=== PATIENT | female | born 1995 | race Caucasian/White ===

== ENCOUNTER → 2020-11-03 10:56 | Outpatient (CLI) | payer OTHER, SELFPAY ==
[2020-11-03 12:35] LABS: Appearance Urine UA SL CLOUDY; Bilirubin Urine UA NEGATIVE (NEGATIVE); Color Urine UA YELLOW; Glucose Urine UA TRACE g/dL (Negative); Ketones Urine UA NEGATIVE (NEGATIVE); Leukocyte Esterase Urine UA 1+ (NEGATIVE); Nitrite Urine UA NEGATIVE (Negative); Occult Blood Urine UA NEGATIVE (Negative); Protein Urine UA NEGATIVE (Negative); Urobilinogen Urine UA 0.2 E.U./dL (0.2)
[2020-11-03 12:37] LABS: RBC Urine None Seen (0-5/HPF)
[2020-11-03 12:39] LABS: Bacteria Urine Few (2-10); Squamous Epithelial Cell Urine 5-10 /HPF (0-5/HPF); WBC Urine 5-10/HPF (0-5/HPF)
[2020-11-03 12:58] LABS: Hep C Virus Ab w/Reflex Quant NEGATIVE s/c (NEGATIVE)
[2020-11-04 09:31] LABS: Varicella IgG Antibody 263 index (Immune >165)
== END ==
PROVIDERS: Referring Provider Family Medicine; Visit Provider Family Medicine
DX: Z34.83 Encounter for supervision of other normal pregnancy, third trimester (principal)
CPT/HCPCS: 36415; 81003; 81015; 86787; 86803; 87086

== ENCOUNTER → 2020-11-08 15:35 | Outpatient (ROUT) | payer OTHER, SELFPAY ==
[2020-11-08 19:39] LABS: Urine N gonorrhoeae NOT DETECTED
[2020-11-08 19:41] LABS: Urine Chlamydia NOT DETECTED
== END ==
PROVIDERS: PCP Family Medicine; Visit Provider Family Medicine
DX: Z34.83 Encounter for supervision of other normal pregnancy, third trimester (principal)
CPT/HCPCS: 87491; 87591

== ENCOUNTER → 2020-11-08 15:41 | Outpatient (CLI) | payer OTHER, SELFPAY ==
[2020-11-09 11:45] LABS: Strep Grp B PCR NEG for Grp B Strep
== END ==
PROVIDERS: PCP Family Medicine; Referring Provider Family Medicine; Visit Provider Family Medicine
DX: Z34.83 Encounter for supervision of other normal pregnancy, third trimester (principal); Z3A.35 35 weeks gestation of pregnancy
CPT/HCPCS: 87491; 87591; 87653

== ENCOUNTER 2020-12-16 16:02 | Outpatient (CLI) | payer OTHER, SELFPAY ==
--- NOTE | 2020-12-16 17:46 | PM.OBTRLD ---
Visit Information Visit Information Date of evaluation: 12/16/20 Primary OB Provider: Alyssa Philip Reason for Evaluation: Yes non-stress test Comments/Additional reasons for admission: 25yo at 41w0d here for post-dates NST. She is feeling her baby move regularly. No LOF, vaginal bleeding, or contractions. [facility] Medical History (Updated 12/16/20 @ 17:47 by Alyssa Philip MD) Asthma Back pain (~2010) Gastritis (~2010) GERD (gastroesophageal reflux disease) (~2010) Ovarian cyst (~2016) Ruptured cyst of left ovary Surgical History (Updated 10/20/20 @ 16:22 by Karen Shore RN) [place] teeth extracted (~2015) Family History (Updated 11/10/20 @ 21:41 by Alyssa Hamilton) Mother Cervical cancer Smoker Father Diabetes mellitus Herniated disc Spondylosis Grandmother Unknown family medical history Diabetes mellitus Smoker Cancer Hyperlipidemia Hypertension Grandfather History of heart disease Grandmother Breast cancer Grandfather Diabetes mellitus Cancer History of heart disease Hypertension Sister Faye syndrome Brother Arthritis of spine Social History marital status: number of children: 1 household members: spouse and children lives independently: Yes caregiver/support person: No housing: house pets and animals: Yes (1 dog: safe) education level: high school 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 ) substance use type: does not use during the past year weight has: remained stable well-balanced diet: daily or most days caffeine: Yes (1 cup coffee daily or every other day. ) Type(s) of exercise: walking and normal ROM and activity (busy with toddler) frequency: daily duration: 15-30 minutes/day Evaluation Evaluation Baseline heart rate: 120 Variability: Moderate (11-25) monitor accelerations: Present Monitor Decelerations: Variable (x1) Category of Tracing: Reactive Diagnosis, Plan/Disposition Final Diagnosis (1) Post-dates : Status: Acute Plan/Disposition Plan: 25yo at 41w0d here for post-dates NST. Single variable decel - prolonged monitoring afterwards normal. MARTHA with bedside ultrasound .39. Safe for d/c home. IOL planned for 12/19 into 12/20. OB Disposition: home
== END 2020-12-16 17:49 | disposition home or self-care (01) ==
LOC: OB 12-20 14:36
PROVIDERS: PCP Family Medicine; Referring Provider Family Medicine; Visit Provider Family Medicine
DX: O48.0 Post-term pregnancy (principal); Z3A.41 41 weeks gestation of pregnancy
CPT/HCPCS: 59025; G0378; G0379

== ENCOUNTER 2020-12-19 18:45 | Inpatient (IN) | payer OTHER, SELFPAY ==
[2020-12-19 20:18] LABS: Add Manual Diff / Slide Review NO; Basophils Absolute Auto 0 /uL (0-100); Basophils Percent Auto 0.1 % (0-2); Eosinophils Absolute Auto 100 /uL (0-450); Eosinophils Percent Auto 0.5 % (2-4); Hematocrit 30.9 % (36-46); Hemoglobin 9.8 g/dL (12.0-16.0); Lymphocytes Absolute Auto 2000 /uL (1100-4500); Lymphocytes Percent Auto 17.2 % (25-40); Mean Corpuscular HGB Conc 31.6 % (30-36); Mean Corpuscular Hemoglobin 25.2 PG (26-34); Mean Corpuscular Volume 79.7 fL (80-100); Monocytes Absolute Auto 800 /uL (0-900); Neutrophils Absolute Auto 8600 /uL (1500-7000); Neutrophils Percent Auto 75.2 % (50-75); Platelet Count 301 X10^3/uL (150-400); Red Blood Cell Count 3.88 X10^6/uL (4.0-5.2); Red Cell Distribution Width 15.6 % (11.6-14.8); White Blood Cell Count 11.4 X10^3/uL (4.5-11.0)
[2020-12-19] MEDS: miSOPROStoL 25 MCG TABLET VAG (21:07)
[2020-12-19 21:25] LABS: COVID19 - ADMIT (NP swab/PCR) Negative (Negative)
[2020-12-19] MEDS: ACETAMINOPHEN 325 MG TABLET 975 MG PO (21:32)
[2020-12-19] MEDS: ZOLPIDEM 5 MG TABLET PO (21:33)
[2020-12-19 21:36] VITALS: BP 118/60
[2020-12-20] MEDS: miSOPROStoL 25 MCG TABLET 50 MCG PO (03:32)
[2020-12-20] MEDS: LACTATED RINGERS 1,000 ML 100 ML IV (06:43)
[2020-12-20] MEDS: fentaNYL 100 MCG/2 ML INJ 50 MCG IV (06:43)
[2020-12-20] MEDS: FENT 2MCG/ML BUPIV 0.125% EPI 200 MCG/100 ML PLAST..BAG 10 MCG EPIDURAL (07:00)
--- NOTE | 2020-12-20 08:22 | PM.OBHP.1 ---
OB HPI Date/Time Date of admission: 12/19/20 Date Patient Seen: 12/20/20 Time Patient Seen: 07:30 History of Present Condition Chief complaint: L&D : 2 Para: 1 Estimated Date of Delivery: 12/09/20 Estimated Gestational Age (weeks): 41w4d Narrative: Emilia Wasserman is a 25 year old at 41w4d here for post-dates IOL. She denies any vaginal bleeding, LOF, or contractions prior to presentation. She is feeling her baby move regularly. She reports that overnight after receiving the cytotec she started having regular painful contractions around 4am. The pt has not had any complications with her . Indications Indication for induction OB: post dates History of Present care: limited care, initiated at week # (19) and pounds weight gain (53) Dating criteria: LMP confirmed by 2nd trimester US Ultrasounds: normal 1st trimester US and normal mid trimester US Obstetrical complications: none Medical complications: none Preadmission Labs Blood type: A (+) positive -: Antibody screen: negative, GBS status: negative, HBsAG: negative, HIV: negative and RPR/VDLR: negative -: Rubella: immune and Varicella: immune HCT: 33.6 HCAB: negative PAP: Normal Cell-free DNA: Normal 1 hr GTT: 88 Prior (ies) History: 06/26/18 - vacuum-assisted after post-dates IOL at 42wks, 9lb1oz male Evaluation Evaluation Baseline heart rate: 130 Variability: Moderate (11-25) monitor accelerations: Present Monitor Decelerations: Variable Contraction Frequency (minutes): 3 Uterine Contraction Intensity: Strong/Firm Status: Category ll Cervical dilation (cm): 10 Cervical effacement (%): 100 station: +1 [facility] Medical History (Updated 12/16/20 @ 17:47 by Alyssa Philip MD) Asthma Back pain (~2010) Gastritis (~2010) GERD (gastroesophageal reflux disease) (~2010) Ovarian cyst (~2016) Ruptured cyst of left ovary Surgical History (Updated 10/20/20 @ 16:22 by Karen Shore RN) [place] teeth extracted (~2015) Family History (Updated 11/10/20 @ 21:41 by Alysas Hamilton) Mother Cervical cancer Smoker Father Diabetes mellitus Herniated disc Spondylosis Grandmother Unknown family medical history Diabetes mellitus Smoker Cancer Hyperlipidemia Hypertension Grandfather History of heart disease Grandmother Breast cancer Grandfather Diabetes mellitus Cancer History of heart disease Hypertension Sister Faye syndrome Brother Arthritis of spine Social History marital status: number of children: 1 household members: spouse and children lives independently: Yes caregiver/support person: No housing: house pets and animals: Yes (1 dog: safe) education level: high school 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 ) substance use type: does not use during the past year weight has: remained stable well-balanced diet: daily or most days caffeine: Yes (1 cup coffee daily or every other day. ) Type(s) of exercise: walking and normal ROM and activity (busy with toddler) frequency: daily duration: 15-30 minutes/day Meds Home Medications and Allergies Home Medications Medication Instructions Recorded Confirmed Type prenat.vits,naseem,mmh-dksn-jlvce 1 tab PO DAILY 10/20/20 12/20/20 History Allergies Allergy/AdvReac Type Severity Reaction Status Date / Time amoxicillin Allergy Intermediate Rash/Hives Verified 10/20/20 16:13 coconut Allergy Hives Verified 10/20/20 16:13 Exam Const General: cooperative, healthy appearing and comfortable Orientation: alert, awake and oriented x3 Resp Effort & Inspection: normal respiratory effort Auscultation: clear to auscultation bilaterally Cardio Rate: regular rate Rhythm: regular rhythm Heart Sounds: S1 normal, S2 normal and no murmurs GI Inspection: non-distended Palpation: soft and No tender Other: gravid Presentation: vertex Extrem General: no clubbing, cyanosis or edema Objective Labs Result Diagrams: 12/19/20 20:00 Labs: Laboratory Results - last 24 hr 12/19/20 12/19/20 12/19/20 20:00 20:00 20:15 WBC 11.4 H RBC 3.88 L Hgb 9.8 L Hct 30.9 L MCV 79.7 L MCH 25.2 L MCHC 31.6 RDW 15.6 H Plt Count 301 Neut % (Auto) 75.2 H Lymph % (Auto) 17.2 L [place] % (Auto) 7.0 Eos % (Auto) 0.5 L Baso % (Auto) 0.1 Neut # (Auto) 8600 H Lymph # (Auto) 2000 [place] # (Auto) 800 Eos # (Auto) 100 Baso # (Auto) 0 SARS-CoV-2 (PCR) Negative Blood Type A Positive Antibody Screen Negative Assessment and Plan Assessment and Plan Assessment and Plan narrative: 25yo at 41w4d here for post-dates IOL. Transitioned to active labor after cytotec. No complications with . GBS negative, Rh positive. - Expectant management, anticipate - FHT Category II with recurrent variables. Oxygen in place. Position changes as needed. Will start pushing now to expedite delivery. - GBS negative, no prophylaxis indicated - Epidural in place for pain control
--- NOTE | 2020-12-20 08:25 | PM.AN.REGBLK ---
Regional Block Pre-procedure Procedure: Continuous Lumbar Epidural for L&D Attending OB provider: Alyssa Philip PMH/ROS narrative: term labor, no complications ASA Class: II Labs: Hct 30.9 % (36-46) L 12/19/20 20:00 Plt Count 301 X10^3/uL (150-400) 12/19/20 20:00 Medications: Current Medications Generic Name Dose Route Start Last Admin Trade Name Freq PRN Reason Stop Dose Admin Acetaminophen 975 mg 12/19/20 21:22 12/19/20 21:32 Acetaminophen 325 Mg Tablet PO 975 mg Q8H PRN Administration Pain, Mild (1-3) Calcium Carbonate 1,000 mg 12/19/20 18:57 Calcium Carbonate 500 Mg Tab PO Q2HR PRN Dyspepsia Carboprost Tromethamine 250 mcg 12/19/20 18:57 Carboprost 250 Mcg/Ml Ampul IM Q90M PRN Bleeding Fentanyl 50 mcg 12/19/20 18:57 12/20/20 06:43 Fentanyl 100 Mcg/2 Ml Inj IV 50 mcg Q1H PRN Administration Pain, Moderate (4-6) Oxytocin/Lactated Ringer's 30 unit in 500 mls @ 200 mls/hr 12/19/20 18:57 Oxytocin Premix IV CONT PRN Bleeding Protocol Tranexamic Acid 1,000 mg/ 100 mls @ 200 mls/hr 12/19/20 18:57 Sodium Chloride IV NOW PRN Bleeding Lactated Ringer's 1,000 mls @ 100 mls/hr 12/19/20 19:00 12/20/20 06:43 Lactated Ringers IV 100 mls/hr CONT LALITA Administration Oxytocin/Lactated Ringer's 30 unit in 500 mls @ 3 mls/hr 12/19/20 19:00 Oxytocin Premix IV TITRATE LALITA Protocol 3 MILLIUNIT/MIN Methylergonovine Maleate 0.2 mg 12/19/20 18:57 Methylergonovine 0.2 Mg Tablet PO Q6HR PRN Heavy Bleeding Methylergonovine Maleate 0.2 mg 12/19/20 18:57 Methylergonovine 0.2 Mg/Ml Vial IM NOW PRN Bleeding Misoprostol 800 mcg 12/19/20 18:57 Misoprostol 200 Mcg Tablet WV NOW PRN Bleeding Misoprostol 1,000 mcg 12/19/20 18:57 Misoprostol 200 Mcg Tablet WV NOW PRN Bleeding Misoprostol 400 mcg 12/19/20 18:57 Misoprostol 200 Mcg Tablet SL NOW PRN Bleeding Misoprostol 50 mcg 12/20/20 03:19 12/20/20 03:32 Misoprostol 25 Mcg Tablet PO 50 mcg Q4H LALITA Administration Naloxone HCl 0.2 mg 12/19/20 18:57 Naloxone 0.4 Mg/Ml Vial IV Q2MIN PRN Opiate Reversal Ondansetron HCl 4 mg 12/19/20 18:57 Ondansetron 4 Mg/2 Ml Inj IV Q4HR PRN Nausea And Vomiting Oxytocin 10 unit 12/19/20 18:57 Oxytocin 10 Unit/Ml Vial IM NOW PRN Bleeding Zolpidem Tartrate 5 mg 12/19/20 21:20 12/19/20 21:33 Zolpidem 5 Mg Tablet PO 5 mg BEDTIME PRN Administration Sleep Allergies: Allergies Allergy/AdvReac Type Severity Reaction Status Date / Time amoxicillin Allergy Intermediate Rash/Hives Verified 10/20/20 16:13 coconut Allergy Hives Verified 10/20/20 16:13 Procedure Insertion date: 12/20/20 Insertion time: 07:00 Prep/Local: betadine x3 and 1% lidocaine Interspace: L3-4 Patient position: sitting Needle: 18 gauge Hustead (CSE: 27g Pencan through Hustead, clear CSF, 1mL 0.25% bupiv) Loss of resistance with: saline JOSH at (cm): 6 Catheter placed at SKIN (cm): 12 Catheter in SPACE (cm): 6 Insertion: No CSF, No Blood, No Paresthesia with insertion, No Paresthesia with injection and No Test dose reaction Initial Medications TEST DOSE time: 07:09 TEST DOSE: 1.5% lidocaine with epinephrine 1:200k (mL): 3 BOLUS DOSE time: 07:20 BOLUS DOSE (mL): 3 BOLUS DOSE med: other (infusate) Infusion INFUSION: 0.125% bupivacaine and with fentanyl 2 mcg/mL Initial rate (mL/hr): 8 Subsequent interventions: Post-procedure Anesthesia time START: 07:00 Anesthesia time END: 08:06 Post-procedure Anesthesia Assessment: Yes CV function: HR/BP stable, Yes Resp function: RR/sat/airway adequate, Yes Mental status appropriate and No Anesthesia complications
[2020-12-20] MEDS: ACETAMINOPHEN 325 MG TABLET 650 MG PO ×2 (12:01→20:31)
--- NOTE | 2020-12-20 13:28 | PM.OBPRVD ---
Labor & Delivery Delivery date: 12/20/20 Intrapartal Events: None Cervical ripening method: per misoprostal protocol Induction method: none Delivery augmentation: rupture of membranes Delivery monitor: external FHT Route of delivery: Episiotomy description: None L&D Laceration Description: None Estimated blood loss (mL): 400 Anesthesia Type: Epidural Complications: None Narrative: PROCEDURE: at 41w4d presented for post-dates and was admitted to Labor and Delivery. The pt received cytotec for induction. The patient progressed through the 1st stage over 1 hours. Pain was controlled with an epidural. AROM was performed with production of thick meconium-stained fluid. The patient progressed through the 2nd stage over 30 minutes and delivered a viable female with APGARs 8/9 at 7:56 via without complications. Nuchal cord x 1 was reduced at the perineum. The cord was cut and clamped after it stopped pulsating. The perineum and vagina were inspected with no lacerations. PREPROCEDURE DIAGNOSIS: Intrauterine at 41w4d GBS negative RH positive POSTPROCEDURE DIAGNOSIS: Intrauterine at 41w4d, delivered Same as preprocedure Baby 1: Infant gender: Female Presentation: vertex Position: Left Occiput Anterior Placenta delivery description: Spontaneous Cord Vessel Description: 3 Vessels and Nuchal Cord score (1 min): 8 score (5 min): 9 weight: 8 lb 12.249 oz Plan for aftercare: Routine care
[2020-12-20] MEDS: OXYCODONE IR 5 MG TABLET PO ×2 (15:33→20:31)
[2020-12-21] MEDS: ACETAMINOPHEN 325 MG TABLET 650 MG PO ×2 (04:13→09:46)
[2020-12-21] MEDS: OXYCODONE IR 5 MG TABLET PO (04:13)
--- NOTE | 2020-12-21 08:04 | PM.OBDS.1 ---
Discharge Providers Provider Date of admission: 12/19/20 18:45 Discharge Date: 12/21/20 Primary care physician: Alyssa Philip MD Consults: 12/21/20 08:37 Consult to Ramp Attendant Routine Comment: Discharge provider: Alyssa Philip MD Summary Hospital Course Date Patient Seen: 12/21/20 Time Patient Seen: 07:50 Diagnoses: 41w4d gestation GBS negative Rh positive Hospital Course: The patient presented for postdates induction of labor. She received Cytotec for induction and transitioned into active labor. She had an epidural for pain control. When the patient was completely dilated AROM was performed both production meconium-stained fluid. The patient has spontaneous vaginal delivery of a viable baby girl on 12/20/2020 without any complications. There were no lacerations. , there were no complications. At the time of discharge was voiding, ambulating, passing flatus without difficulty. Her lochia was decreasing appropriately. Pain was adequately controlled. She was breast-feeding with good latch. She will follow up in clinic in 6 weeks for her check. Her will be the plane soon and she does not plan on contraception at this time. Peripartum Data Infant Delivery Method: Natural Vaginal Laceration Description: None Episiotomy description: None Procedures: Spontaneous vaginal delivery complications: none [place] 1: Gender: Female Disposition of : home Discharge Diagnosis (1) Spontaneous vaginal delivery: Status: Acute (2) Post-dates : Status: Acute Status at Discharge Cognitive/behavioral status at discharge: oriented Functional status at discharge: independent ambulation Overall status at discharge: patient is progressing back to baseline Time Spent with Patient Time attestation: Total time spent providing and/or coordinating discharge services: Objective Labs Result Diagrams: 12/19/20 20:00 Exam Narrative Exam Narrative: Gen: NAD, sitting comfortably in bed, appears well CV: RRR, no murmurs Resp: clear to auscultation bilaterally Abd: soft, appropriately tender, fundus firm and below the umbilicus, nondistended Ext: no edema Discharge Plan Discharge Plan Patient Disposition: Home Discharge orders & Medications Prescriptions: New acetaminophen 325 mg Tablet 650 mg PO Q6HR PRN (Reason: Pain, Mild (1-3)) Qty: 30 RF: 0 oxycodone 5 mg Tablet 5 mg PO Q4HR PRN (Reason: Pain, Moderate (4-6)) Qty: 10 RF: 0 ferrous sulfate [Iron (ferrous sulfate)] 325 mg (65 mg iron) tablet 325 mg PO DAILY Qty: 30 RF: 0 Continued prenat.vits,naseme,[id number] Tablet 1 tab PO DAILY RF: 0 Follow up/Referrals: Alyssa Philip MD [Primary Care Provider] - 6 Weeks Diet/Activity/Treatments Diet: Diet as Tolerated and Regular Skin/Wound/Dressing Care Report to your healthcare provider any signs of infection, such as:: chills, fever, increased pain and unusual drainage Visit Report/Discharge Packet Instructions: DI for Labor and Delivery, Vaginal Visit Report Forms: Patient Portal/API, Stroke Signs & Symptoms Discharge Data Primary Care Provider: Alyssa Philip
[2020-12-21 09:02] VITALS: BP 100/68; PULSE 69; RESP 20; TEMP 36.3
[2020-12-21] MEDS: DOCUSATE 100 MG CAPSULE PO (09:47)
[2020-12-21] MEDS: TET,DIPH,PERTUSS(ACELL),VAC/PF 0.5 ML SYRINGE IM (09:47)
[2020-12-21] MEDS: PRENATAL VIT,CALC/IRON/FOLIC 1 TABLET 1 TAB PO (09:47)
--- NOTE | 2020-12-21 10:39 | PC.NURSE ---
Discharged per ambulation in stable condition. Verbalized understanding of home care instructions.
== END 2020-12-21 10:40 | disposition home or self-care (01) | DRG 807 ==
PROVIDERS: Admitting Provider Family Medicine; PCP Family Medicine; Referring Provider Family Medicine; Visit Provider Family Medicine
DX: O48.0 Post-term pregnancy (principal); Z37.0 Single live birth; Z3A.41 41 weeks gestation of pregnancy; O77.0 Labor and delivery complicated by meconium in amniotic fluid; O69.81X0 Labor and delivery complicated by cord around neck, without compression, not applicable or unspecified; Z20.822 Contact with and (suspected) exposure to COVID-19
CPT/HCPCS: 01967; 36415; 59050; 59200; 59410; 85025; 86850; 86900; 86901; 87635; C9803; 90715; G0379; J3010

== ENCOUNTER → 2021-01-16 12:12 | Outpatient (CLI) | payer OTHER, SELFPAY | PROVIDERS: PCP Family Medicine; Referring Provider Physician Assistant; Visit Provider Physician Assistant | DX: R30.9 Painful micturition, unspecified (principal) | CPT/HCPCS: 87086 ==

== ENCOUNTER → 2021-02-20 11:35 | Outpatient (CLI) | payer OTHER, SELFPAY ==
--- NOTE | 2021-02-20 11:36 | DI.RAD.S_ITS ---
PROCEDURE: XR THORACIC SPINE 2V INDICATIONS: back pain TECHNIQUE: 3 views of the thoracic spine were acquired. COMPARISON: None. FINDINGS: Bones: No fractures or dislocations. No suspicious bony lesions. 12 pairs of ribs are noted, and appear intact where visualized. Soft tissues: No paravertebral stripe thickening. IMPRESSION: Normal T-spine. Dictated by: Mikal Nagel RRA Interpreted: Campos Vieira MD on 02/20/2021 at 13:20 Transcribed by: LINDSEY on 02/20/2021 at 13:20 Approved by: Campos Vieira M.D. on 02/20/2021 at 13:29
== END ==
PROVIDERS: PCP Family Medicine; Referring Provider Family Medicine; Visit Provider Family Medicine
DX: M54.9 Dorsalgia, unspecified (principal)
CPT/HCPCS: 72070

== ENCOUNTER → 2021-03-30 19:07 | Outpatient (CLI) | payer OTHER, SELFPAY ==
--- NOTE | 2021-03-30 19:10 | DI.MRI.S_ITS ---
PROCEDURE: MR THORACIC SPINE WO CON INDICATIONS: mid back pain after epidural TECHNIQUE: Noncontrast sagittal T1 spine echo and T2 fast spin echo, sagittal STIR, axial T1 and T2 fast spin echo through the thoracic spine. COMPARISON: [facility], CR, XR THORACIC SPINE 2V, 02/20/2021, 11:37. FINDINGS: Image quality: Excellent. Alignment and Curvature: There is normal bony alignment. Bone Marrow: Marrow is of normal overall signal. No acute vertebral body compression fractures. Spinal Cord: Visualized spinal cord is normal in size and signal. Paraspinous Soft Tissues: No paravertebral masses. Miscellaneous: On axial images, central canal and foramina appear widely patent at all scanned levels. IMPRESSION: Unremarkable exam. Dictated by: Aarti Enamorado M.D. on 03/30/2021 at 20:35 Approved by: Aarti Enamorado M.D. on 03/30/2021 at 20:36
== END ==
PROVIDERS: PCP Family Medicine; Referring Provider Family Medicine; Visit Provider Family Medicine
DX: M54.9 Dorsalgia, unspecified (principal)
CPT/HCPCS: 72146

== ENCOUNTER 2021-11-11 14:13 | Emergency (ER) | payer OTHER, SELFPAY ==
[2021-11-11] VITALS (26 sets, daily range): BP systolic 93–140; BP diastolic 51–78; PULSE 56–83; RESP 18; TEMP 36.4; O2SAT 65–100
--- NOTE | 2021-11-11 15:16 | DI.US.S_ITS ---
PROCEDURE: US PELVIC COMPLETE INDICATIONS: PAIN TECHNIQUE: Real-time scanning was performed of the pelvic organs, with image documentation. Additional endovaginal scanning was necessary due to incomplete visualization of the adnexal and endometrial structures by transabdominal scanning. COMPARISON: None. FINDINGS: Uterus: Uterus is anteverted and normal in size at 8.0 x 4.3 x 5.8 cm. The myometrium is homogeneous. The endometrium measures 11 mm combined thickness. Ovaries: The right ovary measures 3.2 x 2.1 x 3.6 cm, with a calculated ovarian volume of 12.7 cc. The left ovary measures 2.9 x 2.8 x 4.2 cm, with a calculated ovarian volume of 17.5 cc. The ovaries have a normal sonographic appearance. Less than 12 follicles can be seen in each ovary. No adnexal masses are seen. Other: No pathologic free abdominal or pelvic fluid. IMPRESSION: No significant sonographic abnormality is seen in the pelvis. We strive to produce accurate, complete, and clear reports of imaging services. To assist us in improving patient care, this report was composed using standard report templates and voice recognition software. Therefore, it may contain abnormal punctuation, insertions and/or omissions. Occasional wrong-word or sound-alike substitutions may occur. Though we review the report and make efforts to correct it, we do recommend that the report be read carefully in proper context to recognize any text inaccuracies. Dictated by: Eran Trejo M.D. on 11/11/2021 at 14:44 Approved by: Eran Trejo M.D. on 11/11/2021 at 14:47
[2021-11-11 15:23] LABS: Add Manual Diff / Slide Review NO; Basophils Absolute Auto 0 /uL (0-100); Basophils Percent Auto 0.3 % (0-2); Eosinophils Absolute Auto 100 /uL (0-450); Eosinophils Percent Auto 0.7 % (2-4); Hematocrit 38.7 % (36-46); Hemoglobin 12.9 g/dL (12.0-16.0); Lymphocytes Absolute Auto 2100 /uL (1100-4500); Lymphocytes Percent Auto 23.5 % (25-40); Mean Corpuscular HGB Conc 33.3 % (30-36); Mean Corpuscular Hemoglobin 27.8 PG (26-34); Mean Corpuscular Volume 83.4 fL (80-100); Monocytes Absolute Auto 500 /uL (0-900); Monocytes Percent Auto 5.4 % (3-14); Neutrophils Absolute Auto 6300 /uL (1500-7000); Neutrophils Percent Auto 70.1 % (50-75); Platelet Count 305 X10^3/uL (150-400); Red Blood Cell Count 4.64 X10^6/uL (4.0-5.2); Red Cell Distribution Width 15.6 % (11.6-14.8)
[2021-11-11 15:29] LABS: Alanine Aminotransferase 9 IU/L (<35); Albumin 4.4 g/dL (3.5-5.0); Albumin Globulin Ratio 1.2 (1.0-2.8); Alkaline Phosphatase 65 U/L (38-126); Aspartate Aminotransferase 18 IU/L (14-36); BUN Creatinine Ratio 9.7 (6-22); Bilirubin Total 0.4 mg/dL (0.2-1.3); Blood Urea Nitrogen 7 mg/dL (7-17); Calcium 8.9 mg/dL (8.4-10.2); Carbon Dioxide 24 mmol/L (22-32); Chloride 105 mmol/L (98-107); Estimated Glomerular Filt Rate > 60 mL/min (>60); Globulin 3.6 g/dL (1.7-4.1); Glucose 103 mg/dL (70-100); HEMOLYSIS < 15 (0-50); Lipase 62 U/L (23-300); Potassium 3.8 mmol/L (3.4-5.1); Sodium 141 mmol/L (137-145)
[2021-11-11 15:48] LABS: Bacteria Urine Few (2-10); Culture Indicated Urine Cult Not Indicated; RBC Urine 0-1/HPF (0-5/HPF); Squamous Epithelial Cell Urine >30 /HPF (0-5/HPF); Transitional Epi Cells Urine 1-5/HPF (0-5/HPF); WBC Urine 1-5/HPF (0-5/HPF)
[2021-11-11] MEDS: KETOROLAC 30 MG/ML VIAL 15 MG IV (17:28)
--- NOTE | 2021-11-11 18:37 | ED.GENADULT ---
HPI - General Adult General Chief complaint: Abdominal Pain Stated complaint: stomach pain Time Seen by Provider: 11/11/21 16:47 Source: patient Mode of arrival: Ambulatory Limitations: no limitations History of Present Illness HPI narrative: Patient is a 26-year-old female who is here for evaluation of left-sided abdominal/left adnexal pain. Patient did have the symptoms yesterday. She was seen at an outside emergency department. There were no imaging studies performed. She did have lab work done. Was discharged home. States that her symptoms have continued. Patient reports contraction like symptoms. Has had some vomiting. The Zofran seems to be helping. No fevers. No rashes. No urinary symptoms. No change in bowel habits. The Zofran has not tried anything for the symptoms. She did have a miscarriage approximately 2 months ago. Related Data Previous Rx's Medication Instructions Recorded trazodone 50 mg tablet 50 mg PO BEDTIME #30 tabs 10/23/21 Allergies Allergy/AdvReac Type Severity Reaction Status Date / Time amoxicillin Allergy Intermediate Rash/Hives Verified 11/11/21 14:51 coconut Allergy Hives Verified 11/11/21 14:51 ibuprofen AdvReac Intermediate Gastrointestinal Verified 11/11/21 14:51 Upset Review of Systems Review of Systems ROS Unobtainable: All systems reviewed & are unremarkable except as noted in HPI and below Patient History Medical History Asthma Back pain (~2010) Gastritis (~2010) GERD (gastroesophageal reflux disease) (~2010) Ovarian cyst (~2016) Ruptured cyst of left ovary Surgical History [place] teeth extracted (~2015) Family History Mother Cervical cancer Smoker Father Diabetes mellitus Herniated disc Spondylosis Grandmother Unknown family medical history Diabetes mellitus Smoker Cancer Hyperlipidemia Hypertension Grandfather History of heart disease Grandmother Breast cancer Grandfather Diabetes mellitus Cancer History of heart disease Hypertension Sister Faye syndrome Brother Arthritis of spine Social History marital status: number of children: 1 household members: spouse and children lives independently: Yes caregiver/support person: No housing: house pets and animals: Yes (1 dog: safe) education level: high school 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 ) substance use type: does not use during the past year weight has: remained stable well-balanced diet: daily or most days caffeine: Yes (1 cup coffee daily or every other day. ) Type(s) of exercise: walking and normal ROM and activity (busy with toddler) frequency: daily duration: 15-30 minutes/day Smoking Status: Former smoker tobacco type: vaping alcohol intake frequency: holidays/special occasions only Substance Use Type: does not use Exam Initial Vital Signs Initial Vital Signs: Vital Signs Temperature 97.5 F L 11/11/21 14:45 Pulse Rate 78 11/11/21 14:45 Respiratory Rate 18 11/11/21 14:45 Blood Pressure 103/72 11/11/21 14:45 Pulse Oximetry 99 11/11/21 14:45 Oxygen Delivery Method 11/11/21 14:45 Const General: cooperative, healthy appearing and comfortable HENMT Head: normal to inspection and normocephalic Resp Effort & Inspection: normal respiratory effort Auscultation: clear to auscultation bilaterally Cardio Rate: regular rate Rhythm: regular rhythm GI Inspection: normal to inspection Palpation: soft, No firm, No guarding and tender (Left lower quadrant/left adnexa) Back/Spine/Pelvis Back: No CVA tenderness Skin General: no rashes or lesions noted Neuro General: patient alert, patient awake and patient oriented x3 Extrem General: normal to inspection and capillary refill normal Course Orders Ordered: ED Orders 11/11/21 18:38 CT abdomen pelvis w con Stat Discontinued Medications Ketorolac Tromethamine (Ketorolac 30 Mg/Ml Vial) 15 mg IV NOW ONE Stop: 11/11/21 16:48 Last Admin: 11/11/21 17:28 Dose: 15 mg Documented By: NR Morphine Sulfate (Morphine 4 Mg/Ml Inj) 4 mg IV NOW ONE Stop: 11/11/21 18:38 Last Admin: 11/11/21 19:22 Dose: 4 mg Documented By: NR Ondansetron HCl (Ondansetron 4 Mg/2 Ml Inj) 4 mg IV NOW ONE Stop: 11/11/21 18:38 Last Admin: 11/11/21 19:22 Dose: 4 mg Documented By: NR Ondansetron HCl (Ondansetron 4 Mg Odt Prepack) 1 bottle MISC SEEINSTR ONE Stop: 11/11/21 20:10 Last Admin: 11/11/21 20:12 Dose: 1 bottle Documented By: NR Vital Signs Vital signs: Vital Signs - 8 hr 11/11/21 19:28 11/11/21 19:28 11/11/21 19:30 Pulse Rate 65 62 Blood Pressure 114/62 Pulse Oximetry 99 99 11/11/21 19:58 11/11/21 19:58 11/11/21 20:00 Pulse Rate 64 59 L Blood Pressure 114/70 Pulse Oximetry 100 100 Medical Decision Making Lab Data Lab results reviewed: Yes I reviewed the patient's lab results. Result diagrams: 11/11/21 15:00 11/11/21 15:00 Labs: Lab Results 11/11/21 11/11/21 11/11/21 Range/Units 15:00 15:00 15:00 WBC 9.0 (4.5-11.0) X10^3/uL RBC 4.64 (4.0-5.2) X10^6/uL Hgb 12.9 (12.0-16.0) g/dL Hct 38.7 (36-46) % MCV 83.4 (80-100) fL MCH 27.8 (26-34) PG MCHC 33.3 (30-36) % RDW 15.6 H (11.6-14.8) % Plt Count 305 (150-400) X10^3/uL Neut % (Auto) 70.1 (50-75) % Lymph % (Auto) 23.5 L (25-40) % [place] % (Auto) 5.4 (3-14) % Eos % (Auto) 0.7 L (2-4) % Baso % (Auto) 0.3 (0-2) % Neut # (Auto) 6300 (6644-1347) /uL Lymph # (Auto) 2100 (0650-6427) /uL [place] # (Auto) 500 (0-900) /uL Eos # (Auto) 100 (0-450) /uL Baso # (Auto) 0 (0-100) /uL Sodium 141 (137-145) mmol/L Potassium 3.8 (3.4-5.1) mmol/L Chloride 105 (98-107) mmol/L Carbon Dioxide 24 (22-32) mmol/L BUN 7 (7-17) mg/dL Creatinine 0.72 (0.52-1.04) mg/dL Estimated GFR > 60 (>60) mL/min BUN/Creatinine Ratio 9.7 (6-22) Glucose 103 H (70-100) mg/dL Calcium 8.9 (8.4-10.2) mg/dL Total Bilirubin 0.4 (0.2-1.3) mg/dL AST 18 (14-36) IU/L ALT 9 (<35) IU/L Alkaline Phosphatase 65 (38-126) U/L Total Protein 8.0 (6.3-8.2) g/dL Albumin 4.4 (3.5-5.0) g/dL Globulin 3.6 (1.7-4.1) g/dL Albumin/Globulin Ratio 1.2 (1.0-2.8) Lipase 62 (23-300) U/L Urine RBC 0-1/hpf (0-5/HPF) Urine WBC 1-5/hpf (0-5/HPF) Ur Squamous Epith Cells >30 /hpf H (0-5/HPF) Ur Transition Epith Cell 1-5/hpf (0-5/HPF) Urine Bacteria Few (2-10) H (None) Ur Culture Indicated? Cult not indicated Point of Care Testing Test Results Negative Urine Dip Bedside Urine Glucose Negative Bedside Urine Bilirubin - Negative Bedside Urine Ketone - Negative Urine Specific [place] 1.015 Bedside Urine Occult Blood - Negative Bedside Urine pH 7.5 Bedside Urine Protein +/- 15 Bedside Urine Urobilinogen - Negative Bedside Urine Nitrite - Negative Bedside Urine Leukocytes +/- 15 Esterase Point of care testing: Point of Care Testing Test Results Negative Urine Dip Bedside Urine Glucose Negative Bedside Urine Bilirubin - Negative Bedside Urine Ketone - Negative Urine Specific [place] 1.015 Bedside Urine Occult Blood - Negative Bedside Urine pH 7.5 Bedside Urine Protein +/- 15 Bedside Urine Urobilinogen - Negative Bedside Urine Nitrite - Negative Bedside Urine Leukocytes +/- 15 Esterase Imaging Data US - SOFTWARE TRAINER: Radiologist's Impression: [address] [id number] Ultrasound Report Signed Patient: Emilia Wasserman MR#: [id number] : 1995 Acct:[id number] Age/Sex: 26 / F Date of Service: 11/11/21 Loc: ED Accession Number: [id number] ?? Procedure: US pelvic complete Ordering Provider: Clari Cam D.O. PROCEDURE:? US PELVIC COMPLETE ? INDICATIONS:? PAIN ? TECHNIQUE:? Real-time scanning was performed of the pelvic organs, with image documentation.? Additional endovaginal scanning was necessary due to incomplete visualization of the adnexal and endometrial structures by transabdominal scanning.? ? COMPARISON:? None. ? FINDINGS:? ?? Uterus:? Uterus is anteverted and normal in size at 8.0 x 4.3 x 5.8 cm. The myometrium is homogeneous. ? The endometrium measures 11 mm combined thickness.? ? Ovaries:? The right ovary measures 3.2 x 2.1 x 3.6 cm, with a calculated ovarian volume of 12.7 cc. The left ovary measures 2.9 x 2.8 x 4.2 cm, with a calculated ovarian volume of 17.5 cc. The ovaries have a normal sonographic appearance. Less than 12 follicles can be seen in each ovary.? No adnexal masses are seen. ? Other:? No pathologic free abdominal or pelvic fluid. ? ? IMPRESSION:? No significant sonographic abnormality is seen in the pelvis. ? We strive to produce accurate, complete, and clear reports of imaging services. To assist us in improving patient care, this report was composed using standard report templates and voice recognition software. Therefore, it may contain abnormal punctuation, insertions and/or omissions. Occasional wrong-word or sound-alike substitutions may occur. Though we review the report and make efforts to correct it, we do recommend that the report be read carefully in proper context to recognize any text inaccuracies. ? ? Dictated by: Eran Trejo M.D. on 11/11/2021 at 14:44 ? ? Approved by: Eran Trejo M.D. on 11/11/2021 at 14:47 CT scan - abdomen/pelvis: Radiologist's Impression: [address] [address] [address] Scan Report Signed Patient: Emilia Wasserman MR#: [id number] : 1995 Acct:[id number] Age/Sex: 26 / F Date of Service: 11/11/21 Loc: ED Accession Number: [id number] ?? Procedure: CT abdomen pelvis w con Ordering Provider: Bertin Ruff D.O. PROCEDURE:? CT ABDOMEN PELVIS W CON ? INDICATIONS:? LLQ abd pain ? TECHNIQUE:? After the administration of intravenous contrast, axial sections acquired from the lung bases to the pubic symphysis.? Coronal and sagittal reformats were performed.? For radiation dose reduction, the following was used:? automated exposure control, adjustment of mA and/or kV according to patient size.? ? COMPARISON:? None. ? FINDINGS:? Image quality:? Excellent.? ? Lung bases:? Unremarkable. Heart:? No significant findings. ? ABDOMEN: Liver:? Unremarkable.? ? Gallbladder:? Unremarkable.? ? Biliary ducts:? Unremarkable.? ? Pancreas:? Unremarkable.? ? Spleen:? Unremarkable.? ? Adrenal Glands:? Unremarkable.? ? Kidneys and Ureters:? Unremarkable.? ? ? Stomach and Bowel:? Stomach, small bowel loops, and colon are unremarkable.? Peritoneum:? No abnormal intraperitoneal fluid.? No free air.? ? Ventral Wall: ? No hernias.? Abdominal Nodes:? No retroperitoneal or mesenteric adenopathy by size criteria.? Vessels:? Aorta and inferior vena cava are normal in size.? ? PELVIS: Pelvic Organs:? Unremarkable. ? Bilateral cystic adnexae.? Bladder:? Unremarkable.? ? Pelvic Nodes: No enlarged lymph nodes.? Miscellaneous: No hernias are seen. ? ? ? Bones:? Unremarkable.? IMPRESSION:? No evidence acute abdominal process.? Bilateral cystic adnexae. ? ? Dictated by: Ibrahima Luther M.D. on 11/11/2021 at 19:18 ? ? Approved by: Ibrahima Luther M.D. on 11/11/2021 at 19:21?? MDM Narrative Medical decision making narrative: negative, urinalysis does show bacteria but also has epi cells. She is not having any urinary tract infection like symptoms. Labs unremarkable. Patient has no concern for any sexually transmitted diseases. Has never had a STI in the past. No skin rashes. Ultrasound unremarkable. CT scan does not show definitive etiology for the patient's symptoms. No indication for surgical consultation. No indication for antibiotics. No indication for admission to the hospital. I did discuss this with the patient. Will have her follow-up with her primary doctor for follow-up. She expressed understanding and agreement. Discharge Plan Departure Patient Disposition: Home Clinical Impression: Abdominal pain Instructions: DI for Abdominal Pain-Adult Activity Restrictions/Additional Instructions: You can take Tylenol or ibuprofen for any discomfort. The ultrasound and CT scan today did not give a definitive diagnosis of what is causing your discomfort but it does not appear to be anything infectious or surgical currently. Recommend that you contact your primary doctor for a follow-up. Return to the emergency department for any new or worsening symptoms. Prescriptions: No Action trazodone 50 mg tablet 50 mg PO BEDTIME Qty: 30 2RF Referrals: Alyssa Philip MD [Primary Care Provider] - Visit Report Forms: Patient Portal/API
--- NOTE | 2021-11-11 18:38 | DI.CT.S_ITS ---
PROCEDURE: CT ABDOMEN PELVIS W CON INDICATIONS: LLQ abd pain TECHNIQUE: After the administration of intravenous contrast, axial sections acquired from the lung bases to the pubic symphysis. Coronal and sagittal reformats were performed. For radiation dose reduction, the following was used: automated exposure control, adjustment of mA and/or kV according to patient size. COMPARISON: None. FINDINGS: Image quality: Excellent. Lung bases: Unremarkable. Heart: No significant findings. ABDOMEN: Liver: Unremarkable. Gallbladder: Unremarkable. Biliary ducts: Unremarkable. Pancreas: Unremarkable. Spleen: Unremarkable. Adrenal Glands: Unremarkable. Kidneys and Ureters: Unremarkable. Stomach and Bowel: Stomach, small bowel loops, and colon are unremarkable. Peritoneum: No abnormal intraperitoneal fluid. No free air. Ventral Wall: No hernias. Abdominal Nodes: No retroperitoneal or mesenteric adenopathy by size criteria. Vessels: Aorta and inferior vena cava are normal in size. PELVIS: Pelvic Organs: Unremarkable. Bilateral cystic adnexae. Bladder: Unremarkable. Pelvic Nodes: No enlarged lymph nodes. Miscellaneous: No hernias are seen. Bones: Unremarkable. IMPRESSION: No evidence acute abdominal process. Bilateral cystic adnexae. Dictated by: Ibrahima Luther M.D. on 11/11/2021 at 19:18 Approved by: Ibrahima Luther M.D. on 11/11/2021 at 19:21
[2021-11-11] MEDS: ONDANSETRON 4 MG/2 ML INJ IV (19:22)
[2021-11-11] MEDS: MORPHINE 4 MG/ML INJ IV (19:22)
[2021-11-11] MEDS: ONDANSETRON 4 MG ODT PREPACK 1 BOTTLE MISC (20:12)
== END 2021-11-11 20:21 | disposition home or self-care (01) ==
PROVIDERS: Emergency Medicine; Emergency Provider Emergency Medicine; PCP Family Medicine
DX: R10.32 Left lower quadrant pain (principal)
CPT/HCPCS: 36415; 74177; 76830; 76856; 80053; 81003; 81015; 81025; 83690; 85025; 93975; 96374; 96375; 99284; J1885; J2270; J2405; Q9967

== ENCOUNTER 2021-12-02 00:24 | Emergency (ER) | payer OTHER, SELFPAY ==
[2021-12-02 00:29] VITALS: BP 119/67; PULSE 83; RESP 20; TEMP 37.1; O2SAT 98; BMI 31.6
[2021-12-02 00:39] LABS: Add Manual Diff / Slide Review NO; Basophils Absolute Auto 100 /uL (0-100); Basophils Percent Auto 0.7 % (0-2); Eosinophils Absolute Auto 100 /uL (0-450); Eosinophils Percent Auto 0.7 % (2-4); Hematocrit 36.2 % (36-46); Hemoglobin 12.2 g/dL (12.0-16.0); Lymphocytes Absolute Auto 3000 /uL (1100-4500); Mean Corpuscular HGB Conc 33.7 % (30-36); Mean Corpuscular Hemoglobin 28.2 PG (26-34); Mean Corpuscular Volume 83.5 fL (80-100); Monocytes Absolute Auto 600 /uL (0-900); Monocytes Percent Auto 7.3 % (3-14); Neutrophils Absolute Auto 4300 /uL (1500-7000); Neutrophils Percent Auto 54.3 % (50-75); Platelet Count 265 X10^3/uL (150-400); Red Blood Cell Count 4.34 X10^6/uL (4.0-5.2); Red Cell Distribution Width 15.8 % (11.6-14.8)
--- NOTE | 2021-12-02 00:41 | ED_ITS ---
HPI - General Adult General Chief complaint: Abdominal Pain Stated complaint: LLQ Abd pain n/v Time Seen by Provider: 12/02/21 00:39 Source: patient Mode of arrival: EMS Limitations: no limitations History of Present Illness HPI narrative: Patient is a 26-year-old female who is here for evaluation of left lower dago drant abdominal pain. She is been seen in the emergency department at this hospital by myself in the past for this exact same discomfort. She is had a CT scan and ultrasound which are unremarkable. Labs are unremarkable. Since the last time she was here she has seen her primary doctor. There was some concern about a hernia. She was sent to see General surgery. General surgery stated that she did not have a hernia. There was some question about diverticulitis. This was reported by the patient. She is not on antibiotics. She is scheduled to have a colonoscopy in approximately 2 weeks. Started have the abdominal discomfort again. Nausea. No urinary symptoms. No change in bowel habits. No skin rashes. Related Data Previous Rx's Medication Instructions Recorded trazodone 50 mg tablet 50 mg PO BEDTIME #30 tabs 10/23/21 hydrocodone 5 mg-acetaminophen 325 1 tab PO Q8H PRN pain #30 tabs 11/24/21 mg tablet ondansetron 4 mg disintegrating 8 mg PO Q8H #30 tabs 11/24/21 tablet Allergies Allergy/AdvReac Type Severity Reaction Status Date / Time amoxicillin Allergy Intermediate Rash/Hives Verified 11/27/21 10:51 coconut Allergy Hives Verified 11/27/21 10:51 ibuprofen AdvReac Intermediate Gastrointestinal Verified 11/27/21 10:51 Upset Review of Systems Constitutional Constitutional: Reports system reviewed and no additional complaints, except as documented Cardiovascular Cardiovascular: Reports system reviewed and no additional complaints, except as documented Respiratory Respiratory: Reports system reviewed and no additional complaints, except as documented Gastrointestinal Gastrointestinal: Reports system reviewed and no additional complaints, except as documented Genitourinary Genitourinary: Reports system reviewed and no additional complaints, except as documented Hematologic/Lymphatic On Anticoagulants: No Patient History Medical History Asthma Back pain (~2010) Gastritis (~2010) GERD (gastroesophageal reflux disease) (~2010) Ovarian cyst (~2016) Post-dates Ruptured cyst of left ovary Spontaneous vaginal delivery Surgical History [place] teeth extracted (~2016) Family History Mother Cervical cancer Smoker Father Diabetes mellitus Herniated disc Spondylosis Grandmother Unknown family medical history Diabetes mellitus Smoker Cancer Hyperlipidemia Hypertension Grandfather History of heart disease Grandmother Breast cancer Grandfather Diabetes mellitus Cancer History of heart disease Hypertension Sister Faye syndrome Brother Arthritis of spine Social History marital status: number of children: 1 household members: spouse and children lives independently: Yes caregiver/support person: No housing: house pets and animals: Yes (1 dog: safe) education level: high school 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 ) substance use type: does not use during the past year weight has: remained stable well-balanced diet: daily or most days caffeine: Yes (1 cup coffee daily or every other day. ) Type(s) of exercise: walking and normal ROM and activity (busy with toddler) frequency: daily duration: 15-30 minutes/day Smoking Status: Former smoker tobacco type: vaping alcohol intake frequency: holidays/special occasions only Substance Use Type: does not use Exam Initial Vital Signs Initial Vital Signs: Vital Signs Temperature 98.7 F 12/02/21 00:29 Pulse Rate 83 12/02/21 00:29 Respiratory Rate 20 12/02/21 00:29 Blood Pressure 119/67 12/02/21 00:29 Pulse Oximetry 98 12/02/21 00:29 Oxygen Delivery Method 12/02/21 00:29 Const General: cooperative, comfortable and No ill appearing HENMT Head: normal to inspection and normocephalic Resp Effort & Inspection: normal respiratory effort Auscultation: clear to auscultation bilaterally Cardio Rate: regular rate GI Inspection: normal to inspection Palpation: soft and tender (Left-sided abdomen) Back/Spine/Pelvis Back: No CVA tenderness Neuro General: patient alert, patient awake and moves all extremities Extrem General: normal to inspection and capillary refill normal Psych Appearance: grossly normal and well kempt Course Orders Ordered: ED Orders 12/02/21 00:25 Complete Blood Count AUTO DIFF Stat Comprehensive Metabolic Panel Stat Lipase Stat 12/02/21 00:27 Test Urine Stat Urinalysis and Microscopic Stat Discontinued Medications Ketorolac Tromethamine (Ketorolac 30 Mg/Ml Vial) 30 mg IV NOW ONE Stop: 12/02/21 00:42 Last Admin: 12/02/21 00:58 Dose: 30 mg Documented By: LISA Ondansetron HCl (Ondansetron 4 Mg/2 Ml Inj) 4 mg IV NOW ONE Stop: 12/02/21 00:42 Last Admin: 12/02/21 00:58 Dose: 4 mg Documented By: LISA Vital Signs Vital signs: Vital Signs - 8 hr 12/02/21 00:29 12/02/21 01:53 Temperature 98.7 F Pulse Rate 83 78 Respiratory Rate 20 19 Blood Pressure 119/67 104/58 L Pulse Oximetry 98 98 Oxygen Delivery Method Room Air Room Air Medical Decision Making Lab Data Lab results reviewed: Yes I reviewed the patient's lab results. Result diagrams: 12/02/21 00:25 12/02/21 00:25 Labs: Lab Results 12/02/21 12/02/21 12/02/21 Range/Units 00:25 00:25 00:27 WBC 8.0 (4.5-11.0) X10^3/uL RBC 4.34 (4.0-5.2) X10^6/uL Hgb 12.2 (12.0-16.0) g/dL Hct 36.2 (36-46) % MCV 83.5 (80-100) fL MCH 28.2 (26-34) PG MCHC 33.7 (30-36) % RDW 15.8 H (11.6-14.8) % Plt Count 265 (150-400) X10^3/uL Neut % (Auto) 54.3 (50-75) % Lymph % (Auto) 37.0 (25-40) % [place] % (Auto) 7.3 (3-14) % Eos % (Auto) 0.7 L (2-4) % Baso % (Auto) 0.7 (0-2) % Neut # (Auto) 4300 (8535-1485) /uL Lymph # (Auto) 3000 (8570-9015) /uL [place] # (Auto) 600 (0-900) /uL Eos # (Auto) 100 (0-450) /uL Baso # (Auto) 100 (0-100) /uL Sodium 140 (137-145) mmol/L Potassium 3.5 (3.4-5.1) mmol/L Chloride 112 H (98-107) mmol/L Carbon Dioxide 18 L (22-32) mmol/L BUN 16 (7-17) mg/dL Creatinine 0.77 (0.52-1.04) mg/dL Estimated GFR > 60 (>60) mL/min BUN/Creatinine Ratio 20.8 (6-22) Glucose 104 H (70-100) mg/dL Calcium 8.8 (8.4-10.2) mg/dL Total Bilirubin 0.3 (0.2-1.3) mg/dL AST 15 (14-36) IU/L ALT 11 (<35) IU/L Alkaline Phosphatase 48 (38-126) U/L Total Protein 7.2 (6.3-8.2) g/dL Albumin 4.0 (3.5-5.0) g/dL Globulin 3.2 (1.7-4.1) g/dL Albumin/Globulin Ratio 1.3 (1.0-2.8) Lipase 114 (23-300) U/L Urine Color Yellow Urine Appearance Clear Urine pH 6.5 (4.5-8.0) Ur Specific [place] <=1.005 (1.000-1.035) Urine Protein Negative (Negative) Urine Glucose (UA) Negative (Negative) g/dL Urine Ketones Trace H (NEGATIVE) Urine Occult Blood Negative (Negative) Urine Nitrate Negative (Negative) Urine Bilirubin Negative (NEGATIVE) Urine Urobilinogen 0.2 (0.2) E.U./dL Ur Leukocyte Esterase Negative (NEGATIVE) Urine RBC None seen (0-5/HPF) Urine WBC 1-5/hpf (0-5/HPF) Ur Squamous Epith Cells 1-5 /hpf D (0-5/HPF) Urine Bacteria Occasional (0-1) (None) Ur Culture Indicated? Cult not indicated Urine Test (Negative) 10/01/22 Range/Units 00:27 WBC (4.5-11.0) X10^3/uL RBC (4.0-5.2) X10^6/uL Hgb (12.0-16.0) g/dL Hct (36-46) % MCV (80-100) fL MCH (26-34) PG MCHC (30-36) % RDW (11.6-14.8) % Plt Count (150-400) X10^3/uL Neut % (Auto) (50-75) % Lymph % (Auto) (25-40) % [place] % (Auto) (3-14) % Eos % (Auto) (2-4) % Baso % (Auto) (0-2) % Neut # (Auto) (1912-6041) /uL Lymph # (Auto) (9654-6162) /uL [place] # (Auto) (0-900) /uL Eos # (Auto) (0-450) /uL Baso # (Auto) (0-100) /uL Sodium (137-145) mmol/L Potassium (3.4-5.1) mmol/L Chloride (98-107) mmol/L Carbon Dioxide (22-32) mmol/L BUN (7-17) mg/dL Creatinine (0.52-1.04) mg/dL Estimated GFR (>60) mL/min BUN/Creatinine Ratio (6-22) Glucose (70-100) mg/dL Calcium (8.4-10.2) mg/dL Total Bilirubin (0.2-1.3) mg/dL AST (14-36) IU/L ALT (<35) IU/L Alkaline Phosphatase (38-126) U/L Total Protein (6.3-8.2) g/dL Albumin (3.5-5.0) g/dL Globulin (1.7-4.1) g/dL Albumin/Globulin Ratio (1.0-2.8) Lipase (23-300) U/L Urine Color Urine Appearance Urine pH (4.5-8.0) Ur Specific [place] (1.000-1.035) Urine Protein (Negative) Urine Glucose (UA) (Negative) g/dL Urine Ketones (NEGATIVE) Urine Occult Blood (Negative) Urine Nitrate (Negative) Urine Bilirubin (NEGATIVE) Urine Urobilinogen (0.2) E.U./dL Ur Leukocyte Esterase (NEGATIVE) Urine RBC (0-5/HPF) Urine WBC (0-5/HPF) Ur Squamous Epith Cells (0-5/HPF) Urine Bacteria (None) Ur Culture Indicated? Urine Test Negative (Negative) MDM Narrative Medical decision making narrative: Given her prior workup with the exact symptoms that brought her in today feel that we should hold on any further radiologic studies for now as I have low suspicion that this is an acute surgical intra-abdominal issue. Her labs are unremarkable. test was negative. Informed her that she does need to continue to follow-up with general surgery and have the colonoscopy. I have low suspicion for diverticulitis she states that this is exactly like her prior studies which did not show diverticulitis. No indication for surgical consultation. She was given return precautions and follow-up instructions. She expressed understanding and agreement. Discharge Plan Departure Patient Disposition: Home Clinical Impression: Left lower quadrant pain Instructions: DI for Abdominal Pain-Adult Activity Restrictions/Additional Instructions: Continue to take all of your medications as directed. Contact your primary doctor for a follow-up. I do recommend that you keep your appointment that is scheduled with the general surgeons for a colonoscopy. Return to the emergency department for any new symptoms. Prescriptions: No Action trazodone 50 mg tablet 50 mg PO BEDTIME Qty: 30 2RF ondansetron 4 mg tablet,disintegrating 8 mg PO Q8H Qty: 30 0RF Rx Instructions: Dissolve one or two tablets on tongue every 8 hours as needed for nausea and vomiting hydrocodone-acetaminophen 5-325 mg tablet 1 tab PO Q8H PRN (Reason: pain) Qty: 30 0RF Rx Instructions: Take one tablet with 500mg tab of Tylenol every 8 hours as needed for pain Referrals: Alyssa Philip MD [Primary Care Provider] - Visit Report Forms: Patient Portal/API
[2021-12-02 00:43] LABS: Alanine Aminotransferase 11 IU/L (<35); Albumin Globulin Ratio 1.3 (1.0-2.8); Alkaline Phosphatase 48 U/L (38-126); Aspartate Aminotransferase 15 IU/L (14-36); BUN Creatinine Ratio 20.8 (6-22); Bilirubin Total 0.3 mg/dL (0.2-1.3); Blood Urea Nitrogen 16 mg/dL (7-17); Calcium 8.8 mg/dL (8.4-10.2); Carbon Dioxide 18 mmol/L (22-32); Chloride 112 mmol/L (98-107); Estimated Glomerular Filt Rate > 60 mL/min (>60); Globulin 3.2 g/dL (1.7-4.1); Glucose 104 mg/dL (70-100); HEMOLYSIS < 15 (0-50); Lipase 114 U/L (23-300); Potassium 3.5 mmol/L (3.4-5.1); Sodium 140 mmol/L (137-145); Total Protein 7.2 g/dL (6.3-8.2)
[2021-12-02 00:48] LABS: Pregnancy Test Urine Negative (Negative)
[2021-12-02] MEDS: KETOROLAC 30 MG/ML VIAL IV (00:58)
[2021-12-02] MEDS: ONDANSETRON 4 MG/2 ML INJ IV (00:58)
[2021-12-02 01:26] LABS: Appearance Urine UA CLEAR; Bilirubin Urine UA NEGATIVE (NEGATIVE); Color Urine UA YELLOW; Glucose Urine UA NEGATIVE (Negative); Ketones Urine UA TRACE (NEGATIVE); Leukocyte Esterase Urine UA NEGATIVE (NEGATIVE); Nitrite Urine UA NEGATIVE (Negative); Occult Blood Urine UA NEGATIVE (Negative); Protein Urine UA NEGATIVE (Negative); Specific Gravity Urine UA <=1.005 (1.000-1.035); Urobilinogen Urine UA 0.2 E.U./dL (0.2)
[2021-12-02 01:27] LABS: pH Urine UA 6.5 (4.5-8.0)
[2021-12-02 01:48] LABS: Bacteria Urine Occasional (0-1); Culture Indicated Urine Cult Not Indicated; RBC Urine None Seen (0-5/HPF); Squamous Epithelial Cell Urine 1-5 /HPF (0-5/HPF); WBC Urine 1-5/HPF (0-5/HPF)
[2021-12-02 01:53] VITALS: BP 104/58; PULSE 78; RESP 19; O2SAT 98
== END 2021-12-02 01:54 | disposition home or self-care (01) ==
PROVIDERS: Emergency Provider Emergency Medicine; PCP Family Medicine
DX: R10.32 Left lower quadrant pain (principal)
CPT/HCPCS: 80053; 81001; 81025; 83690; 85025; 96374; 96375; 99283; 99284; J1885; J2405

== ENCOUNTER → 2021-12-13 10:23 | Outpatient (CLI) | payer OTHER, SELFPAY ==
[2021-12-13 11:34] LABS: COVID19 -Nasal RAPID Negative (Negative)
== END ==
PROVIDERS: PCP Family Medicine; Visit Provider Surgery
DX: Z01.812 Encounter for preprocedural laboratory examination (principal); Z20.822 Contact with and (suspected) exposure to COVID-19
CPT/HCPCS: 87635; C9803

== ENCOUNTER 2021-12-14 14:21 | Day surgery (SDC) | payer OTHER, SELFPAY ==
[2021-12-14] VITALS (7 sets, daily range): BP systolic 98–111; BP diastolic 56–75; PULSE 66–78; RESP 14–22; TEMP 36.3–36.6; O2SAT 98–100; BMI 31.6
--- NOTE | 2021-12-14 | PATH_ITS ---
[facility] Accession Number: [id number] . 01 Material submitted: . PART A: ileum - TERMINAL ILEUM BIOPSIES PART B: colon - RANDOM RIGHT COLON BIOPSIES PART C: colon - RANDOM LEFT COLON BIOPSIES . 01 Diagnosis: A. Terminal Ileum, Biopsies: Small bowel mucosa with no diagnostic abnormality. Negative for active inflammation, dysplasia, and malignancy. . B-C. Right Colon, Left Colon, Random Biopsies: Colonic mucosa with no diagnostic abnormality. Negative for active, chronic, and microscopic colitis. Negative for dysplasia and malignancy. . [facility] 12/19/2021 1320 Local . 01 Electronically signed: . Allegra Tee MD, Pathologist NPI- [id number] . 01 Gross description: . Part A: TERMINAL ILEUM BIOPSIES: Received in formalin are 2 fragment(s) of oliveira, soft tissue measuring 0.5 x 0.3 x 0.1 cm to 0.2 x 0.2 x 0.2 cm submitted entirely in 1 cassette(s) Part B: RANDOM RIGHT COLON BIOPSIES: Received in formalin is 1 fragment(s) of oliveira, soft tissue measuring 0.3 x 0.2 x 0.2 cm submitted entirely in 1 cassette(s) Part C: RANDOM LEFT COLON BIOPSIES: Received in formalin are 2 fragment(s) of oliveira, soft tissue measuring 0.5 x 0.3 x 0.1 cm to 0.3 x 0.2 x 0.1 cm submitted entirely in 1 cassette(s) /CPE 12/16/2021 0912 Local . 01 Pathologist provided ICD-10: R10.9 . 01 CPT . 368320, 380009, 152999 Specimen Comment: A courtesy copy of this report has been sent to [phone] Performed at: 01 [facility] Cyt[facility] [address] [facility], [place], [place] [id number] MD Merritt Gould MD Phone: [phone]
[2021-12-14] MEDS: LACTATED RINGERS 1,000 ML 84 ML IV (15:15)
--- NOTE | 2021-12-14 16:23 | PM.PREOP ---
Pre-operative Note COVID-19 COVID-19 status: Negative Result date/Date tested (Pos, Neg/Pending): 12/13/21 Interval Note History & Physical reviewed/Exam performed by Physician: Yes Changes to H&P: No ASA Class (for procedural sedation): II
--- NOTE | 2021-12-14 16:37 | SUR.OPER ---
Ronald Vigil RN noted redness on pt's right arm where IV tape located. Surgeon informed.
[2021-12-14] MEDS: fentaNYL 100 MCG/2 ML INJ IV (16:50)
[2021-12-14] MEDS: MIDAZOLAM 5 MG/5 ML VIAL 10 MG IV (16:51)
--- NOTE | 2021-12-14 16:52 | PM.OP.COLON ---
Operative Date/Time/Diagnoses Date of procedure: 12/14/21 Time of procedure: 16:52 Pre-op diagnosis: Abdominal pain Post-op diagnosis: same Procedure & Clinicians Study performed: Colonoscopy Same procedure as scheduled: Yes Surgeon: Adam Saldana Procedure Notes Procedure in detail: Surgeon: Adam Saldana MD Procedure: The patient was brought to the endoscopy suite, placed in left lateral decubitus position. The patient was connected to monitoring devices. A time-out was performed. Sedation was administered. Once the patient was adequately sedated, a digital rectal exam was performed and was normal. The scope was then inserted and advanced to the cecum where the appendiceal orifice was identified and photographed. The terminal ileum was intubated and mucosa appeared normal. Random biopsies were taken from the terminal ileum. The scope was then slowly withdrawn over greater than 6 minutes. The mucosa was thoroughly inspected. The colon looked completely normal. No polyps were found. No diverticula were noted. Random biopsies were taken from the left and right colon. The scope was retroflexed in the rectum. No abnormalities were noted. The scope was straightened and removed. The patient was awakened and brought to recovery. Versed: 10 mg Fentanyl: 200 mcg EBL: 5 mL Findings: Normal colon Scope withdrawal time: 7 Sedation minutes: 18 Post-procedure Recommendations: Will call with biopsy results Disposition: PACU
--- NOTE | 2021-12-14 17:35 | SUR.PHASEII ---
Called and spoke with Dr Saldana as pt requesting a pain pill for pain to lower abd that she had before the procedure, has been taking oxycodone at home for and has not oxycodone with her and has a [address] home[address] See new order.
[2021-12-14] MEDS: OXYCODONE/ACETAMINOPHEN 5/325 TABLET 1 TAB PO (17:51)
== END 2021-12-14 17:57 | disposition home or self-care (01) ==
PROVIDERS: PCP Family Medicine; Referring Provider Surgery; Visit Provider Surgery
PROC: 0DJD8ZZ Inspection of Lower Intestinal Tract, Via Natural or Artificial Opening Endoscopic (ICD-10-PCS; CPT 45378; principal; 2021-12-14 15:45)
DX: R10.9 Unspecified abdominal pain (principal)
CPT/HCPCS: 45380; 81025; 99152; J2250; J3010

== ENCOUNTER 2022-04-05 06:29 | Day surgery (SDC) | payer OTHER, SELFPAY ==
[2022-04-03 10:51] VITALS: BMI 32.5
[2022-04-05] VITALS (8 sets, daily range): BP systolic 96–115; BP diastolic 63–74; PULSE 59–99; RESP 12–20; TEMP 36.1–37.1; O2SAT 95–100; BMI 32.1
[2022-04-05] MEDS: LACTATED RINGERS 1,000 ML 100 ML IV (07:15)
--- NOTE | 2022-04-05 07:43 | PM.HP.1 ---
History of Present Illness History of Present Illness Date Patient Seen: 04/05/22 Time Patient Seen: 07:44 Chief complaint: Laparoscopic Fulguration Endometriosis Narrative: Patient is a 26-year-old 4 para 2 who presents for a diagnostic laparoscopy with fulguration of endometriosis due to pelvic pain, dysmenorrhea, dyspareunia and menorrhagia. Patient History Medical History (Updated 04/05/22 @ 07:46 by Lyn Ta MD) Asthma Back pain (~2010) Gastritis (~2010) GERD (gastroesophageal reflux disease) (~2010) Ovarian cyst (~2016) Post-dates Ruptured cyst of left ovary Spontaneous vaginal delivery Surgical History (Updated 04/03/22 @ 10:54 by Alesia Houston RN) Hx of colonoscopy (12/14/21) [place] teeth extracted (~2015) Family & Social History Family History Mother Cervical cancer Smoker Father Diabetes mellitus Herniated disc Spondylosis Grandmother Unknown family medical history Diabetes mellitus Smoker Cancer Hyperlipidemia Hypertension Grandfather History of heart disease Grandmother Breast cancer Grandfather Diabetes mellitus Cancer History of heart disease Hypertension Sister Faye syndrome Brother Arthritis of spine Social History: household members spouse,children lives independently Yes caregiver/support person No Tobacco & Substance use: Tobacco type e-cigarettes Smoking Status Former smoker alcohol intake current alcohol intake frequency holiday/special occasion Substance Use Type marijuana Meds Home Medications and Allergies Home Medications Medication Instructions Recorded Confirmed Type trazodone 50 mg tablet 50 mg PO BEDTIME #30 tabs 01/29/22 04/05/22 Rx ondansetron 4 mg disintegrating 8 mg PO Q8H #30 tabs 03/01/22 04/05/22 Rx tablet oxycodone-acetaminophen 5 mg-325 1 tab PO Q8H PRN pain #60 tabs 03/20/22 04/05/22 Rx mg tablet Allergies Allergy/AdvReac Type Severity Reaction Status Date / Time amoxicillin Allergy Intermediate Rash/Hives Verified 04/05/22 07:24 coconut Allergy Hives Verified 04/05/22 07:24 ibuprofen AdvReac Intermediate Gastrointestinal Verified 04/05/22 07:24 Upset Exam Vital Signs (past 8 hours): - 04/05/22 07:29 Temperature 98.0 F Pulse Rate 81 Respiratory Rate 16 Blood Pressure 105/63 Pulse Oximetry 100 Oxygen Delivery Method Room Air Oxygen Delivery Method Room Air Narrative Exam Narrative: HEENT: No thyromegaly, no anterior cervical or supraclavicular lymphadenopathy. Lungs:Clear to auscultation bilaterally, no wheezes. Cardiovascular: Regular rate and rhythm, no murmurs, rubs, or gallops. Abdomen: No scars. No hepatosplenomegaly. No masses palpable. External genitalia: Normal Vagina: Normal Cervix: Normal Bimanual exam: 6 Week size uterus. Mobile. Bilateral uterus sacral tenderness. Extremities: No edema Assessment & Plan Assessment and plan (1) Pelvic pain: Status: Acute (2) Dyspareunia: Status: Acute (3) Dysmenorrhea: Status: Acute (4) Menorrhagia: Problem details: Assessment: 26-year-old 4 para 2 with dyspareunia, dysmenorrhea, pelvic pain, and menorrhagia Plan: Diagnostic laparoscopy with possible fulguration of endometriosis The risks, benefits, and alternatives to the procedure were explained to the patient. The risks including bleeding, infection, injury to the bowel, bladder, or ureters. She understands these risks and agrees to proceed. A full par Q was held and consent form was signed. Qualifiers: Menorrhagia type: with regular cycle Qualified Code(s): N92.0 - Excessive and frequent menstruation with regular cycle Status: Acute Time Spent With Patient Critical Care time: I spent a total of [] minutes of critical care time on this patient's care today; this time is exclusive of procedural time.
--- NOTE | 2022-04-05 07:46 | PM.PREOP ---
Pre-operative Note COVID-19 Criteria for continued procedure: Non-surgical alternatives not available or appropriate per current SOC Interval Note History & Physical reviewed/Exam performed by Physician: Yes Changes to H&P: No H&P completed within 30 days and has changed as indicated here:: 04/05/22
[2022-04-05] MEDS: BUPIVACAINE 0.5% W/ EPI (PF) 30 ML VIAL INJ (08:24)
--- NOTE | 2022-04-05 08:27 | SUR.OPER ---
Lithotomy on padded OR bed, head on pillow, arms padded with gel pads and secured at sides. Legs secured in padded yellow fins stirrups.
--- NOTE | 2022-04-05 08:38 | PM.GYNOP.1 ---
Operative Date/Time/Diagnoses Date of procedure: 04/05/22 Time of procedure: 08:38 Pre-op diagnosis: Dyspareunia Dysmenorrhea Menorrhagia Pelvic pain Post-op diagnosis: same Procedure & Clinicians Procedure: Procedures Operation Date: 04/05/22 07:45 Actual Procedure Side Surgeon p DX Laparoscopy poss. Fulguration of Endometriosis Not Applicable Lyn Ta MD Indications: Dyspareunia Dysmenorrhea Menorrhagia Pelvic pain Surgeon: Lyn Ta Anesthesia Type: General and Local Operative Notes Findings: 7 week size anteverted uterus Normal tubes and ovaries No evidence of endometriosis in the anterior or posterior cul-de-sac, bilateral ovarian fossa, bladder, or bowel Normal appendix Normal liver and gallbladder Closure Type: primary Specimen(s): none Estimated blood loss (mL): 5 Blood products transfused: none Procedure in detail: After informed consent was obtained, the patient was taken to the operating room where she was placed in the dorsal supine position. After adequate general endotracheal anesthesia was achieved, she was placed in the dorsal lithotomy position, and prepped and draped in the usual sterile fashion. A time-out was performed. A bivalve speculum was placed into the vagina and the anterior lip of the cervix was grasped with a single-tooth tenaculum. The cervical os was sequentially dilated until the Zumi uterine manipulator could pass easily into the endometrial cavity. The single-tooth tenaculum was removed from the anterior lip of the cervix. The bivalve speculum was removed from the vagina. Attention was then turned to the abdomen where 6 cc of 0.5% Marcaine with epinephrine were injected in the umbilical fold. A 5 mm incision was made. The Veress needle was placed into the peritoneal cavity, and its placement confirmed with aspiration and drop test. The abdominal cavity was insufflated with 3.1 L of CO2. The Veress needle was removed, and a 5 mm trocar was placed without difficulty. A second 5 mm incision was made 4 cm lateral to the midline after transilluminating the abdominal wall to avoid any blood vessels. A second 5 mm trocar was placed under direct visualization. The probe was placed through the lateral trocar and the bowel was moved out of the pelvis. The patient was placed in slight Trendelenburg. The pelvis was examined with the findings noted above. The instruments were removed from the abdomen. The CO2 was allowed to escape. The incisions were reapproximated with 4-0 Monocryl in a subcuticular fashion. Steri-Strips and Allevyn dressings were placed. The Zumi uterine manipulator was removed from the uterus. Sponge, lap, and instrument counts were correct x2. The patient tolerated the procedure well, and was taken to PACU in stable condition. Complications: none Post-operative Condition: stable Disposition: PACU Plan for aftercare: Home after recovery
[2022-04-05] MEDS: OXYCODONE/ACETAMINOPHEN 5/325 TABLET 1 TAB PO (09:02)
== END 2022-04-05 09:54 | disposition home or self-care (01) ==
PROVIDERS: PCP Family Medicine; Referring Provider Obstetrics & Gynecology; Visit Provider Obstetrics & Gynecology
PROC: 0U5B4ZZ Destruction of Endometrium, Percutaneous Endoscopic Approach (ICD-10-PCS; CPT 58662; principal; 2022-04-05 07:45)
DX: N94.10 Unspecified dyspareunia (principal); N94.6 Dysmenorrhea, unspecified; N92.0 Excessive and frequent menstruation with regular cycle
CPT/HCPCS: 49320; 81025; J1100; J1885; J2250; J2405; J2704; J3010

== ENCOUNTER 2022-04-07 15:07 | Emergency (ER) | payer OTHER, SELFPAY ==
[2022-04-07 15:15] VITALS: BP 114/69; PULSE 76; RESP 17; TEMP 36.7; O2SAT 100
[2022-04-07 15:19] VITALS: PULSE 82; O2SAT 100
[2022-04-07 15:20] VITALS: BP 102/61; PULSE 88; O2SAT 100
--- NOTE | 2022-04-07 15:20 | ED_ITS ---
HPI - General Adult General Chief complaint: Dizziness Stated complaint: Post surgery, vaginal bleeding, dizzy Time Seen by Provider: 04/07/22 15:09 Source: patient Mode of arrival: Ambulatory Limitations: no limitations History of Present Illness HPI narrative: Patient is a 26-year-old female who 2 days ago underwent a exploratory and endovaginal surgery for evaluation of endometriosis. She states she was told that no endometriosis was actually found. She was discharged home with pain medication. She has had vaginal bleeding since the procedure. She states she is continuing to have bleed and earlier today became a little lightheaded. She does have abdominal tenderness. She has been urinating since the procedure but has not had a bowel movement. No fevers. Related Data Previous Rx's Medication Instructions Recorded trazodone 50 mg tablet 50 mg PO BEDTIME #30 tabs 01/29/22 ondansetron 4 mg disintegrating 8 mg PO Q8H #30 tabs 03/01/22 tablet oxycodone 5 mg tablet 5 mg PO Q4H PRN pain #20 tabs 04/05/22 Allergies Allergy/AdvReac Type Severity Reaction Status Date / Time amoxicillin Allergy Intermediate Rash/Hives Verified 04/07/22 15:19 coconut Allergy Hives Verified 04/07/22 15:19 ibuprofen AdvReac Intermediate Gastrointestinal Verified 04/07/22 15:19 Upset Review of Systems Constitutional Constitutional: Reports system reviewed and no additional complaints, except as documented Gastrointestinal Gastrointestinal: Reports system reviewed and no additional complaints, except as documented Genitourinary Genitourinary: Reports system reviewed and no additional complaints, except as documented Integumentary/Breasts Skin/Breast: Reports system reviewed and no additional complaints, except as documented Patient History Medical History Asthma Back pain (~2010) Gastritis (~2010) GERD (gastroesophageal reflux disease) (~2010) Ovarian cyst (~2016) Post-dates Ruptured cyst of left ovary Spontaneous vaginal delivery Surgical History (Updated 04/03/22 @ 10:54 by Alesia Houston RN) Hx of colonoscopy (12/14/21) [place] teeth extracted (~2015) Family History Mother Cervical cancer Smoker Father Diabetes mellitus Herniated disc Spondylosis Grandmother Unknown family medical history Diabetes mellitus Smoker Cancer Hyperlipidemia Hypertension Grandfather History of heart disease Grandmother Breast cancer Grandfather Diabetes mellitus Cancer History of heart disease Hypertension Sister Faye syndrome Brother Arthritis of spine Social History marital status: number of children: 1 household members: spouse and children lives independently: Yes caregiver/support person: No housing: house pets and animals: Yes (1 dog: safe) education level: high school occupational status: unemployed current occupational exposures/hazards: No special alexandra needs: No seatbelt use: always do you feel safe at home: Yes Smoking Status: Former smoker second hand exposure: No alcohol intake: current substance use type: does not use during the past year weight has: remained stable well-balanced diet: daily or most days caffeine: Yes (1 cup coffee daily or every other day. ) Type(s) of exercise: walking and normal ROM and activity frequency: daily duration: 15-30 minutes/day Smoking Status: Former smoker tobacco type: vaping alcohol intake frequency: holidays/special occasions only Substance Use Type: marijuana Exam Initial Vital Signs Initial Vital Signs: Vital Signs Temperature 98.1 F 04/07/22 15:15 Pulse Rate 76 04/07/22 15:15 Respiratory Rate 17 04/07/22 15:15 Blood Pressure 114/69 04/07/22 15:15 Pulse Oximetry 100 04/07/22 15:15 Oxygen Delivery Method 04/07/22 15:15 Const General: cooperative, comfortable and No ill appearing HENMT Head: normal to inspection and normocephalic Resp Effort & Inspection: normal respiratory effort Auscultation: clear to auscultation bilaterally Cardio Rate: regular rate Rhythm: regular rhythm GI Inspection: non-distended Palpation: tender Skin Other: Surgical incisions covered with bandages that are dry and intact. Neuro General: patient alert, patient awake and moves all extremities Course Orders Ordered: ED Orders 04/07/22 15:15 Basic Metabolic Panel Stat Complete Blood Count AUTO DIFF Stat Sodium Chloride (Normal Saline 0.9%) 1,000 mls @ 1,000 mls/hr IV BOLUS ONE Stop: 04/07/22 17:00 Discontinued Medications Hydromorphone HCl (Hydromorphone 0.5 Mg Inj) 0.5 mg IV NOW ONE Stop: 04/07/22 15:22 Last Admin: 04/07/22 15:30 Dose: 0.5 mg Documented By: MINDI Ondansetron HCl (Ondansetron 4 Mg/2 Ml Inj) 4 mg IV NOW ONE Stop: 04/07/22 15:25 Last Admin: 04/07/22 15:30 Dose: 4 mg Documented By: MINDI Vital Signs Vital signs: Vital Signs - 8 hr 04/07/22 15:15 04/07/22 15:19 04/07/22 15:20 Temperature 98.1 F Pulse Rate 76 82 Respiratory Rate 17 Blood Pressure 114/69 102/61 Pulse Oximetry 100 100 Oxygen Delivery Method Room Air 04/07/22 15:20 04/07/22 15:30 04/07/22 15:30 Temperature Pulse Rate 88 85 Respiratory Rate 18 Blood Pressure 97/56 L Pulse Oximetry 100 97 Oxygen Delivery Method 04/07/22 16:00 04/07/22 16:00 Temperature Pulse Rate 67 Respiratory Rate Blood Pressure 99/67 Pulse Oximetry 99 Oxygen Delivery Method Medical Decision Making Medical Records Medical records reviewed: Yes I reviewed the patient's medical records. Lab Data 04/07/22 15:15 04/07/22 15:15 Labs: Lab Results 04/07/22 04/07/22 Range/Units 15:15 15:15 WBC 8.9 (4.5-11.0) X10^3/uL RBC 4.30 (4.0-5.2) X10^6/uL Hgb 12.1 (12.0-16.0) g/dL Hct 36.3 (36-46) % MCV 84.3 (80-100) fL MCH 28.1 (26-34) PG MCHC 33.4 (30-36) % RDW 15.3 H (11.6-14.8) % Plt Count 317 (150-400) X10^3/uL Neut % (Auto) 59.7 (50-75) % Lymph % (Auto) 33.8 (25-40) % [place] % (Auto) 5.1 (3-14) % Eos % (Auto) 1.0 L (2-4) % Baso % (Auto) 0.4 (0-2) % Neut # (Auto) 5300 (9303-2811) /uL Lymph # (Auto) 3000 (5827-8772) /uL [place] # (Auto) 500 (0-900) /uL Eos # (Auto) 100 (0-450) /uL Baso # (Auto) 0 (0-100) /uL Sodium 140 (137-145) mmol/L Potassium 3.9 (3.4-5.1) mmol/L Chloride 105 (98-107) mmol/L Carbon Dioxide 27 (22-32) mmol/L BUN 12 (7-17) mg/dL Creatinine 0.61 (0.52-1.04) mg/dL Estimated GFR > 60 (>60) mL/min BUN/Creatinine Ratio 19.7 (6-22) Glucose 92 (70-100) mg/dL Calcium 8.6 (8.4-10.2) mg/dL MDM Narrative Medical decision making narrative: Patient's blood work today is unremarkable. Her surgical bandages appear well. Her pain is more controlled after medications. She is a follow-up with production lapping machine operator in approximately 10 days from now. She is afebrile. Did consider other etiologies such as intra-abdominal surgical pathology, obstructions, ileus, perforated bowel, and others. I feel given her exam today that we can hold on further radiologic studies. She has pain medication and nausea medicine at home. I advised that she keep her follow-up with her production lapping machine operator doctor to discuss potential other things that she can try to help with her discomfort. Will discharge patient home. She was given return precautions. She expressed understanding and agreement. Discharge Plan Departure Patient Disposition: Home Clinical Impression: Pelvic pain, Vaginal bleeding Activity Restrictions/Additional Instructions: I recommend that you follow all of the postoperative instructions given to you by the production lapping machine operator provider. Take the pain medicine and nausea medicine at home. Return to the emergency department for new symptoms. Prescriptions: No Action trazodone 50 mg tablet 50 mg PO BEDTIME Qty: 30 2RF ondansetron 4 mg tablet,disintegrating 8 mg PO Q8H Qty: 30 0RF Rx Instructions: Dissolve one or two tablets on tongue every 8 hours as needed for nausea and vomiting oxycodone 5 mg tablet 5 mg PO Q4H PRN (Reason: pain) Qty: 20 0RF Referrals: Alyssa hPilip MD [Primary Care Provider] - Stand Alone Forms: Patient Portal/API
[2022-04-07 15:30] VITALS: BP 97/56; PULSE 85; RESP 18; O2SAT 97
[2022-04-07] MEDS: HYDROMORPHONE 0.5 MG INJ IV (15:30)
[2022-04-07] MEDS: ONDANSETRON 4 MG/2 ML INJ IV (15:30)
[2022-04-07 15:31] LABS: Add Manual Diff / Slide Review NO; Basophils Absolute Auto 0 /uL (0-100); Basophils Percent Auto 0.4 % (0-2); Eosinophils Absolute Auto 100 /uL (0-450); Hematocrit 36.3 % (36-46); Hemoglobin 12.1 g/dL (12.0-16.0); Lymphocytes Absolute Auto 3000 /uL (1100-4500); Lymphocytes Percent Auto 33.8 % (25-40); Mean Corpuscular HGB Conc 33.4 % (30-36); Mean Corpuscular Hemoglobin 28.1 PG (26-34); Mean Corpuscular Volume 84.3 fL (80-100); Monocytes Absolute Auto 500 /uL (0-900); Monocytes Percent Auto 5.1 % (3-14); Neutrophils Absolute Auto 5300 /uL (1500-7000); Neutrophils Percent Auto 59.7 % (50-75); Platelet Count 317 X10^3/uL (150-400); Red Cell Distribution Width 15.3 % (11.6-14.8); White Blood Cell Count 8.9 X10^3/uL (4.5-11.0)
[2022-04-07 15:38] LABS: BUN Creatinine Ratio 19.7 (6-22); Blood Urea Nitrogen 12 mg/dL (7-17); Calcium 8.6 mg/dL (8.4-10.2); Carbon Dioxide 27 mmol/L (22-32); Chloride 105 mmol/L (98-107); Estimated Glomerular Filt Rate > 60 mL/min (>60); Glucose 92 mg/dL (70-100); HEMOLYSIS 19 (0-50); Potassium 3.9 mmol/L (3.4-5.1); Sodium 140 mmol/L (137-145)
[2022-04-07 16:00] VITALS: BP 99/67; PULSE 67; O2SAT 99
[2022-04-07 16:30] VITALS: BP 107/70; PULSE 80; O2SAT 100
== END 2022-04-07 16:53 | disposition home or self-care (01) ==
PROVIDERS: Emergency Provider Emergency Medicine; PCP Family Medicine
DX: Z98.890 Other specified postprocedural states (principal); R10.2 Pelvic and perineal pain; N93.9 Abnormal uterine and vaginal bleeding, unspecified
CPT/HCPCS: 36415; 80048; 85025; 96374; 96375; 99284; J1170; J2405

== ENCOUNTER → 2022-05-09 16:36 | Outpatient (CLI) | payer OTHER, SELFPAY ==
[2022-05-09 16:52] LABS: Hematocrit 40.4 % (36-46); Hemoglobin 13.3 g/dL (12.0-16.0)
== END ==
PROVIDERS: PCP Family Medicine; Referring Provider Obstetrics & Gynecology; Visit Provider Obstetrics & Gynecology
DX: N92.0 Excessive and frequent menstruation with regular cycle (principal); R10.2 Pelvic and perineal pain; Z01.818 Encounter for other preprocedural examination
CPT/HCPCS: 36415; 85014; 85018

== ENCOUNTER 2022-06-15 08:27 | Day surgery (SDC) | payer OTHER, SELFPAY ==
[2022-05-10 08:26] VITALS: BMI 32.5
[2022-06-15] VITALS (16 sets, daily range): BP systolic 97–121; BP diastolic 60–81; PULSE 53–98; RESP 10–19; TEMP 36.1–36.8; O2SAT 95–100; BMI 32.5
--- NOTE | 2022-06-15 | PATH_ITS ---
[facility] Accession Number: [id number] No. of containers..01 Tissue . 01 Material submitted: . uterus - UTERUS, BILATERAL FALLOPIAN TUBES . 01 Diagnosis: Uterus and Right and Left Fallopian Tubes, Supracervical Hysterectomy and Bilateral Salpingectomy: Endometrium: Inactive with progestin effect. Myometrium: Adenomyosis. Serosa: No significant pathologic abnormalities. Fallopian tubes: No significant pathologic abnormalities. MRV 06/19/2022 1613 Local . 01 Electronically signed: . Ashley Juan MD, Pathologist NPI- [id number] . 01 Gross description: . The specimen is received in formalin labeled with the patient's name, , and uterus, bilateral fallopian tubes, and consists of a fragmented uterus (92 g, 7.8 x 7.5 x 6.6 cm in aggregate) and two unoriented, fimbriated fallopian tubes (8.1 x 1.0 cm and 7.8 x 0.6 cm). No cervix or additional adnexa are identified. The serosa is oliveira and smooth with no evidence of adhesion or hemorrhage identified. The endometrium is oliveira and velvety and averages 0.1 cm thick with no lesions identified. The myometrium is pink-oliveira and trabecular, measuring up to 3.2 cm thick with no lesions or nodules identified. The longer fallopian tube has congested smooth serosa with no cystic structures identified. Sectioning reveals an unremarkable stellate lumen. The shorter fallopian tube has congested smooth serosa with no cystic structures identified. Sectioning reveals an unremarkable stellate lumen. Cement Worker sections are submitted as follows: A1: Full-thickness section. A2: Additional endometrium. A3: Serosa. A4: Longer fallopian tube to include one-half of bisected fimbriae and cross sections. A5. [place] fallopian tube to include one-half of bisected fimbriae and cross sections. ([id number]) /FRR 06/16/2022 1157 Local . 01 Pathologist provided ICD-10: R10.2 . 01 CPT . 007383 Specimen Comment: A courtesy copy of this report has been sent to [phone] Performed at: 01 [facility] [address] [place] [address], [place], [place] [id number] MD Merritt Gould MD Phone: [phone]
[2022-06-15 09:08] LABS: COVID19 -Nasal RAPID Negative (Negative)
--- NOTE | 2022-06-15 09:30 | PM.GYNHP.1 ---
History of Present Illness History of Present Illness Reason for admission: pelvic pain Narrative: Emilia Wasserman is a 26 year old female 4 para 2 with menorrhagia, dysmenorrhea, and pelvic pain. She presents for a laparoscopic supracervical hysterectomy with bilateral salpingectomy. [facility] Medical History (Updated 06/15/22 @ 09:31 by Lyn Ta MD) Asthma Back pain (~2010) Gastritis (~2010) GERD (gastroesophageal reflux disease) (~2010) Surgical History (Updated 05/10/22 @ 08:32 by Alesia Houston RN) History of laparoscopy (04/05/22) Hx of colonoscopy (12/14/21) [place] teeth extracted (~2015) Family History Mother Cervical cancer Smoker Father Diabetes mellitus Herniated disc Spondylosis Grandmother Unknown family medical history Diabetes mellitus Smoker Cancer Hyperlipidemia Hypertension Grandfather History of heart disease Grandmother Breast cancer Grandfather Diabetes mellitus Cancer History of heart disease Hypertension Sister Faye syndrome Brother Arthritis of spine Social History marital status: number of children: 1 household members: spouse and children lives independently: Yes caregiver/support person: No housing: house pets and animals: Yes (1 dog: safe) education level: high school occupational status: unemployed current occupational exposures/hazards: No special alexandra needs: No seatbelt use: always do you feel safe at home: Yes Smoking Status: Former smoker second hand exposure: No alcohol intake: current substance use type: does not use during the past year weight has: remained stable well-balanced diet: daily or most days caffeine: Yes (1 cup coffee daily or every other day. ) Type(s) of exercise: walking and normal ROM and activity frequency: daily duration: 15-30 minutes/day Meds Home Medications and Allergies Home Medications Medication Instructions Recorded Confirmed Type trazodone 50 mg tablet See Rx Instructions .Route 05/16/22 06/15/22 Rx .COMPLEX #30 tabs medroxyprogesterone 10 mg tablet 10 mg PO .COMPLEX #90 tabs 05/28/22 06/15/22 Rx ondansetron 4 mg disintegrating 8 mg PO Q8H #30 tabs 05/28/22 06/15/22 Rx tablet Allergies Allergy/AdvReac Type Severity Reaction Status Date / Time amoxicillin Allergy Intermediate Rash/Hives Verified 05/09/22 16:00 coconut Allergy Hives Verified 05/09/22 16:00 ibuprofen AdvReac Intermediate Gastrointestinal Verified 05/09/22 16:00 Upset Exam Vital Signs (past 8 hours): - 06/15/22 09:01 Temperature 97.7 F Pulse Rate 95 H Respiratory Rate 16 Blood Pressure 107/76 Pulse Oximetry 95 Oxygen Delivery Method Room Air Oxygen Delivery Method Room Air Narrative Exam Narrative: HEENT: No thyromegaly, no anterior cervical or supraclavicular lymphadenopathy. Lungs:Clear to auscultation bilaterally, no wheezes. Cardiovascular: Regular rate and rhythm, no murmurs, rubs, or gallops. Abdomen: Well-healed laparoscopy scars. No hepatosplenomegaly. No masses palpable. External genitalia: Normal Vagina: Normal Cervix: Normal Bimanual exam: 8 Week size anteverted uterus. Mobile. Extremities: No edema Objective Labs Labs: Laboratory Results - last 24 hr 06/15/22 08:50 SARS-CoV-2 (PCR) Negative Assessment & Plan Assessment & Plan narrative: Assessment: 26-year-old 4 para 2 with menorrhagia, dysmenorrhea, and pelvic pain Plan: Laparoscopic supracervical hysterectomy with bilateral salpingectomy The risks, benefits, and alternatives to the procedure were explained to the patient. The risks including bleeding, infection, injury to the bowel, bladder, or ureters. She understands these risks and agrees to proceed. A full par Q was held and consent form was signed. Time Spent With Patient Time with patient: less than 30 minutes
--- NOTE | 2022-06-15 09:32 | PM.PREOP ---
Pre-operative Note COVID-19 Criteria for continued procedure: Non-surgical alternatives not available or appropriate per current SOC Interval Note History & Physical reviewed/Exam performed by Physician: Yes Changes to H&P: No H&P completed within 30 days and has changed as indicated here:: 06/15/22
[2022-06-15] MEDS: CEFAZOLIN 2 GM/100 ML PREMIX 100 ML IV (09:55)
[2022-06-15] MEDS: BUPIVACAINE 0.5% (PF) 30 ML, EPINEPHrine 0.15 MG INJ (10:25)
--- NOTE | 2022-06-15 10:29 | SUR.OPER ---
Lithotomy on padded OR bed. [place] Pad Positioner under torso. Head on pillow, arms padded and tucked at sides. Legs secured in padded yellow fins stirrups.
[2022-06-15] MEDS: LACTATED RINGERS 1,000 ML 100 ML IV ×2 (10:37→13:56)
[2022-06-15] MEDS: ROPIVACAINE 0.2% PF 2 MG/ML 20ML AMP 20 ML INJ (11:02)
[2022-06-15] MEDS: ACETAMINOPHEN IV 1,000 MG/100 ML VIAL 400 MG IV (11:19)
--- NOTE | 2022-06-15 11:30 | PM.GYNOP.1 ---
Operative Date/Time/Diagnoses Date of procedure: 06/15/22 Time of procedure: 11:25 Pre-op diagnosis: Menorrhagia Dysmenorrhea Pelvic pain Post-op diagnosis: same Procedure & Clinicians Procedure: Procedures Operation Date: 06/15/22 09:45 Actual Procedure Side Surgeon p Laparoscopic Supracervical Hysterectomy with Bilateral salpingectomy Lyn Ta MD Indications: Menorrhagia Dysmenorrhea Pelvic pain Surgeon: Lyn Ta Lead Radiologic Technologist: Josesito Allen Anesthesia Type: General and Local Operative Notes Findings: 8 week size anteverted uterus Normal tubes 2 cm simple left ovarian cyst Normal appendix Normal liver Closure Type: primary Specimen(s): left tube, right tube and uterus Applied: catheter (Removed at the end of the case) Estimated blood loss (mL): 75 Blood products transfused: none Procedure in detail: The patient was taken to the operating room where she was placed in the dorsal supine position. After adequate general endotracheal anesthesia was achieved, she was placed in the dorsal lithotomy position, and prepped and draped in the usual sterile fashion. A timeout was performed. A bivalve speculum was placed into the vagina and the anterior lip of the cervix grasped with a single-tooth tenaculum. The cervical os was sequentially dilated until the ZUMI uterine manipulator could pass easily into the endometrial cavity. The single-tooth tenaculum was removed from the anterior lip of the cervix, and the bivalve speculum was removed from the vagina. Attention was then turned to the abdomen where 6 mL of half percent Marcaine with epinephrine were injected in the umbilical fold. A 5 mm incision was made. The Verees needle was placed into the peritoneal cavity, and its placement confirmed by aspiration and drop test. The Verees needle was removed. A 5 mm trocar was placed without difficulty. 2 other incisions were made 4 cm lateral to the umbilicus after 5 mL of half percent Marcaine with epinephrine were injected. These were 5 mm incisions. Two 5 mm trocars were placed under direct visualization. The right tube was grasped with an atraumatic grasper. Using the Powerseal the mesosalpinx was cauterized and cut all the way down to the cornua of the uterus. The cornua of the uterus was then grasped with an atraumatic grasper. The utero-ovarian ligaments were cauterized and cut. The round ligament and broad ligament was cauterized and cut. Hemostasis was achieved. The bladder flap was created using the Powerseal with cautery and cut detention across. The uterine arteries on the right side were extensively cauterized. All of this was repeated on the left side. The remainder of the bladder flap was created using the Powerseal, and the bladder taken down off the lower uterine segment and cervix. Using the Linaloop, the cervix was amputated from the uterus 2 cm above the uterosacral ligaments, after the ZUMI uterine manipulator was removed from the uterus. There was a small amount of bleeding noted from the posterior edge of the cervix, and this was cauterized for hemostasis. A sponge stick was placed into the vagina. 6 mL of half percent Marcaine with epinephrine were injected above the pubic symphysis. A 12 mm incision was made. A 12 mm trocar was placed. An Endobag was placed through the suprapubic trocar and the uterus and tubes were placed into the Endobag. The trocar was removed. The edges of the bag were brought up through the skin. The uterus was grasped with a Trent. The Marek placed into the endobag. The uterus was hand morcellated in approximately 5 pieces. The Endobag was removed from the peritoneal cavity with the Marek. The fascia was closed on the suprapubic incision using 0 Vicryl in a running fashion. The abdomen was re-insufflated. The pelvis was copiously irrigated with warm normal saline. There was a small amount of bleeding that was cauterized with the spatula cautery. The spatula cautery was also used to cauterize the endocervical canal. 20 cc of 0.2% ropivacaine were placed over the pelvic pedicles. The instruments were removed from the abdomen. The CO2 was allowed to escape. All of the incisions were closed with 4-0 Biosyn in a subcuticular fashion. Steri-Strips and Allevyn dressings were placed. The moistened sponge stick was removed from the vagina. Sponge, lap, and instrument counts were correct x 2. The patient tolerated the procedure well, was taken to PACU in stable condition. Complications: none Post-operative Condition: stable Disposition: PACU Plan for aftercare: To acute care after recovery
[2022-06-15] MEDS: fentaNYL 100 MCG/2 ML INJ IV ×2 (11:44→12:04)
[2022-06-15] MEDS: ONDANSETRON 4 MG/2 ML INJ IV ×3 (11:59→21:55)
[2022-06-15] MEDS: OXYCODONE IR 5 MG TABLET PO (12:02)
--- NOTE | 2022-06-15 12:32 | SUR.PHASEI ---
Bert () called. already waiting in patient's room. Ronald De Souza RN.
--- NOTE | 2022-06-15 12:38 | SUR.PHASEI ---
Report given to ROSEANNE Shah. Patient VSS. Pain tolerable. Belongings sent up with patient. Ronald De Souza RN
[2022-06-15] MEDS: MORPHINE 2 MG/ML INJ 1 MG IV (13:52)
[2022-06-15] MEDS: ACETAMINOPHEN 325 MG TABLET 650 MG PO ×2 (14:07→20:17)
[2022-06-15] MEDS: MORPHINE 2 MG/ML INJ IV ×3 (15:13→21:55)
--- NOTE | 2022-06-15 18:00 | PC.NURSE ---
Pt arrived from PACU at 1255, VSS, afebrile on RA. Abdomen with x4 lap sites c/d/I.She c/o pain to abdomen 6/10 and to R shoulder and collar bone. Ice pack and warm blankets applied, scd's in place, IV LR running at 100 ml /hr. MD notified for pain medications and 1 mg morphine administered x1 per orders, as well as scheduled tylenol. She reports pain improved to 4/10, but returning shortly after. MD notified for pain medications and per orders as patient c/o 8/10 pain and wanting to ambulate to void per request patient given 2 mg morphine IV with good effect. MD at bedside this afternoon evaluating patient. at bedside supportive. Administered prn zofran for nausea and she tolerated 100% of dinner and ambulated to BR to void. Pt VSS remain stable, she continues to complain of R shoulder pain likd shoulder dislocated explained to patient ambulating will continue to help relief gas pain. She is medicated this evening with 10 mg oxycodone per request, tolerating well. Continuous monitoring.
[2022-06-15] MEDS: DOCUSATE 100 MG CAPSULE 200 MG PO (20:18)
[2022-06-15] MEDS: TRAZODONE 50 MG TABLET PO (21:55)
[2022-06-16 01:00] VITALS: BP 97/50; PULSE 77; RESP 19; TEMP 36.4; O2SAT 96
[2022-06-16] MEDS: MORPHINE 2 MG/ML INJ IV ×2 (04:18→08:00)
[2022-06-16 04:22] VITALS: BP 110/58; PULSE 92; RESP 19; TEMP 36.4; O2SAT 95
[2022-06-16] MEDS: ONDANSETRON 4 MG/2 ML INJ IV ×2 (04:55→11:58)
[2022-06-16 06:57] LABS: Add Manual Diff / Slide Review NO; Basophils Absolute Auto 100 /uL (0-100); Basophils Percent Auto 0.5 % (0-2); Eosinophils Absolute Auto 0 /uL (0-450); Eosinophils Percent Auto 0.2 % (2-4); Hematocrit 32.8 % (36-46); Lymphocytes Absolute Auto 2100 /uL (1100-4500); Lymphocytes Percent Auto 16.6 % (25-40); Mean Corpuscular HGB Conc 33.5 % (30-36); Mean Corpuscular Hemoglobin 27.9 PG (26-34); Mean Corpuscular Volume 83.3 fL (80-100); Monocytes Absolute Auto 800 /uL (0-900); Monocytes Percent Auto 6.7 % (3-14); Neutrophils Absolute Auto 9600 /uL (1500-7000); Platelet Count 251 X10^3/uL (150-400); Red Blood Cell Count 3.94 X10^6/uL (4.0-5.2); Red Cell Distribution Width 15.5 % (11.6-14.8); White Blood Cell Count 12.6 X10^3/uL (4.5-11.0)
--- NOTE | 2022-06-16 07:32 | CM.DANOTE ---
Addendum entered by DON Quezada 06/16/22 11:28: ADD: Per OBGYN, pt medically stable to d/c home today and outpt f/u and no identified barriers to discharge. RN to provide d/c instructions and spouse to transport. BF Original Note: Patient is a 26 yo female who was admitted on 06/15/22 for Lap Hysterectomy. Pt has [employer] for insurance and her PCP is Dr. Alyssa Philip. EMR was reviewed. Per OBGYN, pt tolerated procedure well with some break through pain but pain seems better managed now. Per RN, pt has supportive spouse bedside and was given zofran for nausea but was able to tolerate all of her dinner and ambulated to bathroom and was able to independently void. No identified concerns. Pt resides with her spouse and children in [place] and is active and independent at baseline. Plan: SW to follow for possible discharge home with family today or tomorrow pending progress and no SW needs at this time, please refer if indicated. DON Quezada Discharge Planning/Care Management Pre-Anesthesia Assessment Start: 05/10/22 08:26 Freq: Status: Active Protocol: Document 05/10/22 08:26 CAB (Rec: 05/10/22 08:32 CAB [id number]) Pre-Anesthesia Assessment Patient Information Reviewed Via Chart Review Primary Care Provider Alyssa Philip Seen Specialist in Last 12 Months Yes Specialist Seen Emergency,General surgeon, [employer] Primary Language Mongolian Preferred Language Mongolian Instrument Lens Generator Required No Height 165.1 cm Weight 88.904 kg Body Mass Index (BMI) 32.5 Barriers to Learning None Hx Anesthesia Reactions No Hx Family Anesthesia Reaction No Hx Malignant Hyperthermia No Hx Blood Transfusion Reaction No Anesthesia Review Requested No Square Cutter No alcohol intake current alcohol intake frequency holidays/special occasions only Smoking Status Former smoker Tobacco type e-cigarettes how long ago did patient quit smoking 2019 Substance Use Type marijuana Pain Present Pain Reported History of Falling (Recent or History of No ) Patient is completely paralyzed or No completely immobile Mental Status Oriented to own ability Is patient on oxygen? No Hx Sleep Apnea No CPAP/BIPAP use not prescribed Currently Taking a Beta Marga No Anti-Coagulant Therapy No Cardiac Testing No Hx Pacemaker/ICD No Pacemaker Rep Required? No Cardiac Clearance Received Not Applicable Gastrointestinal Symptoms Reflux Genitourinary Symptoms Pelvic Pain Urinary Catheter Present No Hx Urinary Self Catheterization No Diabetes No Patient No Presence of External or Internal Medical No Devices Received a COVID vaccine? No Marital Status Lives With spouse,children Patient Discharge Plan Description Return Home Advance Directives? No
[2022-06-16 08:21] VITALS: BP 112/68; PULSE 56; RESP 16; TEMP 36.7; O2SAT 99
[2022-06-16] MEDS: DOCUSATE 100 MG CAPSULE 200 MG PO (09:11)
[2022-06-16] MEDS: OXYCODONE IR 10 MG TABLET PO (09:12)
[2022-06-16] MEDS: ACETAMINOPHEN 325 MG TABLET 650 MG PO (09:12)
[2022-06-16] MEDS: LACTATED RINGERS 1,000 ML 100 ML IV (09:46)
--- NOTE | 2022-06-16 10:42 | PM.DS.1 ---
History of Present Illness History of Present Illness Date Patient Seen: 06/16/22 Time Patient Seen: 10:46 Chief complaint: Laparoscopic Supracervical Hysterectomy Narrative: Patient is a 26-year-old postop day # 1 status post laparoscopic supracervical hysterectomy with bilateral salpingectomy. This procedure was without complications. Her postoperative course was complicated by some pain control issues which were resolved with addition of IV morphine. She is having some gas pain in her shoulders. She is ambulating. She has been able to void without the catheter. Discharge Providers Provider Discharge Date: 06/16/22 Primary care physician: Alyssa Philip MD Discharge provider: Lyn Ta MD Summary Hospital Course Discharge Diagnosis: Menorrhagia Dysmenorrhea Pelvic pain Simple left ovarian cyst Status post laparoscopic supracervical hysterectomy and bilateral salpingectomy Hospital Course: Patient is a 26-year-old postop day # 1 who underwent a laparoscopic supracervical hysterectomy with bilateral salpingectomy and excision of left ovarian cyst, without complication. Her catheter was removed at the end of the case. She has been able to void without the catheter. She is ambulating. She is tolerating a diet. She is passing gas. She has had some shoulder pain and is using some heat packs for that. She had some pain management issues for the first few hours after surgery but this resolved with addition of IV morphine. Status at Discharge Cognitive/behavioral status at discharge: oriented Functional status at discharge: independent ambulation Overall status at discharge: patient is progressing back to baseline Time Spent with Patient Time spent: Less than 30 minutes Exam Vital Signs (past 8 hours): - 06/16/22 04:22 06/16/22 08:21 Temperature 97.6 F 98.0 F Pulse Rate 92 H 56 L Respiratory Rate 19 16 Blood Pressure 110/58 L 112/68 Pulse Oximetry 95 99 Oxygen Flow Rate 0 Oxygen Delivery Method Room Air Oxygen Flow Rate 0 Narrative Exam Narrative: Generally: Patient is sitting up in bed, no acute distress Lungs: Clear to auscultation bilaterally Cardiovascular: Regular rate and rhythm Abdomen: Soft, appropriately tender. Incisions: Clean dry and intact with Allevyn dressings Extremities: No edema, negative Homans Objective Labs 06/16/22 06:40 Labs: Laboratory Results - last 24 hr 06/16/22 06:40 WBC 12.6 H RBC 3.94 L Hgb 11.0 L Hct 32.8 L MCV 83.3 MCH 27.9 MCHC 33.5 RDW 15.5 H Plt Count 251 Neut % (Auto) 76.0 H Lymph % (Auto) 16.6 L Brantley % (Auto) 6.7 Eos % (Auto) 0.2 L Baso % (Auto) 0.5 Neut # (Auto) 9600 H Lymph # (Auto) 2100 Brantley # (Auto) 800 Eos # (Auto) 0 Baso # (Auto) 100 PFSH Medical History (Updated 06/15/22 @ 09:31 by Lyn Ta MD) Asthma Back pain (~2010) Gastritis (~2010) GERD (gastroesophageal reflux disease) (~2010) Surgical History (Updated 05/10/22 @ 08:32 by Alesia Houston RN) History of laparoscopy (04/05/22) Hx of colonoscopy (12/14/21) [place] teeth extracted (~2015) Family History Mother Cervical cancer Smoker Father Diabetes mellitus Herniated disc Spondylosis Grandmother Unknown family medical history Diabetes mellitus Smoker Cancer Hyperlipidemia Hypertension Grandfather History of heart disease Grandmother Breast cancer Grandfather Diabetes mellitus Cancer History of heart disease Hypertension Sister Faye syndrome Brother Arthritis of spine Social History marital status: number of children: 1 household members: spouse and children lives independently: Yes caregiver/support person: No housing: house pets and animals: Yes (1 dog: safe) education level: high school occupational status: unemployed current occupational exposures/hazards: No special alexandra needs: No seatbelt use: always do you feel safe at home: Yes Smoking Status: Former smoker second hand exposure: No alcohol intake: current substance use type: does not use during the past year weight has: remained stable well-balanced diet: daily or most days caffeine: Yes (1 cup coffee daily or every other day. ) Type(s) of exercise: walking and normal ROM and activity frequency: daily duration: 15-30 minutes/day Discharge Plan Discharge Plan Patient Disposition: Home Provider Discharge Comment: Call with fever, chills, or redness or drainage around the incisions Call with bleeding vaginally more than spotting Tylenol 650 mg every 6 hours Stool softeners until bowel returns to normal Discharge orders & Medications Discharge Orders: Discharge (Order); Ordered 06/16/22 Ordered By: Lyn Ta Prescriptions: New oxycodone 10 mg tablet 10 mg PO Q4H PRN (Reason: pain) Qty: 30 0RF Rx Instructions: 1/2 to one tablet every 4 hours as needed Continued trazodone 50 mg tablet See Rx Instructions .ROUTE .COMPLEX Qty: 30 0RF Dose Instruction: take 1 tablet by mouth at bedtime if needed for sleep / insomnia Rx Instructions: take 1 tablet by mouth at bedtime if needed for sleep / insomnia ondansetron 4 mg tablet,disintegrating 8 mg PO Q8H Qty: 30 0RF Rx Instructions: Dissolve one or two tablets on tongue every 8 hours as needed for nausea and vomiting Discontinued medroxyprogesterone 10 mg tablet 10 mg PO .COMPLEX Qty: 90 0RF Rx Instructions: 2 tabs PO Q2hr until bleeding stops, [id number], [id number], [id number], [id number], [id number] Follow up/Referrals: Lyn Ta MD [Physician] - (Follow-up on July 03, 2022 for scheduled telehealth postop appointment) Diet/Activity/Treatments Diet: Regular Activity: No heavy lifting Nothing in the vagina for 4 weeks Skin/Wound/Dressing Care Report to your healthcare provider any signs of infection, such as:: chills, fever, increased pain, unusual drainage and unusual redness Dressing: Remove outer pink dressings with attached gauze on Saturday after morning shower Leave Steri-Strips in place Visit Report/Discharge Packet Instructions: DI for Hysterectomy, DI for Laparoscopy, DI for Prescription Opioid Use Stand Alone Forms: Patient Portal/API, Surgery Discharge Discharge Data Primary Care Provider: Alyssa Philip Attending Provider: Lyn Ta
--- NOTE | 2022-06-16 13:26 | PC.NURSE ---
Patient discharged at 1210, escorted off floor in wheelchair, accompanied by hospital staff and family member. IV removed, discharge teaching completed including worsening symptoms, follow up appointment, new medications and wound care. Questions answered and concerns addressed. All belongings left with patient.
== END 2022-06-16 12:15 | disposition home or self-care (01) ==
LOC: OR 08:28 → AC 08:29
PROVIDERS: PCP Family Medicine; Referring Provider Obstetrics & Gynecology; Visit Provider Obstetrics & Gynecology
PROC: 0UT94ZL Resection of Uterus, Supracervical, Percutaneous Endoscopic Approach (ICD-10-PCS; CPT 58542; principal; 2022-06-15 09:45)
DX: N92.0 Excessive and frequent menstruation with regular cycle (principal); N94.6 Dysmenorrhea, unspecified; Z20.822 Contact with and (suspected) exposure to COVID-19; N83.292 Other ovarian cyst, left side; N80.03 Adenomyosis of the uterus
CPT/HCPCS: 58542; 58662; 36415; 85025; 87635; C9803; J0131; J0171; J0690; J1100; J2250; J2270; J2405; J2704; J2795; J3010

== ENCOUNTER 2022-09-06 11:03 | Emergency (ER) | payer OTHER, SELFPAY ==
[2022-06-15 17:29] VITALS: BMI 32.5
[2022-09-06 11:11] VITALS: BP 111/61; PULSE 81; RESP 16; TEMP 36.8; O2SAT 98; BMI 31.6
--- NOTE | 2022-09-06 11:25 | ED_ITS ---
HPI - Female Genitourinary <Lois Smith PA-C - Last Filed: 09/06/22 12:22> General Chief complaint: Urogenital-Female Stated complaint: blood in urine, discomfort in [place] area Time Seen by Provider: 09/06/22 11:25 Source: patient Mode of arrival: Ambulatory History of Present Illness HPI Narrative: Patient is a 26-year-old female with history of gastritis, hysterectomy and fallopian tube removal in June of this year, reporting for evaluation of a little bit of blood noted with urination over the last 2 days. She reports increased frequency and urgency and a tingling sensation when she urinates. She denies sensation of burning with urination. She denies any abdominal pain, nausea, vomiting. She denies fever, body aches, chills or back pain. She denies any abnormal vaginal discharge. She denies any concern for STI. She reports allergy to amoxicillin and ibuprofen. She denies knowing when her last menstrual period was due to her hysterectomy. She does report some diarrhea occurring over the the last couple of days. She states that this occurs occasionally related to how she eats. Related Data Previous Rx's Medication Instructions Recorded ondansetron 4 mg disintegrating 8 mg PO Q8H #30 tabs 05/28/22 tablet phenazopyridine 100 mg tablet 100 mg PO TID PRN pain #20 tabs 06/20/22 (Pyridium) oxycodone 10 mg tablet 10 mg PO Q4H PRN pain #14 tabs 07/05/22 trazodone 50 mg tablet See Rx Instructions .Route 07/31/22 .COMPLEX #30 tabs nitrofurantoin 100 mg PO Q12H 5 days #10 caps 09/06/22 monohydrate/macrocrystals 100 mg capsule (Macrobid) phenazopyridine 100 mg tablet 100 mg PO TID PRN pain 6 doses #6 09/06/22 (Pyridium) tabs Allergies Allergy/AdvReac Type Severity Reaction Status Date / Time amoxicillin Allergy Intermediate Rash/Hives Verified 09/06/22 11:11 coconut Allergy Hives Verified 09/06/22 11:11 ibuprofen AdvReac Intermediate Gastrointestinal Verified 09/06/22 11:11 Upset Review of Systems <Lois Smith PA-C - Last Filed: 09/06/22 12:22> Constitutional Constitutional: Reports system reviewed and no additional complaints, except as documented Gastrointestinal Gastrointestinal: Denies abdominal pain, Reports diarrhea, Denies nausea and Denies vomiting Genitourinary Genitourinary: Reports as per HPI Patient History <Lois Smith PA-C - Last Filed: 09/06/22 12:22> Medical History (Updated 09/06/22 @ 12:10 by Lois Smith PA-C) Asthma Back pain (~2010) Gastritis (~2010) GERD (gastroesophageal reflux disease) (~2010) Surgical History (Updated 05/10/22 @ 08:32 by Alesia Houston RN) History of laparoscopy (04/05/22) Hx of colonoscopy (12/14/21) [place] teeth extracted (~2015) Family History Mother Cervical cancer Smoker Father Diabetes mellitus Herniated disc Spondylosis Grandmother Unknown family medical history Diabetes mellitus Smoker Cancer Hyperlipidemia Hypertension Grandfather History of heart disease Grandmother Breast cancer Grandfather Diabetes mellitus Cancer History of heart disease Hypertension Sister Faye syndrome Brother Arthritis of spine tobacco type: vaping alcohol intake frequency: holidays/special occasions only Substance Use Type: marijuana Exam <Lois Smith PA-C - Last Filed: 09/06/22 12:22> Initial Vital Signs Initial Vital Signs: Vital Signs Temperature 98.2 F 09/06/22 11:11 Pulse Rate 81 09/06/22 11:11 Respiratory Rate 16 09/06/22 11:11 Blood Pressure 111/61 09/06/22 11:11 Pulse Oximetry 98 09/06/22 11:11 Oxygen Delivery Method Room Air 09/06/22 11:11 GENERAL: 26 year old patient appears stated age. Well-developed patient, in no acute distress. HEAD: Atraumatic. Normocephalic. EYES: Pupils equal round CARDIOVASCULAR: Regular rate and rhythm without murmurs, gallops, or rubs. RESPIRATORY: Clear to auscultation. Breath sounds equal bilaterally. No wheezes, rales, or rhonchi. GASTROINTESTINAL: Abdomen soft, nondistended, tender over suprapubic area, no CVA tenderness BACK: Nontender without deformity or crepitance. No flank tenderness. NEURO: AOx3. SKIN: No rash or erythema of visible areas <Yoni Johnson DO - Last Filed: 09/07/22 07:01> Initial Vital Signs Initial Vital Signs: Vital Signs Temperature 98.2 F 09/06/22 11:11 Pulse Rate 81 09/06/22 11:11 Respiratory Rate 16 09/06/22 11:11 Blood Pressure 111/61 09/06/22 11:11 Pulse Oximetry 98 09/06/22 11:11 Oxygen Delivery Method Room Air 09/06/22 11:11 Course <Lois Smith PA-C - Last Filed: 09/06/22 12:22> Orders Ordered: ED Orders 09/06/22 11:17 Urine Culture Stat Urine Microscopic Stat Vital Signs Vital signs: Vital Signs - 8 hr 09/06/22 11:11 Temperature 98.2 F Pulse Rate 81 Respiratory Rate 16 Blood Pressure 111/61 Pulse Oximetry 98 Oxygen Delivery Method Room Air <Yoni Johnson DO - Last Filed: 09/07/22 07:01> Orders Ordered: ED Orders 09/06/22 11:17 Urine Culture Stat Urine Microscopic Stat Vital Signs Vital signs: Vital Signs - 8 hr 09/06/22 11:11 Temperature 98.2 F Pulse Rate 81 Respiratory Rate 16 Blood Pressure 111/61 Pulse Oximetry 98 Oxygen Delivery Method Room Air MDM - Female Genitourinary <Lois Smith PA-C - Last Filed: 09/06/22 12:22> Lab Data Labs: Lab Results 09/06/22 Range/Units 11:10 Urine RBC 30-100/hpf H (0-5/HPF) Urine WBC 30-100/hpf H (0-5/HPF) Ur Squamous Epith Cells 1-5 /hpf (0-5/HPF) Urine Bacteria Few (2-10) H (None) Point of Care Testing Test Results Negative Urine Dip Bedside Urine Glucose Negative Bedside Urine Bilirubin - Negative Bedside Urine Ketone - Negative Urine Specific [place] 1.020 Bedside Urine Occult Blood +++ Bedside Urine pH 6.5 Bedside Urine Protein + 30 Bedside Urine Urobilinogen +/- 1mg Bedside Urine Nitrite - Negative Bedside Urine Leukocytes ++ 125 Esterase MDM Narrative Medical decision making narrative: 26-year-old patient with history of hysterectomy and bilateral salpingectomy and gastritis from NSAIDs reporting for evaluation of increased frequency, urgency with urination with some blood noted over the last 2 days. UA showed positive blood and leukocytes and urine specimen will be sent out for culture. She denied any fever body aches or chills, had no CVA tenderness on exam. She denies any abdominal pain except a sensation of pressure in her lower abdomen. She denies any fever, body aches, or chills. Multiple etiologies for patient's symptoms considered including, but not limited to: UTI, pyelonephritis, ovarian cyst, ovarian torsion, sexually transmitted infection Labs reviewed and interpreted by myself: UA shows leukocytes and blood, test is negative Discussed with patient that her symptoms in her history are consistent with UTI symptoms. Recommend treating with an antibiotic and Pyridium. I recommend that she follow up with the primary care provider if her symptoms do not improve. We will call with culture results to adjust treatment if needed. Prescriptions have been sent in for Macrobid and Pyridium. Findings and discharge diagnosis discussed with patient/family followed by verbalization of understanding Return precautions discussed with patient/family whom verbalize understanding of diagnosis and plan <Yoni Johnson, - Last Filed: 09/07/22 07:01> Lab Data Labs: Lab Results 09/06/22 Range/Units 11:10 Urine RBC 30-100/hpf H (0-5/HPF) Urine WBC 30-100/hpf H (0-5/HPF) Ur Squamous Epith Cells 1-5 /hpf (0-5/HPF) Urine Bacteria Few (2-10) H (None) Point of Care Testing Test Results Negative Urine Dip Bedside Urine Glucose Negative Bedside Urine Bilirubin - Negative Bedside Urine Ketone - Negative Urine Specific [place] 1.020 Bedside Urine Occult Blood +++ Bedside Urine pH 6.5 Bedside Urine Protein + 30 Bedside Urine Urobilinogen +/- 1mg Bedside Urine Nitrite - Negative Bedside Urine Leukocytes ++ 125 Esterase Discharge Plan Departure Patient Disposition: Home Clinical Impression: UTI (urinary tract infection) Instructions: DI for Urinary Tract Infection (UTI) Activity Restrictions/Additional Instructions: You have been diagnosed with urinary tract infection today based upon your urinalysis, frequency and urgency of urination without any symptoms of abdominal pain, nausea vomiting, fever or other concerning symptoms. I do recommend that you continue to watch for the development of any concerning signs or symptoms such as development of abdominal pain, worsening batool blood, back pain, tremors and fever and returned for further evaluation. Otherwise I recommend you follow up with her primary care provider to ensure complete resolution of infection. We will send urine out for culture and call to modify treatment if needed. I have sent in an antibiotic farm nitrofurantoin as well as a pain reliever called Pyridium which should help resolve UTI. Prescriptions: New nitrofurantoin monohyd/m-cryst [Macrobid] 100 mg capsule 100 mg PO Q12H 5 Days Qty: 10 0RF Rx Instructions: must administer with a meal/food phenazopyridine [Pyridium] 100 mg tablet 100 mg PO TID PRN (Reason: pain) Qty: 6 0RF No Action ondansetron 4 mg tablet,disintegrating 8 mg PO Q8H Qty: 30 0RF Rx Instructions: Dissolve one or two tablets on tongue every 8 hours as needed for nausea and vomiting phenazopyridine [Pyridium] 100 mg tablet 100 mg PO TID PRN (Reason: pain) Qty: 20 0RF oxycodone 10 mg tablet 10 mg PO Q4H PRN (Reason: pain) Qty: 14 0RF Rx Instructions: 1/2 to one tablet every 4 hours as needed trazodone 50 mg tablet See Rx Instructions .ROUTE .COMPLEX Qty: 30 0RF Dose Instruction: take 1 tablet by mouth at bedtime if needed for sleep / insomnia Rx Instructions: take 1 tablet by mouth at bedtime if needed for sleep / insomnia Referrals: Alyssa Philip MD [Primary Care Provider] - Stand Alone Forms: Patient Portal/API <Yoni Johnson DO - Last Filed: 09/07/22 07:01> [facility] I was immediately available in the department for consultation. This documentation has been reviewed and I agree with assessment and plan. Supervised by Yoni Johnson DO
--- NOTE | 2022-09-06 12:01 | PC.NURSE ---
Addendum entered by Ericka Vargas R.N. 09/06/22 12:04: pt also states she has been having diarrhea the last few days. Original Note: patient describes urinating is a feeling of a funnel emptying, like forcefull void. having a hard time hold it and having lots of frequency. did have a hysterectomy, ovaries left in place. states she did get a UTI during this time due to post op bleeding. pt complains of pain in urethra but non while urinating specifically. denies vaginal pain or discharge
[2022-09-06 12:07] LABS: Bacteria Urine Few (2-10); RBC Urine 30-100/HPF (0-5/HPF); Squamous Epithelial Cell Urine 1-5 /HPF (0-5/HPF); WBC Urine 30-100/HPF (0-5/HPF)
== END 2022-09-06 12:22 | disposition home or self-care (01) ==
PROVIDERS: Emergency Medicine; Emergency Provider Physician Assistant; PCP Family Medicine
DX: N39.0 Urinary tract infection, site not specified (principal)
CPT/HCPCS: 81003; 81015; 81025; 87086; 99282

== ENCOUNTER 2022-10-17 05:32 | Emergency (ER) | payer OTHER, SELFPAY ==
[2022-06-15 17:29] VITALS: BMI 32.5
[2022-10-17] VITALS (22 sets, daily range): BP systolic 85–119; BP diastolic 50–61; PULSE 54–78; RESP 9–24; TEMP 36.8; O2SAT 97–100; BMI 33.3
--- NOTE | 2022-10-17 05:47 | ED_ITS ---
HPI - General Adult <Bertin Ruff DO - Last Filed: 10/17/22 21:31> General Chief complaint: Abdominal Pain Stated complaint: back, epigastric pain Time Seen by Provider: 10/17/22 05:38 Source: patient Mode of arrival: EMS Limitations: no limitations History of Present Illness HPI narrative: Patient is a 26-year-old female who is here for evaluation of approximately 2 days of epigastric abdominal discomfort. She states that vomiting started yesterday. States that she has had a decrease in appetite. Vomiting does not change the abdominal discomfort. She has had diarrhea. No urinary symptoms. No vaginal bleeding. She has had a hysterectomy. She is no lower abdominal tenderness today. No fevers. No chest pain. No shortness of breath. She states that she is having back discomfort that is straight through her back from where she is having the epigastric discomfort. Related Data Previous Rx's Medication Instructions Recorded ondansetron 4 mg disintegrating 8 mg PO Q8H #30 tabs 05/28/22 tablet phenazopyridine 100 mg tablet 100 mg PO TID PRN pain #20 tabs 06/20/22 (Pyridium) oxycodone 10 mg tablet 10 mg PO Q4H PRN pain #14 tabs 07/05/22 trazodone 50 mg tablet See Rx Instructions .Route 07/31/22 .COMPLEX #30 tabs phenazopyridine 100 mg tablet 100 mg PO TID PRN pain 6 doses #6 09/06/22 (Pyridium) tabs hydrocodone 5 mg-acetaminophen 325 1 tab PO Q6H PRN pain #20 tabs 10/17/22 mg tablet ondansetron 4 mg disintegrating 4 mg PO Q8H PRN nausea and 10/17/22 tablet vomiting #10 tabs Allergies Allergy/AdvReac Type Severity Reaction Status Date / Time amoxicillin Allergy Intermediate Rash/Hives Verified 09/06/22 11:11 coconut Allergy Hives Verified 09/06/22 11:11 ibuprofen AdvReac Intermediate Gastrointestinal Verified 09/06/22 11:11 Upset Review of Systems <Bertin Ruff DO - Last Filed: 10/17/22 21:31> Constitutional Constitutional: Reports system reviewed and no additional complaints, except as documented Cardiovascular Cardiovascular: Reports system reviewed and no additional complaints, except as documented Respiratory Respiratory: Reports system reviewed and no additional complaints, except as documented Gastrointestinal Gastrointestinal: Reports system reviewed and no additional complaints, except as documented Genitourinary Genitourinary: Reports system reviewed and no additional complaints, except as documented Musculoskeletal Musculoskeletal: Reports system reviewed and no additional complaints, except as documented Integumentary/Breasts Skin/Breast: Reports system reviewed and no additional complaints, except as documented Neurologic Neurologic: Reports system reviewed and no additional complaints, except as documented Patient History <Bertin Ruff DO - Last Filed: 10/17/22 21:31> Medical History (Updated 10/17/22 @ 09:52 by Radhika Guerra DO) Asthma Back pain (~2010) Gastritis (~2010) GERD (gastroesophageal reflux disease) (~2010) Surgical History (Updated 10/17/22 @ 12:09 by Trena Avilez RN) History of hysterectomy (06/14/22) History of laparoscopy (04/05/22) Hx of colonoscopy (12/14/21) [place] teeth extracted (~2015) Family History Mother Cervical cancer Smoker Father Diabetes mellitus Herniated disc Spondylosis Grandmother Unknown family medical history Diabetes mellitus Smoker Cancer Hyperlipidemia Hypertension Grandfather History of heart disease Grandmother Breast cancer Grandfather Diabetes mellitus Cancer History of heart disease Hypertension Sister Faye syndrome Brother Arthritis of spine Social History marital status: number of children: 1 household members: spouse and children lives independently: Yes caregiver/support person: No housing: house pets and animals: Yes (1 dog: safe) education level: high school occupational status: unemployed current occupational exposures/hazards: No special alexandra needs: No seatbelt use: always do you feel safe at home: Yes Smoking Status: Former smoker second hand exposure: No alcohol intake: current substance use type: does not use during the past year weight has: remained stable well-balanced diet: daily or most days caffeine: Yes (1 cup coffee daily or every other day. ) Type(s) of exercise: walking and normal ROM and activity frequency: daily duration: 15-30 minutes/day Smoking Status: Former smoker tobacco type: vaping alcohol intake frequency: holidays/special occasions only Substance Use Type: marijuana Exam <Bertin Ruff DO - Last Filed: 10/17/22 21:31> Initial Vital Signs Initial Vital Signs: Vital Signs Pulse Rate 69 10/17/22 05:36 Pulse Oximetry 97 10/17/22 05:36 Oxygen Delivery Method Room Air 10/17/22 05:36 Const General: cooperative and No ill appearing HENMT Head: normal to inspection Resp Effort & Inspection: normal respiratory effort Auscultation: clear to auscultation bilaterally Cardio Rate: regular rate Rhythm: regular rhythm GI Inspection: normal to inspection and non-distended Palpation: soft, No firm, No guarding and tender (Epigastric region) Skin General: no rashes or lesions noted Neuro General: patient alert, patient awake and moves all extremities Extrem General: capillary refill normal <Radhika Guerra DO - Last Filed: 10/17/22 11:11> Initial Vital Signs Initial Vital Signs: Vital Signs Pulse Rate 69 10/17/22 05:36 Pulse Oximetry 97 10/17/22 05:36 Oxygen Delivery Method Room Air 10/17/22 05:36 Course <Bertin Ruff, DO - Last Filed: 10/17/22 21:31> Orders Ordered: Discontinued Medications Hydrocodone Bitart/Acetaminophen (Hydrocodone/Acet 5/325 Tablet) 1 tab PO NOW ONE Stop: 10/17/22 09:49 Last Admin: 10/17/22 10:05 Dose: 1 tab Documented By: OCTAVIANO Sodium Chloride (Normal Saline 0.9%) 1,000 mls @ 1,000 mls/hr IV BOLUS ONE Stop: 10/17/22 06:47 Last Infusion: 10/17/22 07:17 Dose: 0 mls/hr Documented By: Admin: 10/17/22 06:21 Dose: 1,000 mls/hr Documented By: OSCAR Sodium Chloride (Normal Saline 0.9%) 1,000 mls @ 1,000 mls/hr IV BOLUS ONE Stop: 10/17/22 08:56 Last Infusion: 10/17/22 09:22 Dose: 0 mls/hr Documented By: Admin: 10/17/22 08:08 Dose: 1,000 mls/hr Documented By: OCTAVIANO Sodium Chloride (Normal Saline 0.9%) 1,000 mls @ 150 mls/hr IV CONT LALITA Last Infusion: 10/17/22 10:32 Dose: 0 mls/hr Documented By: Admin: 10/17/22 09:38 Dose: 150 mls/hr Documented By: OCTAVIANO Morphine Sulfate (Morphine 4 Mg/Ml Inj) 4 mg IV NOW ONE Stop: 10/17/22 06:31 Last Admin: 10/17/22 06:55 Dose: 4 mg Documented By: OSCAR Morphine Sulfate (Morphine 2 Mg/Ml Inj) 2 mg IV NOW ONE Stop: 10/17/22 08:00 Last Admin: 10/17/22 08:07 Dose: 2 mg Documented By: OCTAVIANO Morphine Sulfate (Morphine 2 Mg/Ml Inj) 2 mg IV NOW ONE Stop: 10/17/22 09:24 Last Admin: 10/17/22 09:38 Dose: 2 mg Documented By: OCTAVIANO Ondansetron HCl (Ondansetron 4 Mg/2 Ml Inj) 4 mg IV NOW ONE Stop: 10/17/22 05:49 Last Admin: 10/17/22 06:21 Dose: 4 mg Documented By: OSCAR Pantoprazole Sodium (Pantoprazole 40 Mg Vial) 40 mg IV NOW ONE Stop: 10/17/22 05:49 Last Admin: 10/17/22 06:20 Dose: 40 mg Documented By: OSCAR Vital Signs Vital signs: Vital Signs - 8 hr 10/17/22 05:41 10/17/22 05:36 10/17/22 05:38 Temperature 98.2 F Pulse Rate 70 69 65 Pulse Rate [Orthostatic Lying] Pulse Rate [Orthostatic Sitting] Pulse Rate [Orthostatic Standing] Respiratory Rate 20 Blood Pressure 105/58 L Blood Pressure [Orthostatic Lying] Blood Pressure [Orthostatic Sitting] Blood Pressure [Orthostatic Standing] Pulse Oximetry 97 97 97 Oxygen Delivery Method Room Air Room Air Room Air 10/17/22 05:38 10/17/22 06:00 10/17/22 06:00 Temperature Pulse Rate 54 L Pulse Rate [Orthostatic Lying] Pulse Rate [Orthostatic Sitting] Pulse Rate [Orthostatic Standing] Respiratory Rate 24 Blood Pressure 105/58 L 99/56 L Blood Pressure [Orthostatic Lying] Blood Pressure [Orthostatic Sitting] Blood Pressure [Orthostatic Standing] Pulse Oximetry 99 Oxygen Delivery Method Room Air 10/17/22 06:30 10/17/22 06:30 10/17/22 07:00 Temperature Pulse Rate 61 Pulse Rate [Orthostatic Lying] Pulse Rate [Orthostatic Sitting] Pulse Rate [Orthostatic Standing] Respiratory Rate 15 Blood Pressure 97/56 L 91/50 L Blood Pressure [Orthostatic Lying] Blood Pressure [Orthostatic Sitting] Blood Pressure [Orthostatic Standing] Pulse Oximetry 99 Oxygen Delivery Method Room Air 10/17/22 07:00 10/17/22 07:02 10/17/22 07:02 Temperature Pulse Rate 65 62 Pulse Rate [Orthostatic Lying] Pulse Rate [Orthostatic Sitting] Pulse Rate [Orthostatic Standing] Respiratory Rate 16 15 Blood Pressure 97/55 L Blood Pressure [Orthostatic Lying] Blood Pressure [Orthostatic Sitting] Blood Pressure [Orthostatic Standing] Pulse Oximetry 99 100 Oxygen Delivery Method Room Air Room Air 10/17/22 07:26 10/17/22 07:26 10/17/22 07:30 Temperature Pulse Rate 58 L Pulse Rate [Orthostatic Lying] Pulse Rate [Orthostatic Sitting] Pulse Rate [Orthostatic Standing] Respiratory Rate 13 Blood Pressure 96/60 94/58 L Blood Pressure [Orthostatic Lying] Blood Pressure [Orthostatic Sitting] Blood Pressure [Orthostatic Standing] Pulse Oximetry 98 Oxygen Delivery Method 10/17/22 07:30 10/17/22 08:00 10/17/22 08:00 Temperature Pulse Rate 54 L 58 L Pulse Rate [Orthostatic Lying] Pulse Rate [Orthostatic Sitting] Pulse Rate [Orthostatic Standing] Respiratory Rate 16 21 Blood Pressure 99/61 Blood Pressure [Orthostatic Lying] Blood Pressure [Orthostatic Sitting] Blood Pressure [Orthostatic Standing] Pulse Oximetry 99 100 Oxygen Delivery Method 10/17/22 08:30 10/17/22 08:30 10/17/22 09:00 Temperature Pulse Rate 55 L Pulse Rate [Orthostatic Lying] Pulse Rate [Orthostatic Sitting] Pulse Rate [Orthostatic Standing] Respiratory Rate 18 Blood Pressure 92/53 L 85/54 L Blood Pressure [Orthostatic Lying] Blood Pressure [Orthostatic Sitting] Blood Pressure [Orthostatic Standing] Pulse Oximetry 98 Oxygen Delivery Method 10/17/22 09:00 10/17/22 09:12 10/17/22 09:12 Temperature Pulse Rate 68 78 Pulse Rate [Orthostatic Lying] Pulse Rate [Orthostatic Sitting] Pulse Rate [Orthostatic Standing] Respiratory Rate 12 16 Blood Pressure 119/60 Blood Pressure [Orthostatic Lying] Blood Pressure [Orthostatic Sitting] Blood Pressure [Orthostatic Standing] Pulse Oximetry 100 99 Oxygen Delivery Method 10/17/22 09:21 10/17/22 09:21 10/17/22 09:30 Temperature Pulse Rate 64 Pulse Rate [Orthostatic Lying] Pulse Rate [Orthostatic Sitting] Pulse Rate [Orthostatic Standing] Respiratory Rate 14 Blood Pressure 101/58 L 95/51 L Blood Pressure [Orthostatic Lying] Blood Pressure [Orthostatic Sitting] Blood Pressure [Orthostatic Standing] Pulse Oximetry 100 Oxygen Delivery Method 10/17/22 09:30 10/17/22 09:39 10/17/22 09:39 Temperature Pulse Rate 66 59 L Pulse Rate [Orthostatic Lying] Pulse Rate [Orthostatic Sitting] Pulse Rate [Orthostatic Standing] Respiratory Rate 18 13 Blood Pressure 98/57 L Blood Pressure [Orthostatic Lying] Blood Pressure [Orthostatic Sitting] Blood Pressure [Orthostatic Standing] Pulse Oximetry 98 100 Oxygen Delivery Method 10/17/22 09:45 10/17/22 09:45 10/17/22 10:00 Temperature Pulse Rate 70 Pulse Rate [Orthostatic Lying] Pulse Rate [Orthostatic Sitting] Pulse Rate [Orthostatic Standing] Respiratory Rate 11 L Blood Pressure 100/57 L 97/60 Blood Pressure [Orthostatic Lying] Blood Pressure [Orthostatic Sitting] Blood Pressure [Orthostatic Standing] Pulse Oximetry 100 Oxygen Delivery Method 10/17/22 10:00 10/17/22 10:20 10/17/22 10:13 Temperature Pulse Rate 63 Pulse Rate [Orthostatic Lying] 68 Pulse Rate [Orthostatic Sitting] 63 Pulse Rate [Orthostatic Standing] 66 Respiratory Rate 19 Blood Pressure 96/55 L Blood Pressure [Orthostatic Lying] 96/55 L Blood Pressure [Orthostatic Sitting] 106/55 L Blood Pressure [Orthostatic Standing] 102/56 L Pulse Oximetry 98 Oxygen Delivery Method 10/17/22 10:13 10/17/22 10:15 10/17/22 10:15 Temperature Pulse Rate 67 65 Pulse Rate [Orthostatic Lying] Pulse Rate [Orthostatic Sitting] Pulse Rate [Orthostatic Standing] Respiratory Rate 9 L 12 Blood Pressure 106/55 L Blood Pressure [Orthostatic Lying] Blood Pressure [Orthostatic Sitting] Blood Pressure [Orthostatic Standing] Pulse Oximetry 100 100 Oxygen Delivery Method 10/17/22 10:17 10/17/22 10:17 Temperature Pulse Rate 69 Pulse Rate [Orthostatic Lying] Pulse Rate [Orthostatic Sitting] Pulse Rate [Orthostatic Standing] Respiratory Rate 14 Blood Pressure 102/56 L Blood Pressure [Orthostatic Lying] Blood Pressure [Orthostatic Sitting] Blood Pressure [Orthostatic Standing] Pulse Oximetry 100 Oxygen Delivery Method <Radhika Guerra, - Last Filed: 10/17/22 11:11> Orders Ordered: Discontinued Medications Hydrocodone Bitart/Acetaminophen (Hydrocodone/Acet 5/325 Tablet) 1 tab PO NOW ONE Stop: 10/17/22 09:49 Last Admin: 10/17/22 10:05 Dose: 1 tab Documented By: OCTAVIANO Sodium Chloride (Normal Saline 0.9%) 1,000 mls @ 1,000 mls/hr IV BOLUS ONE Stop: 10/17/22 06:47 Last Infusion: 10/17/22 07:17 Dose: 0 mls/hr Documented By: Admin: 10/17/22 06:21 Dose: 1,000 mls/hr Documented By: OSCAR Sodium Chloride (Normal Saline 0.9%) 1,000 mls @ 1,000 mls/hr IV BOLUS ONE Stop: 10/17/22 08:56 Last Infusion: 10/17/22 09:22 Dose: 0 mls/hr Documented By: Admin: 10/17/22 08:08 Dose: 1,000 mls/hr Documented By: OCTAVIANO Sodium Chloride (Normal Saline 0.9%) 1,000 mls @ 150 mls/hr IV CONT LALITA Last Infusion: 10/17/22 10:32 Dose: 0 mls/hr Documented By: Admin: 10/17/22 09:38 Dose: 150 mls/hr Documented By: OCTAVIANO Morphine Sulfate (Morphine 4 Mg/Ml Inj) 4 mg IV NOW ONE Stop: 10/17/22 06:31 Last Admin: 10/17/22 06:55 Dose: 4 mg Documented By: OSCAR Morphine Sulfate (Morphine 2 Mg/Ml Inj) 2 mg IV NOW ONE Stop: 10/17/22 08:00 Last Admin: 10/17/22 08:07 Dose: 2 mg Documented By: OCTAVIANO Morphine Sulfate (Morphine 2 Mg/Ml Inj) 2 mg IV NOW ONE Stop: 10/17/22 09:24 Last Admin: 10/17/22 09:38 Dose: 2 mg Documented By: OCTAVIANO Ondansetron HCl (Ondansetron 4 Mg/2 Ml Inj) 4 mg IV NOW ONE Stop: 10/17/22 05:49 Last Admin: 10/17/22 06:21 Dose: 4 mg Documented By: OSCAR Pantoprazole Sodium (Pantoprazole 40 Mg Vial) 40 mg IV NOW ONE Stop: 10/17/22 05:49 Last Admin: 10/17/22 06:20 Dose: 40 mg Documented By: OSCAR Vital Signs Vital signs: Vital Signs - 8 hr 10/17/22 05:41 10/17/22 05:36 10/17/22 05:38 Temperature 98.2 F Pulse Rate 70 69 65 Pulse Rate [Orthostatic Lying] Pulse Rate [Orthostatic Sitting] Pulse Rate [Orthostatic Standing] Respiratory Rate 20 Blood Pressure 105/58 L Blood Pressure [Orthostatic Lying] Blood Pressure [Orthostatic Sitting] Blood Pressure [Orthostatic Standing] Pulse Oximetry 97 97 97 Oxygen Delivery Method Room Air Room Air Room Air 10/17/22 05:38 10/17/22 06:00 10/17/22 06:00 Temperature Pulse Rate 54 L Pulse Rate [Orthostatic Lying] Pulse Rate [Orthostatic Sitting] Pulse Rate [Orthostatic Standing] Respiratory Rate 24 Blood Pressure 105/58 L 99/56 L Blood Pressure [Orthostatic Lying] Blood Pressure [Orthostatic Sitting] Blood Pressure [Orthostatic Standing] Pulse Oximetry 99 Oxygen Delivery Method Room Air 10/17/22 06:30 10/17/22 06:30 10/17/22 07:00 Temperature Pulse Rate 61 Pulse Rate [Orthostatic Lying] Pulse Rate [Orthostatic Sitting] Pulse Rate [Orthostatic Standing] Respiratory Rate 15 Blood Pressure 97/56 L 91/50 L Blood Pressure [Orthostatic Lying] Blood Pressure [Orthostatic Sitting] Blood Pressure [Orthostatic Standing] Pulse Oximetry 99 Oxygen Delivery Method Room Air 10/17/22 07:00 10/17/22 07:02 10/17/22 07:02 Temperature Pulse Rate 65 62 Pulse Rate [Orthostatic Lying] Pulse Rate [Orthostatic Sitting] Pulse Rate [Orthostatic Standing] Respiratory Rate 16 15 Blood Pressure 97/55 L Blood Pressure [Orthostatic Lying] Blood Pressure [Orthostatic Sitting] Blood Pressure [Orthostatic Standing] Pulse Oximetry 99 100 Oxygen Delivery Method Room Air Room Air 10/17/22 07:26 10/17/22 07:26 10/17/22 07:30 Temperature Pulse Rate 58 L Pulse Rate [Orthostatic Lying] Pulse Rate [Orthostatic Sitting] Pulse Rate [Orthostatic Standing] Respiratory Rate 13 Blood Pressure 96/60 94/58 L Blood Pressure [Orthostatic Lying] Blood Pressure [Orthostatic Sitting] Blood Pressure [Orthostatic Standing] Pulse Oximetry 98 Oxygen Delivery Method 10/17/22 07:30 10/17/22 08:00 10/17/22 08:00 Temperature Pulse Rate 54 L 58 L Pulse Rate [Orthostatic Lying] Pulse Rate [Orthostatic Sitting] Pulse Rate [Orthostatic Standing] Respiratory Rate 16 21 Blood Pressure 99/61 Blood Pressure [Orthostatic Lying] Blood Pressure [Orthostatic Sitting] Blood Pressure [Orthostatic Standing] Pulse Oximetry 99 100 Oxygen Delivery Method 10/17/22 08:30 10/17/22 08:30 10/17/22 09:00 Temperature Pulse Rate 55 L Pulse Rate [Orthostatic Lying] Pulse Rate [Orthostatic Sitting] Pulse Rate [Orthostatic Standing] Respiratory Rate 18 Blood Pressure 92/53 L 85/54 L Blood Pressure [Orthostatic Lying] Blood Pressure [Orthostatic Sitting] Blood Pressure [Orthostatic Standing] Pulse Oximetry 98 Oxygen Delivery Method 10/17/22 09:00 10/17/22 09:12 10/17/22 09:12 Temperature Pulse Rate 68 78 Pulse Rate [Orthostatic Lying] Pulse Rate [Orthostatic Sitting] Pulse Rate [Orthostatic Standing] Respiratory Rate 12 16 Blood Pressure 119/60 Blood Pressure [Orthostatic Lying] Blood Pressure [Orthostatic Sitting] Blood Pressure [Orthostatic Standing] Pulse Oximetry 100 99 Oxygen Delivery Method 10/17/22 09:21 10/17/22 09:21 10/17/22 09:30 Temperature Pulse Rate 64 Pulse Rate [Orthostatic Lying] Pulse Rate [Orthostatic Sitting] Pulse Rate [Orthostatic Standing] Respiratory Rate 14 Blood Pressure 101/58 L 95/51 L Blood Pressure [Orthostatic Lying] Blood Pressure [Orthostatic Sitting] Blood Pressure [Orthostatic Standing] Pulse Oximetry 100 Oxygen Delivery Method 10/17/22 09:30 10/17/22 09:39 10/17/22 09:39 Temperature Pulse Rate 66 59 L Pulse Rate [Orthostatic Lying] Pulse Rate [Orthostatic Sitting] Pulse Rate [Orthostatic Standing] Respiratory Rate 18 13 Blood Pressure 98/57 L Blood Pressure [Orthostatic Lying] Blood Pressure [Orthostatic Sitting] Blood Pressure [Orthostatic Standing] Pulse Oximetry 98 100 Oxygen Delivery Method 10/17/22 09:45 10/17/22 09:45 10/17/22 10:00 Temperature Pulse Rate 70 Pulse Rate [Orthostatic Lying] Pulse Rate [Orthostatic Sitting] Pulse Rate [Orthostatic Standing] Respiratory Rate 11 L Blood Pressure 100/57 L 97/60 Blood Pressure [Orthostatic Lying] Blood Pressure [Orthostatic Sitting] Blood Pressure [Orthostatic Standing] Pulse Oximetry 100 Oxygen Delivery Method 10/17/22 10:00 10/17/22 10:20 10/17/22 10:13 Temperature Pulse Rate 63 Pulse Rate [Orthostatic Lying] 68 Pulse Rate [Orthostatic Sitting] 63 Pulse Rate [Orthostatic Standing] 66 Respiratory Rate 19 Blood Pressure 96/55 L Blood Pressure [Orthostatic Lying] 96/55 L Blood Pressure [Orthostatic Sitting] 106/55 L Blood Pressure [Orthostatic Standing] 102/56 L Pulse Oximetry 98 Oxygen Delivery Method 10/17/22 10:13 10/17/22 10:15 10/17/22 10:15 Temperature Pulse Rate 67 65 Pulse Rate [Orthostatic Lying] Pulse Rate [Orthostatic Sitting] Pulse Rate [Orthostatic Standing] Respiratory Rate 9 L 12 Blood Pressure 106/55 L Blood Pressure [Orthostatic Lying] Blood Pressure [Orthostatic Sitting] Blood Pressure [Orthostatic Standing] Pulse Oximetry 100 100 Oxygen Delivery Method 10/17/22 10:17 10/17/22 10:17 Temperature Pulse Rate 69 Pulse Rate [Orthostatic Lying] Pulse Rate [Orthostatic Sitting] Pulse Rate [Orthostatic Standing] Respiratory Rate 14 Blood Pressure 102/56 L Blood Pressure [Orthostatic Lying] Blood Pressure [Orthostatic Sitting] Blood Pressure [Orthostatic Standing] Pulse Oximetry 100 Oxygen Delivery Method Medical Decision Making <Bertin Ruff, DO - Last Filed: 10/17/22 21:31> Medical Records Medical records reviewed: Yes I reviewed the patient's medical records. Lab Data Lab results reviewed: Yes I reviewed the patient's lab results. 10/17/22 06:01 10/17/22 06:01 Labs: Lab Results 10/17/22 10/17/22 Range/Units 06:01 06:01 WBC 8.7 (4.5-11.0) X10^3/uL RBC 4.27 (4.0-5.2) X10^6/uL Hgb 12.4 (12.0-16.0) g/dL Hct 36.7 (36-46) % MCV 85.8 (80-100) fL MCH 29.1 (26-34) PG MCHC 33.9 (30-36) % RDW 14.3 (11.6-14.8) % Plt Count 242 (150-400) X10^3/uL Neut % (Auto) 68.7 (50-75) % Lymph % (Auto) 24.7 L (25-40) % [place] % (Auto) 5.2 (3-14) % Eos % (Auto) 1.0 L (2-4) % Baso % (Auto) 0.4 (0-2) % Neut # (Auto) 6000 (4476-2565) /uL Lymph # (Auto) 2200 (2033-6654) /uL [place] # (Auto) 500 (0-900) /uL Eos # (Auto) 100 (0-450) /uL Baso # (Auto) 0 (0-100) /uL Sodium 137 (137-145) mmol/L Potassium 3.6 (3.4-5.1) mmol/L Chloride 110 H (98-107) mmol/L Carbon Dioxide 18 L (22-32) mmol/L BUN 10 (7-17) mg/dL Creatinine 0.68 (0.52-1.04) mg/dL Estimated GFR > 60 (>60) mL/min BUN/Creatinine Ratio 14.7 (6-22) Glucose 106 H (70-100) mg/dL Calcium 8.6 (8.4-10.2) mg/dL Total Bilirubin 0.2 (0.2-1.3) mg/dL AST 17 (14-36) IU/L ALT 12 (<35) IU/L Alkaline Phosphatase 53 (38-126) U/L Total Protein 6.7 (6.3-8.2) g/dL Albumin 3.9 (3.5-5.0) g/dL Globulin 2.8 (1.7-4.1) g/dL Albumin/Globulin Ratio 1.4 (1.0-2.8) Lipase 116 (23-300) U/L Urine Dip Bedside Urine Glucose Negative Bedside Urine Bilirubin - Negative Bedside Urine Ketone - Negative Urine Specific [place] 1.005 Bedside Urine Occult Blood - Negative Bedside Urine pH 6.0 Bedside Urine Protein - Negative Bedside Urine Urobilinogen - Negative Bedside Urine Nitrite - Negative Bedside Urine Leukocytes - Negative Esterase Point of care testing: Urine Dip Bedside Urine Glucose Negative Bedside Urine Bilirubin - Negative Bedside Urine Ketone - Negative Urine Specific [place] 1.005 Bedside Urine Occult Blood - Negative Bedside Urine pH 6.0 Bedside Urine Protein - Negative Bedside Urine Urobilinogen - Negative Bedside Urine Nitrite - Negative Bedside Urine Leukocytes - Negative Esterase MDM Narrative Medical decision making narrative: Patient has a benign exam. Labs unremarkable. Vital signs unremarkable. She states she does feel somewhat better after medications. P.o. challenge ordered. Care turned over to day provider to follow-up and disposition. <Radhika Guerra, DO - Last Filed: 10/17/22 11:11> Lab Data Labs: Lab Results 10/17/22 10/17/22 Range/Units 06:01 06:01 WBC 8.7 (4.5-11.0) X10^3/uL RBC 4.27 (4.0-5.2) X10^6/uL Hgb 12.4 (12.0-16.0) g/dL Hct 36.7 (36-46) % MCV 85.8 (80-100) fL MCH 29.1 (26-34) PG MCHC 33.9 (30-36) % RDW 14.3 (11.6-14.8) % Plt Count 242 (150-400) X10^3/uL Neut % (Auto) 68.7 (50-75) % Lymph % (Auto) 24.7 L (25-40) % [place] % (Auto) 5.2 (3-14) % Eos % (Auto) 1.0 L (2-4) % Baso % (Auto) 0.4 (0-2) % Neut # (Auto) 6000 (2513-8312) /uL Lymph # (Auto) 2200 (1758-9130) /uL [place] # (Auto) 500 (0-900) /uL Eos # (Auto) 100 (0-450) /uL Baso # (Auto) 0 (0-100) /uL Sodium 137 (137-145) mmol/L Potassium 3.6 (3.4-5.1) mmol/L Chloride 110 H (98-107) mmol/L Carbon Dioxide 18 L (22-32) mmol/L BUN 10 (7-17) mg/dL Creatinine 0.68 (0.52-1.04) mg/dL Estimated GFR > 60 (>60) mL/min BUN/Creatinine Ratio 14.7 (6-22) Glucose 106 H (70-100) mg/dL Calcium 8.6 (8.4-10.2) mg/dL Total Bilirubin 0.2 (0.2-1.3) mg/dL AST 17 (14-36) IU/L ALT 12 (<35) IU/L Alkaline Phosphatase 53 (38-126) U/L Total Protein 6.7 (6.3-8.2) g/dL Albumin 3.9 (3.5-5.0) g/dL Globulin 2.8 (1.7-4.1) g/dL Albumin/Globulin Ratio 1.4 (1.0-2.8) Lipase 116 (23-300) U/L Urine Dip Bedside Urine Glucose Negative Bedside Urine Bilirubin - Negative Bedside Urine Ketone - Negative Urine Specific [place] 1.005 Bedside Urine Occult Blood - Negative Bedside Urine pH 6.0 Bedside Urine Protein - Negative Bedside Urine Urobilinogen - Negative Bedside Urine Nitrite - Negative Bedside Urine Leukocytes - Negative Esterase Point of care testing: Urine Dip Bedside Urine Glucose Negative Bedside Urine Bilirubin - Negative Bedside Urine Ketone - Negative Urine Specific [place] 1.005 Bedside Urine Occult Blood - Negative Bedside Urine pH 6.0 Bedside Urine Protein - Negative Bedside Urine Urobilinogen - Negative Bedside Urine Nitrite - Negative Bedside Urine Leukocytes - Negative Esterase Imaging Data US - abdomen: Radiologist's Impression: PROCEDURE: US ABDOMEN LIMITED ? INDICATIONS:? RIGHT UPPER QUADRANT PAIN ? TECHNIQUE:? Real-time focused scanning was performed of the abdomen, with image documentation.? ? COMPARISON:? None. ? FINDINGS:? There are multiple gallstones in the gallbladder, including a 5 mm impacted gallstone in the gallbladder neck.? No gallbladder wall thickening or pain on examination or fluid around the gallbladder. ? Liver is unremarkable. ? No dilated ducts.? Common duct measures 4.0 mm. ? Pancreas not well seen secondary to overlying bowel gas. ? IMPRESSION:? Cholelithiasis.? Findings include an impacted stone in the gallbladder neck. ? ? Dictated by: Ibrahima Luther M.D. on 10/17/2022 at 9:04 MDM Narrative Medical decision making narrative: Patient has a benign exam. Labs unremarkable. Vital signs unremarkable. She states she does feel somewhat better after medications. P.o. challenge ordered. Care turned over to day provider to follow-up and disposition. Dr. guerra-patient signed out to me by Dr. Odell I have seen evaluated patient myself. He is pretty significant Julio C pending no significant right upper quadrant pain but slightly tender she reports nausea vomiting diarrhea for 3 days. Blood is overall reassuring no significant elevation in bilirubin liver enzymes leukocytosis or lipase. However she is noted to be slightly hypotensive blood pressure in the mid to low 90s. Previous blood pressures have been reviewed and repaired blood pressure is about 100. She is an adverse reaction to NSAIDs causing worsening nausea vomiting and gastritis. He is given morphine. She is now tolerating some small sips of water after Zofran and Protonix Ultrasound confirms cholelithiasis with large 5 mm impacted stone at the neck. Dr. Downing updated patient's symptoms test results does need a cholecystectomy unable to fit in today recommend sending home with pain meds nausea meds will have surgery tomorrow at around 3:00 p.m.. She is supposed to check in with the surgery office today. Patient's blood pressure is more stabilized still having some discomfort no further vomiting. Discharge Plan Departure Patient Disposition: Home Clinical Impression: Cholelithiasis Instructions: Gallstones Activity Restrictions/Additional Instructions: *You have been diagnosed with gallstones *What to do: You have a large impacted gallstone you will need to have surgery. It is scheduled for tomorrow afternoon. You will need to stop off at the surge ry office for further details fill out some paperwork. I would avoid eating especially fatty foods but please stay hydrated. *Continue to take medications as directed Seffner 1 tab every 4 hours or 2 tablets 6 hours if needed for pain Zofran 4 mg hours if needed for nausea vomiting *Follow up with your primary care provider in 2-3 days or call [phone] *Return to ER if you should have persistent pain, persistent vomiting, fever greater than 101 or any new, worsening or concerning symptoms CONTROLLED SUBSTANCE DISCHARGE (Narcotoic/benzodiazepine/Flexeril/Phenergan) 1. You have been prescribed narcotic medications, it does have acetaminophen/Tylenol/paracetamol in it, DO NOT TAKE MORE THAN 4,00mg in 24 hours of Tylenol. TRAMADOL DOES NOT CONTAIN TYLENOL 2. Please understand that we cannot provide further refills of narcotics, benzodiazepines or controlled substances through the ED and her pain management will need to be through your provider. 3. While on these medications you cannot drive or operate heavy machinery. 4. You cannot sign legal documents or perform any duties such as this. 5. As long as you're taking opiate pain medications he should also be taking a stool softener such as Colace, Dulcolax, MiraLAX or prune juice, to help avoid constipation. Prescriptions: New hydrocodone-acetaminophen 5-325 mg tablet 1 tab PO Q6H PRN (Reason: pain) Qty: 20 0RF ondansetron 4 mg tablet,disintegrating 4 mg PO Q8H PRN (Reason: nausea and vomiting) Qty: 10 0RF No Action ondansetron 4 mg tablet,disintegrating 8 mg PO Q8H Qty: 30 0RF Rx Instructions: Dissolve one or two tablets on tongue every 8 hours as needed for nausea and vomiting phenazopyridine [Pyridium] 100 mg tablet 100 mg PO TID PRN (Reason: pain) Qty: 20 0RF oxycodone 10 mg tablet 10 mg PO Q4H PRN (Reason: pain) Qty: 14 0RF Rx Instructions: 1/2 to one tablet every 4 hours as needed trazodone 50 mg tablet See Rx Instructions .ROUTE .COMPLEX Qty: 30 0RF Dose Instruction: take 1 tablet by mouth at bedtime if needed for sleep / insomnia Rx Instructions: take 1 tablet by mouth at bedtime if needed for sleep / insomnia phenazopyridine [Pyridium] 100 mg tablet 100 mg PO TID PRN (Reason: pain) Qty: 6 0RF Referrals: Ashley Downing MD [Physician] - Alyssa Philip MD [Primary Care Provider] - Stand Alone Forms: Patient Portal/API
[2022-10-17 06:14] LABS: Add Manual Diff / Slide Review NO; Basophils Absolute Auto 0 /uL (0-100); Basophils Percent Auto 0.4 % (0-2); Eosinophils Absolute Auto 100 /uL (0-450); Hematocrit 36.7 % (36-46); Hemoglobin 12.4 g/dL (12.0-16.0); Lymphocytes Absolute Auto 2200 /uL (1100-4500); Lymphocytes Percent Auto 24.7 % (25-40); Mean Corpuscular HGB Conc 33.9 % (30-36); Mean Corpuscular Hemoglobin 29.1 PG (26-34); Mean Corpuscular Volume 85.8 fL (80-100); Monocytes Absolute Auto 500 /uL (0-900); Monocytes Percent Auto 5.2 % (3-14); Neutrophils Absolute Auto 6000 /uL (1500-7000); Neutrophils Percent Auto 68.7 % (50-75); Platelet Count 242 X10^3/uL (150-400); Red Blood Cell Count 4.27 X10^6/uL (4.0-5.2); Red Cell Distribution Width 14.3 % (11.6-14.8); White Blood Cell Count 8.7 X10^3/uL (4.5-11.0)
[2022-10-17] MEDS: PANTOPRAZOLE 40 MG VIAL IV (06:20)
[2022-10-17] MEDS: SODIUM CHLORIDE 0.9% 1,000 ML 1000 ML IV ×2 (06:21→08:08)
[2022-10-17] MEDS: ONDANSETRON 4 MG/2 ML INJ IV (06:21)
[2022-10-17 06:29] LABS: Alanine Aminotransferase 12 IU/L (<35); Albumin 3.9 g/dL (3.5-5.0); Albumin Globulin Ratio 1.4 (1.0-2.8); Alkaline Phosphatase 53 U/L (38-126); Aspartate Aminotransferase 17 IU/L (14-36); BUN Creatinine Ratio 14.7 (6-22); Bilirubin Total 0.2 mg/dL (0.2-1.3); Blood Urea Nitrogen 10 mg/dL (7-17); Calcium 8.6 mg/dL (8.4-10.2); Carbon Dioxide 18 mmol/L (22-32); Chloride 110 mmol/L (98-107); Estimated Glomerular Filt Rate > 60 mL/min (>60); Globulin 2.8 g/dL (1.7-4.1); Glucose 106 mg/dL (70-100); HEMOLYSIS < 15 (0-50); Lipase 116 U/L (23-300); Potassium 3.6 mmol/L (3.4-5.1); Sodium 137 mmol/L (137-145); Total Protein 6.7 g/dL (6.3-8.2)
[2022-10-17] MEDS: MORPHINE 4 MG/ML INJ IV (06:55)
--- NOTE | 2022-10-17 07:57 | DI.US.S_ITS ---
PROCEDURE: US ABDOMEN LIMITED INDICATIONS: RIGHT UPPER QUADRANT PAIN TECHNIQUE: Real-time focused scanning was performed of the abdomen, with image documentation. COMPARISON: None. FINDINGS: There are multiple gallstones in the gallbladder, including a 5 mm impacted gallstone in the gallbladder neck. No gallbladder wall thickening or pain on examination or fluid around the gallbladder. Liver is unremarkable. No dilated ducts. Common duct measures 4.0 mm. Pancreas not well seen secondary to overlying bowel gas. IMPRESSION: Cholelithiasis. Findings include an impacted stone in the gallbladder neck. Dictated by: Ibrahima Luther M.D. on 10/17/2022 at 9:04 Approved by: Ibrahima Luther M.D. on 10/17/2022 at 9:05
[2022-10-17] MEDS: MORPHINE 2 MG/ML INJ IV ×2 (08:07→09:38)
[2022-10-17] MEDS: SODIUM CHLORIDE 0.9% 1,000 ML 150 ML IV (09:38)
[2022-10-17] MEDS: HYDROCODONE/ACET 5/325 TABLET 1 TAB PO (10:05)
== END 2022-10-17 10:31 | disposition home or self-care (01) ==
PROVIDERS: Emergency Medicine; Emergency Provider Emergency Medicine; PCP Family Medicine
DX: K80.20 Calculus of gallbladder without cholecystitis without obstruction (principal)
CPT/HCPCS: 36415; 76705; 80053; 81003; 83690; 85025; 96361; 96374; 96375; 96376; 99284; C9113; J2270; J2405

== ENCOUNTER 2022-10-18 12:34 | Day surgery (SDC) | payer OTHER, SELFPAY ==
[2022-06-15 17:29] VITALS: BMI 32.5
[2022-10-17 12:01] VITALS: BMI 32.1
[2022-10-18] VITALS (12 sets, daily range): BP systolic 99–121; BP diastolic 61–69; PULSE 74–101; RESP 13–22; TEMP 36.2–36.4; O2SAT 95–100; BMI 32.1
--- NOTE | 2022-10-18 | PATH_ITS ---
[facility] Accession Number: [id number] No. of containers..01 Tissue . 01 Material submitted: . gallbladder - GALLBLADDER . 01 Diagnosis: Gallbladder, Cholecystectomy: Chronic cholecystitis and cholelithiasis. Negative for dysplasia and neoplasia. MRV 10/23/2022 1814 Local . 01 Electronically signed: . Ashley Juan MD, Pathologist NPI- [id number] . 01 Gross description: . The specimen is received in formalin labeled with the patient's name, , and gallbladder and consists of an intact gallbladder measuring 8.5 x 3.7 x 3.7 cm with an unremarkable external surface. The cystic duct margin is inked blue, and no pericystic lymph node candidate is identified. The lumen contains dark green viscous bile with several yellow bosselated calculi measuring up to 0.5 cm in greatest dimension occupying but not grossly obstructing the cystic duct. The mucosa is green and velvety with no yellow discoloration, polyps or lesions identified. The buchanan average 0.2 cm thick. [employer] sections to include the cystic duct margin and full-thickness sections are submitted in cassette A1. ([id number]) /[facility] 10/19/2022 1456 Local . 01 Pathologist provided ICD-10: K80.20 . 01 CPT . 798354 Specimen Comment: A courtesy copy of this report has been sent to [phone] Performed at: 01 [facility] [address] [place] [address] [id number] MD Merritt Gould MD Phone: [phone]
[2022-10-18] MEDS: LACTATED RINGERS 1,000 ML 100 ML IV ×2 (13:27→15:25)
--- NOTE | 2022-10-18 13:58 | P.HP_ITS ---
History of Present Illness History of Present Illness Date Patient Seen: 10/18/22 Time Patient Seen: 13:58 Chief complaint: Laparoscopic Cholecystectomy Narrative: Patient seen in ED yesterday for RUQ pain and US concerning for early acute cholecystitis. First episode, has 2 small children. +Anorexia, no emesis. Pain is dull with intermittent sharp. [facility] Medical History Asthma Back pain (~2010) Gastritis (~2010) GERD (gastroesophageal reflux disease) (~2010) Surgical History History of hysterectomy (06/14/22) History of laparoscopy (04/05/22) Hx of colonoscopy (12/14/21) [place] teeth extracted (~2015) Family History Mother Cervical cancer Smoker Father Diabetes mellitus Herniated disc Spondylosis Grandmother Unknown family medical history Diabetes mellitus Smoker Cancer Hyperlipidemia Hypertension Grandfather History of heart disease Grandmother Breast cancer Grandfather Diabetes mellitus Cancer History of heart disease Hypertension Sister Faye syndrome Brother Arthritis of spine Social History marital status: number of children: 1 household members: spouse and children lives independently: Yes caregiver/support person: No housing: house pets and animals: Yes (1 dog: safe) education level: high school occupational status: unemployed current occupational exposures/hazards: No special alexandra needs: No seatbelt use: always do you feel safe at home: Yes Smoking Status: Former smoker second hand exposure: No alcohol intake: current substance use type: does not use during the past year weight has: remained stable well-balanced diet: daily or most days caffeine: Yes (1 cup coffee daily or every other day. ) Type(s) of exercise: walking and normal ROM and activity frequency: daily duration: 15-30 minutes/day Meds Home Medications and Allergies Home Medications Medication Instructions Recorded Confirmed Type ondansetron 4 mg disintegrating 8 mg PO Q8H #30 tabs 05/28/22 07/25/22 Rx tablet trazodone 50 mg tablet See Rx Instructions .Route 07/31/22 10/18/22 Rx .COMPLEX #30 tabs hydrocodone 5 mg-acetaminophen 325 1 tab PO Q6H PRN pain #20 tabs 10/17/22 0 10/18/22 Rx mg tablet ondansetron 4 mg disintegrating 4 mg PO Q8H PRN nausea and 10/17/22 10/18/22 Rx tablet vomiting #10 tabs Allergies Allergy/AdvReac Type Severity Reaction Status Date / Time amoxicillin Allergy Intermediate Rash/Hives Verified 10/18/22 13:18 coconut Allergy Hives Verified 10/18/22 13:18 ibuprofen AdvReac Intermediate Gastrointestinal Verified 10/18/22 13:18 Upset Review of Systems Review of Systems ROS: Yes All systems reviewed with the patient and are negative except as otherwise documented Exam Vital Signs (past 8 hours): - 10/18/22 13:35 Temperature 97.5 F L Pulse Rate 74 Respiratory Rate 16 Blood Pressure 99/63 Pulse Oximetry 99 Oxygen Delivery Method Room Air Oxygen Delivery Method Room Air Const General: cooperative and healthy appearing Nutritional Appearance: average body habitus Orientation: alert, awake and oriented x3 [facility] Head: normocephalic and atraumatic Eyes General: appearance normal, both eyes and all related structures Sclera: sclerae normal Neck Neck: trachea midline Chest Chest: normal inspection of the chest Resp Effort & Inspection: normal respiratory effort and able to speak in complete sentences Cardio Rate: regular rate Rhythm: regular rhythm GI Palpation: soft Skin General: elasticity normal and turgor normal Neuro General: patient alert, patient awake and patient oriented x3 Cognition: normal cognition Psych Appearance: grossly normal Mental Status: mental status grossly normal Judgment: judgment good Assessment & Plan Assessment & Plan narrative: Acute cholecystitis Plan: temi crook Time Spent With Patient Time with patient: less than 30 minutes
[2022-10-18] MEDS: CEFAZOLIN 2 GM/100 ML PREMIX 100 ML IV (15:05)
--- NOTE | 2022-10-18 15:19 | SUR.OPER ---
Supine on padded OR bed, head on pillow, arms secured on padded arm boards at <90 degrees abduction, legs uncrossed, safety belt at thigh, tape over blanket over lower legs.
[2022-10-18] MEDS: BUPIVACAINE 0.5% (PF) 30 ML, EPINEPHrine 0.15 MG INJ (15:25)
--- NOTE | 2022-10-18 15:47 | P.OP_ITS ---
Operative Date/Time/Diagnoses Date of procedure: 10/18/22 Time of procedure: 15:47 Pre-op diagnosis: Acute cholecystitis Post-op diagnosis: same Procedure & Clinicians Procedure: Laparoscopic cholecystectomy Same procedure as scheduled: Yes Indications: Acute cholecystitis Surgeon: Ashley Downing Click Yes if Unassisted: Yes Anesthesia Type: General and Local Operative Notes Findings: Acute cholecystitis Closure Type: primary Specimen(s): other (Gallbladder) Estimated Blood Loss (mL): 20 Blood products transfused: none Procedure in detail: Preop diagnosis: Acute cholecystitis Postop diagnosis: Same Operative procedure: Laparoscopic cholecystectomy Findings: Acute cholecystitis Anesthetic: General with ET tube intubation with local Surgeon: Brittani Downing MD Procedure: Patient placed in a supine position. Prepped and draped in sterile fashion to expose her abdomen. Infraumbilical port site was placed using open technique a 12 mm port. Insufflation began all other ports were placed under direct vision including a 10 mm port in the midepigastrium and 2 5 mm ports in the right lateral abdomen. Gallbladder was grasped and pushed cephalad for exposure. Cystic duct was identified, clipped once distally and twice proxima lly prior to transection. Cystic artery was treated in the similar fashion. Gallbladder was removed from the fossa bed with electrocautery and excellent hemostasis. Gallbladder was then placed into an Endo-Catch bag and pulled through the infraumbilical port site intact. I then removed all ports to begin closure. Closure consisted of interrupted 0 Vicryl for fascial closure. Skin was closed a running 4-0 Vicryl. Steri-Strips and sterile dressings were placed. Patient was awakened, extubated, taken to recovery room in stable condition. Needle, instruments, and sponge counts were correct. Blood loss: 20 mL Specimen: Gallbladder Complications: none Post-operative Condition: stable Disposition: PACU
[2022-10-18] MEDS: fentaNYL 100 MCG/2 ML INJ IV ×4 (16:13→16:34)
[2022-10-18] MEDS: ONDANSETRON 4 MG/2 ML INJ IV (16:14)
[2022-10-18] MEDS: CODEINE/ACETAMINOPHEN 30/300 TABLET 1 TAB PO ×2 (16:29→16:54)
[2022-10-18] MEDS: METOCLOPRAMIDE 10 MG/2 ML INJ IV (17:27)
== END 2022-10-18 17:55 | disposition home or self-care (01) ==
PROVIDERS: PCP Family Medicine; Referring Provider Surgery; Visit Provider Surgery
PROC: 0FT44ZZ Resection of Gallbladder, Percutaneous Endoscopic Approach (ICD-10-PCS; CPT 47562; principal; 2022-10-18 14:30)
DX: K80.10 Calculus of gallbladder with chronic cholecystitis without obstruction (principal)
CPT/HCPCS: 47562; J0171; J0330; J0690; J1100; J2405; J2704; J2765; J3010; J3490

== ENCOUNTER 2022-10-25 17:44 | Emergency (ER) | payer OTHER, SELFPAY ==
[2022-06-15 17:29] VITALS: BMI 32.5
[2022-10-25] VITALS (12 sets, daily range): BP systolic 97–103; BP diastolic 54–70; PULSE 58–77; RESP 16–18; TEMP 36.5–36.9; O2SAT 97–100; BMI 33.3
--- NOTE | 2022-10-25 18:44 | ED_ITS ---
HPI - General Adult General Chief complaint: Abdominal Pain Stated complaint: Post op NVD, Pain#8 Time Seen by Provider: 10/25/22 17:55 Source: patient Mode of arrival: Ambulatory Limitations: no limitations History of Present Illness HPI narrative: Patient is a 27-year-old female who approximately 1 week ago underwent a laparoscopic cholecystectomy. She stated that she was told that things went well. She is not having any vomiting. No fevers. Has had a bowel movement since her surgery. No urinary symptoms. She states that the abdominal wounds appear to be healing well. She is not had her follow-up with the surgeon however she states that she is having continuing abdominal pain she was instructed to come to the emergency department by the general surgeon's office. Related Data Previous Rx's Medication Instructions Recorded ondansetron 4 mg disintegrating 8 mg PO Q8H #30 tabs 05/28/22 tablet trazodone 50 mg tablet See Rx Instructions .Route 07/31/22 .COMPLEX #30 tabs hydrocodone 5 mg-acetaminophen 325 1 tab PO Q6H PRN pain #20 tabs 10/17/22 mg tablet ondansetron 4 mg disintegrating 4 mg PO Q8H PRN nausea and 10/17/22 tablet vomiting #10 tabs hydrocodone 5 mg-acetaminophen 325 1 tab PO Q6H PRN pain #20 tabs 10/18/22 mg tablet hydrocodone 5 mg-acetaminophen 325 1 tab PO Q8H PRN pain #7 tabs 10/25/22 mg tablet Allergies Allergy/AdvReac Type Severity Reaction Status Date / Time amoxicillin Allergy Intermediate Rash/Hives Verified 10/18/22 13:18 coconut Allergy Hives Verified 10/18/22 13:18 ibuprofen AdvReac Intermediate Gastrointestinal Verified 10/18/22 13:18 Upset Review of Systems Constitutional Constitutional: Reports system reviewed and no additional complaints, except as documented Gastrointestinal Gastrointestinal: Reports system reviewed and no additional complaints, except as documented Genitourinary Genitourinary: Reports system reviewed and no additional complaints, except as documented Musculoskeletal Musculoskeletal: Reports system reviewed and no additional complaints, except as documented Integumentary/Breasts Skin/Breast: Reports system reviewed and no additional complaints, except as documented Hematologic/Lymphatic On Anticoagulants: No Patient History Medical History Asthma Back pain (~2010) Gastritis (~2010) GERD (gastroesophageal reflux disease) (~2010) Surgical History History of hysterectomy (06/14/22) History of laparoscopy (04/05/22) Hx of colonoscopy (12/14/21) [place] teeth extracted (~2015) Family History Mother Cervical cancer Smoker Father Diabetes mellitus Herniated disc Spondylosis Grandmother Unknown family medical history Diabetes mellitus Smoker Cancer Hyperlipidemia Hypertension Grandfather History of heart disease Grandmother Breast cancer Grandfather Diabetes mellitus Cancer History of heart disease Hypertension Sister Faye syndrome Brother Arthritis of spine Social History marital status: number of children: 1 household members: spouse and children lives independently: Yes caregiver/support person: No housing: house pets and animals: Yes (1 dog: safe) education level: high school occupational status: unemployed current occupational exposures/hazards: No special alexandra needs: No seatbelt use: always do you feel safe at home: Yes Smoking Status: Former smoker second hand exposure: No alcohol intake: current substance use type: does not use during the past year weight has: remained stable well-balanced diet: daily or most days caffeine: Yes (1 cup coffee daily or every other day. ) Type(s) of exercise: walking and normal ROM and activity frequency: daily duration: 15-30 minutes/day Smoking Status: Former smoker tobacco type: vaping alcohol intake frequency: holidays/special occasions only Substance Use Type: marijuana Exam Initial Vital Signs Initial Vital Signs: Vital Signs Temperature 98.4 F 10/25/22 17:52 Pulse Rate 77 10/25/22 17:52 Respiratory Rate 18 10/25/22 17:52 Blood Pressure 98/60 10/25/22 17:52 Pulse Oximetry 99 10/25/22 17:52 Oxygen Delivery Method Room Air 10/25/22 17:52 Const General: cooperative, comfortable and No ill appearing HENMT Head: normal to inspection and normocephalic GI Inspection: normal to inspection and non-distended Palpation: tender Skin Other: Surgical incisions appear well without signs of infection Neuro General: patient alert and patient awake Course Orders Ordered: ED Orders 10/25/22 18:07 Complete Blood Count AUTO DIFF Stat Comprehensive Metabolic Panel Stat Lipase Stat Discontinued Medications Hydrocodone Bitart/Acetaminophen (Hydrocodone/Acet 5/325 Tablet) 1 tab PO NOW ONE Stop: 10/25/22 20:16 Last Admin: 10/25/22 20:21 Dose: 1 tab Documented By: AMY Hydrocodone Bitart/Acetaminophen (Hydrocodone/Acet 5/325 Prepack) 1 bottle MISC SEEINSTR ONE Stop: 10/25/22 20:16 Last Admin: 10/25/22 20:21 Dose: 1 bottle Documented By: AMY Sodium Chloride (Normal Saline 0.9%) 1,000 mls @ 1,000 mls/hr IV BOLUS ONE Stop: 10/25/22 19:44 Last Infusion: 10/25/22 19:58 Dose: 0 mls/hr Documented By: Admin: 10/25/22 18:58 Dose: 1,000 mls/hr Documented By: DON Metoclopramide HCl (Metoclopramide 10 Mg/2 Ml Inj) 10 mg IV NOW ONE Stop: 10/25/22 18:46 Last Admin: 10/25/22 18:58 Dose: 10 mg Documented By: DON Morphine Sulfate (Morphine 4 Mg/Ml Inj) 4 mg IV NOW ONE Stop: 10/25/22 18:46 Last Admin: 10/25/22 18:59 Dose: 4 mg Documented By: DON Vital Signs Vital signs: Vital Signs - 8 hr 10/25/22 17:52 10/25/22 18:10 10/25/22 18:11 Temperature 98.4 F Pulse Rate 77 66 Respiratory Rate 18 Blood Pressure 98/60 100/59 L Pulse Oximetry 99 98 Oxygen Delivery Method Room Air 10/25/22 18:11 10/25/22 18:30 10/25/22 19:00 Temperature Pulse Rate 66 73 69 Respiratory Rate Blood Pressure Pulse Oximetry 99 100 99 Oxygen Delivery Method 10/25/22 19:04 10/25/22 19:04 10/25/22 19:05 Temperature Pulse Rate 63 Respiratory Rate Blood Pressure 100/70 102/70 Pulse Oximetry 100 Oxygen Delivery Method 10/25/22 19:05 10/25/22 19:10 10/25/22 19:10 Temperature Pulse Rate 69 68 Respiratory Rate Blood Pressure 103/60 Pulse Oximetry 100 98 Oxygen Delivery Method 10/25/22 19:20 10/25/22 19:20 10/25/22 19:30 Temperature Pulse Rate 63 Respiratory Rate Blood Pressure 100/59 L 102/66 Pulse Oximetry 99 Oxygen Delivery Method 10/25/22 19:30 10/25/22 20:00 10/25/22 20:00 Temperature Pulse Rate 60 58 L Respiratory Rate 16 Blood Pressure 97/54 L Pulse Oximetry 100 98 Oxygen Delivery Method 10/25/22 20:28 Temperature 97.7 F Pulse Rate 60 Respiratory Rate 16 Blood Pressure 97/54 L Pulse Oximetry 97 Oxygen Delivery Method Room Air Medical Decision Making Lab Data Lab results reviewed: Yes I reviewed the patient's lab results. 10/25/22 18:07 10/25/22 18:07 Labs: Lab Results 10/25/22 10/25/22 Range/Units 18:07 18:07 WBC 5.6 (4.5-11.0) X10^3/uL RBC 4.65 (4.0-5.2) X10^6/uL Hgb 13.6 (12.0-16.0) g/dL Hct 39.8 (36-46) % MCV 85.5 (80-100) fL MCH 29.2 (26-34) PG MCHC 34.1 (30-36) % RDW 14.0 (11.6-14.8) % Plt Count 270 (150-400) X10^3/uL Neut % (Auto) 50.7 (50-75) % Lymph % (Auto) 36.9 (25-40) % [place] % (Auto) 10.6 (3-14) % Eos % (Auto) 1.4 L (2-4) % Baso % (Auto) 0.4 (0-2) % Neut # (Auto) 2800 (5837-4283) /uL Lymph # (Auto) 2100 (8830-1718) /uL [place] # (Auto) 600 (0-900) /uL Eos # (Auto) 100 (0-450) /uL Baso # (Auto) 0 (0-100) /uL Sodium 140 (137-145) mmol/L Potassium 3.9 (3.4-5.1) mmol/L Chloride 105 (98-107) mmol/L Carbon Dioxide 27 (22-32) mmol/L BUN 9 (7-17) mg/dL Creatinine 0.59 (0.52-1.04) mg/dL Estimated GFR > 60 (>60) mL/min BUN/Creatinine Ratio 15.3 (6-22) Glucose 91 (70-100) mg/dL Calcium 9.2 (8.4-10.2) mg/dL Total Bilirubin 0.4 (0.2-1.3) mg/dL AST 59 H (14-36) IU/L ALT 361 H (<35) IU/L Alkaline Phosphatase 104 D (38-126) U/L Total Protein 7.8 (6.3-8.2) g/dL Albumin 4.4 (3.5-5.0) g/dL Globulin 3.4 (1.7-4.1) g/dL Albumin/Globulin Ratio 1.3 (1.0-2.8) Lipase 64 (23-300) U/L MDM Narrative Medical decision making narrative: Patient does have a benign abdominal exam. Her LFTs and lipase are unremarkable. Does not have a leukocytosis. Her skin wounds do not have any signs of infection. I do have low suspicion for an acute intra-abdominal issue although I did consider things like bile leak/abscess/bowel obstruction. Given her labs and her presentation I do feel that we should hold on any radiologic studies for now. Will send home with a prescription for nausea and pain medication. She was advised that she needs to contact the operative surgeon for follow-up. She was given return precautions. She expressed understanding and agreement. Discharge Plan Departure Patient Disposition: Home Clinical Impression: Post-operative pain Instructions: DI for Abdominal Pain-Adult Activity Restrictions/Additional Instructions: I do recommend that tomorrow you contact the general surgeon who did your surger y to discuss follow-up. Return to the emergency department for new symptoms. Prescriptions: New hydrocodone-acetaminophen 5-325 mg tablet 1 tab PO Q8H PRN (Reason: pain) Qty: 7 0RF No Action ondansetron 4 mg tablet,disintegrating 8 mg PO Q8H Qty: 30 0RF Rx Instructions: Dissolve one or two tablets on tongue every 8 hours as needed for nausea and vomiting trazodone 50 mg tablet See Rx Instructions .ROUTE .COMPLEX Qty: 30 0RF Dose Instruction: take 1 tablet by mouth at bedtime if needed for sleep / insomnia Rx Instructions: take 1 tablet by mouth at bedtime if needed for sleep / insomnia hydrocodone-acetaminophen 5-325 mg tablet 1 tab PO Q6H PRN (Reason: pain) Qty: 20 0RF ondansetron 4 mg tablet,disintegrating 4 mg PO Q8H PRN (Reason: nausea and vomiting) Qty: 10 0RF hydrocodone-acetaminophen 5-325 mg tablet 1 tab PO Q6H PRN (Reason: pain) Qty: 20 0RF Referrals: Alyssa Philip MD [Primary Care Provider] - Stand Alone Forms: Patient Portal/API
[2022-10-25] MEDS: METOCLOPRAMIDE 10 MG/2 ML INJ IV (18:58)
[2022-10-25] MEDS: SODIUM CHLORIDE 0.9% 1,000 ML 1000 ML IV (18:58)
[2022-10-25] MEDS: MORPHINE 4 MG/ML INJ IV (18:59)
[2022-10-25 19:18] LABS: Alanine Aminotransferase 361 IU/L (<35); Albumin 4.4 g/dL (3.5-5.0); Albumin Globulin Ratio 1.3 (1.0-2.8); Alkaline Phosphatase 104 U/L (38-126); Aspartate Aminotransferase 59 IU/L (14-36); BUN Creatinine Ratio 15.3 (6-22); Bilirubin Total 0.4 mg/dL (0.2-1.3); Blood Urea Nitrogen 9 mg/dL (7-17); Calcium 9.2 mg/dL (8.4-10.2); Carbon Dioxide 27 mmol/L (22-32); Chloride 105 mmol/L (98-107); Estimated Glomerular Filt Rate > 60 mL/min (>60); Globulin 3.4 g/dL (1.7-4.1); Glucose 91 mg/dL (70-100); HEMOLYSIS < 15 (0-50); Lipase 64 U/L (23-300); Potassium 3.9 mmol/L (3.4-5.1); Sodium 140 mmol/L (137-145); Total Protein 7.8 g/dL (6.3-8.2)
[2022-10-25 19:20] LABS: Add Manual Diff / Slide Review NO; Basophils Absolute Auto 0 /uL (0-100); Basophils Percent Auto 0.4 % (0-2); Eosinophils Absolute Auto 100 /uL (0-450); Eosinophils Percent Auto 1.4 % (2-4); Hematocrit 39.8 % (36-46); Hemoglobin 13.6 g/dL (12.0-16.0); Lymphocytes Absolute Auto 2100 /uL (1100-4500); Lymphocytes Percent Auto 36.9 % (25-40); Mean Corpuscular HGB Conc 34.1 % (30-36); Mean Corpuscular Hemoglobin 29.2 PG (26-34); Mean Corpuscular Volume 85.5 fL (80-100); Monocytes Absolute Auto 600 /uL (0-900); Monocytes Percent Auto 10.6 % (3-14); Neutrophils Absolute Auto 2800 /uL (1500-7000); Neutrophils Percent Auto 50.7 % (50-75); Platelet Count 270 X10^3/uL (150-400); Red Blood Cell Count 4.65 X10^6/uL (4.0-5.2); White Blood Cell Count 5.6 X10^3/uL (4.5-11.0)
[2022-10-25] MEDS: HYDROCODONE/ACET 5/325 TABLET 1 TAB PO (20:21)
[2022-10-25] MEDS: HYDROCODONE/ACET 5/325 PREPACK 1 BOTTLE MISC (20:21)
== END 2022-10-25 20:29 | disposition home or self-care (01) ==
PROVIDERS: Emergency Provider Emergency Medicine; PCP Family Medicine
DX: G89.18 Other acute postprocedural pain (principal)
CPT/HCPCS: 36415; 80053; 83690; 85025; 96361; 96374; 96375; 99284; J2270; J2765

== ENCOUNTER 2022-12-13 16:32 | Emergency (ER) | payer OTHER, SELFPAY ==
[2022-06-15 17:29] VITALS: BMI 32.5
[2022-12-13 16:35] VITALS: BP 115/67; PULSE 95; RESP 20; TEMP 37.3; O2SAT 100; BMI 28.3
--- NOTE | 2022-12-13 17:11 | DI.RAD.S_ITS ---
PROCEDURE: XR CHEST 1V INDICATIONS: cough x2 wks TECHNIQUE: One view of the chest was acquired. COMPARISON: None. FINDINGS: Surgical changes and devices: None. Lungs and pleura: Lungs are clear. No pleural effusions or pneumothorax. Mediastinum: Mediastinal contours appear normal. Heart size is normal. Bones and chest wall: No suspicious bony lesions. Overlying soft tissues appear unremarkable. IMPRESSION: Portable chest within normal limits for age. Dictated by: Jericho Knutson M.D. on 12/13/2022 at 17:29 Approved by: Jericho Knutson M.D. on 12/13/2022 at 17:29
--- NOTE | 2022-12-13 17:54 | ED_ITS ---
HPI - URI/Sore Throat General Chief Complaint: Upper Respiratory Symptoms Stated Complaint: cough for 2 weeks, now chest hurts Time Seen by Provider: 12/13/22 16:41 Source: patient Mode of arrival: Ambulatory History of Present Illness HPI Narrative: 27-year-old female presents for nonproductive cough for 2 weeks. Also reporting anterior chest wall pain when she coughs and left ear pain. Patient has been using hydrogen peroxide and when she was in the shower putting warm water in her ear for relief. She is concerned that she may have developed pneumonia and she is here today for a chest x-ray. Related Data Previous Rx's Medication Instructions Recorded ondansetron 4 mg disintegrating 8 mg (2 x 4 mg) PO Q8H #30 tabs 05/28/22 tablet trazodone 50 mg tablet See Rx Instructions .Route 07/31/22 .COMPLEX #30 tabs ondansetron 4 mg disintegrating 4 mg PO Q8H PRN nausea and 10/17/22 tablet vomiting #10 tabs benzonatate 200 mg capsule 200 mg PO TID PRN cough #30 caps 12/13/22 methylprednisolone 4 mg tablets in 4 mg PO .ASDIR #21 ea 12/13/22 a dose pack (Medrol (Zan)) Allergies Allergy/AdvReac Type Severity Reaction Status Date / Time amoxicillin Allergy Intermediate Rash/Hives Verified 11/26/22 13:31 coconut Allergy Hives Verified 11/26/22 13:31 ibuprofen AdvReac Intermediate Gastrointestinal Verified 11/26/22 13:31 Upset Review of Systems Review of Systems Narrative: CONSTITUTIONAL- Denies: fever, chills, fatigue HEENT-reports: Left ear pain Denies: sore throat, nosebleed, vision changes RESPIRATORY-reports: Nonproductive cough Denies: shortness of breath, wheezing CARDIAC-reports: Anterior chest wall pain Denies: edema, orthopnea GI- Denies: abdominal pain, nausea, vomiting, constipation, diarrhea - Denies: frequency, dysuria, hematuria, flank pain MSK- Denies: extremity pain, extremity swelling, joint pain, joint swelling SKIN- Denies: rash, itching, burn, swelling NEUROLOGICAL- Denies: headache, numbness, weakness, dizziness PSYCHIATRIC- Denies: anxiety, depression, suicidal ideation, homicidal ideation Patient History Medical History Asthma Back pain (~2010) Gastritis (~2010) GERD (gastroesophageal reflux disease) (~2010) Surgical History History of hysterectomy (06/14/22) History of laparoscopy (04/05/22) Hx of cholecystectomy Hx of colonoscopy (12/14/21) [place] teeth extracted (~2015) Family History Mother Cervical cancer Smoker Father Diabetes mellitus Herniated disc Spondylosis Grandmother Unknown family medical history Diabetes mellitus Smoker Cancer Hyperlipidemia Hypertension Grandfather History of heart disease Grandmother Breast cancer Grandfather Diabetes mellitus Cancer History of heart disease Hypertension Sister Faye syndrome Brother Arthritis of spine Social History marital status: number of children: 1 household members: spouse and children lives independently: Yes caregiver/support person: No housing: house pets and animals: Yes (1 dog: safe) education level: high school occupational status: unemployed current occupational exposures/hazards: No special alexandra needs: No seatbelt use: always do you feel safe at home: Yes Smoking Status: Former smoker second hand exposure: No alcohol intake: current substance use type: does not use during the past year weight has: remained stable well-balanced diet: daily or most days caffeine: Yes (1 cup coffee daily or every other day. ) Type(s) of exercise: walking and normal ROM and activity frequency: daily duration: 15-30 minutes/day Smoking Status: Former smoker tobacco type: vaping alcohol intake frequency: holidays/special occasions only Substance Use Type: marijuana Exam Initial Vital Signs Initial Vital Signs: Vital Signs Temperature 99.2 F 12/13/22 16:35 Pulse Rate 95 H 12/13/22 16:35 Respiratory Rate 20 12/13/22 16:35 Blood Pressure 115/67 12/13/22 16:35 Pulse Oximetry 100 12/13/22 16:35 Oxygen Delivery Method Room Air 12/13/22 16:35 Const: Awake, alert, no acute distress, nontoxic appearing Eyes: PERRL, EOMI, conjunctiva normal ENT: Atraumatic, dentition normal, mucous membranes moist Cardiac: regular rate, regular rhythm RESP: unlabored, clear bilaterally, no wheezing GI: Atraumatic, soft, nontender, nondistended, no rebound, no guarding MSK: Atraumatic, full range of motion, pulses equal Skin: Warm, Dry, intact, no rashes Neuro: AO x3, CN II-XII grossly intact, moves all extremities Psych: affect normal, mood normal, not suicidal, not homicidal Course Course Course Narrative: Well-appearing patient with nonproductive cough for 2 weeks. Lungs are clear to auscultation bilaterally, saturating well on room air. Patient does have difficulty completing sentences due to cough however. Patient's left ear is nonerythematous, no pain with auricular movement. Likely combination of referred pain from coughing as well as irritation from repeated hydrogen peroxide use. XR negative for acute finding. Patient given steroids and cough medications. Counseled to not use hydrogen peroxide or manipulate the ear canal. Recommended use of decongestants. Orders Ordered: Discontinued Medications Dexamethasone (Dexamethasone 10 Mg/Ml Vial) 10 mg PO NOW ONE Stop: 12/13/22 17:55 Last Admin: 12/13/22 18:08 Dose: 10 mg Documented By: MARGO Vital Signs Vital signs: Vital Signs - 8 hr 12/13/22 16:35 Temperature 99.2 F Pulse Rate 95 H Respiratory Rate 20 Blood Pressure 115/67 Pulse Oximetry 100 Oxygen Delivery Method Room Air MDM - URI/Sore Throat Differential Diagnosis Differential diagnosis: Likely upper respiratory infection, otitis media and sinusitis Discharge Plan Departure Patient Disposition: Home Clinical Impression: Cough Instructions: DI for Acute Bronchitis Prescriptions: New methylprednisolone [Medrol (Zan)] 4 mg tablets,dose pack 4 mg PO .ASDIR Qty: 21 0RF Rx Instructions: PER PACKAGE DIRECTIONS benzonatate 200 mg capsule 200 mg PO TID PRN (Reason: cough) Qty: 30 0RF No Action ondansetron 4 mg tablet,disintegrating 8 mg PO Q8H Qty: 30 0RF Rx Instructions: Dissolve one or two tablets on tongue every 8 hours as needed for nausea and vomiting trazodone 50 mg tablet See Rx Instructions .ROUTE .COMPLEX Qty: 30 0RF Dose Instruction: take 1 tablet by mouth at bedtime if needed for sleep / insomnia Rx Instructions: take 1 tablet by mouth at bedtime if needed for sleep / insomnia ondansetron 4 mg tablet,disintegrating 4 mg PO Q8H PRN (Reason: nausea and vomiting) Qty: 10 0RF Referrals: Alyssa Philip MD [Primary Care Provider] - Stand Alone Forms: Patient Portal/API
[2022-12-13] MEDS: DEXAMETHASONE 10 MG/ML VIAL PO (18:08)
[2022-12-13 18:09] VITALS: BP 112/71; PULSE 74; RESP 18; O2SAT 100
== END 2022-12-13 18:14 | disposition home or self-care (01) ==
PROVIDERS: Emergency Provider Emergency Medicine; PCP Family Medicine
DX: R05.9 Cough, unspecified (principal)
CPT/HCPCS: 71045; 99283; J1100

== ENCOUNTER → 2023-11-15 09:48 | Outpatient (CLI) | payer OTHER, SELFPAY ==
[2022-06-15 17:29] VITALS: BMI 32.5
[2023-11-15 14:50] LABS: Clostridium Difficile Tox PCR Negative for C. diff (Negative)
== END ==
PROVIDERS: PCP Family Medicine; Referring Provider Family Medicine; Visit Provider Family Medicine
DX: K52.9 Noninfective gastroenteritis and colitis, unspecified (principal)
CPT/HCPCS: 87177; 87493

== ENCOUNTER 2023-11-20 16:18 | Emergency (ER) | payer OTHER, SELFPAY ==
[2022-06-15 17:29] VITALS: BMI 32.5
[2023-11-20] VITALS (16 sets, daily range): BP systolic 87–123; BP diastolic 53–78; PULSE 51–96; RESP 14–32; TEMP 36.9; O2SAT 95–100; BMI 283.0
--- NOTE | 2023-11-20 17:03 | PC.NURSE ---
Pts BP dropped to 84/43 once in rm 8. pt placed in trend position with helped. BP 108/systolic. 500mL bolus of NS infusing.
--- NOTE | 2023-11-20 17:13 | ED_ITS ---
HPI - GI Bleed General Chief complaint: GI Bleed Stated complaint: Blood in Stool, Level 8 Abd Pain Time Seen by Provider: 11/20/23 17:05 Source: patient, RN notes reviewed and old records reviewed Mode of arrival: Family Vehicle Limitations: no limitations History of Present Illness HPI Narrative: 28-year-old history cholecystectomy and hysterectomy. Patient presents with complaint of abdominal pain which she describes as infraumbilical or 3 fingers below her belly button, chronic diarrhea since she had a cholecystectomy but has had very dark stools recently and noticed some bright red blood today. She states she was having bowel movements almost every 30 minutes alternating between dark with some blood between stools. She states no fevers but is feeling chilled. Was feeling okay but developed lightheadedness here in the department. Denies chest pain or pressure no shortness of breath. She is has not nausea but no vomiting. States she is no urinary symptoms. No vaginal bleeding. Has not had rectal bleeding in the past that she is aware. Patient notes had some atypical bruising between her thighs in the last several days. No other atypical bleeding or petechiae or bruising noted. States she was currently taking phentermine for weight loss but no other daily prescription medications. States she has had prior cholecystectomy and hysterectomy for endometriosis. Reports allergy to amoxicillin. No tobacco, no alcohol, uses marijuana nightly for insomnia but no other recreational drugs. Her primary care physician is Dr. Philip. Related Data Previous Rx's Medication Instructions Recorded ondansetron 4 mg disintegrating 8 mg (2 x 4 mg) PO Q8H #30 tabs 05/28/22 tablet trazodone 50 mg tablet See Rx Instructions .Route 07/31/22 .COMPLEX #30 tabs ondansetron 4 mg disintegrating 4 mg PO Q8H PRN nausea and 10/17/22 tablet vomiting #10 tabs benzonatate 200 mg capsule 200 mg PO TID PRN cough #30 caps 12/13/22 methylprednisolone 4 mg tablets in 4 mg PO .ASDIR #21 ea 12/13/22 a dose pack (Medrol (Zan)) phentermine 15 mg capsule 15 mg PO DAILY #30 caps 11/08/23 tramadol 50 mg tablet 50 mg PO Q6H PRN pain #10 tabs 11/20/23 vancomycin 125 mg capsule 125 mg PO QID #40 caps 11/21/23 Allergies Allergy/AdvReac Type Severity Reaction Status Date / Time amoxicillin Allergy Intermediate Rash/Hives Verified 11/08/23 08:20 coconut Allergy Hives Verified 11/08/23 08:20 ibuprofen AdvReac Intermediate Gastrointestinal Verified 11/08/23 08:20 Upset Review of Systems Review of Systems ROS Unobtainable: All systems reviewed & are unremarkable except as noted in HPI and below Patient History Medical History Asthma GERD (gastroesophageal reflux disease) (~2010) Gastritis (~2010) Back pain (~2010) Surgical History Hx of cholecystectomy History of hysterectomy (06/14/22) History of laparoscopy (04/05/22) Hx of colonoscopy (12/14/21) Arvin teeth extracted (~2015) Family History Mother Cervical cancer Smoker Father Diabetes mellitus Herniated disc Spondylosis Grandmother Unknown family medical history Diabetes mellitus Smoker Cancer Hyperlipidemia Hypertension Grandfather History of heart disease Grandmother Breast cancer Grandfather Diabetes mellitus Cancer History of heart disease Hypertension Sister Faye syndrome Brother Arthritis of spine Social History marital status: number of children: 1 household members: spouse and children lives independently: Yes caregiver/support person: No housing: house pets and animals: Yes (1 dog: safe) education level: high school occupational status: unemployed current occupational exposures/hazards: No special alexandra needs: No seatbelt use: always do you feel safe at home: Yes Smoking Status: Former smoker second hand exposure: No alcohol intake: current substance use type: does not use during the past year weight has: remained stable well-balanced diet: daily or most days caffeine: Yes (1 cup coffee daily or every other day. ) Type(s) of exercise: walking and normal ROM and activity frequency: daily duration: 15-30 minutes/day Smoking Status: Former smoker tobacco type: vaping alcohol intake frequency: holidays/special occasions only Substance Use Type: marijuana Exam Narrative Exam Narrative: GENERAL: Alert and oriented x three, patient's skin is warm, pink and dry HEENT: Head normocephalic, atraumatic, EOMI, pupils reactive, face symmetric, moist mucous membranes NECK: Supple, full range of motion CARDIOVASCULAR: Regular rate and rhythm without murmurs, rubs or gallops. RESPIRATORY: Breath sounds equal bilaterally, no wheezes rales or rhonchi. ABDOMEN: Soft, positive for abdominal tenderness greatest the suprapubic and left lower quadrant. Normoactive bowel sounds all 4 quadrants. No guarding or rebound, rigidity, no mass : No CVA tenderness EXTREMITIES: Normal range of motion, no clubbing or edema. Neurovascularly intact NEUROLOGICAL: Cranial nerves II through XII grossly intact. Moving all extremities SKIN: Warm, dry, no petechiae, no rashes or lesions. Initial Vital Signs Initial Vital Signs: Vital Signs Temperature 98.4 F 11/20/23 16:28 Pulse Rate 96 H 11/20/23 16:28 Respiratory Rate 16 11/20/23 16:28 Blood Pressure 106/65 11/20/23 16:28 Pulse Oximetry 95 11/20/23 16:28 Oxygen Delivery Method Room Air 11/20/23 16:28 Course Orders Ordered: Discontinued Medications Fentanyl (Fentanyl 100 Mcg/2 Ml Inj) 25 mcg IV NOW ONE Stop: 11/20/23 17:13 Last Admin: 11/20/23 17:35 Dose: 25 mcg Documented By: DANE Fidaxomicin (Fidaxomicin 200 Mg Tablet) 200 mg PO NOW ONE Stop: 11/20/23 18:32 Last Admin: 11/20/23 19:06 Dose: 200 mg Documented By: DANE Sodium Chloride (Normal Saline 0.9%) 500 mls @ 1,000 mls/hr IV BOLUS ONE Stop: 11/20/23 17:33 Last Infusion: 11/20/23 19:12 Dose: Infused Documented By: Admin: 11/20/23 18:00 Dose: 1,000 mls/hr Documented By: DANE Acetaminophen (Ofirmev) 1,000 mg in 100 mls @ 400 mls/hr IV NOW ONE Stop: 11/20/23 18:43 Last Infusion: 11/20/23 19:27 Dose: Infused Documented By: Admin: 11/20/23 19:06 Dose: 400 mls/hr Documented By: DANE Ondansetron HCl (Ondansetron 4 Mg/2 Ml Inj) 4 mg IV NOW PRN PRN Reason: Nausea And Vomiting Last Admin: 11/20/23 17:35 Dose: 4 mg Documented By: DANE Pantoprazole Sodium (Pantoprazole 40 Mg Vial) 80 mg IV NOW ONE Stop: 11/20/23 16:59 Last Admin: 11/20/23 17:35 Dose: 80 mg Documented By: DANE Vital Signs Vital signs: Vital Signs - 8 hr 11/20/23 16:28 11/20/23 16:54 11/20/23 16:56 Temperature 98.4 F Pulse Rate 96 H 86 82 Respiratory Rate 16 18 20 Blood Pressure 106/65 Pulse Oximetry 95 99 Oxygen Delivery Method Room Air 11/20/23 16:56 11/20/23 16:57 11/20/23 16:57 Temperature Pulse Rate Respiratory Rate Blood Pressure 87/53 L 103/64 103/64 Pulse Oximetry Oxygen Delivery Method 11/20/23 16:57 11/20/23 17:00 11/20/23 17:00 Temperature Pulse Rate 83 85 Respiratory Rate 26 H 24 Blood Pressure 110/68 Pulse Oximetry 99 100 Oxygen Delivery Method 11/20/23 17:24 11/20/23 17:24 11/20/23 17:40 Temperature Pulse Rate 71 63 Respiratory Rate 32 H 24 Blood Pressure 107/58 L Pulse Oximetry 100 Oxygen Delivery Method 11/20/23 17:41 11/20/23 17:41 11/20/23 17:49 Temperature Pulse Rate 65 Respiratory Rate 15 Blood Pressure 98/56 L 101/56 L Pulse Oximetry 100 Oxygen Delivery Method 11/20/23 17:49 11/20/23 18:00 11/20/23 18:00 Temperature Pulse Rate 69 58 L Respiratory Rate 14 28 H Blood Pressure 104/57 L Pulse Oximetry 99 100 Oxygen Delivery Method MDM - GI Bleed Lab Data 11/20/23 17:05 11/20/23 17:05 Labs: Lab Results 11/20/23 11/20/23 Range/Units 16:49 17:05 WBC 7.3 (4.5-11.0) X10^3/uL RBC 4.57 (4.0-5.2) X10^6/uL Hgb 13.6 (12.0-16.0) g/dL Hct 40.1 (36-46) % MCV 87.7 (80-100) fL MCH 29.6 (26-34) PG MCHC 33.8 (30-36) % RDW 13.8 (11.6-14.8) % Plt Count 232 (150-400) X10^3/uL Neut % (Auto) 74.5 (50-75) % Lymph % (Auto) 19.6 L (25-40) % [facility] % (Auto) 5.2 (3-14) % Eos % (Auto) 0.4 L (2-4) % Baso % (Auto) 0.3 (0-2) % Neut # (Auto) 5500 (2776-7916) /uL Lymph # (Auto) 1400 (7516-9486) /uL [facility] # (Auto) 400 (0-900) /uL Eos # (Auto) 0 (0-450) /uL Baso # (Auto) 0 (0-100) /uL APTT 44 H (25.1-36.5) SECONDS Sodium 140 (137-145) mmol/L Potassium 3.3 L (3.4-5.1) mmol/L Chloride 107 (98-107) mmol/L Carbon Dioxide 20 L (22-32) mmol/L BUN 10 (7-17) mg/dL Creatinine 0.66 (0.52-1.04) mg/dL Estimated GFR > 60 (>60) mL/min BUN/Creatinine Ratio 15.2 (6-22) Glucose 92 (70-100) mg/dL Calcium 9.4 (8.4-10.2) mg/dL Total Bilirubin 0.7 (0.2-1.3) mg/dL AST 17 (14-36) IU/L ALT 14 (<35) IU/L Alkaline Phosphatase 59 (38-126) U/L Total Protein 8.1 (6.3-8.2) g/dL Albumin 4.6 (3.5-5.0) g/dL Globulin 3.5 (1.7-4.1) g/dL Albumin/Globulin Ratio 1.3 (1.0-2.8) Lipase 61 (23-300) U/L Urine RBC None seen (0-5/HPF) Urine WBC 1-5/hpf (0-5/HPF) Ur Squamous Epith Cells 1-5 /hpf (0-5/HPF) Urine Bacteria Occasional (0-1) (None) Urine Mucus 1+ H (Negative) Ur Culture Indicated? Cult not indicated Vol Urine Centrifuged Low vol <10ml (spun) A Stl C. cayetanensis PCR Not detected (Not Detect) Stool Rotavirus (PCR) Not detected (Not Detect) Stool Adenovirus (PCR) Not detected (Not Detect) Stool Astrovirus (PCR) Not detected (Not Detect) Stool Cryptosporidium PCR Not detected (Not Detect) Stl E.coli Shiga Tox PCR Not detected (Not Detect) St Sh/Enteroin Ecoli PCR Not detected (Not Detect) Stl Enterotoxigenic E PCR Not detected (Not Detect) Stool EPEC (PCR) Not detected (Not Detect) Stl E. histolytica PCR Not detected (Not Detect) Stool Giardia Lamblia PCR Not detected (Not Detect) Stool Sapovirus (PCR) Not detected (Not Detect) Stl P. shigelloides PCR Not detected (Not Detect) St Y.enterocolitica PCR Not detected (Not Detect) Stool Vibrio (PCR) Not detected (Not Detect) Stl Vibrio cholerae PCR Not detected (Not Detect) Stl Enteroaggr Ecoli PCR Not detected (Not Detect) Stl Norovirus GI/GII PCR Not detected (Not Detect) Campylobacter (PCR) Not detected (Not Detect) C. difficile Tox (PCR) Detected H (Not Detect) Salmonella (PCR) Not detected (Not Detect) Urine Dip Bedside Urine Glucose Negative Bedside Urine Bilirubin - Negative Bedside Urine Ketone +++ 80 Urine Specific Davy 1.030 Bedside Urine Occult Blood +/- Bedside Urine pH 6.0 Bedside Urine Protein +/- 15 Bedside Urine Urobilinogen - Negative Bedside Urine Nitrite - Negative Bedside Urine Leukocytes - Negative Esterase Imaging Data CT scan - abdomen/pelvis: Radiologist's Impression: Close Abdomen/Pelvis CTA (Signed) Eran Trejo - 11/20/[address] [address] [address] Scan Report Signed Patient: Emilia Wasserman MR#: [id number] : 1995 Acct:[id number] Age/Sex: 28 / F Date of Service: 11/20/23 Loc: ED Accession Number: [id number] Procedure: CT angio Abd/Pel GI Bleed Ordering Provider: Mank,Clari C D.O. PROCEDURE: CT ANGIO ABD/PEL GI BLEED INDICATIONS: GI Bleed, infraumb pain, diarrhea, rectal bleeding, lighthea TECHNIQUE: After the administration of intravenous contrast, 2.5 mm thick sections acquired from the diaphragm to the symphysis. 10 mm maximum-intensity projection (MIP) reformats were then acquired. For radiation dose reduction, the following was used: automated exposure control. COMPARISON: [facility], CT, CT ABDOMEN PELVIS W CON, 11/11/2021, 18:50. FINDINGS: Image Quality: Diagnostic. Abdominal aorta: No aortic aneurysm or evidence of acute aortic syndrome. Mesenteric arteries: Patent without hemodynamically significant stenosis. Renal arteries: Patent without hemodynamically significant stenosis. OTHER: Lower Chest: No significant findings. Liver: No solid mass. Gallbladder: Status post cholecystectomy. Biliary ducts: No biliary dilation. Pancreas: No ductal dilation. Spleen: Size is within normal limits. Adrenal Glands: No adrenal nodules. Kidneys and Ureters: No hydronephrosis. No solid mass. No complex renal cystic lesion which requires follow up. Stomach and Bowel: Colon is under distended. A few diverticular present. Normal appendix. No signs of small bowel obstruction. No active contrast extravasation is seen into the bowel lumen. Peritoneum: No abnormal intraperitoneal fluid. No free air. Ventral Wall: No hernia. Abdominal Nodes: No retroperitoneal or mesenteric adenopathy by size criteria. Vessels: Aorta and inferior vena cava are normal in size. PELVIS: Pelvic Organs: Status post hysterectomy. No suspicious adnexal mass. Bladder: Unremarkable. Pelvic Nodes: No enlarged lymph nodes. Miscellaneous: No inguinal hernias are seen. Bones: No aggressive osseous abnormality. IMPRESSION: 1. No significant arterial abnormality in the abdomen or pelvis. No extravasation of contrast material into the bowel lumen. 2. Diffuse bowel wall thickening in the colon may be related to underdistention or nonspecific colitis. Mild diverticulosis without acute diverticulitis seen. Approved by: Eran Trejo M.D. on 11/20/2023 at 18:15 ECG Data Attestation: I personally reviewed and interpreted this ECG as follows: MDM Narrative Medical decision making narrative: 28-year-old female presents with a complaint of rectal bleeding heart rates in the 90s initial blood pressure was 106 did drop to 80 systolic after line was placed, improved with 500ml bolus. Patient was not feeling lightheaded and until she arrived here has had abdominal pain for several days with chronic diarrhea but now has had black as well as some bloody stools recently. Labs white count of 7.3 hemoglobin of 13.6 patient has prior from 10/25/2022 which appears similar. Platelets are 232. Potassium 3.3 sodium is 140, chloride 107 CO2 is 20 with a BUN not elevated at 10, creatinine 0.66, glucose of 92 calcium is 9.4. AST ALT are 17 and 14 alk-phos is [address] abdomen pelvis shows no acute significant arterial abnormality no extravasation of contrast into bowel lumen diffuse bowel wall thickening of the colon could be related to underdistention versus nonspecific colitis. Mild diverticulosis but without acute diverticulitis seen. Point of care urine shows ketones no other change. Microscopy shows to 5 white cells 1-5 squamous 1 bacteria 1+ mucus. Patient received fluids, Protonix, Zofran and dose of fentanyl. Patient's blood pressure tends to be 100-90 systolic here in the department but on review of prior visits this appears to be close to patient's baseline multiple different dates. Patient did not receive a L bolus. GI PCR panel is negative, PCR for C diff is positive EIA is pending Patient has had abdominal pain, chronic diarrhea but in the setting with some new rectal bleeding. Patient little bit hypotensive but appears that is likely her baseline her hemoglobin is stable. She has not had significant output in the department. Patient does not have any changes consistent with diverticulitis on imaging. Patient positive for C diff on GI panel, does have some colitis no signs of toxic megacolon. Patient was hypotensive but has been like that frequently on prior visits. She is feeling improved after medications was given 1st dose of oral medication for C diff and prescription was sent to pharmacy with short course of pain medication and return precautions. Patient feels comfortable with this plan.. 11/21/2023 patient called her initial prescription would cost 4000 dollars. Changed to vancomycin 125 mg q.i.d. orally times 10 days. Sent to [facility] pharmacy. Discharge Plan Departure Patient Disposition: Home Clinical Impression: Rectal bleeding, C. difficile colitis Instructions: DI for Antibiotic -- associated Colitis -- C difficile Activity Restrictions/Additional Instructions: Follow up with Dr. Philip, your workup today did show some colitis on your CT, also shows positive C diff toxin. The confirmatory test is pending and takes about 5-7 days to result. In the meantime I would start antibiotics. C diff is a bacteria that can sometimes occur after antibiotics or surgery but is being seen more in the community over time. It was transmitted for either fecal oral route so make sure you are attempting to use separate bathroom from your family, make sure you are clean well with bowel movements and hand hygiene is important. A prescription was sent for antibiotics to your pharmacy. If it is too expensive for you to fill please have them call us and we can change the prescription. You can take Tylenol up to a 1000 mg every 6 hours as needed for pain, can also take 1-2 tablets of tramadol every 6 hours as needed. This medication can make you sleepy do not drive, perform hazardous activities or make any major decisions while taking it. This medication will make you constipated please take a stool softener once to twice daily until stools are soft and regular. Prescription sent to [facility] in [place]. Please return for fevers if you are having worsening abdominal back or flank pain, lightheadedness or passing out, vomiting, worsening black and bloody stools, passing large clots or other new or concerning changes. Prescriptions: New tramadol 50 mg tablet 50 mg PO Q6H PRN (Reason: pain) Qty: 10 0RF vancomycin 125 mg capsule 125 mg PO QID Qty: 40 0RF No Action phentermine 15 mg capsule 15 mg PO DAILY Qty: 30 2RF Rx Instructions: must administer 2 hours after breakfast ondansetron 4 mg tablet,disintegrating 8 mg PO Q8H Qty: 30 0RF Rx Instructions: Dissolve one or two tablets on tongue every 8 hours as needed for nausea and vomiting trazodone 50 mg tablet See Rx Instructions .ROUTE .COMPLEX Qty: 30 0RF Dose Instruction: take 1 tablet by mouth at bedtime if needed for sleep / insomnia Rx Instructions: take 1 tablet by mouth at bedtime if needed for sleep / insomnia methylprednisolone [Medrol (Zan)] 4 mg tablets,dose pack 4 mg PO .ASDIR Qty: 21 0RF Rx Instructions: PER PACKAGE DIRECTIONS benzonatate 200 mg capsule 200 mg PO TID PRN (Reason: cough) Qty: 30 0RF ondansetron 4 mg tablet,disintegrating 4 mg PO Q8H PRN (Reason: nausea and vomiting) Qty: 10 0RF Referrals: Alyssa Philip MD [Primary Care Provider] - Stand Alone Forms: Patient Portal/API
[2023-11-20 17:17] LABS: Add Manual Diff / Slide Review NO; Basophils Absolute Auto 0 /uL (0-100); Basophils Percent Auto 0.3 % (0-2); Eosinophils Absolute Auto 0 /uL (0-450); Eosinophils Percent Auto 0.4 % (2-4); Hematocrit 40.1 % (36-46); Hemoglobin 13.6 g/dL (12.0-16.0); Lymphocytes Absolute Auto 1400 /uL (1100-4500); Lymphocytes Percent Auto 19.6 % (25-40); Mean Corpuscular HGB Conc 33.8 % (30-36); Mean Corpuscular Hemoglobin 29.6 PG (26-34); Mean Corpuscular Volume 87.7 fL (80-100); Monocytes Absolute Auto 400 /uL (0-900); Monocytes Percent Auto 5.2 % (3-14); Neutrophils Absolute Auto 5500 /uL (1500-7000); Neutrophils Percent Auto 74.5 % (50-75); Platelet Count 232 X10^3/uL (150-400); Red Blood Cell Count 4.57 X10^6/uL (4.0-5.2); Red Cell Distribution Width 13.8 % (11.6-14.8); White Blood Cell Count 7.3 X10^3/uL (4.5-11.0)
[2023-11-20 17:30] LABS: PTT Partial Thromboplastin Tim 44 SECONDS (25.1-36.5)
[2023-11-20 17:31] LABS: Alanine Aminotransferase 14 IU/L (<35); Albumin 4.6 g/dL (3.5-5.0); Albumin Globulin Ratio 1.3 (1.0-2.8); Alkaline Phosphatase 59 U/L (38-126); Aspartate Aminotransferase 17 IU/L (14-36); BUN Creatinine Ratio 15.2 (6-22); Bilirubin Total 0.7 mg/dL (0.2-1.3); Blood Urea Nitrogen 10 mg/dL (7-17); Calcium 9.4 mg/dL (8.4-10.2); Carbon Dioxide 20 mmol/L (22-32); Chloride 107 mmol/L (98-107); Estimated Glomerular Filt Rate > 60 mL/min (>60); Globulin 3.5 g/dL (1.7-4.1); Glucose 92 mg/dL (70-100); HEMOLYSIS < 15 (0-50); Lipase 61 U/L (23-300); Potassium 3.3 mmol/L (3.4-5.1); Sodium 140 mmol/L (137-145); Total Protein 8.1 g/dL (6.3-8.2)
[2023-11-20 17:32] LABS: Bacteria Urine Occasional (0-1); RBC Urine None Seen (0-5/HPF); Squamous Epithelial Cell Urine 1-5 /HPF (0-5/HPF); Urine Volume Low Vol <10mL (spun); WBC Urine 1-5/HPF (0-5/HPF)
[2023-11-20 17:33] LABS: Culture Indicated Urine Cult Not Indicated; Mucus Urine 1+ (Negative)
[2023-11-20] MEDS: ONDANSETRON 4 MG/2 ML INJ IV (17:35)
[2023-11-20] MEDS: fentaNYL 100 MCG/2 ML INJ 25 MCG IV (17:35)
[2023-11-20] MEDS: PANTOPRAZOLE 40 MG VIAL 80 MG IV (17:35)
[2023-11-20] MEDS: SODIUM CHLORIDE 0.9% 500 ML 1000 ML IV (18:00)
[2023-11-20 18:14] LABS: Adenovirus F 40/41 Not Detected (Not Detect); Astrovirus Not Detected (Not Detect); Campylobacter Not Detected (Not Detect); Clostridium difficile toxin AB Detected (Not Detect); Cryptosporidium Not Detected (Not Detect); Cyclospora cayetanensis Not Detected (Not Detect); Entamoeba histolytica Not Detected (Not Detect); Enteroaggregative E.coli Not Detected (Not Detect); Enteropathogenic E.coli Not Detected (Not Detect); Enterotoxigenic E.coli It/st Not Detected (Not Detect); Giardia lamblia Not Detected (Not Detect); Norovirus GI/GII Not Detected (Not Detect); Plesiomonsa shigelloides Not Detected (Not Detect); Rotavirus A Not Detected (Not Detect); Salmonella Not Detected (Not Detect); Sapovirus Not Detected (Not Detect); Shiga-like toxin-prod E.coli Not Detected (Not Detect); Shigella/Enteroinvasive E.coli Not Detected (Not Detect); Vibrio Not Detected (Not Detect); Vibrio cholerae Not Detected (Not Detect); Yersinia enterocolitica Not Detected (Not Detect)
--- NOTE | 2023-11-20 18:16 | PC.NURSE ---
1656 pt roomed, BP 87/53, placed in trendelenberg, charge account clerk and physician advised, 500ml NS 0.9% bolus given.
[2023-11-20] MEDS: FIDAXOMICIN 200 MG TABLET PO (19:06)
[2023-11-20] MEDS: ACETAMINOPHEN IV 1,000 MG/100 ML VIAL 400 MG IV (19:06)
[2023-11-22 15:12] LABS: C difficie Toxins A and B, EIA Negative (Negative)
== END 2023-11-20 19:39 | disposition home or self-care (01) ==
PROVIDERS: Emergency Provider Emergency Medicine; PCP Family Medicine
DX: A04.72 Enterocolitis due to Clostridium difficile, not specified as recurrent (principal); K62.5 Hemorrhage of anus and rectum; N80.9 Endometriosis, unspecified; Z90.710 Acquired absence of both cervix and uterus
CPT/HCPCS: 36415; 74174; 80053; 81003; 81015; 83690; 85025; 85730; 87324; 87507; 96361; 96365; 96375; 99284; J0136; J2405; J2470; J3010; Q9967

== ENCOUNTER 2023-11-23 11:20 | Emergency (ER) | payer OTHER, SELFPAY ==
[2022-06-15 17:29] VITALS: BMI 32.5
[2023-11-23] VITALS (11 sets, daily range): BP systolic 96–131; BP diastolic 55–72; PULSE 59–99; RESP 14–16; TEMP 36.7; O2SAT 98–100; BMI 29.6
--- NOTE | 2023-11-23 11:29 | DI.RAD.S_ITS ---
PROCEDURE: XR ABDOMEN 1V INDICATIONS: Abdominal pain, positive C diff TECHNIQUE: One view of the abdomen acquired. COMPARISON: None. FINDINGS: Surgical changes and devices: Surgical clips right upper quadrant. Chest piercings are present. Bowel: Bowel gas pattern is normal. Normal stool volume. Soft tissues: No suspicious abdominal calcifications. Visualized solid organ contours appear normal in size. Bones: No suspicious bony lesions. IMPRESSION: No acute abnormality. Dictated by: Maximus Lares M.D. on 11/23/2023 at 11:25 Approved by: Maximus Lares M.D. on 11/23/2023 at 11:27
--- NOTE | 2023-11-23 11:37 | ED_ITS ---
HPI - General Adult General Chief complaint: Abdominal Pain Stated complaint: C-Diff Time Seen by Provider: 11/23/23 11:21 Source: patient and EMS Mode of arrival: Ambulatory History of Present Illness HPI narrative: Patient is a 28-year-old female. Within the past week was seen here in the emergency department and diagnosed with C diff. Has been at home with oral vancomycin and pain medication. She states that the diarrhea has essentially stopped but she was having quite a bit of abdominal tenderness and vomiting. No fevers. No chest pain. Has not been able to tolerate much oral intake because of the abdominal discomfort and nausea. No urinary symptoms. No prior abdominal surgeries. Related Data Previous Rx's Medication Instructions Recorded ondansetron 4 mg disintegrating 8 mg (2 x 4 mg) PO Q8H #30 tabs 05/28/22 tablet trazodone 50 mg tablet See Rx Instructions .Route 07/31/22 .COMPLEX #30 tabs ondansetron 4 mg disintegrating 4 mg PO Q8H PRN nausea and 10/17/22 tablet vomiting #10 tabs benzonatate 200 mg capsule 200 mg PO TID PRN cough #30 caps 12/13/22 methylprednisolone 4 mg tablets in 4 mg PO .ASDIR #21 ea 12/13/22 a dose pack (Medrol (Zan)) phentermine 15 mg capsule 15 mg PO DAILY #30 caps 11/08/23 tramadol 50 mg tablet 50 mg PO Q6H PRN pain #10 tabs 11/20/23 vancomycin 125 mg capsule 125 mg PO QID #40 caps 11/21/23 ondansetron 4 mg disintegrating 4 mg PO Q6H PRN nausea and 11/23/23 tablet vomiting #14 tabs promethazine 25 mg tablet 25 mg PO Q4-6H PRN nausea and 11/23/23 vomiting #10 tabs Allergies Allergy/AdvReac Type Severity Reaction Status Date / Time amoxicillin Allergy Intermediate Rash/Hives Verified 11/23/23 11:26 coconut Allergy Hives Verified 11/23/23 11:26 ibuprofen AdvReac Intermediate Gastrointestinal Verified 11/23/23 11:26 Upset Review of Systems Review of Systems Narrative: See HPI Patient History Medical History Asthma GERD (gastroesophageal reflux disease) (~2010) Gastritis (~2010) Back pain (~2010) Surgical History Hx of cholecystectomy History of hysterectomy (06/14/22) History of laparoscopy (04/05/22) Hx of colonoscopy (12/14/21) [place] teeth extracted (~2015) Family History Mother Cervical cancer Smoker Father Diabetes mellitus Herniated disc Spondylosis Grandmother Unknown family medical history Diabetes mellitus Smoker Cancer Hyperlipidemia Hypertension Grandfather History of heart disease Grandmother Breast cancer Grandfather Diabetes mellitus Cancer History of heart disease Hypertension Sister Faye syndrome Brother Arthritis of spine Social History marital status: number of children: 1 household members: spouse and children lives independently: Yes caregiver/support person: No housing: house pets and animals: Yes (1 dog: safe) education level: high school occupational status: unemployed current occupational exposures/hazards: No special alexandra needs: No seatbelt use: always do you feel safe at home: Yes Smoking Status: Former smoker second hand exposure: No alcohol intake: current substance use type: does not use during the past year weight has: remained stable well-balanced diet: daily or most days caffeine: Yes (1 cup coffee daily or every other day. ) Type(s) of exercise: walking and normal ROM and activity frequency: daily duration: 15-30 minutes/day Smoking Status: Former smoker tobacco type: vaping alcohol intake frequency: holidays/special occasions only Substance Use Type: marijuana Exam Initial Vital Signs Initial Vital Signs: Vital Signs Temperature 98.1 F 11/23/23 11:24 Pulse Rate 76 11/23/23 11:24 Respiratory Rate 14 11/23/23 11:24 Blood Pressure 97/66 11/23/23 11:24 Pulse Oximetry 99 11/23/23 11:24 Oxygen Delivery Method Room Air 11/23/23 11:24 Const General: cooperative, comfortable and No ill appearing HENMT Head: normal to inspection and normocephalic Resp Effort & Inspection: normal respiratory effort Auscultation: clear to auscultation bilaterally Cardio Rate: regular rate Rhythm: regular rhythm GI Inspection: normal to inspection and non-distended Palpation: soft, No firm, No guarding and No tender Skin General: no rashes or lesions noted Neuro General: patient alert, patient awake, patient oriented x3 and does not move all extremities Extrem General: capillary refill normal Course Orders Ordered: ED Orders 11/23/23 11:29 XR abdomen 1V Stat 11/23/23 11:35 Complete Blood Count AUTO DIFF Stat Comprehensive Metabolic Panel Stat Lipase Stat Discontinued Medications Sodium Chloride (Normal Saline 0.9%) 1,000 mls @ 1,000 mls/hr IV BOLUS ONE Stop: 11/23/23 12:28 Last Admin: 11/23/23 11:45 Dose: 1,000 mls/hr Documented By: SPF Ketorolac Tromethamine (Ketorolac 30 Mg/Ml Vial) 15 mg IV NOW ONE Stop: 11/23/23 11:38 Last Admin: 11/23/23 11:45 Dose: 15 mg Documented By: SPF Ondansetron HCl (Ondansetron 4 Mg/2 Ml Inj) 4 mg IV NOW ONE Stop: 11/23/23 11:30 Last Admin: 11/23/23 11:45 Dose: 4 mg Documented By: JOCELYN Vital Signs Vital signs: Vital Signs - 8 hr 11/23/23 11:24 Temperature 98.1 F Pulse Rate 76 Respiratory Rate 14 Blood Pressure 97/66 Pulse Oximetry 99 Oxygen Delivery Method Room Air Medical Decision Making Medical Records Medical records reviewed: Yes I reviewed the patient's medical records. Lab Data Lab results reviewed: Yes I reviewed the patient's lab results. 11/23/23 11:35 11/23/23 11:35 Labs: Lab Results 11/23/23 Range/Units 11:35 WBC 8.4 (4.5-11.0) X10^3/uL RBC 4.41 (4.0-5.2) X10^6/uL Hgb 13.2 (12.0-16.0) g/dL Hct 38.8 (36-46) % MCV 88.1 (80-100) fL MCH 29.8 (26-34) PG MCHC 33.9 (30-36) % RDW 14.2 (11.6-14.8) % Plt Count 221 (150-400) X10^3/uL Neut % (Auto) 82.5 H (50-75) % Lymph % (Auto) 12.5 L (25-40) % [place] % (Auto) 3.4 (3-14) % Eos % (Auto) 0.5 L (2-4) % Baso % (Auto) 1.1 (0-2) % Neut # (Auto) 6900 (1777-8575) /uL Lymph # (Auto) 1100 (9243-1451) /uL [place] # (Auto) 300 (0-900) /uL Eos # (Auto) 0 (0-450) /uL Baso # (Auto) 100 (0-100) /uL Sodium 139 (137-145) mmol/L Potassium 3.9 (3.4-5.1) mmol/L Chloride 109 H (98-107) mmol/L Carbon Dioxide 17 L (22-32) mmol/L BUN 7 (7-17) mg/dL Creatinine 0.69 (0.52-1.04) mg/dL Estimated GFR > 60 (>60) mL/min BUN/Creatinine Ratio 10.1 (6-22) Glucose 81 (70-100) mg/dL Calcium 9.0 (8.4-10.2) mg/dL Total Bilirubin 0.6 (0.2-1.3) mg/dL AST 18 (14-36) IU/L ALT 13 (<35) IU/L Alkaline Phosphatase 57 (38-126) U/L Total Protein 7.1 (6.3-8.2) g/dL Albumin 4.3 (3.5-5.0) g/dL Globulin 2.8 (1.7-4.1) g/dL Albumin/Globulin Ratio 1.5 (1.0-2.8) Lipase 102 D (23-300) U/L Imaging Data Abdominal x-ray: Radiologist's Impression: PROCEDURE: XR ABDOMEN 1V INDICATIONS: Abdominal pain, positive C diff TECHNIQUE: One view of the abdomen acquired. COMPARISON: None. FINDINGS: Surgical changes and devices: Surgical clips right upper quadrant. Chest piercings are present. Bowel: Bowel gas pattern is normal. Normal stool volume. Soft tissues: No suspicious abdominal calcifications. Visualized solid organ contours appear normal in size. Bones: No suspicious bony lesions. IMPRESSION: No acute abnormality. MDM Narrative Medical decision making narrative: Patient has a known C diff infection. Has not vomited since being here in the ER. Her abdomen is soft. Labs are unremarkable. Sodiums unremarkable. Kidney functions unremarkable. X-ray shows no signs of dilated bowel. Low concern for toxic megacolon. Will refill the patient's nausea medication. No indication for admission to the hospital today. Patient was given return precautions. She expressed understanding and agreement. Discharge Plan Departure Patient Disposition: Home Clinical Impression: C. difficile colitis, Abdominal pain Instructions: DI for Abdominal Pain-Adult Activity Restrictions/Additional Instructions: A refill for your ondansetron/Zofran was sent to [facility]. I also sent a prescription for a medication called promethazine/Phenergan. This is a nausea medication as well and should be used if the Zofran is not controlling your symptoms. It is important that you complete the course of the vancomycin for the treatment of the C diff infection. Recommend that you contact your primary doctor for a follow-up. Return to the emergency department for new symptoms. Prescriptions: New ondansetron 4 mg tablet,disintegrating 4 mg PO Q6H PRN (Reason: nausea and vomiting) Qty: 14 0RF promethazine 25 mg tablet 25 mg PO Q4-6H PRN (Reason: nausea and vomiting) Qty: 10 0RF No Action phentermine 15 mg capsule 15 mg PO DAILY Qty: 30 2RF Rx Instructions: must administer 2 hours after breakfast ondansetron 4 mg tablet,disintegrating 8 mg PO Q8H Qty: 30 0RF Rx Instructions: Dissolve one or two tablets on tongue every 8 hours as needed for nausea and vomiting trazodone 50 mg tablet See Rx Instructions .ROUTE .COMPLEX Qty: 30 0RF Dose Instruction: take 1 tablet by mouth at bedtime if needed for sleep / insomnia Rx Instructions: take 1 tablet by mouth at bedtime if needed for sleep / insomnia methylprednisolone [Medrol (Zan)] 4 mg tablets,dose pack 4 mg PO .ASDIR Qty: 21 0RF Rx Instructions: PER PACKAGE DIRECTIONS benzonatate 200 mg capsule 200 mg PO TID PRN (Reason: cough) Qty: 30 0RF tramadol 50 mg tablet 50 mg PO Q6H PRN (Reason: pain) Qty: 10 0RF vancomycin 125 mg capsule 125 mg PO QID Qty: 40 0RF ondansetron 4 mg tablet,disintegrating 4 mg PO Q8H PRN (Reason: nausea and vomiting) Qty: 10 0RF Referrals: Alyssa Philip MD [Primary Care Provider] - Stand Alone Forms: Patient Portal/API
[2023-11-23 11:42] LABS: Add Manual Diff / Slide Review NO; Basophils Absolute Auto 100 /uL (0-100); Basophils Percent Auto 1.1 % (0-2); Eosinophils Absolute Auto 0 /uL (0-450); Eosinophils Percent Auto 0.5 % (2-4); Hematocrit 38.8 % (36-46); Hemoglobin 13.2 g/dL (12.0-16.0); Lymphocytes Absolute Auto 1100 /uL (1100-4500); Lymphocytes Percent Auto 12.5 % (25-40); Mean Corpuscular HGB Conc 33.9 % (30-36); Mean Corpuscular Hemoglobin 29.8 PG (26-34); Mean Corpuscular Volume 88.1 fL (80-100); Monocytes Absolute Auto 300 /uL (0-900); Monocytes Percent Auto 3.4 % (3-14); Neutrophils Absolute Auto 6900 /uL (1500-7000); Neutrophils Percent Auto 82.5 % (50-75); Platelet Count 221 X10^3/uL (150-400); Red Blood Cell Count 4.41 X10^6/uL (4.0-5.2); Red Cell Distribution Width 14.2 % (11.6-14.8); White Blood Cell Count 8.4 X10^3/uL (4.5-11.0)
[2023-11-23] MEDS: SODIUM CHLORIDE 0.9% 1,000 ML 1000 ML IV (11:45)
[2023-11-23] MEDS: KETOROLAC 30 MG/ML VIAL 15 MG IV (11:45)
[2023-11-23] MEDS: ONDANSETRON 4 MG/2 ML INJ IV (11:45)
[2023-11-23 11:57] LABS: Alanine Aminotransferase 13 IU/L (<35); Albumin 4.3 g/dL (3.5-5.0); Albumin Globulin Ratio 1.5 (1.0-2.8); Alkaline Phosphatase 57 U/L (38-126); Aspartate Aminotransferase 18 IU/L (14-36); BUN Creatinine Ratio 10.1 (6-22); Bilirubin Total 0.6 mg/dL (0.2-1.3); Blood Urea Nitrogen 7 mg/dL (7-17); Carbon Dioxide 17 mmol/L (22-32); Chloride 109 mmol/L (98-107); Estimated Glomerular Filt Rate > 60 mL/min (>60); Globulin 2.8 g/dL (1.7-4.1); Glucose 81 mg/dL (70-100); HEMOLYSIS < 15 (0-50); Lipase 102 U/L (23-300); Potassium 3.9 mmol/L (3.4-5.1); Sodium 139 mmol/L (137-145); Total Protein 7.1 g/dL (6.3-8.2)
== END 2023-11-23 14:10 | disposition home or self-care (01) ==
LOC: ED 11:30
PROVIDERS: Emergency Provider Emergency Medicine; PCP Family Medicine
DX: A04.72 Enterocolitis due to Clostridium difficile, not specified as recurrent (principal); R10.9 Unspecified abdominal pain
CPT/HCPCS: 36415; 74018; 80053; 83690; 85025; 96361; 96374; 96375; 99284; J1885; J2405

== ENCOUNTER 2023-12-02 10:53 | Inpatient (IN) | payer OTHER, SELFPAY ==
[2022-06-15 17:29] VITALS: BMI 32.5
[2023-12-02] VITALS (8 sets, daily range): BP systolic 95–116; BP diastolic 57–76; PULSE 64–74; RESP 17–18; TEMP 36.3–36.7; O2SAT 97–100; BMI 28.3
--- NOTE | 2023-12-02 11:32 | ED.GENADULT ---
HPI - General Adult General Chief complaint: Abdominal Pain Stated complaint: C. diff Time Seen by Provider: 12/02/23 11:14 Source: family Mode of arrival: Ambulatory History of Present Illness HPI narrative: 28-year-old woman who recently completed oral vancomycin for C diff. still noting abdominal pain. She has been taking oxycodone so her stool has firmed up to ?the soft serve ?stage. She has had little to eat and has difficulty even keeping liquids down. Comes in for additional evaluation. She has not describing fevers, she is dizzy when she stands up and is reportedly ?miserable?. She is not having fevers, palpitations, chest pain, headaches Related Data Previous Rx's Medication Instructions Recorded oxycodone 5 mg tablet 5 mg PO Q4H PRN pain #20 tabs 11/27/23 Allergies Allergy/AdvReac Type Severity Reaction Status Date / Time amoxicillin Allergy Intermediate Rash/Hives Verified 12/02/23 11:17 coconut Allergy Hives Verified 12/02/23 11:17 ibuprofen AdvReac Intermediate Gastrointestinal Verified 12/02/23 11:17 Upset Review of Systems Review of Systems Narrative: Pertinent positive and negative findings as per HPI Patient History Medical History Asthma GERD (gastroesophageal reflux disease) (~2010) Gastritis (~2010) Back pain (~2010) Surgical History Hx of cholecystectomy History of hysterectomy (06/14/22) History of laparoscopy (04/05/22) Hx of colonoscopy (12/14/21) [place] teeth extracted (~2015) Family History Mother Cervical cancer Smoker Father Diabetes mellitus Herniated disc Spondylosis Grandmother Unknown family medical history Diabetes mellitus Smoker Cancer Hyperlipidemia Hypertension Grandfather History of heart disease Grandmother Breast cancer Grandfather Diabetes mellitus Cancer History of heart disease Hypertension Sister Faye syndrome Brother Arthritis of spine Social History marital status: number of children: 1 household members: spouse and children lives independently: Yes caregiver/support person: No housing: house pets and animals: Yes (1 dog: safe) education level: high school occupational status: unemployed current occupational exposures/hazards: No special alexandra needs: No seatbelt use: always do you feel safe at home: Yes Smoking Status: Former smoker second hand exposure: No alcohol intake: current substance use type: does not use during the past year weight has: remained stable well-balanced diet: daily or most days caffeine: Yes (1 cup coffee daily or every other day. ) Type(s) of exercise: walking and normal ROM and activity frequency: daily duration: 15-30 minutes/day Smoking Status: Former smoker tobacco type: vaping alcohol intake frequency: holidays/special occasions only Substance Use Type: marijuana Exam Initial Vital Signs Initial Vital Signs: Vital Signs Temperature 98.1 F 12/02/23 11:15 Pulse Rate 72 12/02/23 11:15 Respiratory Rate 17 12/02/23 11:15 Blood Pressure 116/57 L 12/02/23 11:15 Pulse Oximetry 97 12/02/23 11:15 Oxygen Delivery Method Room Air 12/02/23 11:15 General: Dehydrated, appears to be hurting but able to cooperate fully with exam HEENT: dry mucous membranes, normal sclera with reactive pupils, Respiratory: Lungs are clear to auscultation, no wheezing no rales no rhonchi. Full and symmetrical air movement Cardiac: Regular rate and rhythm no murmurs no bruits Abdomen: Soft, diffusely tender without rebound or guarding Skin: Pale, dry Neurologic: Grossly neurologically intact with no obvious asymmetries or abnormalities Extremities: No trauma, no lower extremity edema Psych: Cooperative, appropriate insight and affect Course Orders Ordered: ED Orders 12/02/23 11:43 CT abdomen pelvis w con Stat C Diff [Clostridium Difficile Tox PCR] Stat 12/02/23 12:00 Complete Blood Count AUTO DIFF Stat Comprehensive Metabolic Panel Stat Lipase Stat Discontinued Medications Hydromorphone HCl (Hydromorphone 0.5 Mg Inj) 0.5 mg IV NOW ONE Stop: 12/02/23 11:44 Last Admin: 12/02/23 11:54 Dose: 0.5 mg Documented By: CTS Sodium Chloride (Normal Saline 0.9%) 1,000 mls @ 1,000 mls/hr IV BOLUS ONE Stop: 12/02/23 12:42 Last Admin: 12/02/23 11:54 Dose: 1,000 mls/hr Documented By: CTS Sodium Chloride (Normal Saline 0.9%) 1,000 mls @ 1,000 mls/hr IV BOLUS ONE Stop: 12/02/23 12:43 Ondansetron HCl (Ondansetron 4 Mg/2 Ml Inj) 4 mg IV NOW ONE Stop: 12/02/23 11:44 Last Admin: 12/02/23 11:53 Dose: 4 mg Documented By: KANG Vital Signs Vital signs: Vital Signs - 8 hr 12/02/23 11:15 Temperature 98.1 F Pulse Rate 72 Respiratory Rate 17 Blood Pressure 116/57 L Pulse Oximetry 97 Oxygen Delivery Method Room Air Medical Decision Making Lab Data 12/02/23 12:00 12/02/23 12:00 Labs: Lab Results 12/02/23 Range/Units 12:00 WBC 7.7 (4.5-11.0) X10^3/uL RBC 4.57 (4.0-5.2) X10^6/uL Hgb 13.7 (12.0-16.0) g/dL Hct 40.4 (36-46) % MCV 88.4 (80-100) fL MCH 29.9 (26-34) PG MCHC 33.8 (30-36) % RDW 14.7 (11.6-14.8) % Plt Count 256 (150-400) X10^3/uL Neut % (Auto) 74.0 (50-75) % Lymph % (Auto) 20.3 L (25-40) % [place] % (Auto) 4.1 (3-14) % Eos % (Auto) 0.7 L (2-4) % Baso % (Auto) 0.9 (0-2) % Neut # (Auto) 5700 (0211-8019) /uL Lymph # (Auto) 1600 (2984-6676) /uL [place] # (Auto) 300 (0-900) /uL Eos # (Auto) 100 (0-450) /uL Baso # (Auto) 100 (0-100) /uL Sodium 139 (137-145) mmol/L Potassium 3.7 (3.4-5.1) mmol/L Chloride 109 H (98-107) mmol/L Carbon Dioxide 23 (22-32) mmol/L BUN 7 (7-17) mg/dL Creatinine 0.62 (0.52-1.04) mg/dL Estimated GFR > 60 (>60) mL/min BUN/Creatinine Ratio 11.3 (6-22) Glucose 95 (70-100) mg/dL Calcium 9.2 (8.4-10.2) mg/dL Total Bilirubin 0.6 (0.2-1.3) mg/dL AST 19 (14-36) IU/L ALT 17 (<35) IU/L Alkaline Phosphatase 50 (38-126) U/L Total Protein 7.0 (6.3-8.2) g/dL Albumin 4.2 (3.5-5.0) g/dL Globulin 2.8 (1.7-4.1) g/dL Albumin/Globulin Ratio 1.5 (1.0-2.8) Lipase 61 (23-300) U/L Urine Dip Bedside Urine Glucose Negative Bedside Urine Bilirubin - Negative Bedside Urine Ketone - Negative Urine Specific [place] 1.010 Bedside Urine Occult Blood - Negative Bedside Urine pH 8.5 Bedside Urine Protein - Negative Bedside Urine Urobilinogen - Negative Bedside Urine Nitrite - Negative Bedside Urine Leukocytes - Negative Esterase Point of care testing: Urine Dip Bedside Urine Glucose Negative Bedside Urine Bilirubin - Negative Bedside Urine Ketone - Negative Urine Specific [place] 1.010 Bedside Urine Occult Blood - Negative Bedside Urine pH 8.5 Bedside Urine Protein - Negative Bedside Urine Urobilinogen - Negative Bedside Urine Nitrite - Negative Bedside Urine Leukocytes - Negative Esterase Imaging Data CT scan - abdomen/pelvis: Radiologist's Impression: PROCEDURE: CT ABDOMEN PELVIS W CON INDICATIONS: persistent abdominal pain, + c diff, worse post PO vanco TECHNIQUE: After the administration of intravenous contrast, axial sections acquired from the lung bases to the pubic symphysis. Coronal and sagittal reformats were performed. For radiation dose reduction, the following was used: automated exposure control, adjustment of mA and/or kV according to patient size. COMPARISON: [facility], CT, CT ANGIO ABD/PEL GI BLEED, 11/20/2023, 17:21. [facility], CT, CT ABDOMEN PELVIS W CON, 11/11/2021, 18:50. FINDINGS: Image quality: Diagnostic. Lower Chest: No significant findings. ABDOMEN: Liver: No solid mass. Gallbladder: Status post cholecystectomy. Biliary ducts: No biliary dilation. Pancreas: No ductal dilation. Spleen: Size is within normal limits. Adrenal Glands: No adrenal nodules. Kidneys and Ureters: No hydronephrosis. No solid mass. No complex renal cystic lesion which requires follow up. Stomach and Bowel: A few diverticula are seen in the colon without signs of acute diverticulitis. Mild bowel wall thickening versus underdistention in the descending and sigmoid colon extending to the rectum. Peritoneum: No abnormal intraperitoneal fluid. No free air. Ventral Wall: No significant ventral hernia. Abdominal Nodes: No retroperitoneal or mesenteric adenopathy by size criteria. Vessels: Aorta and inferior vena cava are normal in size. PELVIS: Pelvic Organs: Status post hysterectomy. Ovaries are symmetric in size. Bladder: No bladder wall thickening, accounting for underdistention. Pelvic Nodes: No enlarged lymph nodes. Miscellaneous: No inguinal hernias are seen. Bones: No aggressive osseous abnormality. IMPRESSION: Mild bowel wall thickening in the descending and sigmoid colon may be secondary to underdistention versus colitis. Findings appear similar when compared to the CT from 11/20/2023. Mild colonic diverticulosis. Approved by: Eran Trejo M.D. on 12/02/2023 at 12:26 MDM Narrative Medical decision making narrative: CC: Continued abdominal pain Complicating co-morbidities: She notes that she did take some antibiotics back in September. No other risk factors for C diff Data collected from: patient Medical records reviewed: ER note from 11/19 shows initial diagnosis of C diff Your note from 11/22 shows re-evaluation, notes indicate that has stool had begun to firm up at that point. Labs were unremarkable, abdominal x-ray is unremarkable. She was discharged home to complete the course of vancomycin and given additional anti nausea medication CT angio of the abdomen and pelvis was done on the shows no vascular abnormalities and a mention of bowel wall swelling consistent with colitis Differential considered: Dehydration, acute renal failure, electrolyte abnormalities, toxic megacolon, persistent C diff Exam documented above, pertinent findings include: Patient appears to feel unwell, having difficulty standing up straight to to her abdominal pain and is showing significant signs of dehydration Lab Test results independently reviewed as above. Pertinent findings: CBC is unremarkable, no leukocytosis no anemia Chemistries are reassuring Imaging studies independently reviewed: CT scan is repeated, no acute findings and similar mild bowel wall thickening in comparison to CT scan done on November 19 Treatments: Fluids, zofran, dilaudid Re-evaluations: Patient still significantly nauseated has not had any stool, pain continues to be an issue. When asked about preferences for treatment after reviewing lab work and CT scan she stated that because of the pain, the fact that she has not been able to eat that she does have her sister available to help for the next 2-3 days with her 2 small children while her is deployed she would prefer hospitalization for continued hydration, pain control and nausea control. We will review options with the hospitalist Discussion: 28-year-old woman recently diagnosed with Clostridium difficile. She has finished a course of vancomycin is still having significant abdominal pain unable to eat or drink and stools have firmed up slightly but she believes that is because of the oxycodone she has been taking. Care is reviewed with the hospitalist, willing to admit her overnight to help with continued hydration and pain control. We will be able to obtain a stool sample to confirm presence or absence of persistent Clostridium difficile to decide on additional treatment. For the time being there was no sign of sepsis, acute perforation or toxic megacolon. Discharge Plan Departure Patient Disposition: Admitted as Observation Clinical Impression: C. difficile colitis, Intractable abdominal pain, Dehydration Diarrhea Qualifiers: Diarrhea type: presumed infectious Qualified Code(s): R19.7 - Diarrhea, unspecified Admit Date/Time: 12/02/23 13:10 Admit Provider: David Peña
--- NOTE | 2023-12-02 11:43 | DI.CT.S_ITS ---
PROCEDURE: CT ABDOMEN PELVIS W CON INDICATIONS: persistent abdominal pain, + c diff, worse post PO vanco TECHNIQUE: After the administration of intravenous contrast, axial sections acquired from the lung bases to the pubic symphysis. Coronal and sagittal reformats were performed. For radiation dose reduction, the following was used: automated exposure control, adjustment of mA and/or kV according to patient size. COMPARISON: [facility], CT, CT ANGIO ABD/PEL GI BLEED, 11/20/2023, 17:21. [facility], CT, CT ABDOMEN PELVIS W CON, 11/11/2021, 18:50. FINDINGS: Image quality: Diagnostic. Lower Chest: No significant findings. ABDOMEN: Liver: No solid mass. Gallbladder: Status post cholecystectomy. Biliary ducts: No biliary dilation. Pancreas: No ductal dilation. Spleen: Size is within normal limits. Adrenal Glands: No adrenal nodules. Kidneys and Ureters: No hydronephrosis. No solid mass. No complex renal cystic lesion which requires follow up. Stomach and Bowel: A few diverticula are seen in the colon without signs of acute diverticulitis. Mild bowel wall thickening versus underdistention in the descending and sigmoid colon extending to the rectum. Peritoneum: No abnormal intraperitoneal fluid. No free air. Ventral Wall: No significant ventral hernia. Abdominal Nodes: No retroperitoneal or mesenteric adenopathy by size criteria. Vessels: Aorta and inferior vena cava are normal in size. PELVIS: Pelvic Organs: Status post hysterectomy. Ovaries are symmetric in size. Bladder: No bladder wall thickening, accounting for underdistention. Pelvic Nodes: No enlarged lymph nodes. Miscellaneous: No inguinal hernias are seen. Bones: No aggressive osseous abnormality. IMPRESSION: Mild bowel wall thickening in the descending and sigmoid colon may be secondary to underdistention versus colitis. Findings appear similar when compared to the CT from 11/20/2023. Mild colonic diverticulosis. Approved by: Eran Trejo M.D. on 12/02/2023 at 12:26
[2023-12-02] MEDS: ONDANSETRON 4 MG/2 ML INJ IV ×3 (11:53→21:12)
[2023-12-02] MEDS: SODIUM CHLORIDE 0.9% 1,000 ML 1000 ML IV ×2 (11:54→13:00)
[2023-12-02] MEDS: HYDROMORPHONE 0.5 MG INJ IV ×2 (11:54→17:53)
[2023-12-02 12:07] LABS: Add Manual Diff / Slide Review NO; Basophils Absolute Auto 100 /uL (0-100); Basophils Percent Auto 0.9 % (0-2); Eosinophils Absolute Auto 100 /uL (0-450); Eosinophils Percent Auto 0.7 % (2-4); Hematocrit 40.4 % (36-46); Hemoglobin 13.7 g/dL (12.0-16.0); Lymphocytes Absolute Auto 1600 /uL (1100-4500); Lymphocytes Percent Auto 20.3 % (25-40); Mean Corpuscular HGB Conc 33.8 % (30-36); Mean Corpuscular Hemoglobin 29.9 PG (26-34); Mean Corpuscular Volume 88.4 fL (80-100); Monocytes Absolute Auto 300 /uL (0-900); Monocytes Percent Auto 4.1 % (3-14); Neutrophils Absolute Auto 5700 /uL (1500-7000); Platelet Count 256 X10^3/uL (150-400); Red Blood Cell Count 4.57 X10^6/uL (4.0-5.2); Red Cell Distribution Width 14.7 % (11.6-14.8); White Blood Cell Count 7.7 X10^3/uL (4.5-11.0)
[2023-12-02 12:18] LABS: Alanine Aminotransferase 17 IU/L (<35); Albumin 4.2 g/dL (3.5-5.0); Albumin Globulin Ratio 1.5 (1.0-2.8); Alkaline Phosphatase 50 U/L (38-126); Aspartate Aminotransferase 19 IU/L (14-36); BUN Creatinine Ratio 11.3 (6-22); Bilirubin Total 0.6 mg/dL (0.2-1.3); Blood Urea Nitrogen 7 mg/dL (7-17); Calcium 9.2 mg/dL (8.4-10.2); Carbon Dioxide 23 mmol/L (22-32); Chloride 109 mmol/L (98-107); Estimated Glomerular Filt Rate > 60 mL/min (>60); Globulin 2.8 g/dL (1.7-4.1); Glucose 95 mg/dL (70-100); HEMOLYSIS < 15 (0-50); Lipase 61 U/L (23-300); Potassium 3.7 mmol/L (3.4-5.1); Sodium 139 mmol/L (137-145)
--- NOTE | 2023-12-02 13:35 | PM.HP.1 ---
History of Present Illness History of Present Illness Date Patient Seen: 12/02/23 Chief complaint: C. diff Narrative: Summary: Patient was a 28-year-old female who was recently diagnosed with C diff toxin and treated with oral vancomycin for 10 days. The patient was had improvement of diarrhea but still has soft stools. She presents with persistent anorexia and nausea. She denies fevers, she was dizzy when standing. She feels very weak. She also denies fevers or chills. In the ED are white count was normal and she was given supportive care and a C diff toxin assay was ordered. Subjective: She describes slowly improving diarrhea. She took 10 days of vancomycin q.i.d.. Her doctor gave her oxycodone which she thinks has change the quality of the stool to more solid. No fevers, or chills. She was had anorexia and can only keep down some fluids and bland foods. She feels extremely weak, no fevers or chills. She does have abdominal cramping and suprapubic tenderness but denies any hematuria, or dysuria. No one at home is having diarrhea. She was no previous history of C diff toxin. She denies any hematemesis or blood per rectum. A review of her C diff toxin serology from November 19 reveals a positive PCR on a negative toxin a and B EIA. ON LICENSE OF [facility] Medical History Asthma GERD (gastroesophageal reflux disease) (~2010) Gastritis (~2010) Back pain (~2010) Surgical History Hx of cholecystectomy History of hysterectomy (06/14/22) History of laparoscopy (04/05/22) Hx of colonoscopy (12/14/21) [place] teeth extracted (~2015) Family History Mother Cervical cancer Smoker Father Diabetes mellitus Herniated disc Spondylosis Grandmother Unknown family medical history Diabetes mellitus Smoker Cancer Hyperlipidemia Hypertension Grandfather History of heart disease Grandmother Breast cancer Grandfather Diabetes mellitus Cancer History of heart disease Hypertension Sister Faye syndrome Brother Arthritis of spine Social History marital status: number of children: 1 household members: spouse and children lives independently: Yes caregiver/support person: No housing: house pets and animals: Yes (1 dog: safe) education level: high school occupational status: unemployed current occupational exposures/hazards: No special alexandra needs: No seatbelt use: always do you feel safe at home: Yes Smoking Status: Former smoker second hand exposure: No alcohol intake: current substance use type: does not use during the past year weight has: remained stable well-balanced diet: daily or most days caffeine: Yes (1 cup coffee daily or every other day. ) Type(s) of exercise: walking and normal ROM and activity frequency: daily duration: 15-30 minutes/day Meds Home Medications and Allergies Home Medications Medication Instructions Recorded Confirmed Type oxycodone 5 mg tablet 5 mg PO Q4H PRN pain #20 tabs 11/27/23 12/02/23 Rx Allergies Allergy/AdvReac Type Severity Reaction Status Date / Time amoxicillin Allergy Intermediate Rash/Hives Verified 12/02/23 11:17 coconut Allergy Hives Verified 12/02/23 11:17 ibuprofen AdvReac Intermediate Gastrointestinal Verified 12/02/23 11:17 Upset Review of Systems Review of Systems Narrative: All else reviewed and otherwise unremarkable except as noted in the history and physical. Exam Vital Signs (past 8 hours): - 12/02/23 11:15 12/02/23 12:09 12/02/23 12:30 Temperature 98.1 F Pulse Rate 72 67 69 Respiratory Rate 17 Blood Pressure 116/57 L Pulse Oximetry 97 99 99 Oxygen Delivery Method Room Air 12/02/23 12:30 12/02/23 13:00 12/02/23 13:00 Temperature Pulse Rate 70 Respiratory Rate Blood Pressure 100/62 103/63 Pulse Oximetry 100 Oxygen Delivery Method Oxygen Delivery Method Room Air Narrative Exam Narrative: NAD, alert and oriented, fluent speech, calm. Normocephalic skull, EOMI, anicteric sclera, symmetric pupils. Oropharynx unremarkable, no droop. Neck supple, midline trachea, no adenopathy. Lungs clear, normal rate and effort. Heart regular, no murmur gallop or rub. Abdomen is soft, non distended and non tender. Extremities are free of edema. Skin is free of rash or lesions. Joints are not swollen or deformed. Judgment appears to be normal. Objective Imaging CT scan - abdomen: Radiologist's impression: Mild bowel wall thickening in the descending and sigmoid colon may be secondary to underdistention versus colitis. Findings appear similar when compared to the CT from 11/20/2023. Mild colonic diverticulosis. Labs 12/02/23 12:00 12/02/23 12:00 Labs: Laboratory Results - last 24 hr 12/02/23 12:00 WBC 7.7 RBC 4.57 Hgb 13.7 Hct 40.4 MCV 88.4 MCH 29.9 MCHC 33.8 RDW 14.7 Plt Count 256 Neut % (Auto) 74.0 Lymph % (Auto) 20.3 L [place] % (Auto) 4.1 Eos % (Auto) 0.7 L Baso % (Auto) 0.9 Neut # (Auto) 5700 Lymph # (Auto) 1600 [place] # (Auto) 300 Eos # (Auto) 100 Baso # (Auto) 100 Sodium 139 Potassium 3.7 Chloride 109 H Carbon Dioxide 23 BUN 7 Creatinine 0.62 Estimated GFR > 60 BUN/Creatinine Ratio 11.3 Glucose 95 Calcium 9.2 Total Bilirubin 0.6 AST 19 ALT 17 Alkaline Phosphatase 50 Total Protein 7.0 Albumin 4.2 Globulin 2.8 Albumin/Globulin Ratio 1.5 Lipase 61 Assessment & Plan Assessment & Plan narrative: 1. Recent C diff toxin colitis, present on admission and active. 2. Anorexia, present on admission and active. 3. Nausea, present on admission and active. 4. Volume depletion, present on admission and active. Plan: -IV fluids -repeart C Diff Assay. Observation status, anticipate 1 night of hospital care for hydration. TESSA is December 02. Full resuscitation. Time-Based Coding :: 30 min spent with patient and on the chart (including review of chart, obtaining history, exam, reviewing outside data, placing orders, documenting exam and treatment plan, and counseling patient) on 12/01. Quality MIPS - Admit I confirm the patient?s Advance Care Plan is present, Code status is documented, Surrogate decision maker is in patient?s record [If Yes, STOP here]: Yes MIPS - Meds 'Current medications' to include all prescriptions, [id number] products, herbals, cannabis/cannabidiol products, and vitamin/mineral/dietary (nutritional) supplements. I have utilized all available resources to obtain, update, or review the patient?s current medications. [If Yes, STOP here]: Yes
[2023-12-02] MEDS: HYDROMORPHONE 0.5 MG INJ 1 MG IV (14:56)
[2023-12-02] MEDS: SODIUM CHLORIDE 0.45% 1,000 ML 100 ML IV (14:56)
[2023-12-02] MEDS: OXYCODONE IR 5 MG TABLET PO ×2 (15:45→20:00)
[2023-12-02] MEDS: METOCLOPRAMIDE 10 MG/2 ML INJ 5 MG IV (18:49)
[2023-12-02] MEDS: CALCIUM CARBONATE 500 MG TAB PO (21:19)
[2023-12-03] MEDS: SODIUM CHLORIDE 0.45% 1,000 ML 100 ML IV ×3 (01:59→21:30)
[2023-12-03] MEDS: OXYCODONE IR 5 MG TABLET PO ×3 (02:17→15:43)
[2023-12-03 06:54] LABS: Add Manual Diff / Slide Review NO; Basophils Absolute Auto 0 /uL (0-100); Basophils Percent Auto 0.3 % (0-2); Eosinophils Absolute Auto 100 /uL (0-450); Eosinophils Percent Auto 1.9 % (2-4); Hematocrit 34.3 % (36-46); Hemoglobin 11.6 g/dL (12.0-16.0); Lymphocytes Absolute Auto 1500 /uL (1100-4500); Mean Corpuscular HGB Conc 33.8 % (30-36); Mean Corpuscular Hemoglobin 30.4 PG (26-34); Mean Corpuscular Volume 89.8 fL (80-100); Monocytes Absolute Auto 400 /uL (0-900); Monocytes Percent Auto 7.2 % (3-14); Neutrophils Absolute Auto 3200 /uL (1500-7000); Neutrophils Percent Auto 61.6 % (50-75); Platelet Count 182 X10^3/uL (150-400); Red Blood Cell Count 3.82 X10^6/uL (4.0-5.2); Red Cell Distribution Width 14.3 % (11.6-14.8); White Blood Cell Count 5.3 X10^3/uL (4.5-11.0)
[2023-12-03 07:05] LABS: BUN Creatinine Ratio 4.8 (6-22); Blood Urea Nitrogen 3 mg/dL (7-17); Calcium 8.4 mg/dL (8.4-10.2); Carbon Dioxide 26 mmol/L (22-32); Chloride 109 mmol/L (98-107); Estimated Glomerular Filt Rate > 60 mL/min (>60); Glucose 83 mg/dL (70-100); HEMOLYSIS < 15 (0-50); Potassium 3.6 mmol/L (3.4-5.1); Sodium 138 mmol/L (137-145)
[2023-12-03 08:00] VITALS: BP 98/65; PULSE 61; RESP 17; TEMP 36.7; O2SAT 99
[2023-12-03] MEDS: HYDROMORPHONE 0.5 MG INJ IV (09:33)
[2023-12-03] MEDS: ACETAMINOPHEN 325 MG TABLET 650 MG PO (09:33)
[2023-12-03] MEDS: ONDANSETRON 4 MG/2 ML INJ IV ×4 (09:34→23:08)
[2023-12-03] MEDS: PANTOPRAZOLE 40 MG VIAL IV (10:26)
--- NOTE | 2023-12-03 10:50 | CM.DANOTE ---
Initial DCP Assessment Note Pt is a 28 yo female, resident of [place], presents with inability to keep food down, recent dx of cdiff and round of oral vanco. PCP: Alyssa Philip Payer: Magdalena Parks Reviewed chart, pt discussed in multidisciplinary rounds this morning. Patient is likely to be discharged home if sx have improved. Patient lives independently with spouse and family. No barriers identified at this time to patient's safe discharge home w/family to assist; close outpatient f/u recommended. CM team will plan to follow clinical course closely in case any DC needs or concerns arise. DON Elena Discharge Planning/Care Management CM Discharge Assessment Start: 12/03/23 10:46 Freq: Status: Active Protocol: Document 12/03/23 10:47 JEAN PAUL (Rec: 12/03/23 10:50 JEAN PAUL [id number]) Discharge Planning Assessment Assigned Records Management Clerk DON Vigil DPOA/Assigned Designee Name Bert Wasserman, spouse Contact Information [phone] Advance Directives? No History Provided By Patient,Medical Record Prior Living Arrangements Apartment/Condo Household Members spouse,children Type of transporation used prior to Drives own vehicle admit Independent with ADL's Yes Is patient alert and oriented? Yes Barriers to Discharge No Discharge Plan Home Transportation Arrangement Family Referrals Initiated None needed
[2023-12-03] MEDS: MAG HYDROX/ALUM/SIMETH 30 ML UDC PO (10:55)
--- NOTE | 2023-12-03 11:31 | DIET.CONS ---
Dietary Consultation Note Admission Date: 12/02/2023 13:10 Assessment: 28 y F admitted for c diff. Nutrition consulted for weight loss, intentional at first. Met with pt at bedside. Reports not being able to eat her usual po intakes since Nov 19 - 13 days ago. Has only been able to tolerate white rice and small cheese quesadillas, but notes she usually vomits the food back up. Per pt request, adjusted lunch try to preferences and discussed preferences with unit host. Pt open to trying Ensure clear at dinner. Reports weight of 200 lb last fall, then had cholecystectomy, lost weight within a month or 2 and was down to 170 lb. Has been at 170 lb (77.27 kg) consistently since. Per pt report and PCP note -started phentermine beginning of nov for short trial d/t pt desire for weight loss medication. Nutrition focused physical exam- no significant results. Assessed temples, buccal and orbital subcutaneous fat, interosseous. Pt lying down in discomfort, limited exam. Ht: 165.1 cm Wt: 77.111 kg BMI: 28.3 UBW: 77.27 kg per pt since last fall, 75.92 kg on 11/08/23, 90.718 kg on 10/29/22 (-15% loss in 1 yr, non-severe) per EMR Last BM: 12/03/23 (12/03/23 08:00) MNA: 9 Ronen Score: 22 Diet: 12/02/23 Dinner General (Regular) Diet Diet Modifications: Nutrition Percent Meal Consumed 25% 12/03/23 08:00 Percent Meal Consumed 25% 12/02/23 19:00 Percent Meal Consumed 25% 12/02/23 18:00 Labs: RBC 3.82 X10^6/uL (4.0-5.2) L 12/03/23 05:40 Hgb 11.6 g/dL (12.0-16.0) L 12/03/23 05:40 Hct 34.3 % (36-46) L 12/03/23 05:40 Creatinine 0.62 mg/dL (0.52-1.04) 12/03/23 05:40 Nutrition Diagnosis: Inadequate oral intake r/t GI distress with symptoms of nausea, vomiting, and diarrhea aeb <50% of EER for 13 days per pt report Interventions: 1. Trial Ensure clear at dinner and breakfast 2. Coordinated tolerated foods with kitchen EER: [id number] kcals (20-24 kcals/kg per BMI) 60 g protein (.8 g/kg per age) Monitoring/Evaluations: ons tolerance, po intakes Electronically Signed by: Daniella Scott 12/03/23 11:31 Clinical Dietitian [address] [id number]
[2023-12-03] MEDS: OXYCODONE IR 10 MG TABLET PO ×2 (12:50→20:20)
--- NOTE | 2023-12-03 13:07 | PM.PN.1 ---
Subjective Subjective Date Patient Seen: 12/03/23 Time Patient Seen: 13:08 Interval history: Assumed care from the hospitalist service. Notes, admission labs, and imaging reviewed. This morning, the pt reports that she continues to have severe abdominal pain. It remains centralized approximately 3 finger breadths below her umbilicus. She has continued to vomit frequently, until receiving Pantoprazole which seemed to help significantly. Her stool is formed now, but the pt feels that is more due to the quantity of narcotics she is needing for pain control. She denies any blood in her stool or emesis. She denies any fevers/chills. She has been able to eat very little, and hasn't really been able to keep anything down. Exam Vital Signs (past 8 hours): - 12/03/23 08:00 Temperature 98.0 F Pulse Rate 61 Respiratory Rate 17 Blood Pressure 98/65 Pulse Oximetry 99 Oxygen Flow Rate 0 Oxygen Delivery Method Room Air Oxygen Flow Rate 0 Narrative Exam Narrative: Gen: appears uncomfortable in bed CV: RRR, no murmurs Resp: clear to auscultation bilaterally Abd: soft, tender to palpation periumbilical region without rebound/guarding/rigidity, normoactive bowel sounds, no masses/HSM Ext: no edema Neuro: no gross deficits Objective Labs 12/03/23 05:40 12/03/23 05:40 Labs: Laboratory Results - last 24 hr 12/02/23 12/03/23 12:00 05:40 WBC 5.3 RBC 3.82 L Hgb 11.6 L Hct 34.3 L MCV 89.8 MCH 30.4 MCHC 33.8 RDW 14.3 Plt Count 182 Neut % (Auto) 61.6 Lymph % (Auto) 29.0 [place] % (Auto) 7.2 Eos % (Auto) 1.9 L Baso % (Auto) 0.3 Neut # (Auto) 3200 Lymph # (Auto) 1500 [place] # (Auto) 400 Eos # (Auto) 100 Baso # (Auto) 0 Sodium 139 138 Potassium 3.7 3.6 Chloride 109 H 109 H Carbon Dioxide 23 26 BUN 7 3 L Creatinine 0.62 0.62 Estimated GFR > 60 > 60 BUN/Creatinine Ratio 11.3 4.8 L Glucose 95 83 Calcium 9.2 8.4 Total Bilirubin 0.6 AST 19 ALT 17 Alkaline Phosphatase 50 Total Protein 7.0 Albumin 4.2 Globulin 2.8 Albumin/Globulin Ratio 1.5 Lipase 61 PFSH Medical History Asthma GERD (gastroesophageal reflux disease) (~2010) Gastritis (~2010) Back pain (~2010) Surgical History Hx of cholecystectomy History of hysterectomy (06/14/22) History of laparoscopy (04/05/22) Hx of colonoscopy (12/14/21) [place] teeth extracted (~2015) Family History Mother Cervical cancer Smoker Father Diabetes mellitus Herniated disc Spondylosis Grandmother Unknown family medical history Diabetes mellitus Smoker Cancer Hyperlipidemia Hypertension Grandfather History of heart disease Grandmother Breast cancer Grandfather Diabetes mellitus Cancer History of heart disease Hypertension Sister Faye syndrome Brother Arthritis of spine Social History marital status: number of children: 1 household members: spouse and children lives independently: Yes caregiver/support person: No housing: house pets and animals: Yes (1 dog: safe) education level: high school occupational status: unemployed current occupational exposures/hazards: No special alexandra needs: No seatbelt use: always do you feel safe at home: Yes Smoking Status: Former smoker second hand exposure: No alcohol intake: current substance use type: does not use during the past year weight has: remained stable well-balanced diet: daily or most days caffeine: Yes (1 cup coffee daily or every other day. ) Type(s) of exercise: walking and normal ROM and activity frequency: daily duration: 15-30 minutes/day Assessment & Plan Assessment & Plan narrative: Pt is a 28yo with chronic diarrhea since her cholecystectomy 10/2022, and recent unprovoked C diff diagnosis having completed 10 day course of oral Vancomycin, who presented with intractable abdominal pain. 1) C diff colitis: Question resolution of infection with persistence of colitis appearance on imaging. Cannot test for C diff due to more formed stool, although this is likely more due to significant narcotic requirements. Discussed care with Dr Cooper, General Surgery, as well. Will treat with course of Rifaxamin. If symptoms without any improvement in the next 1-2 days, then will reconsider additional evaluation. Continue PO and IV narcotic pain medications for now. Will start Pantoprazole and Sucralfate, as the pt did have improvement in nausea with Pantoprazole. Continue mIVF until tolerating better PO. FEN: Clear diet Code: Full DVT ppx: SCDs, ambulation Dispo: Pending improvement in pain and transition to only PO medications. Time-Based Coding :: [TOTAL MINUTES] spent with patient and on the chart (including review of chart, obtaining history, exam, reviewing outside data, placing orders, documenting exam and treatment plan, and counseling patient) on [DATE]. Quality VTE Deep Vein Thrombosis/Pulmonary Embolism Present on Admission: No IH PROFEE Charge codes Subsequent inpatient/observation care: [id number]
--- NOTE | 2023-12-03 14:34 | CM.DPNOTE ---
DCP Note According to conversation with ROSEANNE Grace, patient is being considered for discharge. Patient has stated concern about her return home because spouse is deployed and patient unsure she will have enough support to care for her children while recovering and in pain. Met w/patient who was on the phone with her mother in law. Patient's sister is currently with her children and needs to leave by the end of this week. Patient updates this BROADCAST JOURNALIST that her mother in law can take time off work to fly in and help with patient's children. According to patient, she has the contact information for their Ferment[employer]man however does not trust this person and denies having any spouse's group for support. Patient and MIL (on the phone) have concern about patient's medical readiness, patient states she is in 9 out of 10 pain when she gets out of bed. At this time in the visit, requested that ROSEANNE Grace take over to address clinical questions. Plan: Discharge home w/family is anticipated upon discharge. CM team will plan to follow closely in case additional questions or concerns arise about patient's discharge plan. JEAN PAUL
[2023-12-03] MEDS: HYDROMORPHONE 1 MG INJ IV ×4 (14:36→23:13)
[2023-12-03] MEDS: RIFAXIMIN 200 MG TABLET 400 MG PO ×2 (14:37→20:20)
[2023-12-03 17:00] VITALS: BP 110/68; PULSE 71; RESP 16; TEMP 36.6; O2SAT 99
[2023-12-03] MEDS: SUCRALFATE 1 GM TABLET PO ×2 (17:49→20:20)
[2023-12-03 20:00] VITALS: BP 101/58; PULSE 64; RESP 24; TEMP 36.4; O2SAT 100
[2023-12-03] MEDS: PANTOPRAZOLE DR 40 MG TABLET PO (20:20)
--- NOTE | 2023-12-03 21:56 | PC.NURSE ---
NOC: Received phone call from Michelle at [facility] [place] requesting information re: pt's current visit in order to determine if pt's spouse can return home to help with care. Confirmed that patient is currently in hospital, but information requested is outside of nursing scope of practice, passing on to MD and/or MACHINE GRAINER for follow up. Information requested: Attending MD Diagnosis Prognosis Current condition Life expectancy Case #: [id number] Phone: (any rep is fine to talk to)
[2023-12-04] VITALS: BP 100/62; PULSE 84; RESP 22; TEMP 36.6; O2SAT 99
[2023-12-04] MEDS: METOCLOPRAMIDE 10 MG/2 ML INJ 5 MG IV ×2 (00:40→06:01)
[2023-12-04] MEDS: MAG HYDROX/ALUM/SIMETH 30 ML UDC PO (00:40)
[2023-12-04] MEDS: OXYCODONE IR 10 MG TABLET PO ×3 (00:42→20:13)
[2023-12-04 01:15] VITALS: BP 113/81; PULSE 71; RESP 16; TEMP 36.9; O2SAT 99
[2023-12-04] MEDS: HYDROMORPHONE 1 MG INJ IV ×3 (01:20→06:02)
[2023-12-04] MEDS: ONDANSETRON 4 MG/2 ML INJ IV ×3 (03:10→13:25)
[2023-12-04] MEDS: CALCIUM CARBONATE 500 MG TAB PO (06:26)
[2023-12-04] MEDS: SODIUM CHLORIDE 0.45% 1,000 ML 100 ML IV ×2 (07:05→18:11)
[2023-12-04] MEDS: PANTOPRAZOLE DR 40 MG TABLET PO ×2 (07:43→20:13)
[2023-12-04] MEDS: SUCRALFATE 1 GM TABLET PO ×4 (07:43→20:14)
[2023-12-04 08:00] VITALS: BP 114/68; PULSE 68; RESP 15; TEMP 36.7; O2SAT 99
--- NOTE | 2023-12-04 08:19 | PM.PN.1 ---
Subjective Subjective Date Patient Seen: 12/04/23 Time Patient Seen: 07:50 Interval history: The pt this morning reports significant nausea and vomiting overnight. She wasn't able to keep anything down. She reports no issues with BMs overnight. She continues to have severe abdominal pain. She also has a headache this morning. Exam Vital Signs (past 8 hours): - 12/04/23 01:15 Temperature 98.4 F Pulse Rate 71 Respiratory Rate 16 Blood Pressure 113/81 Pulse Oximetry 99 Oxygen Flow Rate 0 Oxygen Delivery Method Room Air Oxygen Flow Rate 0 Narrative Exam Narrative: Gen: appears uncomfortable in bed CV: RRR, no murmurs Resp: clear to auscultation bilaterally Abd: soft, tender to palpation diffusely, normoactive bowel sounds Ext: no edema Objective Labs 12/03/23 05:40 12/03/23 05:40 PFS Medical History Asthma GERD (gastroesophageal reflux disease) (~2010) Gastritis (~2010) Back pain (~2010) Surgical History Hx of cholecystectomy History of hysterectomy (06/14/22) History of laparoscopy (04/05/22) Hx of colonoscopy (12/14/21) [place] teeth extracted (~2015) Family History Mother Cervical cancer Smoker Father Diabetes mellitus Herniated disc Spondylosis Grandmother Unknown family medical history Diabetes mellitus Smoker Cancer Hyperlipidemia Hypertension Grandfather History of heart disease Grandmother Breast cancer Grandfather Diabetes mellitus Cancer History of heart disease Hypertension Sister Faye syndrome Brother Arthritis of spine Social History marital status: number of children: 1 household members: spouse and children lives independently: Yes caregiver/support person: No housing: house pets and animals: Yes (1 dog: safe) education level: high school occupational status: unemployed current occupational exposures/hazards: No special alexandra needs: No seatbelt use: always do you feel safe at home: Yes Smoking Status: Former smoker second hand exposure: No alcohol intake: current substance use type: does not use during the past year weight has: remained stable well-balanced diet: daily or most days caffeine: Yes (1 cup coffee daily or every other day. ) Type(s) of exercise: walking and normal ROM and activity frequency: daily duration: 15-30 minutes/day Assessment & Plan Assessment & Plan narrative: Pt is a 28yo with chronic diarrhea since her cholecystectomy 10/2022, and recent unprovoked C diff diagnosis having completed 10 day course of oral Vancomycin, who presented with intractable abdominal pain. 1) C diff colitis: Question resolution of infection with persistence of colitis appearance on imaging. Cannot test for C diff due to more formed stool, although this is likely more due to significant narcotic requirements. Discussed care with Dr Cooper, General Surgery, yesterday - Continue Rifaxamin - Add Promethazine to help with nausea - Continue IV and PO pain medications - Continue Pantoprazole, Sucralfate - Continue mIVF - If no signs of improvement by this afternoon, will re-discuss with Dr Cooper FEN: Clear diet Code: Full DVT ppx: SCDs, ambulation Dispo: Pending improvement in pain and transition to only PO medications. Time-Based Coding :: [TOTAL MINUTES] spent with patient and on the chart (including review of chart, obtaining history, exam, reviewing outside data, placing orders, documenting exam and treatment plan, and counseling patient) on [DATE]. Quality VTE Deep Vein Thrombosis/Pulmonary Embolism Present on Admission: No
[2023-12-04 08:38] LABS: Add Manual Diff / Slide Review NO; Basophils Absolute Auto 0 /uL (0-100); Basophils Percent Auto 0.1 % (0-2); Eosinophils Absolute Auto 0 /uL (0-450); Eosinophils Percent Auto 0.4 % (2-4); Hematocrit 39.7 % (36-46); Hemoglobin 13.3 g/dL (12.0-16.0); Lymphocytes Absolute Auto 1000 /uL (1100-4500); Lymphocytes Percent Auto 10.5 % (25-40); Mean Corpuscular HGB Conc 33.5 % (30-36); Mean Corpuscular Hemoglobin 29.8 PG (26-34); Mean Corpuscular Volume 88.9 fL (80-100); Monocytes Absolute Auto 300 /uL (0-900); Monocytes Percent Auto 3.5 % (3-14); Neutrophils Absolute Auto 8000 /uL (1500-7000); Neutrophils Percent Auto 85.5 % (50-75); Platelet Count 249 X10^3/uL (150-400); Red Blood Cell Count 4.46 X10^6/uL (4.0-5.2); Red Cell Distribution Width 14.2 % (11.6-14.8); White Blood Cell Count 9.4 X10^3/uL (4.5-11.0)
[2023-12-04 08:48] LABS: Calcium 8.9 mg/dL (8.4-10.2); Carbon Dioxide 22 mmol/L (22-32); Chloride 105 mmol/L (98-107); Estimated Glomerular Filt Rate > 60 mL/min (>60); Glucose 96 mg/dL (70-100); HEMOLYSIS < 15 (0-50); Potassium 3.6 mmol/L (3.4-5.1); Sodium 135 mmol/L (137-145)
[2023-12-04 08:50] LABS: BUN Creatinine Ratio 3.2 (6-22); Blood Urea Nitrogen < 2 mg/dL (7-17)
[2023-12-04] MEDS: RIFAXIMIN 200 MG TABLET 400 MG PO (08:59)
[2023-12-04 11:00] LABS: Add Manual Diff / Slide Review NO; Basophils Absolute Auto 0 /uL (0-100); Basophils Percent Auto 0.4 % (0-2); Eosinophils Absolute Auto 0 /uL (0-450); Eosinophils Percent Auto 0.2 % (2-4); Hematocrit 37.9 % (36-46); Hemoglobin 12.9 g/dL (12.0-16.0); Lymphocytes Absolute Auto 1400 /uL (1100-4500); Lymphocytes Percent Auto 18.6 % (25-40); Mean Corpuscular HGB Conc 34.1 % (30-36); Mean Corpuscular Hemoglobin 30.1 PG (26-34); Mean Corpuscular Volume 88.2 fL (80-100); Monocytes Absolute Auto 300 /uL (0-900); Neutrophils Absolute Auto 5600 /uL (1500-7000); Neutrophils Percent Auto 76.8 % (50-75); Platelet Count 238 X10^3/uL (150-400); Red Blood Cell Count 4.29 X10^6/uL (4.0-5.2); Red Cell Distribution Width 14.2 % (11.6-14.8); White Blood Cell Count 7.3 X10^3/uL (4.5-11.0)
[2023-12-04] MEDS: hydrOXYzine HCL 25 MG TABLET 50 MG PO (11:11)
[2023-12-04 11:13] LABS: Alanine Aminotransferase 193 IU/L (<35); Albumin 3.9 g/dL (3.5-5.0); Albumin Globulin Ratio 1.3 (1.0-2.8); Alkaline Phosphatase 96 U/L (38-126); Aspartate Aminotransferase 94 IU/L (14-36); Carbon Dioxide 17 mmol/L (22-32); Chloride 108 mmol/L (98-107); Estimated Glomerular Filt Rate > 60 mL/min (>60); Globulin 3.1 g/dL (1.7-4.1); Glucose 97 mg/dL (70-100); HEMOLYSIS 18 (0-50); Potassium 3.4 mmol/L (3.4-5.1); Sodium 134 mmol/L (137-145)
[2023-12-04 11:15] LABS: BUN Creatinine Ratio 3.1 (6-22); Blood Urea Nitrogen < 2 mg/dL (7-17)
[2023-12-04] MEDS: OXYCODONE IR 5 MG TABLET PO (11:53)
[2023-12-04] MEDS: POTASSIUM CHLORIDE 20 MEQ TAB 40 MEQ PO (11:53)
[2023-12-04] MEDS: VANCOMYCIN 125 MG CAPSULE 500 MG PO (12:26)
[2023-12-04] MEDS: metroNIDAZOLE 500 MG/100 ML PIGGYBACK 100 MG IV (12:27)
--- NOTE | 2023-12-04 13:24 | DI.US.S_ITS ---
PROCEDURE: US ABDOMEN LIMITED INDICATIONS: ELEVATED LIVER ENZYMES TECHNIQUE: Real-time focused scanning was performed of the abdomen, with image documentation. COMPARISON: [facility], CT, CT ABDOMEN PELVIS W CON, 12/02/2023, 11:49. [facility], US, US ABDOMEN LIMITED, 10/17/2022, 8:14. FINDINGS: Liver measures 16 cm. Overall sonographic appearance is unremarkable. Gallbladder is absent. CBD measures 4 mm, within normal limits. Visualized pancreas is unremarkable. IMPRESSION: No pathologic biliary ductal dilation. Gallbladder is absent. No significant findings in the liver by ultrasound. Dictated by: Kal Chan M.D. on 12/04/2023 at 16:48 Approved by: Kal Chan M.D. on 12/04/2023 at 16:49
[2023-12-04 15:45] LABS: Clostridium Difficile Tox PCR Negative for C. diff (Negative)
[2023-12-04] MEDS: ACETAMINOPHEN 325 MG TABLET 650 MG PO (20:13)
[2023-12-04] MEDS: PROMETHAZINE 25 MG TABLET PO (20:14)
[2023-12-04 20:27] VITALS: BP 92/61; PULSE 62; RESP 24; TEMP 37.1; O2SAT 99
[2023-12-05] MEDS: SODIUM CHLORIDE 0.45% 1,000 ML 100 ML IV (03:47)
[2023-12-05 06:00] VITALS: BP 95/53; PULSE 79; RESP 20; TEMP 36.7; O2SAT 100
[2023-12-05] MEDS: OXYCODONE IR 10 MG TABLET PO ×4 (06:01→16:47)
[2023-12-05] MEDS: PROMETHAZINE 25 MG TABLET PO (06:01)
[2023-12-05] MEDS: PANTOPRAZOLE DR 40 MG TABLET PO (06:01)
[2023-12-05 06:51] LABS: Add Manual Diff / Slide Review NO; Basophils Absolute Auto 0 /uL (0-100); Basophils Percent Auto 0.6 % (0-2); Eosinophils Absolute Auto 200 /uL (0-450); Eosinophils Percent Auto 3.4 % (2-4); Hematocrit 33.1 % (36-46); Hemoglobin 11.1 g/dL (12.0-16.0); Lymphocytes Absolute Auto 1600 /uL (1100-4500); Lymphocytes Percent Auto 31.1 % (25-40); Mean Corpuscular HGB Conc 33.7 % (30-36); Mean Corpuscular Volume 89.2 fL (80-100); Monocytes Absolute Auto 400 /uL (0-900); Monocytes Percent Auto 8.1 % (3-14); Neutrophils Absolute Auto 2900 /uL (1500-7000); Neutrophils Percent Auto 56.8 % (50-75); Platelet Count 191 X10^3/uL (150-400); Red Blood Cell Count 3.71 X10^6/uL (4.0-5.2); Red Cell Distribution Width 14.4 % (11.6-14.8)
[2023-12-05 06:59] LABS: Alanine Aminotransferase 133 IU/L (<35); Albumin 3.1 g/dL (3.5-5.0); Albumin Globulin Ratio 1.2 (1.0-2.8); Alkaline Phosphatase 58 U/L (38-126); Aspartate Aminotransferase 40 IU/L (14-36); BUN Creatinine Ratio 3.2 (6-22); Bilirubin Total 0.6 mg/dL (0.2-1.3); Blood Urea Nitrogen < 2 mg/dL (7-17); Calcium 8.3 mg/dL (8.4-10.2); Carbon Dioxide 21 mmol/L (22-32); Chloride 109 mmol/L (98-107); Estimated Glomerular Filt Rate > 60 mL/min (>60); Globulin 2.5 g/dL (1.7-4.1); Glucose 73 mg/dL (70-100); HEMOLYSIS < 15 (0-50); Potassium 3.5 mmol/L (3.4-5.1); Sodium 136 mmol/L (137-145); Total Protein 5.6 g/dL (6.3-8.2)
[2023-12-05] MEDS: SUCRALFATE 1 GM TABLET PO ×3 (07:53→16:41)
[2023-12-05] MEDS: ACETAMINOPHEN 325 MG TABLET 650 MG PO (07:56)
[2023-12-05 08:00] VITALS: BP 96/53; PULSE 62; RESP 14; TEMP 37.1; O2SAT 100
[2023-12-05] MEDS: hydrOXYzine HCL 25 MG TABLET 50 MG PO (09:56)
[2023-12-05] MEDS: POTASSIUM CHLORIDE 20 MEQ TAB 40 MEQ PO (10:48)
--- NOTE | 2023-12-05 10:50 | P.DS_ITS ---
History of Present Illness History of Present Illness Date Patient Seen: 12/05/23 Chief complaint: C. diff Narrative: Patient was a 28-year-old female who was recently diagnosed with C diff toxin and treated with oral vancomycin for 10 days. The patient was had improvement of diarrhea but still has soft stools. She presents with persistent anorexia and nausea. She denies fevers, she was dizzy when standing. She feels very weak. She also denies fevers or chills. In the ED are white count was normal and she was given supportive care and a C diff toxin assay was ordered. Subjective: She describes slowly improving diarrhea. She took 10 days of vancomycin q.i.d.. Her doctor gave her oxycodone which she thinks has change the quality of the stool to more solid. No fevers, or chills. She was had anorexia and can only keep down some fluids and bland foods. She feels extremely weak, no fevers or chills. She does have abdominal cramping and suprapubic tenderness but denies any hematuria, or dysuria. No one at home is having diarrhea. She was no previous history of C diff toxin. She denies any hematemesis or blood per rectum. A review of her C diff toxin serology from November 19 reveals a positive PCR on a negative toxin a and B EIA. Discharge Providers Provider Date of admission: 12/04/23 08:57 Discharge Date: 12/05/23 Primary care physician: Alyssa Philip MD Consults: 12/02/23 16:18 Consult to Dietitian, Adult Routine Comment: intentional at first. Reason For Exam: weight loss Discharge provider: Alyssa Philip MD Summary Hospital Course Discharge Diagnosis: Intractable abdominal pain with vomiting Recent C diff colitis Anxiety Hospital Course: The pt was admitted with intractable abdominal pain with vomiting and diarrhea. She was initiated on heavy narcotics to manage the pain. Her pain improved modestly. Initial attempts to test for C diff again were unsuccessful as her stool was too formed, likely due to the narcotic pain medication. Due to ongoing evidence of colitis on her CT, she was initially started on Rifaxamin, and then transitioned to high dose PO Vancomycin with IV Flagyl. Surgery evaluated the pt, and felt that she did not require endoscopy/colonoscopy, but that the heavy narcotics were actually worsening her symptoms. She was weaned from the IV dilaudid. She was initiated on Hydroxyzine and Ativan for her anxiety, and her symptoms did improve. Repeat C diff testing was able to to be completed that came back negative. Antibiotics were then discontinue. At the time of discharge the pts pain was being managed with only PO medications. Her stools were becoming more consistent. Her symptoms were thought to be due to lingering inflammation from her prior C diff and anxiety. She will f/u with GI as an outpatient. Status at Discharge Overall status at discharge: patient is progressing back to baseline Exam Vital Signs (past 8 hours): - 12/05/23 06:00 12/05/23 08:00 Temperature 98.1 F 98.7 F Pulse Rate 79 62 Respiratory Rate 20 14 Blood Pressure 95/53 L 96/53 L Pulse Oximetry 100 100 Oxygen Delivery Method Room Air Oxygen Flow Rate 0 Narrative Exam Narrative: Gen: NAD, sitting comfortably in bed CV: RRR, no murmurs Resp: clear to auscultation bilaterally Abd: soft, very minimally tender, normoactive bowel sounds Objective Labs 12/05/23 05:25 12/05/23 05:25 Labs: Laboratory Results - last 24 hr 12/04/23 12/04/23 12/05/23 10:52 14:00 05:25 WBC 7.3 5.0 RBC 4.29 3.71 L Hgb 12.9 11.1 L Hct 37.9 33.1 L MCV 88.2 89.2 MCH 30.1 30.0 MCHC 34.1 33.7 RDW 14.2 14.4 Plt Count 238 191 Neut % (Auto) 76.8 H 56.8 D Lymph % (Auto) 18.6 L 31.1 [place] % (Auto) 4.0 8.1 Eos % (Auto) 0.2 L 3.4 Baso % (Auto) 0.4 0.6 Neut # (Auto) 5600 2900 Lymph # (Auto) 1400 1600 [place] # (Auto) 300 400 Eos # (Auto) 0 200 Baso # (Auto) 0 0 Sodium 134 L 136 L Potassium 3.4 3.5 Chloride 108 H 109 H Carbon Dioxide 17 L 21 L BUN < 2 L < 2 L Creatinine 0.64 0.63 Estimated GFR > 60 > 60 BUN/Creatinine Ratio 3.1 L 3.2 L Glucose 97 73 Calcium 9.0 8.3 L Total Bilirubin 1.0 0.6 AST 94 H 40 H ALT 193 H 133 H Alkaline Phosphatase 96 58 Total Protein 7.0 5.6 L Albumin 3.9 3.1 L Globulin 3.1 2.5 Albumin/Globulin Ratio 1.3 1.2 C. difficile Tox (PCR) Negative for c. diff [facility] Medical History Asthma GERD (gastroesophageal reflux disease) (~2010) Gastritis (~2010) Back pain (~2010) Surgical History Hx of cholecystectomy History of hysterectomy (06/14/22) History of laparoscopy (04/05/22) Hx of colonoscopy (12/14/21) Embudo teeth extracted (~2015) Family History Mother Cervical cancer Smoker Father Diabetes mellitus Herniated disc Spondylosis Grandmother Unknown family medical history Diabetes mellitus Smoker Cancer Hyperlipidemia Hypertension Grandfather History of heart disease Grandmother Breast cancer Grandfather Diabetes mellitus Cancer History of heart disease Hypertension Sister Faye syndrome Brother Arthritis of spine Social History marital status: number of children: 1 household members: spouse and children lives independently: Yes caregiver/support person: No housing: house pets and animals: Yes (1 dog: safe) education level: high school occupational status: unemployed current occupational exposures/hazards: No special alexandra needs: No seatbelt use: always do you feel safe at home: Yes Smoking Status: Former smoker second hand exposure: No alcohol intake: current substance use type: does not use during the past year weight has: remained stable well-balanced diet: daily or most days caffeine: Yes (1 cup coffee daily or every other day. ) Type(s) of exercise: walking and normal ROM and activity frequency: daily duration: 15-30 minutes/day Discharge Plan Discharge Plan Patient Disposition: Home Discharge orders & Medications Prescriptions: New acetaminophen 325 mg Tablet 650 mg PO Q6H PRN (Reason: Fever/Mild Pain (1-3)) Qty: 30 0RF sucralfate 1 gram Tablet 1 gm PO ACHS Qty: 30 0RF promethazine 25 mg Tablet 25 mg PO Q6HR PRN (Reason: Nausea) Qty: 30 0RF hydroxyzine HCl 25 mg Tablet 50 mg PO Q4H PRN (Reason: Nausea, anxiety) Qty: 30 0RF alum-mag hydroxide-simeth [Mag-Al Plus] 200-200-20 mg/5 mL Suspension 30 ml PO Q4HR PRN (Reason: Dyspepsia) Qty: 300 0RF omeprazole 20 mg capsule,delayed release(DR/EC) 20 mg PO BID Qty: 60 0RF ondansetron 4 mg tablet,disintegrating 4 mg PO Q8H PRN (Reason: nausea and vomiting) Qty: 30 0RF Discontinued oxycodone 5 mg tablet 5 mg PO Q4H PRN (Reason: pain) Qty: 20 0RF No Action lorazepam 0.5 mg tablet 0.5 mg PO Q4HR PRN (Reason: Anxiety) Qty: 20 0RF oxycodone 10 mg tablet 10 mg PO Q3HR PRN (Reason: Pain, Severe (7-10)) Qty: 30 0RF Medication counseling provided by Pharmacist: Yes Follow up/Referrals: Alyssa Philip MD [Primary Care Provider] - 12/11/23 12:00 pm (Appt:12/10 @ [address] Philip by [employer] you will recieve a message with instructions prior to appointment if you do not please [facility] [phone] for portal support by lianne ) Diet/Activity/Treatments Diet: Diet as Tolerated and Regular Visit Report/Discharge Packet Instructions: DI for Abdominal Pain-Adult, DI for Prescription Opioid Use, Ondansetron, Sucralfate, Lorazepam, Oxycodone, Promethazine, Hydroxyzine Stand Alone Forms: Patient Portal/API, Stroke Signs & Symptoms Discharge Data Primary Care Provider: Alyssa Philip Discharges patient from system. Discharge Date/Time: 12/05/23 17:44 Quality VTE Deep Vein Thrombosis/Pulmonary Embolism Present on Admission: No I[facility] PROFEE Charge Codes Discharge inpatient/observation: [id number]
[2023-12-05] MEDS: ONDANSETRON 4 MG/2 ML INJ IV (10:54)
--- NOTE | 2023-12-05 11:11 | PC.NURSE ---
Upon pain reassessment, Pt is rating her pain 7/10. Dr. Philip came to Pt's bedside, so this RN discussed pain management plan. Dr. Philip is aware of Pt's pain. No new pain medication ordered at this time.
--- NOTE | 2023-12-05 11:41 | CM.DPNOTE ---
DCP Note ABORIGINAL EDUCATION TEACHER reviewed EMR. Per RN, cdiff test neg. Per RN, likely home later today pending pain management. ABORIGINAL EDUCATION TEACHER met with pt in room briefly. Pt reports MIL flying in today to assist with kids at home and the [employer] is sending her spouse home from deployment. Deny other CM/ABORIGINAL EDUCATION TEACHER/DCP needs at this time. Hopeful for home today. P: home with family support when medically stable. CM team will continue to follow as needed DON Parekh
--- NOTE | 2023-12-05 17:39 | PC.NURSE ---
Reviewed d/c instructions with Pt, including her f\u appt that is scheduled. Discussed no driving or operating heavy machinery while taking narcotics, and that narcotics may increase risk of constipation; encouraged Pt to consume plenty of fluids in order to stay hydrated and prevent constipation. Discussed side effects from zofran and phenergan such as drowsiness. Pt agreeable to d\c. IV removed, Pt dressed independently and exited via w/c with RN and sister.
== END 2023-12-05 17:44 | disposition home or self-care (01) | DRG 392 ==
LOC: ED 11:14 → AC 13:10
PROVIDERS: Admitting Provider Hospitalist; Emergency Provider Emergency Medicine; PCP Family Medicine; Visit Provider Family Medicine
DX: R10.33 Periumbilical pain (principal); R63.0 Anorexia; R11.2 Nausea with vomiting, unspecified; E86.0 Dehydration; F41.9 Anxiety disorder, unspecified; R19.7 Diarrhea, unspecified; K21.9 Gastro-esophageal reflux disease without esophagitis; Z68.28 Body mass index [BMI] 28.0-28.9, adult; Z90.49 Acquired absence of other specified parts of digestive tract; Z86.19 Personal history of other infectious and parasitic diseases
CPT/HCPCS: 36415; 74177; 76705; 80048; 80053; 81003; 83690; 85025; 87493; 96361; 96374; 96375; 99284; 99285; G0378; A9270; J1170; J2405; J2470; J2765; J7050; Q9967

== ENCOUNTER 2023-12-18 14:39 | Emergency (ER) | payer OTHER, SELFPAY ==
[2023-12-02 15:36] VITALS: BMI 28.3
[2023-12-18 15:08] VITALS: BP 105/64; PULSE 77; RESP 20; TEMP 37.2; O2SAT 100; BMI 28.3
--- NOTE | 2023-12-18 15:15 | EKG_ITS ---
[address] [address] Test Date: 2023-12-18 Pat Name: Emilia Wasserman Department: [facility] Room: Gender: Female Senior Quality Technician: VENU : 1995 Requested By: Order Number: [id number] Reading MD: Kurtis White Measurements Intervals Ashley Rate: 66 P: 30 WY: 148 QRS: -7 QRSD: 88 T: 14 QT: 456 QTc: 478 Interpretive Statements Normal sinus rhythm Electronically Signed On 12-18-2023 18:10:28 PDT by Kurtis White
[2023-12-18 16:58] VITALS: BP 101/58; PULSE 76; O2SAT 100
[2023-12-18 17:00] VITALS: BP 112/61; PULSE 68; O2SAT 100
[2023-12-18 17:12] LABS: Add Manual Diff / Slide Review NO; Basophils Absolute Auto 0 /uL (0-100); Basophils Percent Auto 0.6 % (0-2); Eosinophils Absolute Auto 100 /uL (0-450); Eosinophils Percent Auto 1.9 % (2-4); Hematocrit 40.7 % (36-46); Hemoglobin 13.6 g/dL (12.0-16.0); Lymphocytes Absolute Auto 1300 /uL (1100-4500); Lymphocytes Percent Auto 18.9 % (25-40); Mean Corpuscular HGB Conc 33.4 % (30-36); Mean Corpuscular Hemoglobin 29.8 PG (26-34); Monocytes Absolute Auto 300 /uL (0-900); Monocytes Percent Auto 4.6 % (3-14); Neutrophils Absolute Auto 4900 /uL (1500-7000); Platelet Count 215 X10^3/uL (150-400); Red Blood Cell Count 4.57 X10^6/uL (4.0-5.2); Red Cell Distribution Width 14.1 % (11.6-14.8); White Blood Cell Count 6.7 X10^3/uL (4.5-11.0)
[2023-12-18 17:21] LABS: Alanine Aminotransferase 17 IU/L (<35); Albumin 4.2 g/dL (3.5-5.0); Albumin Globulin Ratio 1.4 (1.0-2.8); Alkaline Phosphatase 50 U/L (38-126); Aspartate Aminotransferase 20 IU/L (14-36); BUN Creatinine Ratio 15.4 (6-22); Bilirubin Total 0.6 mg/dL (0.2-1.3); Blood Urea Nitrogen 10 mg/dL (7-17); Carbon Dioxide 24 mmol/L (22-32); Chloride 108 mmol/L (98-107); Estimated Glomerular Filt Rate > 60 mL/min (>60); Globulin 3.1 g/dL (1.7-4.1); Glucose 84 mg/dL (70-100); HEMOLYSIS < 15 (0-50); Lipase 156 U/L (23-300); Potassium 3.5 mmol/L (3.4-5.1); Sodium 141 mmol/L (137-145); Total Protein 7.3 g/dL (6.3-8.2)
[2023-12-18 17:30] VITALS: BP 98/59; PULSE 65; O2SAT 99
--- NOTE | 2023-12-18 17:39 | DI.CT.S_ITS ---
PROCEDURE: CT HEAD/BRAIN WO CON INDICATIONS: ams TECHNIQUE: Noncontrast 4.5 mm thick angled axial sections acquired from the foramen magnum to the vertex, with coronal and sagittal reformats. For radiation dose reduction, the following was used: automated exposure control, adjustment of mA and/or kV according to patient size. COMPARISON: [facility], CT, CT ANGIO HEAD AND NECK, 12/18/2023, 17:55. FINDINGS: Image quality: Diagnostic. CSF spaces: Basal cisterns are patent. No extra-axial fluid collections. Ventricles are normal in size and shape. Brain: No midline shift. No intracranial masses or hemorrhage. Farrell-white matter interface is normal. Skull and face: Calvarium and visualized facial bones are intact, without suspicious lesions. Sinuses: Visualized sinuses and mastoids are clear. IMPRESSION: No acute intracranial pathology. Approved by: Eran Trejo M.D. on 12/18/2023 at 18:24
--- NOTE | 2023-12-18 17:39 | DI.CT.S_ITS ---
PROCEDURE: CT ANGIO HEAD AND NECK INDICATIONS: syncope TECHNIQUE: After the administration of intravenous contrast, 1 mm thick sections acquired from the aortic arch through the [place] of [place]. 3-dimensional lghdmnm-mvunsbmiw-jwcjowgcmf (MIP) and/or volume rendering reformats were acquired of the central intracranial vasculature and neck separately. For radiation dose reduction, the following was used: automated exposure control, adjustment of mA and/or kV according to patient size. COMPARISON: [facility], CT, CT HEAD/BRAIN WO CON, 12/18/2023, 17:55. FINDINGS: Image quality: Diagnostic. BRAIN: CSF spaces: Ventricles are normal in size and shape. Basal cisterns are patent. No extra-axial fluid collections. Brain: No significant abnormality of the brain can be seen. Skull and face: Calvarium and facial bones appear intact, without suspicious lesions. Orbits appear normal. Sinuses: Sinuses and mastoids are clear. HEAD CT ANGIOGRAPHY: Anterior circulation: Intracranial internal carotid arteries are normal in size and flow. The flow within the paired anterior cerebral arteries is normal and symmetric. The flow within the middle cerebral arteries is normal and symmetric. The anterior communicating artery is seen. No aneurysms are seen. Posterior circulation: Visualized portions of the vertebral arteries demonstrate normal caliber, and join to form a normal appearing basilar artery. Flow within the posterior cerebral arteries is normal and symmetric. No aneurysms are seen. NECK CT ANGIOGRAPHY: Carotid system: The great vessels demonstrate a conventional anatomy as they arise from the aortic arch. The origins of the common carotid arteries appear patent. The common carotid arteries demonstrate normal caliber and courses. The bifurcation regions are both widely patent. The internal carotid arteries demonstrate normal calibers and courses. Posterior circulation: The origins of the vertebral arteries both appear widely patent. The more superior extracranial portions of both vertebral arteries also demonstrate normal courses and calibers. They join to form a normal appearing basilar artery. Soft tissues: Right level 1 lymph node measures 8 mm in short axis diameter. Small amount of thymic tissue is present. Bones: No suspicious bony lesions. Visualized cervical spine appears normally aligned. IMPRESSION: No significant intracranial arterial abnormality is seen. No significant abnormality is seen within the arteries of the neck. Any quantitative measurements of stenosis were performed using NASCET criteria. Approved by: Eran Trejo M.D. on 12/18/2023 at 18:45
--- NOTE | 2023-12-18 17:39 | DI.CT.S_ITS ---
PROCEDURE: CT ABDOMEN PELVIS W CON INDICATIONS: abd pain s/p hysterectomy TECHNIQUE: After the administration of intravenous contrast, axial sections acquired from the lung bases to the pubic symphysis. Coronal and sagittal reformats were performed. For radiation dose reduction, the following was used: automated exposure control, adjustment of mA and/or kV according to patient size. COMPARISON: [facility], CT, CT ABDOMEN PELVIS W CON, 12/02/2023, 11:49. [facility], CT, CT ABDOMEN PELVIS W CON, 11/11/2021, 18:50. FINDINGS: Image quality: Diagnostic. Lower Chest: No significant findings. ABDOMEN: Liver: No solid mass. Gallbladder: Status post cholecystectomy. Biliary ducts: No biliary dilation. Pancreas: No ductal dilation. Spleen: Size is within normal limits. Adrenal Glands: No adrenal nodules. Kidneys and Ureters: No hydronephrosis. No solid mass. No complex renal cystic lesion which requires follow up. Stomach and Bowel: Moderate to large volume of stool in the colon. Normal appendix. Small bowel loops and stomach are unremarkable. Peritoneum: No abnormal intraperitoneal fluid. No free air. Ventral Wall: No significant ventral hernia. Abdominal Nodes: No retroperitoneal or mesenteric adenopathy by size criteria. Vessels: Aorta and inferior vena cava are normal in size. PELVIS: Pelvic Organs: Status post hysterectomy. Trace nonenhancing free fluid is seen in the pelvic cul-de-sac. Ovaries are symmetric in size. Bladder: No bladder wall thickening, accounting for underdistention. Pelvic Nodes: No enlarged lymph nodes. Miscellaneous: No inguinal hernias are seen. Bones: No aggressive osseous abnormality. IMPRESSION: 1. No acute abnormality identified in the abdomen or pelvis. Normal appendix. 2. Moderate to large volume of stool in the colon. Recommend correlation for possible constipation. Approved by: Eran Trejo M.D. on 12/18/2023 at 18:49
--- NOTE | 2023-12-18 17:52 | PC.NURSE ---
This RN was talking to patient and asking about home medications and patient states I do take a woman's vi...vi....vi...vi...vi. This continued for 5-10 times in a row with patient staring forward and no eye movement or acknowledgement. This RN shook patient forearm repeating patient name. This went on before patient finished the word vitamin. I immediately informed provider who placed new orders for imaging. This RN placed both siderails up and placed seizure precautions.
[2023-12-18 17:58] LABS: Lactate (Lactic Acid) 0.8 mmol/L (0.7-2.1)
[2023-12-18] MEDS: SODIUM CHLORIDE 0.9% 1,000 ML 1000 ML IV (18:24)
--- NOTE | 2023-12-18 19:04 | ED.GENADULT ---
HPI - General Adult General Chief complaint: Abdominal Pain Stated complaint: sent by PCP, dehydration, abd px Time Seen by Provider: 12/18/23 17:39 Source: patient Mode of arrival: Wheelchair History of Present Illness HPI narrative: Patient is a 28-year-old female. Recent diagnosis of C diff. Her diarrhea has vastly improved. She was now having more formed solid stools. She was having continued abdominal pain since the diagnosis. She was on oxycodone 3 times a day. She has been having nausea and what she reports is syncopal episodes at home. Was sent to the emergency department by her primary doctor for further evaluation. Prior to my evaluation during a initial nurse evaluation she had an episode where there was concern that maybe she had a seizure. When I talked with the patient about this she states she remembers the event. States she occasionally has episodes where she stutters. She thought that this is what happened earlier today. The CT scan of head and CTA of the head and neck was ordered prior to my evaluation by the day ED provider. Related Data Previous Rx's Medication Instructions Recorded acetaminophen 325 mg tablet 650 mg (2 x 325 mg) PO Q6H PRN 12/05/23 Fever/Mild Pain (1-3) #30 tabs aluminum-mag hydroxide-simethicone 30 ml PO Q4HR PRN Dyspepsia #300 mL 12/05/23 200 mg-200 mg-20 mg/5 mL oral susp (Mag-Al Plus) lorazepam 0.5 mg tablet 0.5 mg PO Q4HR PRN Anxiety #20 tabs 12/05/23 omeprazole 20 mg capsule,delayed 20 mg PO BID #60 caps 12/05/23 release ondansetron 4 mg disintegrating 4 mg PO Q8H PRN nausea and 12/05/23 tablet vomiting #30 tabs sucralfate 1 gram tablet 1 gm PO ACHS #30 tabs 12/05/23 hydroxyzine HCl 25 mg tablet 50 mg (2 x 25 mg) PO Q4H PRN 12/11/23 Nausea, anxiety #30 tabs oxycodone 10 mg tablet 10 mg PO Q3HR PRN Pain, Severe 12/11/23 (7-10) #30 tabs promethazine 25 mg tablet 25 mg PO Q6HR PRN Nausea #30 tabs 12/11/23 Allergies Allergy/AdvReac Type Severity Reaction Status Date / Time amoxicillin Allergy Intermediate Rash/Hives Verified 12/02/23 11:17 coconut Allergy Hives Verified 12/02/23 11:17 ibuprofen AdvReac Intermediate Gastrointestinal Verified 12/02/23 11:17 Upset Review of Systems Review of Systems ROS Unobtainable: All systems reviewed & are unremarkable except as noted in HPI and below Patient History Medical History Asthma GERD (gastroesophageal reflux disease) (~2010) Gastritis (~2010) Back pain (~2010) Surgical History Hx of cholecystectomy History of hysterectomy (06/14/22) History of laparoscopy (04/05/22) Hx of colonoscopy (12/14/21) [place] teeth extracted (~2015) Family History Mother Cervical cancer Smoker Father Diabetes mellitus Herniated disc Spondylosis Grandmother Unknown family medical history Diabetes mellitus Smoker Cancer Hyperlipidemia Hypertension Grandfather History of heart disease Grandmother Breast cancer Grandfather Diabetes mellitus Cancer History of heart disease Hypertension Sister Faye syndrome Brother Arthritis of spine Social History marital status: number of children: 1 household members: spouse and children lives independently: Yes caregiver/support person: No housing: house pets and animals: Yes (1 dog: safe) education level: high school occupational status: unemployed current occupational exposures/hazards: No special alexandra needs: No seatbelt use: always do you feel safe at home: Yes Smoking Status: Former smoker second hand exposure: No alcohol intake: current substance use type: does not use during the past year weight has: remained stable well-balanced diet: daily or most days caffeine: Yes (1 cup coffee daily or every other day. ) Type(s) of exercise: walking and normal ROM and activity frequency: daily duration: 15-30 minutes/day Smoking Status: Former smoker tobacco type: vaping alcohol intake frequency: holidays/special occasions only Substance Use Type: marijuana Exam Initial Vital Signs Initial Vital Signs: Vital Signs Temperature 98.9 F 12/18/23 15:08 Pulse Rate 77 12/18/23 15:08 Respiratory Rate 20 12/18/23 15:08 Blood Pressure 105/64 12/18/23 15:08 Pulse Oximetry 100 12/18/23 15:08 Oxygen Delivery Method Room Air 12/18/23 15:08 Const General: cooperative and No ill appearing [facility] Head: normal to inspection and normocephalic Resp Effort & Inspection: normal respiratory effort Cardio Rate: regular rate GI Inspection: non-distended Neuro General: patient alert, patient awake and moves all extremities Extrem General: normal to inspection Course Orders Ordered: ED Orders 12/18/23 17:39 CT abdomen pelvis w con Stat CT angio head and neck Stat CT head/brain wo con Stat Discontinued Medications Sodium Chloride (Normal Saline 0.9%) 1,000 mls @ 1,000 mls/hr IV BOLUS ONE Stop: 12/18/23 19:07 Last Infusion: 12/18/23 19:16 Dose: Infused Documented By: Admin: 12/18/23 18:24 Dose: 1,000 mls/hr Documented By: RB Ondansetron HCl (Ondansetron 4 Mg/2 Ml Inj) 4 mg IV NOW PRN PRN Reason: Nausea And Vomiting Ondansetron HCl (Ondansetron 4 Mg Odt) 4 mg PO NOW PRN PRN Reason: Nausea And Vomiting Vital Signs Vital signs: Vital Signs - 8 hr 12/18/23 16:58 12/18/23 16:58 12/18/23 17:00 Pulse Rate 76 68 Blood Pressure 101/58 L Pulse Oximetry 100 100 12/18/23 17:00 12/18/23 17:30 12/18/23 17:30 Pulse Rate 65 Blood Pressure 112/61 98/59 L Pulse Oximetry 99 Medical Decision Making Medical Records Medical records reviewed: Yes I reviewed the patient's medical records. Lab Data Lab results reviewed: Yes I reviewed the patient's lab results. 12/18/23 15:03 12/18/23 15:03 Labs: Lab Results 12/18/23 Range/Units 15:03 WBC 6.7 (4.5-11.0) X10^3/uL RBC 4.57 (4.0-5.2) X10^6/uL Hgb 13.6 (12.0-16.0) g/dL Hct 40.7 (36-46) % MCV 89.0 (80-100) fL MCH 29.8 (26-34) PG MCHC 33.4 (30-36) % RDW 14.1 (11.6-14.8) % Plt Count 215 (150-400) X10^3/uL Neut % (Auto) 74.0 (50-75) % Lymph % (Auto) 18.9 L (25-40) % [place] % (Auto) 4.6 (3-14) % Eos % (Auto) 1.9 L (2-4) % Baso % (Auto) 0.6 (0-2) % Neut # (Auto) 4900 (0138-8302) /uL Lymph # (Auto) 1300 (2437-4544) /uL [place] # (Auto) 300 (0-900) /uL Eos # (Auto) 100 (0-450) /uL Baso # (Auto) 0 (0-100) /uL Sodium 141 (137-145) mmol/L Potassium 3.5 (3.4-5.1) mmol/L Chloride 108 H (98-107) mmol/L Carbon Dioxide 24 (22-32) mmol/L BUN 10 (7-17) mg/dL Creatinine 0.65 (0.52-1.04) mg/dL Estimated GFR > 60 (>60) mL/min BUN/Creatinine Ratio 15.4 (6-22) Glucose 84 (70-100) mg/dL Lactate 0.8 (0.7-2.1) mmol/L Calcium 9.0 (8.4-10.2) mg/dL Total Bilirubin 0.6 (0.2-1.3) mg/dL AST 20 (14-36) IU/L ALT 17 (<35) IU/L Alkaline Phosphatase 50 (38-126) U/L Total Protein 7.3 (6.3-8.2) g/dL Albumin 4.2 (3.5-5.0) g/dL Globulin 3.1 (1.7-4.1) g/dL Albumin/Globulin Ratio 1.4 (1.0-2.8) Lipase 156 (23-300) U/L Urine Dip Bedside Urine Glucose Negative Bedside Urine Bilirubin - Negative Bedside Urine Ketone - Negative Urine Specific [place] 1.015 Bedside Urine Occult Blood - Negative Bedside Urine pH 6.0 Bedside Urine Protein - Negative Bedside Urine Urobilinogen - Negative Bedside Urine Nitrite - Negative Bedside Urine Leukocytes - Negative Esterase Point of care testing: Urine Dip Bedside Urine Glucose Negative Bedside Urine Bilirubin - Negative Bedside Urine Ketone - Negative Urine Specific [place] 1.015 Bedside Urine Occult Blood - Negative Bedside Urine pH 6.0 Bedside Urine Protein - Negative Bedside Urine Urobilinogen - Negative Bedside Urine Nitrite - Negative Bedside Urine Leukocytes - Negative Esterase Imaging Data CT scan - abdomen/pelvis: Radiologist's Impression: PROCEDURE: CT ABDOMEN PELVIS W CON INDICATIONS: abd pain s/p hysterectomy TECHNIQUE: After the administration of intravenous contrast, axial sections acquired from the lung bases to the pubic symphysis. Coronal and sagittal reformats were performed. For radiation dose reduction, the following was used: automated exposure control, adjustment of mA and/or kV according to patient size. COMPARISON: [facility], CT, CT ABDOMEN PELVIS W CON, 12/02/2023, 11:49. [facility], CT, CT ABDOMEN PELVIS W CON, 11/11/2021, 18:50. FINDINGS: Image quality: Diagnostic. Lower Chest: No significant findings. ABDOMEN: Liver: No solid mass. Gallbladder: Status post cholecystectomy. Biliary ducts: No biliary dilation. Pancreas: No ductal dilation. Spleen: Size is within normal limits. Adrenal Glands: No adrenal nodules. Kidneys and Ureters: No hydronephrosis. No solid mass. No complex renal cystic lesion which requires follow up. Stomach and Bowel: Moderate to large volume of stool in the colon. Normal appendix. Small bowel loops and stomach are unremarkable. Peritoneum: No abnormal intraperitoneal fluid. No free air. Ventral Wall: No significant ventral hernia. Abdominal Nodes: No retroperitoneal or mesenteric adenopathy by size criteria. Vessels: Aorta and inferior vena cava are normal in size. PELVIS: Pelvic Organs: Status post hysterectomy. Trace nonenhancing free fluid is seen in the pelvic cul-de-sac. Ovaries are symmetric in size. Bladder: No bladder wall thickening, accounting for underdistention. Pelvic Nodes: No enlarged lymph nodes. Miscellaneous: No inguinal hernias are seen. Bones: No aggressive osseous abnormality. IMPRESSION: 1. No acute abnormality identified in the abdomen or pelvis. Normal appendix. 2. Moderate to large volume of stool in the colon. Recommend correlation for possible constipation. CT scan - head: Radiologist's Impression: PROCEDURE: CT HEAD/BRAIN WO CON INDICATIONS: ams TECHNIQUE: Noncontrast 4.5 mm thick angled axial sections acquired from the foramen magnum to the vertex, with coronal and sagittal reformats. For radiation dose reduction, the following was used: automated exposure control, adjustment of mA and/or kV according to patient size. COMPARISON: [facility], CT, CT ANGIO HEAD AND NECK, 12/18/2023, 17:55. FINDINGS: Image quality: Diagnostic. CSF spaces: Basal cisterns are patent. No extra-axial fluid collections. Ventricles are normal in size and shape. Brain: No midline shift. No intracranial masses or hemorrhage. [place]-white matter interface is normal. Skull and face: Calvarium and visualized facial bones are intact, without suspicious lesions. Sinuses: Visualized sinuses and mastoids are clear. IMPRESSION: No acute intracranial pathology. CTA - brain/neck: Radiologist's Impression: PROCEDURE: CT ANGIO HEAD AND NECK INDICATIONS: syncope TECHNIQUE: After the administration of intravenous contrast, 1 mm thick sections acquired from the aortic arch through the [place]. 3-dimensional nniyrhs-eeijskmby-bfwxpjpxyg (MIP) and/or volume rendering reformats were acquired of the central intracranial vasculature and neck separately. For radiation dose reduction, the following was used: automated exposure control, adjustment of mA and/or kV according to patient size. COMPARISON: [facility], CT, CT HEAD/BRAIN WO CON, 12/18/2023, 17:55. FINDINGS: Image quality: Diagnostic. BRAIN: CSF spaces: Ventricles are normal in size and shape. Basal cisterns are patent. No extra-axial fluid collections. Brain: No significant abnormality of the brain can be seen. Skull and face: Calvarium and facial bones appear intact, without suspicious lesions. Orbits appear normal. Sinuses: Sinuses and mastoids are clear. HEAD CT ANGIOGRAPHY: Anterior circulation: Intracranial internal carotid arteries are normal in size and flow. The flow within the paired anterior cerebral arteries is normal and symmetric. The flow within the middle cerebral arteries is normal and symmetric. The anterior communicating artery is seen. No aneurysms are seen. Posterior circulation: Visualized portions of the vertebral arteries demonstrate normal caliber, and join to form a normal appearing basilar artery. Flow within the posterior cerebral arteries is normal and symmetric. No aneurysms are seen. NECK CT ANGIOGRAPHY: Carotid system: The great vessels demonstrate a conventional anatomy as they arise from the aortic arch. The origins of the common carotid arteries appear patent. The common carotid arteries demonstrate normal caliber and courses. The bifurcation regions are both widely patent. The internal carotid arteries demonstrate normal calibers and courses. Posterior circulation: The origins of the vertebral arteries both appear widely patent. The more superior extracranial portions of both vertebral arteries also demonstrate normal courses and calibers. They join to form a normal appearing basilar artery. Soft tissues: Right level 1 lymph node measures 8 mm in short axis diameter. Small amount of thymic tissue is present. Bones: No suspicious bony lesions. Visualized cervical spine appears normally aligned. IMPRESSION: No significant intracranial arterial abnormality is seen. No significant abnormality is seen within the arteries of the neck. Any quantitative measurements of stenosis were performed using NASCET criteria. ECG Data Attestation: I personally reviewed and interpreted this ECG as follows: Interpretation: Sinus rhythm Ventricular rate is 66 Normal axis Normal QRS Normal QTC No ST T wave changes MDM Narrative Medical decision making narrative: Patient's labs are unremarkable, vital signs unremarkable, CT scan of abdomen shows what appears to be a moderate amount of constipation and I did discuss this with her although she states she was still having some soft/loose stools. We discussed how this potentially could be causing her abdominal pain. Also informed her that taking the opioid pain medication could be contributing to the potential constipation which then could be contributing to her abdominal pain as well. There was no specific source of infection found. CT scan of head and CTA of the head and neck are unremarkable. Low suspicion this was CVA/TIA. Also low suspicion this was seizure-like activity. Advised that the patient contact your primary doctor to discuss the indications for a referral to see Gastroenterology. No indication for admission to the hospital today or surgical consultation or antibiotics. Discharge Plan Departure Patient Disposition: Home Clinical Impression: Abdominal pain Instructions: DI for Abdominal Pain-Adult Activity Restrictions/Additional Instructions: I do recommend you continue to take all of your medications as directed however I highly recommend that you try to cut back on the amount-of pain medicine that you were taking as this could be causing some of the abdominal pain secondary to a degree of constipation. Keep your scheduled appointment with your primary doctor for next week. Return to the emergency department for new symptoms. Prescriptions: No Action oxycodone 10 mg tablet 10 mg PO Q3HR PRN (Reason: Pain, Severe (7-10)) Qty: 30 0RF promethazine 25 mg tablet 25 mg PO Q6HR PRN (Reason: Nausea) Qty: 30 0RF hydroxyzine HCl 25 mg tablet 50 mg PO Q4H PRN (Reason: Nausea, anxiety) Qty: 30 0RF lorazepam 0.5 mg tablet 0.5 mg PO Q4HR PRN (Reason: Anxiety) Qty: 20 0RF acetaminophen 325 mg Tablet 650 mg PO Q6H PRN (Reason: Fever/Mild Pain (1-3)) Qty: 30 0RF sucralfate 1 gram Tablet 1 gm PO ACHS Qty: 30 0RF alum-mag hydroxide-simeth [Mag-Al Plus] 200-200-20 mg/5 mL Suspension 30 ml PO Q4HR PRN (Reason: Dyspepsia) Qty: 300 0RF omeprazole 20 mg capsule,delayed release(DR/EC) 20 mg PO BID Qty: 60 0RF ondansetron 4 mg tablet,disintegrating 4 mg PO Q8H PRN (Reason: nausea and vomiting) Qty: 30 0RF Referrals: Alyssa Philip MD [Primary Care Provider] - Stand Alone Forms: Patient Portal/API
== END 2023-12-18 19:18 | disposition home or self-care (01) ==
PROVIDERS: Student in an Organized Health Care Education/Training Program; Emergency Provider Emergency Medicine; PCP Family Medicine
DX: R10.9 Unspecified abdominal pain (principal); R55 Syncope and collapse; R11.0 Nausea
CPT/HCPCS: 36415; 70450; 70496; 70498; 74177; 80053; 81003; 83605; 83690; 85025; 93005; 96360; 99284; Q9967

== ENCOUNTER 2023-12-25 13:29 | Inpatient (IN) | payer OTHER, SELFPAY ==
[2023-12-02 15:36] VITALS: BMI 28.3
[2023-12-25] VITALS (16 sets, daily range): BP systolic 89–125; BP diastolic 53–82; PULSE 70–103; RESP 16; TEMP 36.5–36.6; O2SAT 95–100; BMI 24.1
--- NOTE | 2023-12-25 13:44 | DI.RAD.S_ITS ---
PROCEDURE: XR CHEST 1V INDICATIONS: chest pain TECHNIQUE: One view of the chest was acquired. COMPARISON: [facility], CR, XR CHEST 1V, 12/13/2022, 17:14. FINDINGS: Surgical changes and devices: None. Lungs and pleura: Lungs are clear. No pleural effusions or pneumothorax. Mediastinum: Mediastinal contours appear normal. Heart size is normal. Bones and chest wall: No suspicious bony lesions. Overlying soft tissues appear unremarkable. IMPRESSION: Unremarkable portable chest. Dictated by: Juan Carlos Lopez M.D. on 12/25/2023 at 13:41 Approved by: Juan Carlos Lopez M.D. on 12/25/2023 at 13:41
[2023-12-25 14:03] LABS: Add Manual Diff / Slide Review NO; Basophils Absolute Auto 0 /uL (0-100); Basophils Percent Auto 0.3 % (0-2); Eosinophils Absolute Auto 100 /uL (0-450); Eosinophils Percent Auto 0.4 % (2-4); Hematocrit 49.4 % (36-46); Hemoglobin 16.4 g/dL (12.0-16.0); Lymphocytes Absolute Auto 1000 /uL (1100-4500); Lymphocytes Percent Auto 7.9 % (25-40); Mean Corpuscular HGB Conc 33.3 % (30-36); Mean Corpuscular Hemoglobin 29.8 PG (26-34); Mean Corpuscular Volume 89.4 fL (80-100); Monocytes Absolute Auto 400 /uL (0-900); Monocytes Percent Auto 3.1 % (3-14); Neutrophils Absolute Auto 11200 /uL (1500-7000); Neutrophils Percent Auto 88.3 % (50-75); Platelet Count 288 X10^3/uL (150-400); Red Blood Cell Count 5.52 X10^6/uL (4.0-5.2); Red Cell Distribution Width 13.7 % (11.6-14.8); White Blood Cell Count 12.6 X10^3/uL (4.5-11.0)
[2023-12-25 14:05] LABS: INR 1.3 (0.9-1.3); Prothrombin Time 15.3 SECONDS (9.4-12.5)
[2023-12-25 14:09] LABS: Alanine Aminotransferase 20 IU/L (<35); Albumin 5.4 g/dL (3.5-5.0); Albumin Globulin Ratio 1.5 (1.0-2.8); Alkaline Phosphatase 80 U/L (38-126); Aspartate Aminotransferase 25 IU/L (14-36); BUN Creatinine Ratio 12.8 (6-22); Bilirubin Total 0.8 mg/dL (0.2-1.3); Blood Urea Nitrogen 10 mg/dL (7-17); Calcium 9.8 mg/dL (8.4-10.2); Carbon Dioxide 11 mmol/L (22-32); Chloride 104 mmol/L (98-107); Estimated Glomerular Filt Rate > 60 mL/min (>60); Globulin 3.7 g/dL (1.7-4.1); Glucose 114 mg/dL (70-100); HEMOLYSIS 20 (0-50); Lipase 213 U/L (23-300); Potassium 4.3 mmol/L (3.4-5.1); Sodium 138 mmol/L (137-145); Total Protein 9.1 g/dL (6.3-8.2)
[2023-12-25 14:10] LABS: Creatine Kinase 58 U/L (30-135); Magnesium 1.9 mg/dL (1.6-2.3)
--- NOTE | 2023-12-25 14:14 | EKG_ITS ---
[place] [id number] [place] [id number] Test Date: 2023-12-25 Pat Name: Emilia Wasserman Department: [facility] Room: Gender: Female Manager Part: FARRAH : 1995 Requested By: Order Number: [id number] Reading MD: David Peña Measurements Intervals [place] Rate: 102 P: 75 MD: 162 QRS: 35 QRSD: 82 T: 64 QT: 406 QTc: 529 Interpretive Statements Sinus tachycardia Prolonged QT Electronically Signed On 12-26-2023 8:27:02 PDT by David Peña
[2023-12-25 14:21] LABS: Troponin I < 0.012 ng/mL (0.01-0.034)
--- NOTE | 2023-12-25 15:19 | ED.GENADULT ---
HPI - General Adult General Chief complaint: Abdominal Pain Stated complaint: N/V/Abd Pain Time Seen by Provider: 12/25/23 14:20 Source: EMS Mode of arrival: EMS History of Present Illness HPI narrative: 28-year-old woman with a recent history of Clostridium difficile since then has continued to have significant abdominal pain, nausea vomiting diarrhea has slowed significantly with resolution of C diff. In the last 6 weeks she is lost 35 lb. She has been using marijuana to help increase her appetite and help with nausea. She is stopped this completely it does not sound like she has been using it regularly or long enough to be worried about cannabinoid hyperemesis syndrome, stopping it has not improved symptoms at all. Workup today has included abdominal pelvis x-rays CTAs CT scans ultrasounds CT scan of the head CTA of the head and neck chest x-ray and abdominal x-ray none of which have been particularly revealing. She was admitted to the hospital from December 01 through December 04. In the last year she has had hysterectomy as well as a cholecystectomy. She notes that she continues to have difficulty keeping any liquids down. Today she had some stabbing left upper chest pain. She has not had any bloody emesis or bloody stools. Her abdominal pain continues she describes it as starting very specifically 3 fingers below her umbilicus and then radiating through the entire abdomen. Patient has had an outpatient consultation with Gastroenterology. They does not feel that this was a primary gastroenterology issue but upper and lower endoscopies has been scheduled. Related Data Previous Rx's Medication Instructions Recorded acetaminophen 325 mg tablet 650 mg (2 x 325 mg) PO Q6H PRN 12/05/23 Fever/Mild Pain (1-3) #30 tabs aluminum-mag hydroxide-simethicone 30 ml PO Q4HR PRN Dyspepsia #300 mL 12/05/23 200 mg-200 mg-20 mg/5 mL oral susp (Mag-Al Plus) lorazepam 0.5 mg tablet 0.5 mg PO Q4HR PRN Anxiety #20 tabs 12/05/23 promethazine 25 mg tablet 25 mg PO Q6HR PRN Nausea #30 tabs 12/11/23 hydroxyzine HCl 25 mg tablet 50 mg (2 x 25 mg) PO Q4H PRN 12/23/23 Nausea, anxiety #30 tabs omeprazole 20 mg capsule,delayed 20 mg PO BID #60 caps 12/23/23 release ondansetron 4 mg disintegrating 4 mg PO Q8H PRN nausea and 12/23/23 tablet vomiting #30 tabs sucralfate 1 gram tablet 1 g PO ACHS #30 tabs 12/23/23 gabapentin 300 mg capsule 300 mg PO DAILY #90 caps 12/24/23 oxycodone 10 mg tablet 10 mg PO Q3HR PRN Pain, Severe 12/24/23 (7-10) #30 tabs Allergies Allergy/AdvReac Type Severity Reaction Status Date / Time amoxicillin Allergy Intermediate Rash/Hives Verified 12/25/23 13:42 coconut Allergy Hives Verified 12/25/23 13:42 ibuprofen AdvReac Intermediate Gastrointestinal Verified 12/25/23 13:42 Upset Review of Systems Review of Systems Narrative: Pertinent positive and negative findings as per HPI Patient History Medical History Asthma GERD (gastroesophageal reflux disease) (~2010) Gastritis (~2010) Back pain (~2010) Surgical History Hx of cholecystectomy History of hysterectomy (06/14/22) History of laparoscopy (04/05/22) Hx of colonoscopy (12/14/21) [place] teeth extracted (~2015) Family History Mother Cervical cancer Smoker Father Diabetes mellitus Herniated disc Spondylosis Grandmother Unknown family medical history Diabetes mellitus Smoker Cancer Hyperlipidemia Hypertension Grandfather History of heart disease Grandmother Breast cancer Grandfather Diabetes mellitus Cancer History of heart disease Hypertension Sister Faye syndrome Brother Arthritis of spine Social History marital status: number of children: 1 household members: spouse and children lives independently: Yes caregiver/support person: No housing: house pets and animals: Yes (1 dog: safe) education level: high school occupational status: unemployed current occupational exposures/hazards: No special alexandra needs: No seatbelt use: always do you feel safe at home: Yes Smoking Status: Former smoker second hand exposure: No alcohol intake: current substance use type: does not use during the past year weight has: remained stable well-balanced diet: daily or most days caffeine: Yes (1 cup coffee daily or every other day. ) Type(s) of exercise: walking and normal ROM and activity frequency: daily duration: 15-30 minutes/day Smoking Status: Former smoker tobacco type: vaping alcohol intake frequency: holidays/special occasions only Substance Use Type: marijuana Exam Initial Vital Signs Initial Vital Signs: Vital Signs Temperature 98 F 12/25/23 13:36 Pulse Rate 99 H 12/25/23 13:36 Respiratory Rate 16 12/25/23 13:36 Blood Pressure 109/82 12/25/23 13:36 Pulse Oximetry 99 12/25/23 13:36 Oxygen Delivery Method Room Air 12/25/23 13:36 General: Patient is pale, appears exhausted, pain behaviors but is able to completely cooperate with exam HEENT: Dry mucous membranes, normal sclera with reactive pupils, Respiratory: Lungs are clear to auscultation, no wheezing no rales no rhonchi. Full and symmetrical air movement Cardiac: Regular rate and rhythm no murmurs no bruits Abdomen: Soft, mild tenderness throughout without rebound or guarding. No flank pain Skin: Pale, Warm and dry, no rashes, slight tenting suggesting dehydration Neurologic: Fatigued appearing but overall Grossly neurologically intact with no obvious asymmetries or abnormalities Extremities: No trauma, Psych: Cooperative, appropriate insight and affect Course Orders Ordered: Acetaminophen (Acetaminophen 325 Mg Tablet) 650 mg PO Q6H PRN PRN Reason: Fever/Mild Pain (1-3) Diazepam (Diazepam 10 Mg/2 Ml Syringe) 2 mg IV Q4HR LALITA Last Admin: 12/26/23 06:21 Dose: 2 mg Documented By: Admin: 12/26/23 01:53 Dose: 2 mg Documented By: Admin: 12/25/23 20:25 Dose: 2 mg Documented By: SHARLA Gabapentin (Gabapentin 300 Mg Capsule) 300 mg PO DAILY LALITA Hydromorphone HCl (Hydromorphone 0.5 Mg Inj) 0.5 mg IV Q2H PRN PRN Reason: Pain, Severe (7-10) Last Admin: 12/26/23 04:28 Dose: 0.5 mg Documented By: Admin: 12/25/23 20:25 Dose: 0.5 mg Documented By: SHARLA Sodium Chloride (Normal Saline 0.9%) 1,000 mls @ 125 mls/hr IV CONT LALITA Last Admin: 12/26/23 04:29 Dose: 125 mls/hr Documented By: Infusion: 12/26/23 04:19 Dose: Infused Documented By: Admin: 12/25/23 20:19 Dose: 125 mls/hr Documented By: SHARLA Magnesium Hydroxide (Magnesium Hydroxide 30 Ml Udc) 30 ml PO DAILY PRN PRN Reason: Constipation Naloxone HCl (Naloxone 0.4 Mg/Ml Vial) 0.2 mg IV Q2MIN PRN PRN Reason: Opiate Reversal Ondansetron HCl (Ondansetron 4 Mg/2 Ml Inj) 4 mg IV NOW PRN PRN Reason: Nausea And Vomiting Last Admin: 12/25/23 16:27 Dose: 4 mg Documented By: STEPH Ondansetron HCl (Ondansetron 4 Mg Odt) 4 mg PO NOW PRN PRN Reason: Nausea And Vomiting Pantoprazole Sodium (Pantoprazole 40 Mg Vial) 20 mg IV DAILY [facility] Discontinued Medications Droperidol (Droperidol 5 Mg/2 Ml Vial) 0.625 mg IV NOW ONE Stop: 12/25/23 16:59 Last Admin: 12/25/23 17:19 Dose: 0.625 mg Documented By: COLLIN Hydromorphone HCl (Hydromorphone 1 Mg Inj) 0.5 mg IV NOW ONE Stop: 12/25/23 16:59 Last Admin: 12/25/23 17:19 Dose: 0.5 mg Documented By: COLLIN Sodium Chloride (Normal Saline 0.9%) 1,000 mls @ 1,000 mls/hr IV BOLUS ONE Stop: 12/25/23 16:20 Last Infusion: 12/25/23 17:18 Dose: Infused Documented By: Admin: 12/25/23 15:51 Dose: 1,000 mls/hr Documented By: STPEH Sodium Chloride (Normal Saline 0.9%) 1,000 mls @ 1,000 mls/hr IV BOLUS ONE Stop: 12/25/23 17:57 Last Admin: 12/25/23 17:21 Dose: 1,000 mls/hr Documented By: COLLIN Vital Signs Vital signs: Vital Signs - 8 hr 12/25/23 13:36 12/25/23 14:00 12/25/23 14:11 Temperature 98 F Pulse Rate 99 H 101 H 103 H Respiratory Rate 16 Blood Pressure 109/82 Pulse Oximetry 99 98 98 Oxygen Delivery Method Room Air 12/25/23 14:11 12/25/23 14:30 12/25/23 14:30 Temperature Pulse Rate 98 H Respiratory Rate Blood Pressure 118/69 125/64 Pulse Oximetry 97 Oxygen Delivery Method 12/25/23 15:00 12/25/23 15:01 12/25/23 15:01 Temperature Pulse Rate 96 H 96 H Respiratory Rate Blood Pressure 102/71 Pulse Oximetry 98 99 Oxygen Delivery Method 12/25/23 15:30 12/25/23 15:30 12/25/23 15:48 Temperature Pulse Rate 91 H Respiratory Rate Blood Pressure 101/74 103/67 Pulse Oximetry 97 Oxygen Delivery Method 12/25/23 15:48 Temperature Pulse Rate 92 H Respiratory Rate Blood Pressure Pulse Oximetry 99 Oxygen Delivery Method Medical Decision Making Lab Data 12/26/23 06:03 12/25/23 13:50 Labs: Lab Results 12/25/23 12/25/23 Range/Units 13:50 13:53 WBC 12.6 H (4.5-11.0) X10^3/uL RBC 5.52 H (4.0-5.2) X10^6/uL Hgb 16.4 H (12.0-16.0) g/dL Hct 49.4 H (36-46) % MCV 89.4 (80-100) fL MCH 29.8 (26-34) PG MCHC 33.3 (30-36) % RDW 13.7 (11.6-14.8) % Plt Count 288 (150-400) X10^3/uL Neut % (Auto) 88.3 H (50-75) % Lymph % (Auto) 7.9 L (25-40) % [place] % (Auto) 3.1 (3-14) % Eos % (Auto) 0.4 L (2-4) % Baso % (Auto) 0.3 (0-2) % Neut # (Auto) 87217 H (8495-0369) /uL Lymph # (Auto) 1000 L (9343-1368) /uL [place] # (Auto) 400 (0-900) /uL Eos # (Auto) 100 (0-450) /uL Baso # (Auto) 0 (0-100) /uL PT 15.3 H (9.4-12.5) SECONDS INR 1.3 (0.9-1.3) Sodium 138 (137-145) mmol/L Potassium 4.3 (3.4-5.1) mmol/L Chloride 104 (98-107) mmol/L Carbon Dioxide 11 L (22-32) mmol/L BUN 10 (7-17) mg/dL Creatinine 0.78 (0.52-1.04) mg/dL Estimated GFR > 60 (>60) mL/min BUN/Creatinine Ratio 12.8 (6-22) Glucose 114 H (70-100) mg/dL Calcium 9.8 (8.4-10.2) mg/dL Phosphorus 4.6 H (2.5-4.5) mg/dL Magnesium 1.9 (1.6-2.3) mg/dL Total Bilirubin 0.8 (0.2-1.3) mg/dL AST 25 (14-36) IU/L ALT 20 (<35) IU/L Alkaline Phosphatase 80 (38-126) U/L Total Creatine Kinase 58 (30-135) U/L Troponin I < 0.012 (0.01-0.034) ng/mL Total Protein 9.1 H (6.3-8.2) g/dL Albumin 5.4 H (3.5-5.0) g/dL Globulin 3.7 (1.7-4.1) g/dL Albumin/Globulin Ratio 1.5 (1.0-2.8) Lipase 213 (23-300) U/L [facility] Narrative Medical decision making narrative: CC: Persistent abdominal pain, nausea vomiting diarrhea Complicating co-morbidities: 35 lb weight loss in the last 6 weeks, diagnosed with Clostridium difficile which has now resolved Data collected from: patient Social determinants of health that may influence the patients condition: 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 Recent hospital admissions and ER stays are reviewed. Patient had thyroid testing and H pylori testing done as an outpatient this morning. Once the H pylori testing the caused increasing vomiting that precipitated today's visit. Differential considered: Abdominal abscess, colitis, porphyria (describes no abnormal urine), other infection. Given her absence of gallbladder and recent studies have not showed and dilated ducts I do not suspect gallbladder disease or ascending cholangitis, no pancreatitis. Mesenteric ischemia seems far less likely Exam documented above, pertinent findings include: Patient is pale, fatigued, in pain but able to cooperate fully with the exam. Abdomen is tender but she does not have an acute surgical abdomen Lab Test results independently reviewed as above. Pertinent findings: CBC shows slight leukocytosis, hemoconcentration with hematocrit at 49.2 and hemoglobin at 16.4 Chemistries are reassuring. Actually has elevated protein and albumin Lipase is unremarkable Patient was recently treated for C diff detected on November 19 she is negative on retest on December 03 Imaging studies independently reviewed: Acute abdomen series shows no pneumonitis, cardiopulmonary portion is unremarkable. No free air, minimal stool in the colon Treatments: 2 L of fluid, droperidol, Zofran Re-evaluations: After treatment in the ER patient is still unable to keep any fluids down. Discussion: 28-year-old woman with continued nausea and vomiting abdominal discomfort 35 lb weight loss in the last 6 weeks recent Clostridium difficile diagnosis with resolution confirmed. Has not been able to keep any nutritional value down for at least 6 days. Her is come home from deployment try to care for her. Multiple imaging studies have not shown significant abnormalities. She currently has thyroid and H pylori testing pending. She has had outpatient consultation with Gastroenterology and upper and lower endoscopies are pending she continues on omeprazole. She is absolutely miserable. Reviewed with her possibility of hospital admission for at least rehydration over the next 24 hours. Will add a phosphorus level. She is getting thin enough at this point that nutrition is going to become an issue if she still is not able to keep any liquids or solids down. Care is reviewed with Dr. Lopez who is on-call for Dr. Mullen. He will admit the patient for at least hydration and pain control overnight Discharge Plan Departure Patient Disposition: Admitted as Observation Clinical Impression: Abnormal weight loss Abdominal pain Qualifiers: Abdominal location: lower abdomen, unspecified Qualified Code(s): R10.30 - Lower abdominal pain, unspecified Nausea & vomiting Qualifiers: Vomiting type: unspecified Qualified Code(s): R11.2 - Nausea with vomiting, unspecified Admit Date/Time: 12/25/23 17:18 Admit Provider: Anam Lopez
--- NOTE | 2023-12-25 15:24 | DI.RAD.S_ITS ---
PROCEDURE: XR ABDOMEN MIN 2V INDICATIONS: abdominal pain/ vomiting TECHNIQUE: 2 views of the abdomen were acquired. COMPARISON: [facility], CT, CT ABDOMEN PELVIS W CON, 12/18/2023, 17:55. [facility], CR, XR ABDOMEN 1V, 11/23/2023, 11:47. FINDINGS: Surgical changes and devices: Cholecystectomy clips are seen. Bowel: No pneumoperitoneum. The bowel gas pattern is normal. The volume of stool within the colon is not excessive. Soft tissues: No masses; visualized solid organ contours appear normal in size. No suspicious abdominal calcifications. Bones: No suspicious bony abnormalities. IMPRESSION: Non-obstructive bowel gas pattern. Dictated by: Juan Carlos Lopez M.D. on 12/25/2023 at 15:07 Approved by: Juan Carlos Lopez M.D. on 12/25/2023 at 15:08
[2023-12-25] MEDS: SODIUM CHLORIDE 0.9% 1,000 ML 1000 ML IV ×2 (15:51→17:21)
[2023-12-25] MEDS: ONDANSETRON 4 MG/2 ML INJ IV (16:27)
[2023-12-25 17:18] LABS: Phosphorous 4.6 mg/dL (2.5-4.5)
[2023-12-25] MEDS: DROPERIDOL 5 MG/2 ML VIAL 0.625 MG IV (17:19)
[2023-12-25] MEDS: HYDROMORPHONE 1 MG INJ 0.5 MG IV (17:19)
--- NOTE | 2023-12-25 19:08 | PM.HP.1 ---
History of Present Illness History of Present Illness Date Patient Seen: 12/25/23 Time Patient Seen: 19:08 Date of Onset of Symptoms: 10/16/23 Chief complaint: N/V/Abd Pain Narrative: Patient is a patient of who has had a long history now abdominal pain nausea and vomiting. Intermittent diarrhea. Not consistently. Apparently it all started 6-8 weeks ago when she developed C difficile. And that was treated. Since that time she continues to have basically the same symptoms with nausea vomiting abdominal pain. Pain is described as sharp diffuse worse with eating. Has not been able to keep anything down. Lost 35 lb or so over the last 6 weeks secondary to this today she developed sharp chest pain and called 911 feeling this was worse and different than she has had. With no other changes. Really has not been able to keep anything down. Feels like she is decreasing her urinary symptoms with no other change. Pain is primarily 3 fingers below her abdomen but does not really stay there and it becomes more diffuse. Patient has had a history of marijuana use but only with trying to increase her appetite and is completely discontinued that with no change in symptoms. There was no other significant change. Negative family history for any significant disease. [facility] Medical History Asthma GERD (gastroesophageal reflux disease) (~2010) Gastritis (~2010) Back pain (~2010) Surgical History Hx of cholecystectomy History of hysterectomy (06/14/22) History of laparoscopy (04/05/22) Hx of colonoscopy (12/14/21) [place] teeth extracted (~2015) Family History Mother Cervical cancer Smoker Father Diabetes mellitus Herniated disc Spondylosis Grandmother Unknown family medical history Diabetes mellitus Smoker Cancer Hyperlipidemia Hypertension Grandfather History of heart disease Grandmother Breast cancer Grandfather Diabetes mellitus Cancer History of heart disease Hypertension Sister Faye syndrome Brother Arthritis of spine Social History marital status: number of children: 1 household members: spouse and children lives independently: Yes caregiver/support person: No housing: house pets and animals: Yes (1 dog: safe) education level: high school occupational status: unemployed current occupational exposures/hazards: No special alexandra needs: No seatbelt use: always do you feel safe at home: Yes Smoking Status: Former smoker second hand exposure: No alcohol intake: current substance use type: does not use during the past year weight has: remained stable well-balanced diet: daily or most days caffeine: Yes (1 cup coffee daily or every other day. ) Type(s) of exercise: walking and normal ROM and activity frequency: daily duration: 15-30 minutes/day Meds Home Medications and Allergies Home Medications Medication Instructions Recorded Confirmed Type acetaminophen 325 mg tablet 650 mg (2 x 325 mg) PO Q6H PRN 12/05/23 12/25/23 Rx Fever/Mild Pain (1-3) #30 tabs aluminum-mag hydroxide-simethicone 30 ml PO Q4HR PRN Dyspepsia #300 mL 12/05/23 12/25/23 Rx 200 mg-200 mg-20 mg/5 mL oral susp (Mag-Al Plus) lorazepam 0.5 mg tablet 0.5 mg PO Q4HR PRN Anxiety #20 tabs 12/05/23 12/25/23 Rx promethazine 25 mg tablet 25 mg PO Q6HR PRN Nausea #30 tabs 12/11/23 12/25/23 Rx hydroxyzine HCl 25 mg tablet 50 mg (2 x 25 mg) PO Q4H PRN 12/23/23 12/25/23 Rx Nausea, anxiety #30 tabs omeprazole 20 mg capsule,delayed 20 mg PO BID #60 caps 12/23/23 12/25/23 Rx release ondansetron 4 mg disintegrating 4 mg PO Q8H PRN nausea and 12/23/23 12/25/23 Rx tablet vomiting #30 tabs sucralfate 1 gram tablet 1 g PO ACHS #30 tabs 12/23/23 12/25/23 Rx gabapentin 300 mg capsule 300 mg PO DAILY #90 caps 12/24/23 12/25/23 Rx oxycodone 10 mg tablet 10 mg PO Q3HR PRN Pain, Severe 12/24/23 12/25/23 Rx (7-10) #30 tabs Allergies Allergy/AdvReac Type Severity Reaction Status Date / Time amoxicillin Allergy Intermediate Rash/Hives Verified 12/25/23 13:42 coconut Allergy Hives Verified 12/25/23 13:42 ibuprofen AdvReac Intermediate Gastrointestinal Verified 12/25/23 13:42 Upset Review of Systems Review of Systems Narrative: See above but has not had any fevers chills although sometimes she does get somewhat chilled but does not have any shaking. She has had no blood in her stool. No urinary changes no frequency urgency or other complaint. She has had a hysterectomy and has had no vaginal bleeding or change previously no chest pain. No headaches or other complaint Exam Vital Signs (past 8 hours): - 12/25/23 13:36 12/25/23 14:00 12/25/23 14:11 Temperature 98 F Pulse Rate 99 H 101 H 103 H Respiratory Rate 16 Blood Pressure 109/82 Pulse Oximetry 99 98 98 Oxygen Delivery Method Room Air 12/25/23 14:11 12/25/23 14:30 12/25/23 14:30 Temperature Pulse Rate 98 H Respiratory Rate Blood Pressure 118/69 125/64 Pulse Oximetry 97 Oxygen Delivery Method 12/25/23 15:00 12/25/23 15:01 12/25/23 15:01 Temperature Pulse Rate 96 H 96 H Respiratory Rate Blood Pressure 102/71 Pulse Oximetry 98 99 Oxygen Delivery Method 12/25/23 15:30 12/25/23 15:30 12/25/23 15:48 Temperature Pulse Rate 91 H Respiratory Rate Blood Pressure 101/74 103/67 Pulse Oximetry 97 Oxygen Delivery Method 12/25/23 15:48 12/25/23 16:00 12/25/23 16:00 Temperature Pulse Rate 92 H 83 Respiratory Rate Blood Pressure 109/69 Pulse Oximetry 99 98 Oxygen Delivery Method 12/25/23 16:30 12/25/23 16:32 12/25/23 16:32 Temperature Pulse Rate 79 75 Respiratory Rate Blood Pressure 106/71 Pulse Oximetry 100 100 Oxygen Delivery Method 12/25/23 17:00 12/25/23 17:00 12/25/23 17:30 Temperature Pulse Rate 73 Respiratory Rate Blood Pressure 107/69 106/66 Pulse Oximetry 97 Oxygen Delivery Method 12/25/23 17:30 Temperature Pulse Rate 80 Respiratory Rate Blood Pressure Pulse Oximetry 98 Oxygen Delivery Method Oxygen Delivery Method Room Air Narrative Exam Narrative: Alert fatigued female lying curled on her side no active distress. HEENT exam mucous membranes are dry neck supple without adenopathy JVD or bruits lungs are clear heart is regular rate and rhythm without murmur abdomen is soft positive bowel sounds flat diffusely tender no rebound guarding no masses no hepatosplenomegaly. Extremities without cyanosis clubbing edema skin with decreased turgor but otherwise no changes neurologic exam is grossly intact Objective Labs 12/25/23 13:50 12/25/23 13:50 Labs: Laboratory Results - last 24 hr 12/25/23 12/25/23 13:50 13:53 WBC 12.6 H RBC 5.52 H Hgb 16.4 H Hct 49.4 H MCV 89.4 MCH 29.8 MCHC 33.3 RDW 13.7 Plt Count 288 Neut % (Auto) 88.3 H Lymph % (Auto) 7.9 L [place] % (Auto) 3.1 Eos % (Auto) 0.4 L Baso % (Auto) 0.3 Neut # (Auto) 76089 H Lymph # (Auto) 1000 L [place] # (Auto) 400 Eos # (Auto) 100 Baso # (Auto) 0 PT 15.3 H INR 1.3 Sodium 138 Potassium 4.3 Chloride 104 Carbon Dioxide 11 L BUN 10 Creatinine 0.78 Estimated GFR > 60 BUN/Creatinine Ratio 12.8 Glucose 114 H Calcium 9.8 Phosphorus 4.6 H Magnesium 1.9 Total Bilirubin 0.8 AST 25 ALT 20 Alkaline Phosphatase 80 Total Creatine Kinase 58 Troponin I < 0.012 Total Protein 9.1 H Albumin 5.4 H Globulin 3.7 Albumin/Globulin Ratio 1.5 Lipase 213 Assessment & Plan Assessment & Plan narrative: Abdominal pain. Etiology is unclear. Patient has had and I reviewed CT scans which showed some thickening of the bowel wall. Apparently she has seen a doper operator does not really feel definitively this is GI. Patient has had central evaluation without any findings. She has not been able to eat she is losing marked weight. Does not have a significant family history. Will check sed rate and CRP. Due to the fact that she can eat it might be something we could at least do an upper GI if not both endoscopies while she is here in the hospital not sure what the definitive answer as but at this point we will keep her NPO with except for chloride liquids and probably consult surgeons in the morning. At this point will add IV pantoprazole until decisions made. Certainly will not continue sucralfate. Hyperemesis. Etiology continues to be unclear as above. Patient has had pretty extensive workup does not appear to be a central issue. [employer] are not sure that is GI related not sure what that would mean. What this point will continue [place] and I think it would be worth while to try scheduled benzodiazepines for the next 24 hours and see if it makes a difference. Have had this improved things in the past. Will see how things go. Dehydration. Moderate. Will hydrate at 125 cc an hour and follow output. Secondary to nausea and vomiting. With no other change. Caloric malnutrition. 35 lb weight loss. Will have fitting room associate see and see if we can come up with some definitive ways to approach nutrition. Certainly finding out cause would be a long ways toward this. Code status full GI prophylaxis on pantoprazole DVT prophylaxis. Patient see be mobile she is young and SCDs should work will order those and follow can always add Lovenox if she seems to be less mobilized. Disposition. I think it is going to be very difficult until we can get her to at least be able to drink. But will see how things go. Will discuss with surgeon tomorrow and follow from there. 70 minutes spent chart review patient primary care doctor ER doctor orders and dictation Time-Based Coding :: [TOTAL MINUTES] spent with patient and on the chart (including review of chart, obtaining history, exam, reviewing outside data, placing orders, documenting exam and treatment plan, and counseling patient) on [DATE]. Quality VTE Deep Vein Thrombosis/Pulmonary Embolism Present on Admission: No
[2023-12-25] MEDS: SODIUM CHLORIDE 0.9% 1,000 ML 125 ML IV (20:19)
[2023-12-25] MEDS: HYDROMORPHONE 0.5 MG INJ IV (20:25)
[2023-12-25] MEDS: diazePAM 10 MG/2 ML SYRINGE 2 MG IV (20:25)
[2023-12-26] MEDS: diazePAM 10 MG/2 ML SYRINGE 2 MG IV ×6 (01:53→21:15)
[2023-12-26 02:03] VITALS: BP 90/51; PULSE 77; RESP 12; TEMP 36.6; O2SAT 95
[2023-12-26] MEDS: HYDROMORPHONE 0.5 MG INJ IV ×8 (04:28→22:49)
[2023-12-26] MEDS: SODIUM CHLORIDE 0.9% 1,000 ML 125 ML IV ×3 (04:29→21:27)
[2023-12-26 04:33] VITALS: BP 91/50
[2023-12-26 06:15] LABS: Add Manual Diff / Slide Review NO; Basophils Absolute Auto 0 /uL (0-100); Basophils Percent Auto 0.4 % (0-2); Eosinophils Absolute Auto 200 /uL (0-450); Eosinophils Percent Auto 3.1 % (2-4); Hematocrit 36.8 % (36-46); Hemoglobin 12.6 g/dL (12.0-16.0); Lymphocytes Absolute Auto 1700 /uL (1100-4500); Lymphocytes Percent Auto 22.6 % (25-40); Mean Corpuscular HGB Conc 34.2 % (30-36); Mean Corpuscular Hemoglobin 30.2 PG (26-34); Mean Corpuscular Volume 88.2 fL (80-100); Monocytes Absolute Auto 600 /uL (0-900); Neutrophils Absolute Auto 5000 /uL (1500-7000); Neutrophils Percent Auto 65.9 % (50-75); Platelet Count 210 X10^3/uL (150-400); Red Blood Cell Count 4.18 X10^6/uL (4.0-5.2); Red Cell Distribution Width 13.9 % (11.6-14.8); White Blood Cell Count 7.5 X10^3/uL (4.5-11.0)
[2023-12-26 06:31] LABS: C-Reactive Protein Quant 0.6 mg/dL (<1.0)
[2023-12-26 06:40] LABS: Erythrocyte Sedimentation Rate 1 MM/HR (0-20)
[2023-12-26 07:55] LABS: Alanine Aminotransferase 11 IU/L (<35); Albumin 3.4 g/dL (3.5-5.0); Albumin Globulin Ratio 1.3 (1.0-2.8); Alkaline Phosphatase 49 U/L (38-126); Aspartate Aminotransferase 22 IU/L (14-36); BUN Creatinine Ratio 8.9 (6-22); Bilirubin Total 0.5 mg/dL (0.2-1.3); Blood Urea Nitrogen 5 mg/dL (7-17); Calcium 8.4 mg/dL (8.4-10.2); Carbon Dioxide 12 mmol/L (22-32); Chloride 114 mmol/L (98-107); Estimated Glomerular Filt Rate > 60 mL/min (>60); Globulin 2.7 g/dL (1.7-4.1); Glucose 73 mg/dL (70-100); HEMOLYSIS < 15 (0-50); Potassium 3.7 mmol/L (3.4-5.1); Sodium 137 mmol/L (137-145); Total Protein 6.1 g/dL (6.3-8.2)
--- NOTE | 2023-12-26 07:59 | PM.PN.1 ---
Subjective Subjective Date Patient Seen: 12/26/23 Time Patient Seen: 07:59 Interval history: 28-year-old female readmitted with abdominal pain including nausea and vomiting. Patient with extensive GI history since November of this year when she presented with C diff colitis. She also had biliary issues and is status post cholecystectomy in October of 2022. Following her cholecystectomy she had horrible trouble with diarrhea, had significant weight loss, but did not seek care until proximally a year later when she presented to Dr. Philip, her PCP. Dr. Philip initiated a GI workup that was essentially negative including negative for C diff at that time in early November. In any event she was treated for her C diff colitis in November, although this required 3 ER visits and 1 hospitalization. Following what appear to be appropriate treatment with negative C diff cultures and lack of significant diarrhea she persisted with abdominal pain nausea and vomiting in his had multiple return ER visits since that time without clear explanation. Imaging has demonstrated some degree of constipation on and off but really no other changes since her C diff was treated. She apparently he has been seen by gastroenterology (no notes are available in the chart at this time) who plan to do upper and lower endoscopy but per patient did not feel like her symptoms were GI in origin. She has been able to keep anything down other than maybe little bit of water. Continues with her abdominal pain as described in Dr. Lopez's admission history and physical. In addition patient has lost 30+ lb since this all started. She does use marijuana but denies any excessive use, and stopped for several days without change in her symptomatology overall. Exam Vital Signs (past 8 hours): - 12/26/23 02:03 12/26/23 04:33 Temperature 97.9 F Pulse Rate 77 Respiratory Rate 12 Blood Pressure 90/51 L 91/50 L Pulse Oximetry 95 Oxygen Flow Rate 0 Oxygen Delivery Method Room Air Oxygen Flow Rate 0 Narrative Exam Narrative: Chronically ill-appearing young female lying in hospital bed in no obvious distress HEENT-unremarkable Lungs-clear Heart-regular rate and rhythm Abdomen-positive bowel tones generalized discomfort to palpation throughout but more pronounced in lower quadrants without rebound or guarding Objective Labs 12/26/23 06:03 12/26/23 06:03 Labs: Laboratory Results - last 24 hr 12/25/23 12/25/23 12/26/23 13:50 13:53 06:03 WBC 12.6 H 7.5 RBC 5.52 H 4.18 Hgb 16.4 H 12.6 Hct 49.4 H 36.8 MCV 89.4 88.2 MCH 29.8 30.2 MCHC 33.3 34.2 RDW 13.7 13.9 Plt Count 288 210 Neut % (Auto) 88.3 H 65.9 D Lymph % (Auto) 7.9 L 22.6 L [place] % (Auto) 3.1 8.0 Eos % (Auto) 0.4 L 3.1 Baso % (Auto) 0.3 0.4 Neut # (Auto) 22952 H 5000 Lymph # (Auto) 1000 L 1700 [place] # (Auto) 400 600 Eos # (Auto) 100 200 Baso # (Auto) 0 0 ESR 1 PT 15.3 H INR 1.3 Sodium 138 Potassium 4.3 Chloride 104 Carbon Dioxide 11 L BUN 10 Creatinine 0.78 Estimated GFR > 60 BUN/Creatinine Ratio 12.8 Glucose 114 H Calcium 9.8 Phosphorus 4.6 H Magnesium 1.9 Total Bilirubin 0.8 AST 25 ALT 20 Alkaline Phosphatase 80 Total Creatine Kinase 58 Troponin I < 0.012 C-Reactive Protein 0.6 Total Protein 9.1 H Albumin 5.4 H Globulin 3.7 Albumin/Globulin Ratio 1.5 Lipase 213 PFSH Medical History Asthma GERD (gastroesophageal reflux disease) (~2010) Gastritis (~2010) Back pain (~2010) Surgical History Hx of cholecystectomy History of hysterectomy (06/14/22) History of laparoscopy (04/05/22) Hx of colonoscopy (12/14/21) [place] teeth extracted (~2015) Family History Mother Cervical cancer Smoker Father Diabetes mellitus Herniated disc Spondylosis Grandmother Unknown family medical history Diabetes mellitus Smoker Cancer Hyperlipidemia Hypertension Grandfather History of heart disease Grandmother Breast cancer Grandfather Diabetes mellitus Cancer History of heart disease Hypertension Sister Faye syndrome Brother Arthritis of spine Social History marital status: number of children: 1 household members: spouse and children lives independently: Yes caregiver/support person: No housing: house pets and animals: Yes (1 dog: safe) education level: high school occupational status: unemployed current occupational exposures/hazards: No special alexandra needs: No seatbelt use: always do you feel safe at home: Yes Smoking Status: Former smoker second hand exposure: No alcohol intake: current substance use type: does not use during the past year weight has: remained stable well-balanced diet: daily or most days caffeine: Yes (1 cup coffee daily or every other day. ) Type(s) of exercise: walking and normal ROM and activity frequency: daily duration: 15-30 minutes/day Assessment & Plan Assessment & Plan narrative: 1. Abdominal pain, infraumbilical, with significant nausea and vomiting-no clear etiology at this point. Patient's most recent CT scan demonstrated some degree of constipation more than anything else and her symptoms really are not consistent with an ongoing C diff colitis. I do not believe that is the etiology here. I do not understand the prominent nausea and vomiting with the lower abdominal symptoms. Patient reports she was had some loose stool/diarrhea more consistent with her post cholecystectomy diarrhea than anything else. Her biggest complaint is lack of any appetite and inability to hold anything down as anything she might eat including almost all liquids end up being thrown up. The only time she was upper abdominal pain is after she has had a bout of significant emesis. Lab work is unremarkable. Plain film imaging this admission unremarkable with stool present in the colon but not an excessive burden. Patient was started on scheduled benzodiazepine in addition to IV proton pump inhibitor. Patient reports maybe some minor improvement least she feels better after the benzodiazepine/diazepam is given. Patient was using marijuana to help stimulate appetite but reports today is day 7 without any marijuana intake. Some of her symptoms certainly seem consistent with a cannabis hyperemesis syndrome and it may yet be too early to rule that out even without the intake recently. For now I think focusing on hydration with IV fluids, parental antiemetics, simple diet and slowly advancing if tolerated. I would continue with the benzodiazepines which I agree in some situations had significant improvement in chronic nausea and vomiting syndromes in my experience. Probably is worth considering upper endoscopy and possible colonoscopy with random biopsies looking for evidence of some microscopic inflammatory bowel disease etcetera. Could also consider an empiric course of parental corticosteroids. Time-Based Coding :: [TOTAL MINUTES] spent with patient and on the chart (including review of chart, obtaining history, exam, reviewing outside data, placing orders, documenting exam and treatment plan, and counseling patient) on [DATE]. Quality VTE Deep Vein Thrombosis/Pulmonary Embolism Present on Admission: No IH PROFEE Charge codes Subsequent inpatient/observation care: [id number]
[2023-12-26 08:00] VITALS: BP 92/52; PULSE 70; RESP 15; TEMP 36.5; O2SAT 98
[2023-12-26 08:16] VITALS: O2SAT 92
[2023-12-26] MEDS: PANTOPRAZOLE 40 MG VIAL 20 MG IV (09:27)
[2023-12-26] MEDS: GABAPENTIN 300 MG CAPSULE PO (09:28)
--- NOTE | 2023-12-26 10:28 | DIET.CONS ---
Dietary Consultation Note Admission Date: 12/25/2023 17:18 Assessment: 28 y F admitted with abd pain, nausea, vomiting. RD consulted for caloric malnutrition. Met with pt at bedside. Reports has not been able to tolerate food for around 6-8 weeks and has lost 35 lb. 7 days ago she stopped using marijuana. Has tried using marijuana to increase appetite. While using, she was able tolerate a few small portions of white rice. wanted her to stop d/t concerns, so she stopped using marijuana. Besides intake or rice and some fluids, she has not been able to keep any food down since d/c from last admission. Reports lack of appetite and aversion to food d/t concern of throwing it back up. Wasn't able to tolerate clear liquid breakfast tray this morning. Nutrition focused physical exam repeated: -Mild muscle loss in temporalis and deltoid and interosseous -No subcutaneous fat loss Ht: 165.1 cm Wt: 57 kg BMI: 24.1 UBW: 75.92 kg on 11/08/23 (-25% weight loss within 2 months, severe) Last BM: 12/25/23 (12/25/23 18:16) MNA: 7 Ronen Score: 20 Diet: 12/26/23 Breakfast Clear Liquid Diet Diet Modifications: Labs: RBC 4.18 X10^6/uL (4.0-5.2) 12/26/23 06:03 Hgb 12.6 g/dL (12.0-16.0) 12/26/23 06:03 Hct 36.8 % (36-46) 12/26/23 06:03 Creatinine 0.56 mg/dL (0.52-1.04) 12/26/23 06:03 Nutrition Diagnosis: Severe acute protein calorie malnutrition r/t abdominal pain, nausea, and vomiting as evidenced by <50% estimated energy and protein needs for 3 weeks (severe), 25% weight loss within 2 months (severe), mild muscle mass loss (temporalis, deltoid, interosseous) Interventions: -If pt unable to tolerate diet advancement by day 3, consider nutrition support d/t severe protein calorie malnutrition -Will await for her to tolerate a clear liquid diet better before considering clear ensure as pt said she would not tolerate that at this time EER: [id number] kcals (25-30 kcals/kg per BMI) 70 protein (1.25 g/kg per PCM) Monitoring/Evaluations: diet tolerance Electronically Signed by: Daniella Scott 12/26/23 10:28 Clinical Dietitian [address] [address]
[2023-12-26 10:56] LABS: Appearance Urine UA CLEAR; Bilirubin Urine UA 1+ (NEGATIVE); Color Urine UA YELLOW; Glucose Urine UA NEGATIVE (Negative); Ketones Urine UA 3+ (NEGATIVE); Leukocyte Esterase Urine UA NEGATIVE (NEGATIVE); Nitrite Urine UA NEGATIVE (Negative); Occult Blood Urine UA NEGATIVE (Negative); Protein Urine UA 1+ (Negative); Specific Gravity Urine UA >=1.030 (1.000-1.035); Urobilinogen Urine UA 0.2 E.U./dL (0.2)
[2023-12-26 11:22] LABS: Bacteria Urine None Seen; Culture Indicated Urine Cult Not Indicated; Granular Casts Urine 1-5/LPF; Hyaline Casts Urine 5-10/LPF; RBC Urine 0-1/HPF (0-5/HPF); Squamous Epithelial Cell Urine 1-5 /HPF (0-5/HPF); Urine Volume 10mL (spun); WBC Urine 1-5/HPF (0-5/HPF)
[2023-12-26 11:54] LABS: TSH w/ Reflex to FT4 1.25 uIU/mL (0.47-4.68)
[2023-12-26 12:23] LABS: Ictotest Urine Negative (Negative)
--- NOTE | 2023-12-26 13:40 | CM.DANOTE ---
Initial DCP Assessment Visit Note Reviewed EMR and team rounds for status updates. Met with pt and spouse at bedside to introduce self and role, pt was found to be alert/oriented, and visiting with her family. Pt lives independently at baseline in her own home with spouse and their child. Pt's spouse is active and was called back to assist with her care needs via the [facility]. He will transport her back home once she's medically cleared for home d/c, likely another few days. Payor: Magdalena Parks PCP: Dr. Philip Pt is a 28 year-old F who presented to the ED last evening with c/o persistent nausea/vomiting/abdominal pain. She had been recently admitted for the same symptoms from 12/01-12/05/23, then was seen again in the ED on 12/17. Etiology is still unknown, despite extensive workups and involvement of her Irrigation Foreman. Pt has not had any relief from her symptoms since her last hospitalization for C-diff, and has had a 30 lb weight loss since these symptoms first started. She was started on IV fluids and pain meds, and admitted for further eval and tx. DCP will continue to monitor for any further d/c recommendations for resources/assistance. Discharge Planning/Care Management CM Discharge Assessment Start: 12/26/23 13:34 Freq: Status: Active Protocol: Document 12/26/23 13:34 DPL (Rec: 12/26/23 13:40 DPL [id number]) Discharge Planning Assessment Assigned Supervisor Road Administrator DON Zelaya Advance Directives? No History Provided By Patient,Medical Record Has Patient been admitted in last 30 Yes days? Comment 12/01-12/05/23, as well as an ED visit 1-week ago. Prior Living Arrangements House Household Members spouse,children Type of transporation used prior to Drives own vehicle admit Independent with ADL's Yes: prior to having C-Diff Is patient alert and oriented? Yes Needs Assistance With Home Chores / Shopping Caregiver for Another Yes: child Comment Gastroenterology Comment OP Gastroenterology w/u. Barriers to Discharge No Discharge Plan Home Transportation Arrangement Family Referrals Initiated None needed Whiteboard Updated in Patient Room with Yes name and ext. # of Supervisor Road Administrator Review Status In Process Please Provide Date Initial DC 12/26/23 Assessment Was Performed
[2023-12-26] MEDS: ONDANSETRON 4 MG ODT PO (14:48)
--- NOTE | 2023-12-26 17:12 | P.CONS_ITS ---
History of Present Illness Consult details Date Patient Seen: 12/26/23 Time Patient Seen: 17:12 Chief complaint: N/V/Abd Pain Narrative: Emilia Wasserman is a 28-year-old woman who presented to the hospital for worsening abdominal pain, decreased appetite and weight loss. She apparently had Clostridium difficile November of this year and has since tested negative for it but her symptoms have worsened since then. She is scheduled to undergo an EGD and colonoscopy on January 18 in with [facility] in [facility]. Meds Home Medications and Allergies Home Medications Medication Instructions Recorded Confirmed Type acetaminophen 325 mg tablet 650 mg (2 x 325 mg) PO Q6H PRN 12/05/23 12/25/23 Rx Fever/Mild Pain (1-3) #30 tabs aluminum-mag hydroxide-simethicone 30 ml PO Q4HR PRN Dyspepsia #300 mL 12/05/23 12/25/23 Rx 200 mg-200 mg-20 mg/5 mL oral susp (Mag-Al Plus) lorazepam 0.5 mg tablet 0.5 mg PO Q4HR PRN Anxiety #20 tabs 12/05/23 12/25/23 Rx promethazine 25 mg tablet 25 mg PO Q6HR PRN Nausea #30 tabs 12/11/23 12/25/23 Rx hydroxyzine HCl 25 mg tablet 50 mg (2 x 25 mg) PO Q4H PRN 12/23/23 12/25/23 Rx Nausea, anxiety #30 tabs omeprazole 20 mg capsule,delayed 20 mg PO BID #60 caps 12/23/23 12/25/23 Rx release ondansetron 4 mg disintegrating 4 mg PO Q8H PRN nausea and 12/23/23 12/25/23 Rx tablet vomiting #30 tabs sucralfate 1 gram tablet 1 g PO ACHS #30 tabs 12/23/23 12/25/23 Rx gabapentin 300 mg capsule 300 mg PO DAILY #90 caps 12/24/23 12/25/23 Rx oxycodone 10 mg tablet 10 mg PO Q3HR PRN Pain, Severe 12/24/23 12/25/23 Rx (7-10) #30 tabs Allergies Allergy/AdvReac Type Severity Reaction Status Date / Time amoxicillin Allergy Intermediate Rash/Hives Verified 12/25/23 13:42 coconut Allergy Hives Verified 12/25/23 13:42 ibuprofen AdvReac Intermediate Gastrointestinal Verified 12/25/23 13:42 Upset Exam Vital Signs (past 8 hours): Oxygen Delivery Method Room Air Oxygen Flow Rate 0 Const General: No acute distress Objective Labs 12/26/23 06:03 12/26/23 06:03 Labs: Laboratory Results - last 24 hr 12/25/23 12/26/23 12/26/23 13:53 06:03 09:45 WBC 7.5 RBC 4.18 Hgb 12.6 Hct 36.8 MCV 88.2 MCH 30.2 MCHC 34.2 RDW 13.9 Plt Count 210 Neut % (Auto) 65.9 D Lymph % (Auto) 22.6 L [place] % (Auto) 8.0 Eos % (Auto) 3.1 Baso % (Auto) 0.4 Neut # (Auto) 5000 Lymph # (Auto) 1700 [place] # (Auto) 600 Eos # (Auto) 200 Baso # (Auto) 0 ESR 1 Sodium 137 Potassium 3.7 Chloride 114 H Carbon Dioxide 12 L BUN 5 L Creatinine 0.56 Estimated GFR > 60 BUN/Creatinine Ratio 8.9 Glucose 73 Calcium 8.4 Phosphorus 4.6 H Total Bilirubin 0.5 AST 22 ALT 11 Alkaline Phosphatase 49 C-Reactive Protein 0.6 Total Protein 6.1 L Albumin 3.4 L Globulin 2.7 Albumin/Globulin Ratio 1.3 TSH 1.25 Urine Color Yellow Urine Appearance Clear Urine pH 6.0 Ur Specific [place] >=1.030 H Urine Protein 1+ H Urine Glucose (UA) Negative Urine Ketones 3+ H Urine Occult Blood Negative Urine Nitrate Negative Urine Bilirubin 1+ H Ur Bilirubin Confirm Negative Urine Urobilinogen 0.2 Ur Leukocyte Esterase Negative Urine RBC 0-1/hpf Urine WBC 1-5/hpf Ur Squamous Epith Cells 1-5 /hpf Urine Bacteria None seen Hyaline Casts 5-10/lpf Granular Casts 1-5/lpf Ur Culture Indicated? Cult not indicated Vol Urine Centrifuged 10ml (spun) [facility] Medical History Asthma GERD (gastroesophageal reflux disease) (~2010) Gastritis (~2010) Back pain (~2010) Surgical History Hx of cholecystectomy History of hysterectomy (06/14/22) History of laparoscopy (04/05/22) Hx of colonoscopy (12/14/21) [place] teeth extracted (~2016) Family History Mother Cervical cancer Smoker Father Diabetes mellitus Herniated disc Spondylosis Grandmother Unknown family medical history Diabetes mellitus Smoker Cancer Hyperlipidemia Hypertension Grandfather History of heart disease Grandmother Breast cancer Grandfather Diabetes mellitus Cancer History of heart disease Hypertension Sister Faye syndrome Brother Arthritis of spine Social History marital status: number of children: 1 household members: spouse and children lives independently: Yes caregiver/support person: No housing: house pets and animals: Yes (1 dog: safe) education level: high school occupational status: unemployed current occupational exposures/hazards: No special alexandra needs: No Safety seatbelt use: always do you feel safe at home: Yes Tobacco & Substance Use Smoking Status: Former smoker second hand exposure: No alcohol intake: current substance use type: does not use Diet and Exercise during the past year weight has: remained stable well-balanced diet: daily or most days caffeine: Yes (1 cup coffee daily or every other day. ) Type(s) of exercise: walking and normal ROM and activity frequency: daily duration: 15-30 minutes/day Assessment & Plan Assessment and plan (1) Abnormal weight loss: Status: Acute (2) Nausea & vomiting: Qualifiers: Vomiting type: unspecified Qualified Code(s): R11.2 - Nausea with vomiting, unspecified Status: Acute (3) Abdominal pain: Qualifiers: Abdominal location: lower abdomen, unspecified Qualified Code(s): R 10.30 - Lower abdominal pain, unspecified Status: Acute Plan Bowel prep tonight EGD and colonoscopy tomorrow with Dr. Cooper Time-Based Coding :: [TOTAL MINUTES] spent with patient and on the chart (including review of chart, obtaining history, exam, reviewing outside data, placing orders, documenting exam and treatment plan, and counseling patient) on [DATE].
[2023-12-26] MEDS: PEG3350/SOD SULF,BICARB,CL/KCL 4,000 ML SOLUTION 4000 ML PO (18:34)
[2023-12-26] MEDS: ONDANSETRON 4 MG/2 ML INJ IV ×2 (19:04→22:49)
[2023-12-26 19:55] VITALS: O2SAT 95
[2023-12-26 20:01] VITALS: BP 107/60; PULSE 65; RESP 24; TEMP 36.3; O2SAT 98
[2023-12-27] VITALS (11 sets, daily range): BP systolic 91–105; BP diastolic 54–68; PULSE 68–106; RESP 11–16; TEMP 35.9–37.7; O2SAT 98–100
--- NOTE | 2023-12-27 | PATH_ITS ---
[facility] Accession Number: [id number] No. of containers..03 Tissue . 01 Material submitted: . PART A: gastrointestinal site - GASTRIC PART B: ileum - TERMINAL ILEUM PART C: colon - RANDOM COLON . 01 Diagnosis: Part A: GASTRIC: Gastric mucosa with minimal chronic inflammation. No Helicobacter organisms identified. No intestinal metaplasia, dysplasia, or malignancy identified. . Part B: TERMINAL ILEUM: Ileal mucosa with no diagnostic alterations. No active inflammation, granulomas, or dysplasia identified. . Part C: RANDOM COLON: Colonic mucosa with no diagnostic alterations. No active inflammation, granulomas, dysplasia, or malignancy identified. [facility] 01/02/20241806 Local . 01 Electronically signed: . Merritt Gould MD, Pathologist NPI- [id number] . 01 Gross description: . A. Received in formalin with two patient identifiers and gastric biopsy, are two oliveira soft tissue fragments 0.2 to 0.4 cm in greatest dimension. Submitted in cassette A1. . B. Received in formalin with two patient identifiers and terminal ileum, are two oliveira soft tissue fragments 0.4 to 0.5 cm in greatest dimension. Submitted in cassette B1. . C. Received in formalin with two patient identifiers and random colon biopsies, are multiple oliveira soft tissue fragments aggregating to 1.2 x 0.6 x 0.2 cm. Filtered and submitted in cassette A1. ([id number]) /[facility] 01/02/20241806 Local . 01 Microscopic: . Part A: GASTRIC: An immunohistochemical stain was performed to evaluate for Helicobacter organisms and is negative. The control stains appropriately. * This test was developed and the performance characteristics were validated by [employer]. It has not been cleared or approved by the Food and Drug Administration. . 01 Pathologist provided ICD-10: K29.30, R10.9 . 01 CPT . 747811, 902931, 248976, [id number] Specimen Comment: A courtesy copy of this report has been sent to [phone] Performed at: [address] [id number] MD Merritt Gould MD Phone: [phone]
[2023-12-27] MEDS: diazePAM 10 MG/2 ML SYRINGE 2 MG IV ×5 (00:09→21:11)
[2023-12-27] MEDS: HYDROMORPHONE 0.5 MG INJ IV ×8 (00:47→21:06)
[2023-12-27] MEDS: ONDANSETRON 4 MG/2 ML INJ IV ×3 (02:57→12:12)
[2023-12-27] MEDS: SODIUM CHLORIDE 0.9% 1,000 ML 125 ML IV ×3 (05:13→18:28)
[2023-12-27] MEDS: PANTOPRAZOLE 40 MG VIAL 20 MG IV (08:19)
--- NOTE | 2023-12-27 08:22 | PM.PN.1 ---
Subjective Subjective Date Patient Seen: 12/27/23 Time Patient Seen: 08:00 Interval history: The pt reports ongoing severe nausea and abdominal pain. She feels the Valium has helped her nausea/vomiting the most. It has been challenging for her to keep down the GoLytely for colonoscopy prep. She continues to have severe abdominal pain, primarily around her umbilicus but now radiating out over her entire abdomen as well. Exam Vital Signs (past 8 hours): - 12/27/23 07:50 Temperature 97.7 F Pulse Rate 93 H Respiratory Rate 16 Blood Pressure 91/56 L Pulse Oximetry 100 Oxygen Delivery Method Room Air Oxygen Flow Rate 0 Narrative Exam Narrative: Gen: Appears uncomfortable, curled up in bed in position CV: RRR, no murmurs Resp: clear to auscultation bilaterally Abd: soft, tender to palpation diffusely with mild guarding, no rigidity/rebound, hypoactive bowel sounds, no masses Ext: no edema Neuro: no gross deficits Objective Labs 12/26/23 06:03 12/26/23 06:03 Labs: Laboratory Results - last 24 hr 12/26/23 12/26/23 06:03 09:45 TSH 1.25 Urine Color Yellow Urine Appearance Clear Urine pH 6.0 Ur Specific [place] >=1.030 H Urine Protein 1+ H Urine Glucose (UA) Negative Urine Ketones 3+ H Urine Occult Blood Negative Urine Nitrate Negative Urine Bilirubin 1+ H Ur Bilirubin Confirm Negative Urine Urobilinogen 0.2 Ur Leukocyte Esterase Negative Urine RBC 0-1/hpf Urine WBC 1-5/hpf Ur Squamous Epith Cells 1-5 /hpf Urine Bacteria None seen Hyaline Casts 5-10/lpf Granular Casts 1-5/lpf Ur Culture Indicated? Cult not indicated Vol Urine Centrifuged 10ml (spun) [facility] Medical History Asthma GERD (gastroesophageal reflux disease) (~2010) Gastritis (~2010) Back pain (~2010) Surgical History Hx of cholecystectomy History of hysterectomy (06/14/22) History of laparoscopy (04/05/22) Hx of colonoscopy (12/14/21) [place] teeth extracted (~2015) Family History Mother Cervical cancer Smoker Father Diabetes mellitus Herniated disc Spondylosis Grandmother Unknown family medical history Diabetes mellitus Smoker Cancer Hyperlipidemia Hypertension Grandfather History of heart disease Grandmother Breast cancer Grandfather Diabetes mellitus Cancer History of heart disease Hypertension Sister Faye syndrome Brother Arthritis of spine Social History marital status: number of children: 1 household members: spouse and children lives independently: Yes caregiver/support person: No housing: house pets and animals: Yes (1 dog: safe) education level: high school occupational status: unemployed current occupational exposures/hazards: No special alexandra needs: No seatbelt use: always do you feel safe at home: Yes Smoking Status: Former smoker second hand exposure: No alcohol intake: current substance use type: does not use during the past year weight has: remained stable well-balanced diet: daily or most days caffeine: Yes (1 cup coffee daily or every other day. ) Type(s) of exercise: walking and normal ROM and activity frequency: daily duration: 15-30 minutes/day Assessment & Plan Assessment & Plan narrative: 28yo woman with cholecystectomy last year and resultant chronic diarrhea, recently treated for C diff colitis and subsequently with hospitalization for intractable abdominal pain and vomiting, now presenting again with severe abdominal pain, nausea, vomiting, and cachexia. Cause of abdominal pain still unclear. Symptoms are not consistent with ongoing C diff, and pt tested negative at last hospitalization. Lab work without obvious etiology. Very minimally elevated lipase on outside labs, not to concerning level. No elevation inflammatory markers. Pt had been using marijuana to help boost her appetite, but has been off it for 8 days now without relief of her symptoms, making cannabis hyperemesis syndrome less likely. Also, symptoms were present prior to increased use. - Endoscopy and colonoscopy today. Hopeful these can give us some insight into cause. - Continue Valium to help with nausea, as has been the most helpful thus far - Continue Zofran, Pantoprazole - Continue Methylprednisolone IV for now - Continue IV Dilaudid for pain control FEN: NPO for colonoscopy DVT ppx: SCDs Code: Full Dispo: Pending improvement in symptoms, ability to tolerate some PO. Time-Based Coding :: [TOTAL MINUTES] spent with patient and on the chart (including review of chart, obtaining history, exam, reviewing outside data, placing orders, documenting exam and treatment plan, and counseling patient) on [DATE]. Quality VTE Deep Vein Thrombosis/Pulmonary Embolism Present on Admission: No
[2023-12-27] MEDS: GABAPENTIN 300 MG CAPSULE PO (09:36)
--- NOTE | 2023-12-27 13:05 | CM.DPC ---
DCP Continued: Reviewed EMR and team rounds for pt?s medical status. Per Provider note, pt to undergo an EGD and colonoscopy today to hopefully gain more insight of etiology. No discharge plans identified but team is following. In previous admissions, pt stated she was experiencing anxiety, might benefit from referral to outpatient treatment if appropriate. Plan: Anticipating discharge home with spouse to transport when medically cleared, plan of care evolving. CM Team will continue to follow for coordination of discharge plans. TITO Gonzalez
--- NOTE | 2023-12-27 16:00 | DIET.PN1 ---
Dietary Progress Note Assessment: Attempted f/u, pt getting ready to go down for EGD/colonoscopy. Will support po intakes while on clear liquids with Ensure Clear as tolerated with meals. Will continue to monitor for diet advancement and PO intakes. Ht: 165.1 cm Wt: 57 kg BMI: 24.1 UBW: Last BM: 12/27/23 (12/27/23 01:17) MNA: 7 Ronen Score: 18 Diet: 12/26/23 Breakfast Clear Liquid Diet Diet Modifications: Labs: RBC 4.18 X10^6/uL (4.0-5.2) 12/26/23 06:03 Hgb 12.6 g/dL (12.0-16.0) 12/26/23 06:03 Hct 36.8 % (36-46) 12/26/23 06:03 Creatinine 0.56 mg/dL (0.52-1.04) 12/26/23 06:03 Electronically Signed by: Daniella Scott 12/27/23 16:00 Clinical Dietitian [address] [id number]
--- NOTE | 2023-12-27 16:02 | PM.PREOP ---
Pre-operative Note Interval Note History & Physical reviewed/Exam performed by Physician: Yes Changes to H&P: No H&P completed within 30 days and has changed as indicated here:: 28-year-old with severe chronic abdominal pain of unknown etiology here for esophagogastroduodenoscopy and colonoscopy. Overview of the procedures discussed. Procedural risks including hemorrhage, missed lesion, intestinal injury reviewed. Questions answered. She provides her consent to proceed.
--- NOTE | 2023-12-27 16:34 | SUR.OPER ---
EGD SCOPE 048
--- NOTE | 2023-12-27 17:09 | PM.OP.EC ---
Operative Date/Time/Diagnoses Date of procedure: 12/27/23 Time of procedure: 17:09 Pre-op diagnosis: Abdominal pain Post-op diagnosis: other (Colitis) Procedure & Clinicians Study performed: Esophagogastroduodenoscopy and colonoscopy Same procedure as scheduled: Yes Indications: 28-year-old female with chronic diarrhea and chronic abdominal pain of unknown etiology here for diagnostic upper and lower endoscopy Surgeon: Tera Cooper Procedure Notes Procedure in detail: The history and physical was performed/updated and the patient is ASA class is 2. The procedure was discussed in detail with the patient. Potential risks complications including infection, bleeding, missed diagnosis, perforation, need for surgery, and were explained. Their questions were answered and informed consent was obtained. Patient placed in left lateral decubitus position. Time out was performed. Procedural sedation was administered by Anesthesia. A bite block was placed. the scope was inserted into the mouth and advanced through the esophagus and into the stomach. the pylorus was intubated and the duodenum was examined to the 2nd portion.. The scope was retroflexed within the stomach. The stomach was then decompressed and scope pulled back to the GE junction. The scope was then removed Examination began with a thorough inspection of the perianal area there was no evidence of fissures, fistulae, external hemorrhoids or cutaneous malignancy. The colonoscopy scope was then placed into the anal canal and was advanced to the cecum, which was identified by the ileocecal valve, the appendiceal orifice and the confluence of the taenia. Terminal ileum intubated largely unremarkable biopsies of terminal ileum taken with forceps. The scope was then slowly withdrawn examining colon thoroughly in all directions, irrigating it of any residual stool. FINDINGS -mild gastritis. Biopsies of the stomach performed with forceps. -moderate size hiatal hernia. -no esophagitis -colon demonstrates diffuse mild colitis with notable friability. Multiple random colonic biopsies taken with forceps evaluate/rule out microscopic colitis -no polyps or masses The patient tolerated the procedure well. They will be discharged once criteria are met. The prep was of good/excellent quality. The withdrawl time was 7 minutes. Findings: other findings (Suspect microscopic colitis) Specimen(s): other (Gastric, terminal ileum and random colonic biopsies) Impression: Suspected microscopic colitis Post-procedure Plan for aftercare: Start budesonide 9 mg daily follow up pathology Disposition: Acute Care
[2023-12-27] MEDS: BUDESONIDE 3 MG CAP 9 MG PO (18:39)
[2023-12-28] VITALS (9 sets, daily range): BP systolic 80–100; BP diastolic 45–65; PULSE 55–86; RESP 16–18; TEMP 36.3–37.1; O2SAT 97–100
--- NOTE | 2023-12-28 | DI.MRI.S_ITS ---
PROCEDURE: MR AB PANCREATIC/MRCP PROTOCOL INDICATIONS: abd pain intractable TECHNIQUE: Coronal HASTE through the abdomen, axial 2-D FLASH in- and [id number], and breath-hold T2 FSE with fat saturation through the biliary system and pancreas. Oblique coronal and axial thin-slice HASTE, radial thick-slab HASTE centered on the extrahepatic bile ducts. Intravenous secretin: Not requested. COMPARISON: [facility], CT, CT ABDOMEN PELVIS W CON, 12/18/2023, 17:55. FINDINGS: Image quality: Diagnostic. Gallbladder: Absent. Biliary ducts: No biliary dilation. No choledocholithiasis. Pancreas: No ductal dilation. OTHER: Lung bases: Unremarkable. Liver: No solid mass. Spleen: Size is within normal limits. Adrenal Glands: No adrenal nodules. Kidneys and Ureters: No hydronephrosis. No solid mass. No complex renal cystic lesion which requires follow up. Stomach and Bowel: Normal colonic caliber, without significant wall thickening. Peritoneum: No abnormal intraperitoneal fluid. No free air. Ventral Wall: No hernia. Abdominal Nodes: No retroperitoneal or mesenteric adenopathy by size criteria. Vessels: Aorta and inferior vena cava are normal in size. Bones: No aggressive osseous abnormality. IMPRESSION: No acute abnormality. Dictated by: Jericho Knutson M.D. on 12/28/2023 at 13:46 Approved by: Jericho Knutson M.D. on 12/28/2023 at 13:49
[2023-12-28] MEDS: diazePAM 10 MG/2 ML SYRINGE 2 MG IV ×4 (00:32→12:53)
[2023-12-28] MEDS: SODIUM CHLORIDE 0.9% 1,000 ML 125 ML IV ×3 (02:35→18:11)
[2023-12-28] MEDS: HYDROMORPHONE 0.5 MG INJ IV ×8 (05:11→22:45)
[2023-12-28] MEDS: PANTOPRAZOLE 40 MG VIAL 20 MG IV (09:07)
[2023-12-28] MEDS: GABAPENTIN 300 MG CAPSULE PO (09:07)
[2023-12-28] MEDS: BUDESONIDE 3 MG CAP 9 MG PO (09:07)
[2023-12-28] MEDS: ONDANSETRON 4 MG/2 ML INJ IV ×3 (11:18→19:51)
[2023-12-28] MEDS: ACETAMINOPHEN SUSP 650 MG/20.3 ML UDC PO (12:53)
--- NOTE | 2023-12-28 12:53 | PM.PN.1 ---
Subjective Subjective Date Patient Seen: 12/28/23 Time Patient Seen: 12:53 Interval history: Met with patient. Reviewed chart and previous workup including EGD and colonoscopy yesterday. Biopsies pending but concern for microscopic colitis and surgery place patient on budesonide orally. Patient is already on Solu-Medrol 40 mg t.i.d. IV. Patient feels that she is improved from prior to hospitalization and that she can sleep at night but is still having significant pain and inability to eat with minimal appetite and constant nausea vomiting and lower abdominal pain. She intermittently has diarrhea otherwise is constipated in part related to pain medications. Extensive review of history. Patient previously would smoke marijuana but only to hits prior to bedtime. Patient has not smoked marijuana for 8 days. She is never used more excessively. She was raised in environment with both her parents did illegal drugs including methamphetamines and cocaine. She has never use these. Patient does not smoke cigarettes and does not use alcohol Patient with a history of depression in 2019 when she had her 1st child. She was placed on Zoloft and 2 other medications which he can not remember the name and was on them for very short period of time and developed suicidal ideation and required hospitalization. She states that as soon as medications were out of her system she was feeling better. She would some mood changes with her 2nd baby but was able to cope with that just by changing her activity and getting out and socializing etc.. Patient moved to [place] due to her being in the . He is frequently deployed. She does not like the weather here. It has been very isolating. There is no family history of ulcerative colitis or Crohn's disease or colitis that she is aware of She is her parents only biological child Patient denies blood in her stool. Twelve point review of systems is otherwise negative Exam Vital Signs (past 8 hours): - 12/28/23 05:00 12/28/23 05:05 12/28/23 08:00 Temperature 98.7 F Pulse Rate 65 Respiratory Rate 16 Blood Pressure 80/49 L 100/58 L Pulse Oximetry 99 Oxygen Delivery Method Room Air Oxygen Flow Rate 12/28/23 08:00 Temperature Pulse Rate Respiratory Rate Blood Pressure Pulse Oximetry 97 Oxygen Delivery Method Room Air Oxygen Flow Rate 0 Oxygen Delivery Method Room Air Oxygen Flow Rate 0 Narrative Exam Narrative: Patient is alert and oriented in no apparent distress although she appears unwell and disheveled. Intermittently tearful when discussing her previous history. Patient is excellent historian Afebrile vital signs are stable HEENT shows mucous membranes are moist and pink Neck: Supple Chest: Clear to auscultation without wheezes rhonchi or crackles Cor: Regular rate and rhythm without murmur Abdomen: Positive bowel sounds x4, soft, diffusely tender right upper quadrant left lower quadrant more significantly but no peritoneal signs. No guarding, no rebound tenderness Extremities show no edema, well-perfused Neurologic exam nonfocal Skin shows very faint erythematous macules mid abdomen Objective Labs 12/26/23 06:03 12/26/23 06:03 [facility] Medical History Asthma GERD (gastroesophageal reflux disease) (~2010) Gastritis (~2010) Back pain (~2010) Surgical History Hx of cholecystectomy History of hysterectomy (06/14/22) History of laparoscopy (04/05/22) Hx of colonoscopy (12/14/21) [place] teeth extracted (~2015) Family History Mother Cervical cancer Smoker Father Diabetes mellitus Herniated disc Spondylosis Grandmother Unknown family medical history Diabetes mellitus Smoker Cancer Hyperlipidemia Hypertension Grandfather History of heart disease Grandmother Breast cancer Grandfather Diabetes mellitus Cancer History of heart disease Hypertension Sister Faye syndrome Brother Arthritis of spine Social History marital status: number of children: 1 household members: spouse and children lives independently: Yes caregiver/support person: No housing: house pets and animals: Yes (1 dog: safe) education level: high school occupational status: unemployed current occupational exposures/hazards: No special alexandra needs: No seatbelt use: always do you feel safe at home: Yes Smoking Status: Former smoker second hand exposure: No alcohol intake: current substance use type: does not use during the past year weight has: remained stable well-balanced diet: daily or most days caffeine: Yes (1 cup coffee daily or every other day. ) Type(s) of exercise: walking and normal ROM and activity frequency: daily duration: 15-30 minutes/day Assessment & Plan Assessment & Plan narrative: 28yo woman with cholecystectomy last year and resultant chronic diarrhea, recently treated for C diff colitis and subsequently with hospitalization for intractable abdominal pain and vomiting, now presenting again with severe abdominal pain, nausea, vomiting, and cachexia. Cause of abdominal pain still unclear. Symptoms are not consistent with ongoing C diff, and pt tested negative at last hospitalization. Lab work without obvious etiology. Very minimally elevated lipase on outside labs, not to concerning level. No elevation inflammatory markers. Lengthy discussion with patient of differential diagnosis. Reviewed walk workup thus far. Reviewed EGD showing gastritis and we will increase Protonix to 40 mg IV daily. Will also decrease methylprednisolone as she is on oral budesonide and IV methylprednisolone and will hope to then stopped this as I do not think it is made any improvement and worry about potential side effects. We will wean and monitor closely Will proceed with MRCP of abdomen with pancreatic protocol to rule out other potential etiologies including common bile duct stone. Although chronology does not exactly fit with this still possibility. Will recheck labs which were not obtained yesterday or today. Will check amylase lipase CBC CMP We discussed options and will give a trial of amitriptyline as this has been shown to be effective with functional bowel issues. She is willing to try this a little hesitant because of her past experience but we will start very slowly. She is agreeable. Will continue with same supportive care. - Continue Valium to help with nausea, as has been the most helpful thus far but will switch to p.o. - Continue Zofran, Pantoprazole - Continue Methylprednisolone IV for now but will decrease - Continue IV Dilaudid for pain control FEN: Clear liquids will advance as tolerated pending results of above DVT ppx: SCDs Code: Full Anticipate continued hospitalization due to unable to tolerate p.o. Time spent with patient was 65 minutes. Time spent in discussing with Radiology, nursing, reviewing chart and meeting with patient. Time-Based Coding :: [TOTAL MINUTES] spent with patient and on the chart (including review of chart, obtaining history, exam, reviewing outside data, placing orders, documenting exam and treatment plan, and counseling patient) on [DATE]. Quality VTE Deep Vein Thrombosis/Pulmonary Embolism Present on Admission: No
--- NOTE | 2023-12-28 14:53 | CM.DPC ---
DCP Cont: Per Surgeon, scopes revealed gastritis, hiatal hernia, mild colitis. Per MD, pt still with some nausea and pain and has not yet advanced diet to regular yet and switching meds to PO and advancing diet as tolerated and not yet medically stable to discharge yet today. Ashleigh Chavez MSW
[2023-12-28 15:00] LABS: Amylase 67 U/L (30-110); Lipase 228 U/L (23-300)
[2023-12-28] MEDS: AMITRIPTYLINE 10 MG TABLET PO (20:16)
[2023-12-28] MEDS: diazePAM 5 MG TABLET PO (21:35)
[2023-12-28] MEDS: ACETAMINOPHEN 325 MG TABLET 650 MG PO (21:35)
[2023-12-29] VITALS (8 sets, daily range): BP systolic 84–104; BP diastolic 47–72; PULSE 51–68; RESP 16–18; TEMP 36.1–36.6; O2SAT 97–99
[2023-12-29] MEDS: SODIUM CHLORIDE 0.9% 1,000 ML 125 ML IV ×3 (02:03→17:15)
[2023-12-29] MEDS: HYDROMORPHONE 0.5 MG INJ IV ×9 (02:09→20:24)
[2023-12-29] MEDS: ACETAMINOPHEN 325 MG TABLET 650 MG PO ×2 (03:45→13:09)
[2023-12-29 04:21] LABS: Add Manual Diff / Slide Review NO; Basophils Absolute Auto 0 /uL (0-100); Basophils Percent Auto 0.1 % (0-2); Eosinophils Absolute Auto 0 /uL (0-450); Eosinophils Percent Auto 0.4 % (2-4); Hematocrit 31.7 % (36-46); Hemoglobin 10.8 g/dL (12.0-16.0); Lymphocytes Absolute Auto 2400 /uL (1100-4500); Lymphocytes Percent Auto 35.8 % (25-40); Mean Corpuscular Hemoglobin 29.7 PG (26-34); Mean Corpuscular Volume 87.5 fL (80-100); Monocytes Absolute Auto 400 /uL (0-900); Monocytes Percent Auto 6.2 % (3-14); Neutrophils Absolute Auto 3900 /uL (1500-7000); Neutrophils Percent Auto 57.5 % (50-75); Platelet Count 155 X10^3/uL (150-400); Red Blood Cell Count 3.62 X10^6/uL (4.0-5.2); Red Cell Distribution Width 14.1 % (11.6-14.8); White Blood Cell Count 6.7 X10^3/uL (4.5-11.0)
[2023-12-29 04:39] LABS: Alanine Aminotransferase 10 IU/L (<35); Albumin 2.7 g/dL (3.5-5.0); Albumin Globulin Ratio 1.2 (1.0-2.8); Alkaline Phosphatase 37 U/L (38-126); Aspartate Aminotransferase 16 IU/L (14-36); Bilirubin Total 0.4 mg/dL (0.2-1.3); Calcium 8.4 mg/dL (8.4-10.2); Carbon Dioxide 23 mmol/L (22-32); Chloride 111 mmol/L (98-107); Estimated Glomerular Filt Rate > 60 mL/min (>60); Globulin 2.3 g/dL (1.7-4.1); Glucose 83 mg/dL (70-100); HEMOLYSIS < 15 (0-50); Potassium 2.8 mmol/L (3.4-5.1); Sodium 139 mmol/L (137-145)
[2023-12-29 04:43] LABS: BUN Creatinine Ratio 3.3 (6-22); Blood Urea Nitrogen 2 mg/dL (7-17)
[2023-12-29] MEDS: POTASSIUM CHLORIDE IN WATER 10 MEQ/100 ML PIGGYBACK 100 MEQ IV ×6 (05:31→17:14)
[2023-12-29] MEDS: PANTOPRAZOLE DR 40 MG TABLET PO (05:39)
[2023-12-29] MEDS: ONDANSETRON 4 MG/2 ML INJ IV ×4 (05:39→16:10)
[2023-12-29] MEDS: diazePAM 5 MG TABLET PO ×2 (08:08→20:24)
[2023-12-29] MEDS: BUDESONIDE 3 MG CAP 9 MG PO (08:08)
[2023-12-29] MEDS: GABAPENTIN 300 MG CAPSULE PO (08:08)
[2023-12-29] MEDS: SCOPOLAMINE 1 PATCH TOP (14:19)
[2023-12-29 14:24] LABS: Calcium 8.6 mg/dL (8.4-10.2); Carbon Dioxide 23 mmol/L (22-32); Chloride 106 mmol/L (98-107); Estimated Glomerular Filt Rate > 60 mL/min (>60); Glucose 116 mg/dL (70-100); HEMOLYSIS < 15 (0-50); Potassium 3.3 mmol/L (3.4-5.1); Sodium 137 mmol/L (137-145)
[2023-12-29 14:26] LABS: Blood Urea Nitrogen < 2 mg/dL (7-17)
--- NOTE | 2023-12-29 14:26 | P.PN_ITS ---
Subjective Subjective Date Patient Seen: 12/29/23 Time Patient Seen: 14:27 Interval history: Patient awakened every 2 hours last night due to abdominal pain. She ate 3/4 of a cup of beef broth and now severe pain. She had loose stools last night with blood tinge. She has not had any vomiting but still having some nausea. She denies any chest pain or shortness a breath Twelve point review of systems otherwise negative Exam Vital Signs (past 8 hours): - 12/29/23 08:00 12/29/23 08:00 12/29/23 12:00 Temperature 97.0 F L 97.7 F Pulse Rate 67 68 Respiratory Rate 16 16 Blood Pressure 99/65 94/62 Pulse Oximetry 99 99 98 Oxygen Delivery Method Room Air Oxygen Flow Rate 0 0 0 Oxygen Delivery Method Room Air Oxygen Flow Rate 0 Narrative Exam Narrative: Afebrile vital signs are stable. Patient alert and oriented no apparent distress. Patient currently having abdominal pain curled up in the hospital bed in position but able to answer questions and participate in care HEENT shows mucous membranes moist and pink Neck: Supple without adenopathy Chest: Clear to auscultation without wheezes rhonchi or crackles Cor: Regular rate and rhythm without murmur Abdomen: Positive bowel sounds soft tenderness bilateral lower quadrant but no guarding or rebound Neurologic exam nonfocal Skin no rashes today Objective Labs 12/29/23 04:00 12/29/23 13:55 Labs: Laboratory Results - last 24 hr 12/28/23 12/29/23 12/29/23 14:43 04:00 13:55 WBC 6.7 RBC 3.62 L Hgb 10.8 L Hct 31.7 L MCV 87.5 MCH 29.7 MCHC 34.0 RDW 14.1 Plt Count 155 Neut % (Auto) 57.5 Lymph % (Auto) 35.8 [place] % (Auto) 6.2 Eos % (Auto) 0.4 L Baso % (Auto) 0.1 Neut # (Auto) 3900 Lymph # (Auto) 2400 [place] # (Auto) 400 Eos # (Auto) 0 Baso # (Auto) 0 Sodium 139 137 Potassium 2.8 L 3.3 L Chloride 111 H 106 Carbon Dioxide 23 23 BUN 2 L < 2 L Creatinine 0.60 0.50 L Estimated GFR > 60 > 60 BUN/Creatinine Ratio 3.3 L 4.0 L Glucose 83 116 H Calcium 8.4 8.6 Total Bilirubin 0.4 AST 16 ALT 10 Alkaline Phosphatase 37 L Total Protein 5.0 L Albumin 2.7 L Globulin 2.3 Albumin/Globulin Ratio 1.2 Amylase 67 Lipase 228 PFSH Medical History Asthma GERD (gastroesophageal reflux disease) (~2010) Gastritis (~2010) Back pain (~2010) Surgical History Hx of cholecystectomy History of hysterectomy (06/14/22) History of laparoscopy (04/05/22) Hx of colonoscopy (12/14/21) [place] teeth extracted (~2015) Family History Mother Cervical cancer Smoker Father Diabetes mellitus Herniated disc Spondylosis Grandmother Unknown family medical history Diabetes mellitus Smoker Cancer Hyperlipidemia Hypertension Grandfather History of heart disease Grandmother Breast cancer Grandfather Diabetes mellitus Cancer History of heart disease Hypertension Sister Faye syndrome Brother Arthritis of spine Social History marital status: number of children: 1 household members: spouse and children lives independently: Yes caregiver/support person: No housing: house pets and animals: Yes (1 dog: safe) education level: high school occupational status: unemployed current occupational exposures/hazards: No special alexandra needs: No seatbelt use: always do you feel safe at home: Yes Smoking Status: Former smoker second hand exposure: No alcohol intake: current substance use type: does not use during the past year weight has: remained stable well-balanced diet: daily or most days caffeine: Yes (1 cup coffee daily or every other day. ) Type(s) of exercise: walking and normal ROM and activity frequency: daily duration: 15-30 minutes/day Assessment & Plan Assessment & Plan narrative: Assessment & Plan narrative: 28yo woman with cholecystectomy last year and resultant chronic diarrhea, recently treated for C diff colitis and subsequently with hospitalization for intractable abdominal pain and vomiting, now presenting again with severe abdominal pain, nausea, vomiting, and cachexia. Cause of abdominal pain still unclear. Symptoms are not consistent with ongoing C diff, and pt tested negative at last hospitalization. Lab work without obvious etiology. Very minimally elevated lipase on outside labs, not to concerning level. No elevation inflammatory markers. Lengthy discussion with patient of differential diagnosis. Reviewed walk workup thus far. Reviewed EGD showing gastritis and we will increase Protonix to 40 mg IV daily. Will continue with the same increase Protonix Will give a trial of scopolamine to see if this helps with some of the nausea. Will decrease Zofran due to prolonged QT which occurred last night on tele. Certainly this could be due to Zofran or Valium. Amitriptyline 10 mg only 1 dose was given last night clearly this could contribute but unlikely given small dose and when the 1st dose was given. Will continue to monitor Will increase amitriptyline to 25 mg daily. Discussed side effects. Will give a trial of Marinol to help with appetite. Patient has not vomited today. Patient still with significant abdominal pain. MRCP and evaluation of the pancreas was all normal. check lipase and amylase also 2. Hypokalemia Plan: Will replace and recheck at 2:00 p.m.. 3. Anemia suspect multifactorial related to ongoing illness and poor appetite Plan: Will follow. Will check today. 4. Hypotension. Suspect patient has low normal blood pressure and at night in part related to narcotics and Valium goes down into the 80s but patient is asymptomatic Plan: Will follow 5. FEN Pending how patient does with the above changes will consider TPN 6. Microscopic colitis on oral budesonide per surgery. Decreased IV Solu-Medrol yesterday and will decrease further. IV steroids were given empirically 7. rectal bleeding Suspect related to colonoscopy prep etc.. Small amounts in loose stool. Will check CBC today. Will continue with same supportive care. - Continue Valium to help with nausea, as has been the most helpful thus far but will switch to p.o. - Continue Zofran, Pantoprazole - Continue Methylprednisolone IV for now but will decrease - Continue IV Dilaudid for pain control FEN: Clear liquids will advance as tolerated pending results of above DVT ppx: SCDs Code: Full Anticipate continued hospitalization due to unable to tolerate p.o. Time spent with patient was 63 minutes. Time spent in discussing with Radiology, nursing, reviewing chart and meeting with patient Time-Based Coding :: [TOTAL MINUTES] spent with patient and on the chart (including review of chart, obtaining history, exam, reviewing outside data, placing orders, documenting exam and treatment plan, and counseling patient) on [DATE]. Quality VTE Deep Vein Thrombosis/Pulmonary Embolism Present on Admission: No
[2023-12-29 14:57] LABS: Add Manual Diff / Slide Review NO; Basophils Absolute Auto 0 /uL (0-100); Eosinophils Absolute Auto 0 /uL (0-450); Hematocrit 35.7 % (36-46); Hemoglobin 12.2 g/dL (12.0-16.0); Lymphocytes Absolute Auto 700 /uL (1100-4500); Lymphocytes Percent Auto 12.4 % (25-40); Mean Corpuscular HGB Conc 34.2 % (30-36); Mean Corpuscular Volume 87.9 fL (80-100); Monocytes Absolute Auto 100 /uL (0-900); Monocytes Percent Auto 1.5 % (3-14); Neutrophils Absolute Auto 4800 /uL (1500-7000); Neutrophils Percent Auto 86.1 % (50-75); Platelet Count 156 X10^3/uL (150-400); Red Blood Cell Count 4.06 X10^6/uL (4.0-5.2); Red Cell Distribution Width 14.1 % (11.6-14.8); White Blood Cell Count 5.6 X10^3/uL (4.5-11.0)
[2023-12-29 15:09] LABS: Amylase 72 U/L (30-110); Lipase 407 U/L (23-300)
--- NOTE | 2023-12-29 16:22 | PC.NURSE ---
Day shift: No emesis thus far this shift. Patient continues to rate pain 8/10 in abdomen and is not tolerating PO other than water. Notified MD Wilkerson of continued low potassium - 2 more k-riders ordered and given. Lipase increased to 407. MD stated to recheck in AM. Started scopolamine patch today and decreased zofran dose to every 6 hours due to prolonged QT intervals shown on telemetry. Will continue to monitor.
[2023-12-29] MEDS: droNABinol 2.5 MG CAPSULE PO (20:24)
[2023-12-29] MEDS: AMITRIPTYLINE 25 MG TABLET PO (20:24)
[2023-12-30] VITALS (7 sets, daily range): BP systolic 86–108; BP diastolic 43–63; PULSE 50–56; RESP 16–18; TEMP 36.3–36.8; O2SAT 97–100
[2023-12-30] MEDS: SODIUM CHLORIDE 0.9% 1,000 ML 125 ML IV ×3 (01:01→15:41)
[2023-12-30 06:14] LABS: Add Manual Diff / Slide Review NO; Basophils Absolute Auto 0 /uL (0-100); Basophils Percent Auto 0.3 % (0-2); Eosinophils Absolute Auto 100 /uL (0-450); Eosinophils Percent Auto 1.1 % (2-4); Hematocrit 33.1 % (36-46); Hemoglobin 11.4 g/dL (12.0-16.0); Lymphocytes Absolute Auto 2700 /uL (1100-4500); Lymphocytes Percent Auto 44.5 % (25-40); Mean Corpuscular HGB Conc 34.5 % (30-36); Mean Corpuscular Hemoglobin 30.3 PG (26-34); Mean Corpuscular Volume 87.7 fL (80-100); Monocytes Absolute Auto 400 /uL (0-900); Monocytes Percent Auto 6.4 % (3-14); Neutrophils Absolute Auto 2900 /uL (1500-7000); Neutrophils Percent Auto 47.7 % (50-75); Platelet Count 153 X10^3/uL (150-400); Red Blood Cell Count 3.77 X10^6/uL (4.0-5.2); Red Cell Distribution Width 13.9 % (11.6-14.8)
[2023-12-30 06:28] LABS: Alanine Aminotransferase 9 IU/L (<35); Albumin 2.9 g/dL (3.5-5.0); Albumin Globulin Ratio 1.3 (1.0-2.8); Alkaline Phosphatase 39 U/L (38-126); Aspartate Aminotransferase 15 IU/L (14-36); Bilirubin Total 0.4 mg/dL (0.2-1.3); Calcium 8.3 mg/dL (8.4-10.2); Carbon Dioxide 24 mmol/L (22-32); Chloride 107 mmol/L (98-107); Estimated Glomerular Filt Rate > 60 mL/min (>60); Globulin 2.3 g/dL (1.7-4.1); Glucose 81 mg/dL (70-100); HEMOLYSIS < 15 (0-50); Potassium 2.8 mmol/L (3.4-5.1); Sodium 137 mmol/L (137-145); Total Protein 5.2 g/dL (6.3-8.2)
[2023-12-30 06:29] LABS: BUN Creatinine Ratio 3.7 (6-22); Blood Urea Nitrogen < 2 mg/dL (7-17)
[2023-12-30 06:37] LABS: Lipase 323 U/L (23-300)
[2023-12-30] MEDS: ONDANSETRON 4 MG/2 ML INJ IV ×3 (06:44→20:04)
[2023-12-30] MEDS: PANTOPRAZOLE DR 40 MG TABLET PO (06:45)
[2023-12-30] MEDS: HYDROMORPHONE 0.5 MG INJ IV ×8 (06:45→22:00)
[2023-12-30] MEDS: POTASSIUM CHLORIDE IN WATER 10 MEQ/100 ML PIGGYBACK 100 MEQ IV ×6 (07:06→12:44)
[2023-12-30] MEDS: BUDESONIDE 3 MG CAP 9 MG PO (08:23)
[2023-12-30] MEDS: droNABinol 2.5 MG CAPSULE PO ×2 (08:23→20:08)
[2023-12-30] MEDS: GABAPENTIN 300 MG CAPSULE PO (08:23)
[2023-12-30] MEDS: diazePAM 5 MG TABLET PO ×3 (08:23→22:00)
--- NOTE | 2023-12-30 08:44 | PM.PN.1 ---
Subjective Subjective Date Patient Seen: 12/30/23 Time Patient Seen: 13:03 Interval history: The pt reports ongoing significant nausea. She was able to drink some broth yesterday, but it caused significant abdominal pain. Today, she hasn't really tried much of anything due to fear over the abdominal pain. She has not had any emesis in the last 24+hrs. She has not had a BM in the last 2 days, denies any dysuria. The pain continues to be periumbilical. Exam Vital Signs (past 8 hours): - 12/30/23 03:00 12/30/23 06:00 12/30/23 08:00 Temperature 97.3 F L 97.8 F Pulse Rate 50 L 50 L Respiratory Rate 18 16 Blood Pressure 86/49 L 95/59 L 100/60 Pulse Oximetry 98 100 Oxygen Flow Rate 0 0 Oxygen Delivery Method Room Air Oxygen Flow Rate 0 Narrative Exam Narrative: Gen: NAD, appears ill, sitting in bed CV: RRR, no murmurs Resp: clear to auscultation bilaterally Abd: soft, mild tenderness to palpation periumbilical region without rebound/guarding/rigidity, no masses Ext: no edema Objective Labs 12/30/23 05:56 12/30/23 05:56 Labs: Laboratory Results - last 24 hr 12/29/23 12/30/23 13:55 05:56 WBC 5.6 6.0 RBC 4.06 3.77 L Hgb 12.2 11.4 L Hct 35.7 L 33.1 L MCV 87.9 87.7 MCH 30.0 30.3 MCHC 34.2 34.5 RDW 14.1 13.9 Plt Count 156 153 Neut % (Auto) 86.1 H D 47.7 L D Lymph % (Auto) 12.4 L D 44.5 H D [place] % (Auto) 1.5 L 6.4 Eos % (Auto) 0.0 L 1.1 L Baso % (Auto) 0.0 0.3 Neut # (Auto) 4800 2900 Lymph # (Auto) 700 L 2700 [place] # (Auto) 100 400 Eos # (Auto) 0 100 Baso # (Auto) 0 0 Sodium 137 137 Potassium 3.3 L 2.8 L Chloride 106 107 Carbon Dioxide 23 24 BUN < 2 L < 2 L Creatinine 0.50 L 0.54 Estimated GFR > 60 > 60 BUN/Creatinine Ratio 4.0 L 3.7 L Glucose 116 H 81 Calcium 8.6 8.3 L Total Bilirubin 0.4 AST 15 ALT 9 Alkaline Phosphatase 39 Total Protein 5.2 L Albumin 2.9 L Globulin 2.3 Albumin/Globulin Ratio 1.3 Amylase 72 Lipase 407 H D 323 H [facility] Medical History Asthma GERD (gastroesophageal reflux disease) (~2010) Gastritis (~2010) Back pain (~2010) Surgical History Hx of cholecystectomy History of hysterectomy (06/14/22) History of laparoscopy (04/05/22) Hx of colonoscopy (12/14/21) [place] teeth extracted (~2015) Family History Mother Cervical cancer Smoker Father Diabetes mellitus Herniated disc Spondylosis Grandmother Unknown family medical history Diabetes mellitus Smoker Cancer Hyperlipidemia Hypertension Grandfather History of heart disease Grandmother Breast cancer Grandfather Diabetes mellitus Cancer History of heart disease Hypertension Sister Faye syndrome Brother Arthritis of spine Social History marital status: number of children: 1 household members: spouse and children lives independently: Yes caregiver/support person: No housing: house pets and animals: Yes (1 dog: safe) education level: high school occupational status: unemployed current occupational exposures/hazards: No special alexandra needs: No seatbelt use: always do you feel safe at home: Yes Smoking Status: Former smoker second hand exposure: No alcohol intake: current substance use type: does not use during the past year weight has: remained stable well-balanced diet: daily or most days caffeine: Yes (1 cup coffee daily or every other day. ) Type(s) of exercise: walking and normal ROM and activity frequency: daily duration: 15-30 minutes/day Assessment & Plan Assessment & Plan narrative: 28yo woman with cholecystectomy last year and resultant chronic diarrhea, recently treated for C diff colitis and subsequently with hospitalization for intractable abdominal pain and vomiting, now presenting again with severe abdominal pain, nausea, vomiting, and cachexia. Cause of abdominal pain still unclear. Colonoscopy/endoscopy completed 12/26 with likely microscopic colitis, biopsy results still pending. EGD did show likely gastritis. Pt has been off marijuana for 11 days now, no significant improvement in symptoms. Lipase trending down. MRCP completed 12/27 negative. 1) Abdominal pain, nausea, vomiting: Mild improvement without any emesis in the last 24hrs. - Continue Valium to help with nausea, as has been the most helpful thus far - Continue IV Zofran, Pantoprazole - IV Methyprednisolone discontinued as now on Budesonide - Continue IV Dilaudid for pain control - Add IV Toradol for 6 doses for pain control as well 2) Severe acute protein calorie malnutrition: The result of abdominal pain, nausea, vomiting. Pt has lost approx 45lbs in the last month. - PICC line placement - Start TPN 3) Hypokalemia: - Potassium supplementation as per protocol 4) Microscopic colitis: - Continue Budesonide 5) Anemia: Overall stable - Continue to monitor FEN: Clear liquids will advance as tolerated pending results of above DVT ppx: SCDs Code: Full Dispo: Pending improvement in symptoms, ability to tolerate some PO. If pt without any improvement tomorrow, consider transfer to outside facility with GI specialist available. Time-Based Coding :: [TOTAL MINUTES] spent with patient and on the chart (including review of chart, obtaining history, exam, reviewing outside data, placing orders, documenting exam and treatment plan, and counseling patient) on [DATE]. Quality VTE Deep Vein Thrombosis/Pulmonary Embolism Present on Admission: No IH PROFEE Charge codes Subsequent inpatient/observation care: [id number]
[2023-12-30] MEDS: ACETAMINOPHEN 325 MG TABLET 650 MG PO (12:44)
--- NOTE | 2023-12-30 13:23 | DIET.PN1 ---
Dietary Progress Note Assessment: Per nursing staff this morning, pt continues to be unable to tolerate PO. Physician ordered for TPN to start. Pt at high risk for re-feeding syndrome with severe acute protein calorie malnutrition and on day 5 of <25% estimated energy needs + 3 weeks before hospital admission of <50% estimated energy needs. Ht: 165.1 cm Wt: 57 kg BMI: 24.1 Last BM: 12/28/23 (12/28/23 19:38) MNA: 7 Ronen Score: 19 Diet: 12/26/23 Breakfast Clear Liquid Diet Diet Modifications: Nutrition Percent Meal Consumed pt ref breakfast and lunch 12/30/23 12:00 Percent Meal Consumed 25% 12/29/23 18:00 Percent Meal Consumed 25% 12/29/23 12:00 Percent Meal Consumed pt ref breakfast 12/29/23 08:00 Labs: RBC 3.77 X10^6/uL (4.0-5.2) L 12/30/23 05:56 Hgb 11.4 g/dL (12.0-16.0) L 12/30/23 05:56 Hct 33.1 % (36-46) L 12/30/23 05:56 Creatinine 0.54 mg/dL (0.52-1.04) 12/30/23 05:56 Nutrition Diagnosis: Severe acute protein calorie malnutrition r/t inadequate PO intakes d/t abdominal pain, nausea, and vomiting as evidenced by <50% estimated energy and protein needs for 3 weeks (severe), 25% weight loss within 2 months (severe), mild muscle mass loss (temporalis, deltoid, interosseous) Interventions: 1. Spoke to pharmacy who placed order for Mg and phos labs. Pharmacy to replete as needed per protocol. 2. Continuous TPN as follows: Day 1: 21 mL/h of Clinimix 5/20 for first 24 hours. Day 2: As tolerated, advance to 1 L Clinimix 5/20 running at 42 mL/hr Day 3: As tolerated, advance to goal rate of 1.5 L Clinimix 5/20 running at 62 mL/hr with 250 mL IVFE 3x/wk Goal rate + lipids provides 1534 kcals and 75 g protein meeting 100% of EER 3. Recc monitoring K+, Mg, Phos for first 3 days of TPN d/t risk for re-feeding syndrome 4. Recc 100 mg thiamine for first 5 days of TPN EER: 9196-4754 kcals (25-30 kcals/kg per BMI) 70 protein (1.25 g/kg per PCM) Monitoring/Evaluations: labs, TPN tolerance&rate, ability to tolerate diet, will f/u tomorrow Electronically Signed by: Daniella Scott 12/30/23 13:23 Clinical Dietitian [address] [address]
[2023-12-30] MEDS: KETOROLAC 30 MG/ML VIAL IV ×2 (13:26→20:08)
[2023-12-30 13:31] LABS: Phosphorous 3.4 mg/dL (2.5-4.5)
--- NOTE | 2023-12-30 14:43 | CM.DPC ---
DCP Cont: Per Surgeon, pt continues to not tolerate advancing diet with ongoing nausea and pain and remains with strict clears and orders placed for [facility] to initiate TPN for adequate intake. Not yet medically stable to discharge and r/o possible pancreatitis. DON Quezada
--- NOTE | 2023-12-30 16:52 | DI.RAD.S_ITS ---
PROCEDURE: XR CHEST FOR PICC 1V INDICATIONS: line placement COMPARISON: [facility], CR, XR CHEST 1V, 12/25/2023, 13:48. FINDINGS: PICC was placed by the intravenous therapy team from the left side. Fluoroscopic spot film demonstrates the tip of PICC projecting to the area of cavoatrial junction. IMPRESSION: Tip of PICC projects to the area of cavoatrial junction. Dictated by: Irene Anderson M.D. on 12/30/2023 at 17:26 Approved by: Irene Anderson M.D. on 12/30/2023 at 17:26
[2023-12-30] MEDS: FAT EMULSIONS 50 GM/250 ML EMULSION IV (17:59)
[2023-12-30] MEDS: AA 5 %/CALCIUM/LYTES/DEXT 20 % 500 ML with MULTIVITAMIN 10 ML, TRACE ELEMENTS 1 ML, THI... 21.333 ML IV (18:08)
[2023-12-30] MEDS: TPN PER PHARMACY 1 REQUEST MISC (18:09)
--- NOTE | 2023-12-30 18:45 | PC.NURSE ---
Day shift: Weighed patient on standing scale. 68kg on scale, though stated weight on admit was 57kg. Weight today is acute, which increases her BMI significantly. Let NOC RN know at shift report and called pharmacist Saroj to let him know of weight discrepancy to double check about medication. He stated no medications currently ordered that are strictly weight-based. This RN is not currently concerned about fluid overload as patient does not have crackles in lungs, no edema, no O2 requirements or labored breathing. Will let MD Philip know in the AM.
[2023-12-30] MEDS: AMITRIPTYLINE 25 MG TABLET PO (19:59)
[2023-12-31] MEDS: HYDROMORPHONE 0.5 MG INJ IV ×11 (00:07→22:43)
[2023-12-31] MEDS: SODIUM CHLORIDE 0.9% 1,000 ML 125 ML IV ×2 (00:08→08:49)
[2023-12-31] MEDS: ONDANSETRON 4 MG/2 ML INJ IV ×4 (02:01→19:57)
[2023-12-31] MEDS: KETOROLAC 30 MG/ML VIAL IV ×5 (02:01→21:45)
[2023-12-31 03:00] VITALS: BP 87/45; PULSE 55; RESP 16; TEMP 36.4; O2SAT 99
[2023-12-31 04:29] LABS: Add Manual Diff / Slide Review NO; Basophils Absolute Auto 0 /uL (0-100); Basophils Percent Auto 0.5 % (0-2); Eosinophils Absolute Auto 200 /uL (0-450); Eosinophils Percent Auto 3.3 % (2-4); Hematocrit 32.8 % (36-46); Hemoglobin 11.5 g/dL (12.0-16.0); Lymphocytes Absolute Auto 2400 /uL (1100-4500); Lymphocytes Percent Auto 44.1 % (25-40); Mean Corpuscular HGB Conc 35.2 % (30-36); Mean Corpuscular Hemoglobin 30.4 PG (26-34); Mean Corpuscular Volume 86.4 fL (80-100); Monocytes Absolute Auto 300 /uL (0-900); Monocytes Percent Auto 5.2 % (3-14); Neutrophils Absolute Auto 2600 /uL (1500-7000); Neutrophils Percent Auto 46.9 % (50-75); Platelet Count 160 X10^3/uL (150-400); Red Cell Distribution Width 13.8 % (11.6-14.8); White Blood Cell Count 5.5 X10^3/uL (4.5-11.0)
[2023-12-31 04:35] LABS: Sodium 136 mmol/L (137-145)
[2023-12-31 04:37] LABS: Alanine Aminotransferase 9 IU/L (<35); Albumin 2.9 g/dL (3.5-5.0); Albumin Globulin Ratio 1.2 (1.0-2.8); Amylase 65 U/L (30-110); Aspartate Aminotransferase 15 IU/L (14-36); Calcium 8.3 mg/dL (8.4-10.2); Carbon Dioxide 28 mmol/L (22-32); Chloride 104 mmol/L (98-107); Estimated Glomerular Filt Rate > 60 mL/min (>60); Globulin 2.4 g/dL (1.7-4.1); Glucose 105 mg/dL (70-100); Potassium 2.8 mmol/L (3.4-5.1); Total Protein 5.3 g/dL (6.3-8.2)
[2023-12-31 04:39] LABS: Alkaline Phosphatase 37 U/L (38-126); BUN Creatinine Ratio 5.1 (6-22); Bilirubin Total 0.5 mg/dL (0.2-1.3); Blood Urea Nitrogen 2 mg/dL (7-17); HEMOLYSIS 19 (0-50); Lipase 255 U/L (23-300)
[2023-12-31] MEDS: PANTOPRAZOLE DR 40 MG TABLET PO (05:55)
[2023-12-31 07:00] VITALS: BP 113/51; PULSE 62; RESP 16; TEMP 36.3; O2SAT 100
[2023-12-31 08:00] VITALS: O2SAT 100
--- NOTE | 2023-12-31 08:16 | PM.PN.1 ---
Subjective <Caroline Aguilar - Last Filed: 12/31/23 10:50> Subjective Date Patient Seen: 12/31/23 Time Patient Seen: 08:00 Interval history: Patient had significant pain over night. Reports it woke her every two hours. No episodes of vomiting. Has not had any bowel movements in a few days. No BRBPR. Pain remains periumbilical but reports it spreads around when she moves. Exam <Caroline Aguilar - Last Filed: 12/31/23 10:50> Vital Signs (past 8 hours): - 12/31/23 03:00 Temperature 97.5 F L Pulse Rate 55 L Respiratory Rate 16 Blood Pressure 87/45 L Pulse Oximetry 99 Oxygen Flow Rate 0 Oxygen Delivery Method Room Air Oxygen Flow Rate 0 Const General: ill appearing Orientation: alert and awake Resp Effort & Inspection: normal respiratory effort Auscultation: clear to auscultation bilaterally, no rhonchi and no wheezes Cardio Rate: regular rate Rhythm: regular rhythm GI Inspection: normal to inspection Palpation: soft, No rigid and tender (periumbilical mod tender. Mild tenderness R&LLQ. No epigastric tenderness) Objective <Caroline Aguilar - Last Filed: 12/31/23 10:50> Labs 12/31/23 04:10 12/31/23 04:10 Labs: Laboratory Results - last 24 hr 12/30/23 12/31/23 05:56 04:10 WBC 5.5 RBC 3.80 L Hgb 11.5 L Hct 32.8 L MCV 86.4 MCH 30.4 MCHC 35.2 RDW 13.8 Plt Count 160 Neut % (Auto) 46.9 L Lymph % (Auto) 44.1 H [place] % (Auto) 5.2 Eos % (Auto) 3.3 Baso % (Auto) 0.5 Neut # (Auto) 2600 Lymph # (Auto) 2400 [place] # (Auto) 300 Eos # (Auto) 200 Baso # (Auto) 0 Sodium 136 L Potassium 2.8 L Chloride 104 Carbon Dioxide 28 BUN 2 L Creatinine 0.39 L Estimated GFR > 60 BUN/Creatinine Ratio 5.1 L Glucose 105 H Calcium 8.3 L Phosphorus 3.4 D Magnesium 2.0 Total Bilirubin 0.5 AST 15 ALT 9 Alkaline Phosphatase 37 L Total Protein 5.3 L Albumin 2.9 L Globulin 2.4 Albumin/Globulin Ratio 1.2 Amylase 65 Lipase 255 PFSH <Caroline Aguilar - Last Filed: 12/31/23 10:50> Medical History Asthma GERD (gastroesophageal reflux disease) (~2010) Gastritis (~2010) Back pain (~2010) Surgical History Hx of cholecystectomy History of hysterectomy (06/14/22) History of laparoscopy (04/05/22) Hx of colonoscopy (12/14/21) [place] teeth extracted (~2015) Family History Mother Cervical cancer Smoker Father Diabetes mellitus Herniated disc Spondylosis Grandmother Unknown family medical history Diabetes mellitus Smoker Cancer Hyperlipidemia Hypertension Grandfather History of heart disease Grandmother Breast cancer Grandfather Diabetes mellitus Cancer History of heart disease Hypertension Sister Faye syndrome Brother Arthritis of spine Social History marital status: number of children: 1 household members: spouse and children lives independently: Yes caregiver/support person: No housing: house pets and animals: Yes (1 dog: safe) education level: high school occupational status: unemployed current occupational exposures/hazards: No special alexandra needs: No seatbelt use: always do you feel safe at home: Yes Smoking Status: Former smoker second hand exposure: No alcohol intake: current substance use type: does not use during the past year weight has: remained stable well-balanced diet: daily or most days caffeine: Yes (1 cup coffee daily or every other day. ) Type(s) of exercise: walking and normal ROM and activity frequency: daily duration: 15-30 minutes/day Assessment & Plan <Caroline Aguilar - Last Filed: 12/31/23 10:50> Assessment & Plan narrative: 28yo woman with cholecystectomy last year and resultant chronic diarrhea, presenting with several months of intractable abdominal pain, nausea and vomiting. Treated for C diff colitis 11/2023, but continued symptoms of abdominal pain and nausea, now presenting again with severe abdominal pain, nausea, vomiting, and cachexia. Cause of abdominal pain still unclear. Colonoscopy/endoscopy completed 12/26 with likely microscopic colitis, biopsy results still pending. EGD did show likely gastritis. MRCP completed 12/27 negative. Pt has been off marijuana for 11 days now, with no significant improvement in symptoms. Vomiting has resolved with medications, but persistent abdominal pain, and unable to tolerate PO intake for several days. 1) Abdominal pain, nausea, vomiting: Mild improvement without any emesis in the last 24hrs. - Continue Valium to help with nausea, as has been the most helpful thus far - Continue IV Zofran, Pantoprazole - IV Methyprednisolone discontinued as now on Budesonide - Continue IV Dilaudid for pain control - IV Toradol for 6 doses for pain - Discussed case with GI provider, recommending repeat CT scan; Dr. Anna to review imaging and case, appreciate recommendations - Initiate bentyl for abdominal cramping 2) Severe acute protein calorie malnutrition: The result of abdominal pain, nausea, vomiting. Pt has lost approx 45lbs in the last month. - TPN initiated - continue to monitor labs 3) Hypokalemia: - Potassium supplementation as per protocol 4) Microscopic colitis: - Continue Budesonide 5) Anemia: Overall stable - Continue to monitor Time-Based Coding :: [TOTAL MINUTES] spent with patient and on the chart (including review of chart, obtaining history, exam, reviewing outside data, placing orders, documenting exam and treatment plan, and counseling patient) on [DATE]. <Alyssa Philip MD - Last Filed: 12/31/23 14:18> Assessment & Plan narrative: 28yo woman with cholecystectomy last year and resultant chronic diarrhea, presenting with several months of intractable abdominal pain, nausea and vomiting. Treated for C diff colitis 11/2023, but continued symptoms of abdominal pain and nausea, now presenting again with severe abdominal pain, nausea, vomiting, and cachexia. Cause of abdominal pain still unclear. Colonoscopy/endoscopy completed 12/26 with likely microscopic colitis, biopsy results still pending. EGD did show likely gastritis. MRCP completed 12/27 negative. Pt has been off marijuana for 12 days now, with no significant improvement in symptoms. Vomiting has resolved with medications, but persistent abdominal pain, and unable to tolerate PO intake for nearly 11 days now. 1) Abdominal pain, nausea, vomiting: Mild improvement without any emesis in the last 24hrs. - Continue Valium to help with nausea, as has been the most helpful thus far - Continue IV Zofran, Pantoprazole - Continue IV Dilaudid for pain control - IV Toradol for 6 doses for pain - Discussed case with GI provider, recommending repeat CT scan; Dr. Anna to review imaging and case, appreciate recommendations - Initiate Bentyl for abdominal cramping 2) Severe acute protein calorie malnutrition: The result of abdominal pain, nausea, vomiting. Pt has lost approx 45lbs in the last month. - TPN initiated, will start slow due to risk of refeeding syndrome - continue to monitor labs 3) Hypokalemia: - Potassium supplementation as per protocol 4) Microscopic colitis: - Continue Budesonide 5) Anemia: Overall stable - Continue to monitor I reviewed the care of this pt with Dr Aguilar, R2. I personally performed a physical exam, and confirmed medical decision making. As an update to the plan, CT abd/pelvis without cause for pain identified. Did not bladder distension, however pt voided 1200cc after scan, with 400+cc still in the bladder afterwards. No improvement in pain after voiding. She has been limiting voids due to pain with movement. Voided again 800cc 1hr later, and still with 400+cc in the bladder. Due to this, will place perkins catheter to allow for full emptying of the bladder. U/A will also be run. Do not suspect kidney stone as cause of her pain. Awaiting call back from Dr Anna after his review of imaging as well. Dr Cooper saw the pt again today as well. After discussion, recommend diagnostic laparoscopy to evaluate for adhesions as potential cause for severe pain. Quality <Caroline Aguilar - Last Filed: 12/31/23 10:50> VTE Deep Vein Thrombosis/Pulmonary Embolism Present on Admission: No
[2023-12-31] MEDS: ACETAMINOPHEN 325 MG TABLET 650 MG PO (08:33)
[2023-12-31] MEDS: droNABinol 2.5 MG CAPSULE PO ×2 (08:49→21:39)
--- NOTE | 2023-12-31 10:08 | DI.CT.S_ITS ---
PROCEDURE: CT ABDOMEN PELVIS W CON INDICATIONS: abdominal pain TECHNIQUE: After the administration of intravenous contrast, axial sections acquired from the lung bases to the pubic symphysis. Coronal and sagittal reformats were performed. For radiation dose reduction, the following was used: automated exposure control, adjustment of mA and/or kV according to patient size. COMPARISON: [facility], CT, CT ABDOMEN PELVIS W CON, 12/18/2023, 17:55. FINDINGS: Image quality: Diagnostic. Lower Chest: No significant findings. ABDOMEN: Liver: No solid mass. Gallbladder: Gallbladder is surgically absent. Biliary ducts: No biliary dilation. Pancreas: No ductal dilation. Spleen: Size is within normal limits. Adrenal Glands: No adrenal nodules. Kidneys and Ureters: There is right worse than left bilateral hydronephrosis and hydroureter extending to the level of bilateral UVJ so without obstructing renal stones or ureteral stones. No solid mass. No complex renal cystic lesion which requires follow up. Stomach and Bowel: Normal colonic caliber, without significant wall thickening. Appendix is normal in size and appearance. No abnormal mesenteric fat stranding. No drainable abscess collection. Peritoneum: No abdominal free fluid. Small amount of free fluid is seen in lower pelvis. No free air. Ventral Wall: No significant ventral hernia. Abdominal Nodes: No retroperitoneal or mesenteric adenopathy by size criteria. Vessels: Aorta and inferior vena cava are normal in size. PELVIS: Pelvic Organs: There is a hysterectomy. Left-sided ovarian cyst measures 2.2 x 2.8 cm in size is seen not noted on previous study. Series 2, image 106. No gross abnormality is seen in right ovary. Bladder: Markedly distended urinary bladder. No bladder wall thickening. No calcified bladder wall mass. Pelvic Nodes: No enlarged lymph nodes. Miscellaneous: No inguinal hernias are seen. Bones: No aggressive osseous abnormality. IMPRESSION: 1. Interval development of right worse than left bilateral mild hydronephrosis and hydroureter extending to the level of UVJ. No obstructing stone is seen. Distended urinary bladder without gross bladder wall abnormality or calcified bladder stones. Finding could represent reflux secondary to urinary outlet obstruction versus recently passed bilateral renal stones. 2. Suggestion of left ovarian cyst as above. Patient is status post hysterectomy. No gross abnormality is seen in right ovary. 3. No bowel obstruction or abnormal bowel wall thickening. Normal appendix. No abscess collection. Small amount of pelvic free fluid. No peritoneal free air. Dictated by: Campos Vieira M.D. on 12/31/2023 at 10:41 Approved by: Campos Vieira M.D. on 12/31/2023 at 10:47
[2023-12-31] MEDS: BUDESONIDE 3 MG CAP 9 MG PO (10:35)
[2023-12-31 10:48] LABS: Phosphorous 4.1 mg/dL (2.5-4.5)
[2023-12-31 10:51] LABS: Magnesium 2.1 mg/dL (1.6-2.3)
--- NOTE | 2023-12-31 10:52 | EKG_ITS ---
[address] [address] Test Date: 2023-12-31 Pat Name: Emilia Wasserman Department: [facility] Room: 204 Gender: Female Cabin Supervisor: VICTOR M : 1995 Requested By: Order Number: [id number] Reading MD: Kurtis White Measurements Intervals [place] Rate: 53 P: 56 [place]: 160 QRS: 0 QRSD: 90 T: 28 QT: 466 QTc: 437 Interpretive Statements Sinus bradycardia Electronically Signed On 12-31-2023 14:44:42 PDT by Kurtis White
[2023-12-31 11:00] VITALS: BP 121/69; PULSE 72; RESP 16; TEMP 36.6; O2SAT 99
[2023-12-31] MEDS: POTASSIUM CHLORIDE IN WATER 10 MEQ/100 ML PIGGYBACK 100 MEQ IV ×4 (11:03→15:41)
--- NOTE | 2023-12-31 13:24 | DIET.PN1 ---
Dietary Progress Note Assessment: Weight was updated in chart. Despite weight being higher than initial pt reported weight, pt still has lost 10% of her body weight within the last 2 months, which is severe. TPN advancing to 1 L tonight. Ht: 165.1 cm Wt: 68.606 kg BMI: 25.2 UBW: 75.92 kg on 11/08/23 (-10% weight loss within 2 months, severe) Last BM: 12/28/23 (12/28/23 19:38) MNA: 7 Ronen Score: 21 Diet: 12/26/23 Breakfast Clear Liquid Diet Diet Modifications: Nutrition Percent Meal Consumed 25% 12/31/23 12:00 Percent Meal Consumed pt ref breakfast, on tpn 12/31/23 08:00 Percent Meal Consumed 25% 12/30/23 19:00 Percent Meal Consumed pt ref dinner 12/30/23 16:00 Percent Meal Consumed pt ref breakfast and lunch 12/30/23 12:00 Percent Meal Consumed 25% 12/29/23 18:00 Labs: RBC 3.80 X10^6/uL (4.0-5.2) L 12/31/23 04:10 Hgb 11.5 g/dL (12.0-16.0) L 12/31/23 04:10 Hct 32.8 % (36-46) L 12/31/23 04:10 Creatinine 0.39 mg/dL (0.52-1.04) L 12/31/23 04:10 Updated* Nutrition Diagnosis: Severe acute protein calorie malnutrition r/t abdominal pain, nausea, and vomiting as evidenced by <50% estimated energy and protein needs for 3 weeks (severe), 10% weight loss within 2 months (severe), mild muscle mass loss (temporalis, deltoid, interosseous) EER*: 1700 kcals (25 kcals/kg per BMI) 85 protein (1.25 g/kg per PCM) TPN goal rate still meets >85% EER. No changes to TPN reccs made on 12/30/23. *updated based on new weight taken by RN. Electronically Signed by: Daniella Scott 12/31/23 13:24 Clinical Dietitian [address] [id number]
--- NOTE | 2023-12-31 13:43 | CM.DPC ---
DCP Cont. Reviewed EMR and team rounds for status updates. Pt has continued to have severe pain, has now lost 45-lbs in one month. She was started on TPN today, GI has been consulted and is monitoring progress. No immediate d/c plan in sight at this time. She is hopeful to d/c home to family once symptoms have resolved, although they were as of yesterday considering transferring her. Continuing to monitor closely for final d/c needs and recommendations.
--- NOTE | 2023-12-31 13:53 | PM.PN.1 ---
Subjective Subjective Date Patient Seen: 12/31/23 Time Patient Seen: 13:53 Interval history: No significant improvement over the past 4 days since starting budesonide for possible microscopic colitis. Biopsy result pending. Began TPN for severe malnutrtion Exam Vital Signs (past 8 hours): - 12/31/23 07:00 12/31/23 08:00 12/31/23 08:00 Temperature 97.3 F L Pulse Rate 62 Respiratory Rate 16 Blood Pressure 113/51 L Pulse Oximetry 100 100 Oxygen Delivery Method Room Air Room Air Oxygen Flow Rate 0 0 12/31/23 11:00 Temperature 97.8 F Pulse Rate 72 Respiratory Rate 16 Blood Pressure 121/69 Pulse Oximetry 99 Oxygen Delivery Method Oxygen Flow Rate 0 Oxygen Delivery Method Room Air Oxygen Flow Rate 0 Objective Labs 12/31/23 04:10 12/31/23 04:10 Labs: Laboratory Results - last 24 hr 12/31/23 04:10 WBC 5.5 RBC 3.80 L Hgb 11.5 L Hct 32.8 L MCV 86.4 MCH 30.4 MCHC 35.2 RDW 13.8 Plt Count 160 Neut % (Auto) 46.9 L Lymph % (Auto) 44.1 H Victoria % (Auto) 5.2 Eos % (Auto) 3.3 Baso % (Auto) 0.5 Neut # (Auto) 2600 Lymph # (Auto) 2400 Victoria # (Auto) 300 Eos # (Auto) 200 Baso # (Auto) 0 Sodium 136 L Potassium 2.8 L Chloride 104 Carbon Dioxide 28 BUN 2 L Creatinine 0.39 L Estimated GFR > 60 BUN/Creatinine Ratio 5.1 L Glucose 105 H Calcium 8.3 L Phosphorus 4.1 Magnesium 2.1 Total Bilirubin 0.5 AST 15 ALT 9 Alkaline Phosphatase 37 L Total Protein 5.3 L Albumin 2.9 L Globulin 2.4 Albumin/Globulin Ratio 1.2 Amylase 65 Lipase 255 [facility] Medical History Asthma GERD (gastroesophageal reflux disease) (~2010) Gastritis (~2010) Back pain (~2010) Surgical History Hx of cholecystectomy History of hysterectomy (06/14/22) History of laparoscopy (04/05/22) Hx of colonoscopy (12/14/21) [place] teeth extracted (~2016) Family History Mother Cervical cancer Smoker Father Diabetes mellitus Herniated disc Spondylosis Grandmother Unknown family medical history Diabetes mellitus Smoker Cancer Hyperlipidemia Hypertension Grandfather History of heart disease Grandmother Breast cancer Grandfather Diabetes mellitus Cancer History of heart disease Hypertension Sister Faye syndrome Brother Arthritis of spine Social History marital status: number of children: 1 household members: spouse and children lives independently: Yes caregiver/support person: No housing: house pets and animals: Yes (1 dog: safe) education level: high school occupational status: unemployed current occupational exposures/hazards: No special alexandra needs: No seatbelt use: always do you feel safe at home: Yes Smoking Status: Former smoker second hand exposure: No alcohol intake: current substance use type: does not use during the past year weight has: remained stable well-balanced diet: daily or most days caffeine: Yes (1 cup coffee daily or every other day. ) Type(s) of exercise: walking and normal ROM and activity frequency: daily duration: 15-30 minutes/day Assessment & Plan Assessment and plan (1) Abnormal weight loss: Status: Acute Assessment & Plan narrative: 28 with intractable abdominal pain of unclear etiology. -continue budesonide for possible microscopic colitis, f/u biopsy result -discussed possible diagnostic laparoscopy for abdominal pain. She will consider and speak with . NPO after midnight Time-Based Coding :: [TOTAL MINUTES] spent with patient and on the chart (including review of chart, obtaining history, exam, reviewing outside data, placing orders, documenting exam and treatment plan, and counseling patient) on [DATE]. Quality VTE Deep Vein Thrombosis/Pulmonary Embolism Present on Admission: No
[2023-12-31] MEDS: DICYCLOMINE 10 MG CAPSULE PO ×3 (13:56→23:42)
--- NOTE | 2023-12-31 14:25 | PC.NURSE ---
[place] Cath placed (14F) with ease, patient tolerated well. Immediately received roughly 500cc of urine out of bladder post placement.
[2023-12-31 15:00] VITALS: BP 94/54; PULSE 65; RESP 16; TEMP 36.3; O2SAT 98
[2023-12-31 15:08] LABS: Appearance Urine UA CLEAR; Bilirubin Urine UA NEGATIVE (NEGATIVE); Color Urine UA YELLOW; Glucose Urine UA NEGATIVE (Negative); Ketones Urine UA 1+ (NEGATIVE); Leukocyte Esterase Urine UA NEGATIVE (NEGATIVE); Nitrite Urine UA NEGATIVE (Negative); Occult Blood Urine UA 1+ (Negative); Protein Urine UA NEGATIVE (Negative); Urobilinogen Urine UA 0.2 E.U./dL (0.2)
[2023-12-31 15:15] LABS: Bacteria Urine Occasional (0-1); Culture Indicated Urine Cult Not Indicated; RBC Urine 0-1/HPF (0-5/HPF); Squamous Epithelial Cell Urine 0-1 /HPF (0-5/HPF); Urine Volume 10mL (spun); WBC Urine 0-1/HPF (0-5/HPF)
[2023-12-31] MEDS: [UNRECOGNIZED DRUG - OTHER] IV (16:56)
[2023-12-31] MEDS: POTASSIUM CHLORIDE IV (16:56)
[2023-12-31] MEDS: LYTES IV (16:56)
[2023-12-31] MEDS: DEXT IV (16:56)
[2023-12-31] MEDS: CALCIUM IV (16:56)
[2023-12-31] MEDS: ONDANSETRON 4 MG ODT SL (17:14)
[2023-12-31 20:00] VITALS: BP 97/55; PULSE 62; RESP 16; TEMP 36.2; O2SAT 98
--- NOTE | 2023-12-31 20:04 | PC.NURSE ---
Abd pain is still present. made aware. Pt was sent off for another CT scan. Showed bladder extremely full. When pt returned she was bladder scanned for > 999, Pt then voided 1200mls. She then had a post void residual of 427.,,
[2023-12-31] MEDS: AMITRIPTYLINE 25 MG TABLET PO (21:39)
[2023-12-31] MEDS: SODIUM CHLORIDE 0.9% 1,000 ML 100 ML IV (22:43)
[2023-12-31] MEDS: diazePAM 5 MG TABLET PO (23:42)
[2024-01-01] VITALS (18 sets, daily range): BP systolic 88–132; BP diastolic 45–88; PULSE 58–99; RESP 16–24; TEMP 35.9–36.6; O2SAT 93–100; BMI 25.1
--- NOTE | 2024-01-01 | PATH_ITS ---
[facility] Accession Number: [id number] No. of containers..01 Tissue . 01 Material submitted: . colon - CECUM . 01 Clinical history: . 01/03/2024 PER TOBY (OR), 1 PART SUBMITTED CECUM - JEG . 01 Diagnosis: CECUM, SEGMENTAL RESECTION: Segment of ileum and cecum with focal mucosal ischemia of the ileocecal valve, consistent with operative impression of volvulus. Fibrous obliteration of the appendix. Five benign pericolonic lymph nodes. Negative for granulomas, dysplasia, or malignancy. Histologically viable margins of resection. MRV 01/07/2024 1508 Local . 01 Electronically signed: . Javad Cervantes MD, PhD, Pathologist NPI- [id number] . 01 Gross description: . Received in formalin with two patient identifiers and cecum, consists of a right hemicolectomy to include a 2.1 cm in length by 2.8 cm in diameter distal segment of ileum and a 3.8 cm in length by 7.5 cm in circumference segment of cecum with an attached 4.8 cm in length by 0.4 cm in diameter, unremarkable appendix. The proximal margin is inked blue, the distal margin is inked orange, and the base of the appendix is inked green. The distal ileum has a oliveira-ca, smooth, glistening serosal surface with an unremarkable white fibrotic bowel wall averaging 0.2 cm in thickness, and a oliveira-green coarsely granular intestinal mucosa within normal intestinal folds. The ileocecal valve is oliveira-yellow, fatty, and focally hyperemic with a 0.5 x 0.4 x 0.2 cm, slight central ulceration. The cecum has a smooth, oliveira-ca, serosal surface with a bowel wall averaging 0.2 cm in thickness. The mucosa of the cecum is oliveira-yellow, finely granular, and otherwise unremarkable within normal intestinal folds. The attached appendix has a smooth, glistening serosal surface with an appendiceal wall averaging 0.1 cm in thickness and a 0.2 cm stellate lumen. The appendiceal orifice is probe patent and otherwise unremarkable. There is moderate amount of attached pericecal adipose tissue which is further examined to show five red-oliveira encapsulated lymph nodes ranging from 0.4 x 0.4 x 0.4 cm up to 0.7 x 0.6 x 0.4 cm. Tube Buffer sections are submitted as follows: . A1: Proximal margin. A2: Distal margin. A3: Ileocecal valve to include ulceration. A4: Tube Buffer sections of cecum. A5: Appendix. A6: Five lymph nodes. ([id number]) /MRV 01/03/2024 [facility] Local . 01 Pathologist provided ICD-10: K56.2 . 01 CPT . 638545 Performed at: [address] [address], [place], [place] [id number] MD Merritt Gould MD Phone: [phone]
--- NOTE | 2024-01-01 | PATH_ITS ---
Note [facility] Accession Number: [id number] TESTS RESULT FLAG UNITS REF RANGE LAB Clinician Provided Cytology Information No. of containers..01 Other (Miscellaneous) Source: PERITONEAL FLUID DIAGNOSIS: PERITONEAL FLUID, WASHING NEGATIVE FOR MALIGNANT CELLS. REACTIVE MESOTHELIAL CELLS ARE PRESENT. THIS INTERPRETATION INCLUDES EVALUATION OF A CELL BLOCK. Pathologist ICD10: R10.30 Signed out by: Jaquan Starks MD, Pathologist NPI- [id number] Performed by: Grayson Vega, Child Care Director ([facility]) Gross description: 4 CC, YELLOW, CLEAR RECEIVED: FRESH IN BLUE CAP CONTAINER.VO /VDU 01/02/2024 0700 Local FLAG LEGEND: L-Low Normal,H-High Normal,LL-Alert Low,HH-Alert High <-Panic Low,>-Panic High,A-Abnormal,AA-Critical Abnormal Performed at: 01 =Z [facility] [address], [place] [address] Merritt Gould MD, Specimen Comment: A courtesy copy of this report has been sent to [phone] Specimen Comment: A duplicate report has been generated due to demographic updates. Performed at: [address] [facility] [address], [place], [place] [id number] MD Merritt Gould MD Phone: [phone]
--- NOTE | 2024-01-01 04:14 | PC.NURSE ---
Patient C/O pain 11/11 requesting Dilauidid 0.5 mg. IVP. Her B/P only 90/45 with the MAP of [address] HR. 61. Dr[address] Wilkerson notified via answering service, awaiting call back. Will also notify Dr. Wilkerson with her pain level always @ 11/11 & she finally was able to sleep for few hours after medicated with 5 mg. of Diazepam PO. Will monitor.
--- NOTE | 2024-01-01 04:56 | PC.NURSE ---
Dr. Wilkerson called back notified her low B/P 90/45 & MAP 55. Ordered to go ahead give Dilaudid even her systolic B/P is in the 90s. Will cont. plan of care & monitor.
[2024-01-01 05:03] LABS: BUN Creatinine Ratio 6.7 (6-22); Blood Urea Nitrogen 3 mg/dL (7-17); Calcium 8.6 mg/dL (8.4-10.2); Carbon Dioxide 32 mmol/L (22-32); Chloride 105 mmol/L (98-107); Estimated Glomerular Filt Rate > 60 mL/min (>60); Glucose 113 mg/dL (70-100); HEMOLYSIS < 15 (0-50); Magnesium 2.2 mg/dL (1.6-2.3); Phosphorous 4.2 mg/dL (2.5-4.5); Potassium 3.3 mmol/L (3.4-5.1); Sodium 138 mmol/L (137-145); Triglycerides 94 mg/dL (35-150)
--- NOTE | 2024-01-01 05:08 | PC.NURSE ---
Rechecked patient now & she's asleep, will monitor.
[2024-01-01] MEDS: HYDROMORPHONE 0.5 MG INJ IV ×6 (05:48→22:14)
[2024-01-01] MEDS: PANTOPRAZOLE DR 40 MG TABLET PO (05:50)
[2024-01-01] MEDS: DICYCLOMINE 10 MG CAPSULE PO (05:50)
--- NOTE | 2024-01-01 08:08 | P.PN_ITS ---
Subjective <Caroline Aguilar - Last Filed: 01/01/24 10:11> Subjective Date Patient Seen: 01/01/24 Time Patient Seen: 08:00 Interval history: Emilia continues to have persistent pain without change. Remains periumbilical. Did not decrease at all even though she is now strict NPO for upcoming procedure. No vomiting, and feels nausea is improved with scopolamine patch and consistency with her Zofran. No new symptoms, denies coughing, feeling feverish, or diaphoresis. No chest pain, or palpitations with string of irregular beats yesterday. ONe episode of lightheadedness, but it was when she sat up too quickly. Exam <Caroline Aguilar - Last Filed: 01/01/24 10:11> Vital Signs (past 8 hours): - 01/01/24 04:00 01/01/24 05:51 01/01/24 08:01 Temperature 97.7 F 97.8 F Pulse Rate 58 L 61 65 Respiratory Rate 18 17 Blood Pressure 90/45 L 101/53 L 88/54 L Pulse Oximetry 97 100 Oxygen Flow Rate 0 Oxygen Delivery Method Room Air Oxygen Flow Rate 0 Const General: ill appearing Resp Effort & Inspection: normal respiratory effort and no respiratory distress Auscultation: clear to auscultation bilaterally, no rhonchi and no wheezes Cardio Rate: regular rate Rhythm: regular rhythm Heart Sounds: no murmurs GI Inspection: normal to inspection Palpation: soft and tender (deb-umbilical tenderness unchanged. ) Objective <Caroline Aguilar - Last Filed: 01/01/24 10:11> Labs 01/03/24 05:40 01/03/24 05:40 Labs: Laboratory Results - last 24 hr 12/31/23 12/31/23 01/01/24 04:10 12:50 04:02 Sodium 138 Potassium 3.3 L Chloride 105 Carbon Dioxide 32 BUN 3 L Creatinine 0.45 L Estimated GFR > 60 BUN/Creatinine Ratio 6.7 Glucose 113 H Calcium 8.6 Phosphorus 4.1 4.2 Magnesium 2.1 2.2 Triglycerides 94 Urine Color Yellow Urine Appearance Clear Urine pH 7.0 Ur Specific [place] 1.010 Urine Protein Negative Urine Glucose (UA) Negative Urine Ketones 1+ H Urine Occult Blood 1+ H Urine Nitrate Negative Urine Bilirubin Negative Urine Urobilinogen 0.2 Ur Leukocyte Esterase Negative Urine RBC 0-1/hpf Urine WBC 0-1/hpf Ur Squamous Epith Cells 0-1 /hpf Urine Bacteria Occasional (0-1) Ur Culture Indicated? Cult not indicated Vol Urine Centrifuged 10ml (spun) PFSH <Caroline Aguilar - Last Filed: 01/01/24 10:11> Medical History (Updated 01/02/24 @ 00:01 by ) Asthma GERD (gastroesophageal reflux disease) (~2010) Gastritis (~2010) Back pain (~2010) Surgical History (Updated 01/02/24 @ 08:35 by John Herr MD) S/P colon resection (01/01/24) Hx of cholecystectomy History of hysterectomy (06/14/22) History of laparoscopy (04/05/22) Hx of colonoscopy (12/14/21) [place] teeth extracted (~2015) Family History Mother Cervical cancer Smoker Father Diabetes mellitus Herniated disc Spondylosis Grandmother Unknown family medical history Diabetes mellitus Smoker Cancer Hyperlipidemia Hypertension Grandfather History of heart disease Grandmother Breast cancer Grandfather Diabetes mellitus Cancer History of heart disease Hypertension Sister Faye syndrome Brother Arthritis of spine Social History marital status: number of children: 1 household members: spouse and children lives independently: Yes caregiver/support person: No housing: house pets and animals: Yes (1 dog: safe) education level: high school occupational status: unemployed current occupational exposures/hazards: No special alexandra needs: No seatbelt use: always do you feel safe at home: Yes Smoking Status: Former smoker second hand exposure: No alcohol intake: current substance use type: does not use during the past year weight has: remained stable well-balanced diet: daily or most days caffeine: Yes (1 cup coffee daily or every other day. ) Type(s) of exercise: walking and normal ROM and activity frequency: daily duration: 15-30 minutes/day Assessment & Plan <Caroline Aguilar - Last Filed: 01/01/24 10:11> Assessment & Plan narrative: 28yo woman with cholecystectomy last year and resultant chronic diarrhea, presenting with several months of intractable abdominal pain, nausea and vomiting. Treated for C diff colitis 11/2023, but continued symptoms of abdominal pain and nausea, now presenting again with severe abdominal pain, nausea, vomiting, and cachexia. Cause of abdominal pain still unclear. Colonoscopy/endoscopy completed 12/26 with likely microscopic colitis, biopsy results still pending. EGD did show likely gastritis. MRCP completed 12/27 negative. Pt has been off marijuana for ~2 weesk now, with no significant improvement in symptoms. Vomiting has resolved with medications, but persistent abdominal pain, and unable to tolerate PO intake for several days. Repeat CT scan 12/30 demonstrating hydronephrosis, and distended bladder; repeat post void bladder scans indicating urinary retention. NO other significant findings on imaging. Discussed with surgery team at length, plan for exploratory laparoscopy this afternoon to investigate possible adhesions as source of pain, vs less likely endometriosis. Psych provider also consulted for evaluation of functional component of pain. Planning to see patient today. 1) Abdominal pain, nausea, vomiting: Mild improvement without any emesis in the last 24hrs. - laparoscopic surgery today - psych to see patient. - Continue Valium to help with nausea, as has been the most helpful thus far - Continue IV Zofran, Pantoprazole - IV Methyprednisolone discontinued as now on Budesonide - Continue IV Dilaudid for pain control - IV Toradol for 6 doses for pain - Discussed case with GI provider, recommending repeat CT scan; Dr. Anna to review imaging and case, appreciate recommendations - Continue bentyl for abdominal cramping 2) Severe acute protein calorie malnutrition: The result of abdominal pain, nausea, vomiting. Pt has lost approx 45lbs in the last month. Observation for refeeding sydrome, labs remain within safe limits. - continue TPN - continue to monitor labs 3) Urinary retention: likely 2/2 withholding resulting in distension, due to inability to leave bed 2/2 pain - perkins catheter in place - continue to monitor strict output 4) Hypokalemia: improving - Potassium supplementation as per protocol 5) Microscopic colitis: - Continue Budesonide 6) Anemia: Overall stable - Continue to monitor Time-Based Coding :: [TOTAL MINUTES] spent with patient and on the chart (including review of chart, obtaining history, exam, reviewing outside data, placing orders, documenting exam and treatment plan, and counseling patient) on [DATE]. <Alyssa Philip MD - Last Filed: 01/03/24 09:24> Assessment & Plan narrative: 28yo woman with cholecystectomy last year and resultant chronic diarrhea, presenting with several months of intractable abdominal pain, nausea and vomiting. Treated for C diff colitis 11/2023, but continued symptoms of abdominal pain and nausea, now presenting again with severe abdominal pain, nausea, vomiting, and cachexia. Cause of abdominal pain still unclear. Colonoscopy/endoscopy completed 12/26 with likely microscopic colitis, biopsy results still pending. EGD did show likely gastritis. MRCP completed 12/27 negative. Pt has been off marijuana for ~2 weesk now, with no significant improvement in symptoms. Vomiting has resolved with medications, but persistent abdominal pain, and unable to tolerate PO intake for several days. Repeat CT scan 12/30 demonstrating hydronephrosis, and distended bladder; repeat post void bladder scans indicating urinary retention. NO other significant findings on imaging. Discussed with surgery team at length, plan for exploratory laparoscopy this afternoon to investigate possible adhesions as source of pain, vs less likely endometriosis. Psych provider also consulted for evaluation of functional component of pain. Planning to see patient today. 1) Abdominal pain, nausea, vomiting: Mild improvement without any emesis in the a couple days. - diagnostic laparoscopy planned for later today - psych to see patient. - Continue Valium to help with nausea, as has been the most helpful thus far - Continue IV Zofran, Pantoprazole - Continue Budesonide - Continue IV Dilaudid for pain control - Continue bentyl for abdominal cramping 2) Severe acute protein calorie malnutrition: The result of abdominal pain, nausea, vomiting. Pt has lost approx 45lbs in the last month. Observation for refeeding sydrome, labs remain within safe limits. - continue TPN - continue to monitor labs 3) Urinary retention: likely 2/2 withholding resulting in distension, due to inability to leave bed 2/2 pain - perkins catheter in place - continue to monitor strict output 4) Hypokalemia: improving - Potassium supplementation as per protocol 5) Microscopic colitis: - Continue Budesonide 6) Anemia: Overall stable - Continue to monitor I verified the resident?s documentation in the medical record. I personally performed a physical exam and medical decision making. I made appropriate changes to the documentation and the assessment and plan based on my verification, exam and medical decision making. Quality <Caroline Aguilar - Last Filed: 01/01/24 10:11> VTE Deep Vein Thrombosis/Pulmonary Embolism Present on Admission: No IH PROFEE <Alyssa Philip MD - Last Filed: 01/03/24 09:24> Charge codes Subsequent inpatient/observation care: [id number]
--- NOTE | 2024-01-01 08:14 | PM.PN.1 ---
Exam Vital Signs (past 8 hours): - 01/01/24 04:00 01/01/24 05:51 01/01/24 08:01 Temperature 97.7 F 97.8 F Pulse Rate 58 L 61 65 Respiratory Rate 18 17 Blood Pressure 90/45 L 101/53 L 88/54 L Pulse Oximetry 97 100 Oxygen Flow Rate 0 Oxygen Delivery Method Room Air Oxygen Flow Rate 0 Objective Labs 12/31/23 04:10 01/01/24 04:02 Labs: Laboratory Results - last 24 hr 12/31/23 12/31/23 01/01/24 04:10 12:50 04:02 Sodium 138 Potassium 3.3 L Chloride 105 Carbon Dioxide 32 BUN 3 L Creatinine 0.45 L Estimated GFR > 60 BUN/Creatinine Ratio 6.7 Glucose 113 H Calcium 8.6 Phosphorus 4.1 4.2 Magnesium 2.1 2.2 Triglycerides 94 Urine Color Yellow Urine Appearance Clear Urine pH 7.0 Ur Specific [place] 1.010 Urine Protein Negative Urine Glucose (UA) Negative Urine Ketones 1+ H Urine Occult Blood 1+ H Urine Nitrate Negative Urine Bilirubin Negative Urine Urobilinogen 0.2 Ur Leukocyte Esterase Negative Urine RBC 0-1/hpf Urine WBC 0-1/hpf Ur Squamous Epith Cells 0-1 /hpf Urine Bacteria Occasional (0-1) Ur Culture Indicated? Cult not indicated Vol Urine Centrifuged 10ml (spun) PFSH Medical History Asthma GERD (gastroesophageal reflux disease) (~2010) Gastritis (~2010) Back pain (~2010) Surgical History Hx of cholecystectomy History of hysterectomy (06/14/22) History of laparoscopy (04/05/22) Hx of colonoscopy (12/14/21) [place] teeth extracted (~2015) Family History Mother Cervical cancer Smoker Father Diabetes mellitus Herniated disc Spondylosis Grandmother Unknown family medical history Diabetes mellitus Smoker Cancer Hyperlipidemia Hypertension Grandfather History of heart disease Grandmother Breast cancer Grandfather Diabetes mellitus Cancer History of heart disease Hypertension Sister Faye syndrome Brother Arthritis of spine Social History marital status: number of children: 1 household members: spouse and children lives independently: Yes caregiver/support person: No housing: house pets and animals: Yes (1 dog: safe) education level: high school occupational status: unemployed current occupational exposures/hazards: No special alexandra needs: No seatbelt use: always do you feel safe at home: Yes Smoking Status: Former smoker second hand exposure: No alcohol intake: current substance use type: does not use during the past year weight has: remained stable well-balanced diet: daily or most days caffeine: Yes (1 cup coffee daily or every other day. ) Type(s) of exercise: walking and normal ROM and activity frequency: daily duration: 15-30 minutes/day Assessment & Plan Time-Based Coding :: [TOTAL MINUTES] spent with patient and on the chart (including review of chart, obtaining history, exam, reviewing outside data, placing orders, documenting exam and treatment plan, and counseling patient) on [DATE]. Quality VTE Deep Vein Thrombosis/Pulmonary Embolism Present on Admission: No
[2024-01-01] MEDS: diazePAM 5 MG TABLET PO (08:23)
[2024-01-01] MEDS: ONDANSETRON 4 MG/2 ML INJ IV ×3 (08:23→22:14)
[2024-01-01] MEDS: BUDESONIDE 3 MG CAP 9 MG PO (08:23)
[2024-01-01] MEDS: droNABinol 2.5 MG CAPSULE PO ×2 (08:24→20:09)
[2024-01-01] MEDS: SODIUM CHLORIDE 0.9% 1,000 ML 100 ML IV (08:35)
--- NOTE | 2024-01-01 09:04 | DIET.PN1 ---
Dietary Progress Note Assessment: NPO for diagnostic lap this afternoon. TPN can be advanced to goal rate of 1.5 L this evening. Will continue to monitor labs/tolerance. Ht: 165.1 cm Wt: 68.606 kg BMI: 25.1 Last BM: 12/28/23 (01/01/24 08:31) MNA: 7 Ronen Score: 20 Diet: 01/01/24 00:01 NPO Diet Diet Modifications: NPO Type: NPO except for Meds Nutrition Percent Meal Consumed pt ref lunch 12/31/23 15:00 Percent Meal Consumed 25% 12/31/23 12:00 Percent Meal Consumed pt ref breakfast, on tpn 12/31/23 08:00 Percent Meal Consumed 25% 12/30/23 19:00 Percent Meal Consumed pt ref dinner 12/30/23 16:00 Percent Meal Consumed pt ref breakfast and lunch 12/30/23 12:00 Labs: RBC 3.80 X10^6/uL (4.0-5.2) L 12/31/23 04:10 Hgb 11.5 g/dL (12.0-16.0) L 12/31/23 04:10 Hct 32.8 % (36-46) L 12/31/23 04:10 Creatinine 0.45 mg/dL (0.52-1.04) L 01/01/24 04:02 Electronically Signed by: Daniella Scott 01/01/24 09:04 Clinical Dietitian [address] [address]
[2024-01-01] MEDS: POTASSIUM CHLORIDE IN WATER 10 MEQ/100 ML PIGGYBACK 100 MEQ IV ×3 (11:00→13:31)
--- NOTE | 2024-01-01 12:07 | CM.DPC ---
DCP Cont. Reviewed EMR and team rounds for status updates. Pt will be taken to the OR today for an exploratory laparoscopy for intractable pain etiology. Will continue to monitor for final d/c needs and recommendations. Spouse very attentive and also agreed with this procedure.
[2024-01-01] MEDS: ACETAMINOPHEN IV 1,000 MG/100 ML VIAL 400 MG IV ×2 (13:19→21:39)
[2024-01-01] MEDS: SCOPOLAMINE 1 PATCH TOP (13:23)
--- NOTE | 2024-01-01 14:02 | P.PN_ITS ---
Subjective Subjective Date Patient Seen: 01/01/24 Time Patient Seen: 14:02 Interval history: No interval change in health over the past 24 hours. Continues to have severe abdominal pain with nausea. Exam Vital Signs (past 8 hours): - 01/01/24 07:30 01/01/24 07:30 01/01/24 08:01 Temperature 97.8 F Pulse Rate 65 Respiratory Rate 17 Blood Pressure 88/54 L Pulse Oximetry 100 100 Oxygen Delivery Method Room Air Room Air Oxygen Flow Rate 01/01/24 12:00 Temperature 97.2 F L Pulse Rate 72 Respiratory Rate 16 Blood Pressure 91/49 L Pulse Oximetry 99 Oxygen Delivery Method Oxygen Flow Rate 0 Oxygen Delivery Method Room Air Oxygen Flow Rate 0 Narrative Exam Narrative: General adult woman alert oriented Abdomen periumbilical tenderness no peritonitis. Objective Labs 12/31/23 04:10 01/01/24 04:02 Labs: Laboratory Results - last 24 hr 12/31/23 01/01/24 12:50 04:02 Sodium 138 Potassium 3.3 L Chloride 105 Carbon Dioxide 32 BUN 3 L Creatinine 0.45 L Estimated GFR > 60 BUN/Creatinine Ratio 6.7 Glucose 113 H Calcium 8.6 Phosphorus 4.2 Magnesium 2.2 Triglycerides 94 Urine Color Yellow Urine Appearance Clear Urine pH 7.0 Ur Specific [place] 1.010 Urine Protein Negative Urine Glucose (UA) Negative Urine Ketones 1+ H Urine Occult Blood 1+ H Urine Nitrate Negative Urine Bilirubin Negative Urine Urobilinogen 0.2 Ur Leukocyte Esterase Negative Urine RBC 0-1/hpf Urine WBC 0-1/hpf Ur Squamous Epith Cells 0-1 /hpf Urine Bacteria Occasional (0-1) Ur Culture Indicated? Cult not indicated Vol Urine Centrifuged 10ml (spun) [facility] Medical History Asthma GERD (gastroesophageal reflux disease) (~2010) Gastritis (~2010) Back pain (~2010) Surgical History Hx of cholecystectomy History of hysterectomy (06/14/22) History of laparoscopy (04/05/22) Hx of colonoscopy (12/14/21) [place] teeth extracted (~2015) Family History Mother Cervical cancer Smoker Father Diabetes mellitus Herniated disc Spondylosis Grandmother Unknown family medical history Diabetes mellitus Smoker Cancer Hyperlipidemia Hypertension Grandfather History of heart disease Grandmother Breast cancer Grandfather Diabetes mellitus Cancer History of heart disease Hypertension Sister Faye syndrome Brother Arthritis of spine Social History marital status: number of children: 1 household members: spouse and children lives independently: Yes caregiver/support person: No housing: house pets and animals: Yes (1 dog: safe) education level: high school occupational status: unemployed current occupational exposures/hazards: No special alexandra needs: No seatbelt use: always do you feel safe at home: Yes Smoking Status: Former smoker second hand exposure: No alcohol intake: current substance use type: does not use during the past year weight has: remained stable well-balanced diet: daily or most days caffeine: Yes (1 cup coffee daily or every other day. ) Type(s) of exercise: walking and normal ROM and activity frequency: daily duration: 15-30 minutes/day Assessment & Plan Assessment and plan (1) Abdominal pain: Qualifiers: Abdominal location: lower abdomen, unspecified Qualified Code(s): R 10.30 - Lower abdominal pain, unspecified Status: Acute Assessment & Plan narrative: 28-year-old woman with intractable abdominal pain of unknown etiology. Extensive workup including multiple imaging modalities laboratory studies endoscopy with no major findings with the exception of possible microscopic colitis on endoscopy. Recommend proceeding with diagnostic laparoscopy for further evaluation. Overview of the operation discussed. Operative risks including hemorrhage, infection, damage to surrounding structures reviewed. Questions have been answered and she provides her consent to proceed. Diagnostic laparoscopy, possible lysis of adhesions, possible bowel resection, possible laparotomy Time-Based Coding :: [TOTAL MINUTES] spent with patient and on the chart (including review of chart, obtaining history, exam, reviewing outside data, placing orders, documenting exam and treatment plan, and counseling patient) on [DATE]. Quality VTE Deep Vein Thrombosis/Pulmonary Embolism Present on Admission: No
[2024-01-01] MEDS: CLINDAMYCIN 900 MG/50 ML PIGGYBACK 50 MG IV (15:05)
--- NOTE | 2024-01-01 15:07 | SUR.OPER ---
Supine on padded OR bed, head on pillow, arms padded and tucked at sides, legs uncrossed, safety belt at thigh, tape over blanket over lower legs .
[2024-01-01] MEDS: BUPIVACAINE 0.25% (PF) VIAL 30 ML INJ (15:11)
[2024-01-01] MEDS: BUPIVACAINE LIPOSOME 266 MG/20 ML VIAL INJ (16:24)
--- NOTE | 2024-01-01 16:56 | P.OP_ITS ---
Operative Date/Time/Diagnoses Date of procedure: 01/01/24 Time of procedure: 16:56 Pre-op diagnosis: abdominal pain Post-op diagnosis: other (cecal volvulus, adhesions) Procedure & Clinicians Procedure: Laparoscopic ileocectomy Same procedure as scheduled: Yes Indications: Emilia is a 28 y.o woman with intractable abdominal pain. She has had an extensive negative workup including numerous imaging studies, labs, and endoscopy which demonstrated possible microcolitis. She was started on budesonide for possible colitis but despite this pain remains unchanged after 5 days. She is taken to the operating room today for diagnostic laparoscopy possible lysis of adhesions and bowel resection Surgeon: Tera Cooper Click Yes if Unassisted: Yes Anesthesia Type: General Operative Notes Findings: Partially volvulized cecum Minimal intra abdominal adhesions Serous fluid in the pelvis Specimen(s): other Estimated Blood Loss (mL): 50 Procedure in detail: Patient was brought to the operating room placed supine on the table. Bilateral lower extremity compression devices were applied. General anesthesia was induced she was intubated with an endotracheal tube. She was then prepped and draped in sterile fashion a time-out was performed. Incision with abdomen was entered atraumatically a balloon trocar was placed into the abdomen. Pneumoperitoneum was established. Additional working ports in the left lower quadrant and suprapubic position 5 mm were placed. A general inspection of the abdomen was made examining each quadrant systematically. Beginning in the right lower quadrant findings were notable for a partially volvulized cecum without signs of acute ischemia, minimal adhesions within the pelvis without small-bowel obstruction. The appendix was grossly normal did have some adhesions to it which were sharply lysed. The right upper quadrant notable for prior cholecystectomy otherwise normal. Left upper quadrant unremarkable. Left lower quadrant was notable for previous hysterectomy and approximately 100 mL of serous fluid in the pelvis no signs of endometriosis. Right ovary cystic and with scarring. Really the only remarkable thing about her abdomen was the partial volvulus of the cecum a result of a very elongated mesentery and significant laxity of the attachment. Given the lack of findings with the exception of the partial cecal volvulus I presume that she may have intermittent ischemia associated with it which could certainly give her intermittent intract able abdominal pain. Therefore we proceeded with a ileocecectomy. Infraumbilical incision was extended approximately 1 cm wound retractor was placed. The cecum and the terminal ileum were delivered through an Marek wound protector. Window within the mesentery cecum and terminal ileum were made and then the bowel was divided in both places using a YOLIE stapler 75 mm blue load. The mesentery was ligated using silk suture. We then formed a [id number] functional and end anastomosis. A crotch stitch with silk was placed. An enterotomy and a colotomy were made and then the 2 limbs of bowel were joined together using a 3rd staple load. The anastomosis lay without tension it was hemostatic. The common opening was then closed using 3-0 PDS suture. The suture line was then imbricated with silk suture. Content moved easily across the anastomosis there was no sign of leak. The anastomosis was then returned to the abdomen which was then copiously lavaged with saline and returned clear. The fascia at the umbilicus was then closed in a running manner using PDS suture followed by Vicryl and skin closed with Monocryl. Used to seal the skin incisions. The sponge and instrument count was correct x2. Patient emerged from anesthesia was transferred to recovery in stable condition. Total of 30 is of bupivacaine and 20 mL of Exparel were used for local anesthetic. Complications: none Post-operative Condition: stable Disposition: Acute Care
[2024-01-01] MEDS: HYDROMORPHONE 1 MG INJ IV (17:16)
[2024-01-01] MEDS: FAT EMULSIONS 50 GM/250 ML EMULSION IV (18:55)
[2024-01-01] MEDS: POTASSIUM CHLORIDE IV (18:55)
[2024-01-01] MEDS: LYTES IV (18:55)
[2024-01-01] MEDS: [UNRECOGNIZED DRUG - OTHER] IV (18:55)
[2024-01-01] MEDS: CALCIUM IV (18:55)
[2024-01-01] MEDS: DEXT IV (18:55)
[2024-01-01] MEDS: AMITRIPTYLINE 25 MG TABLET PO (20:09)
[2024-01-02] VITALS (10 sets, daily range): BP systolic 100–130; BP diastolic 62–81; PULSE 95–152; RESP 16–20; TEMP 36.4–36.9; O2SAT 95–98
[2024-01-02] MEDS: HYDROMORPHONE 0.5 MG INJ IV ×8 (00:16→16:16)
[2024-01-02] MEDS: diazePAM 5 MG TABLET PO ×2 (02:28→08:46)
[2024-01-02] MEDS: ONDANSETRON 4 MG/2 ML INJ IV ×3 (04:43→20:23)
[2024-01-02 05:10] LABS: Alanine Aminotransferase 18 IU/L (<35); Albumin 3.4 g/dL (3.5-5.0); Albumin Globulin Ratio 1.1 (1.0-2.8); Alkaline Phosphatase 41 U/L (38-126); Aspartate Aminotransferase 20 IU/L (14-36); BUN Creatinine Ratio 27.3 (6-22); Bilirubin Total 0.4 mg/dL (0.2-1.3); Blood Urea Nitrogen 9 mg/dL (7-17); Calcium 8.6 mg/dL (8.4-10.2); Carbon Dioxide 27 mmol/L (22-32); Chloride 98 mmol/L (98-107); Estimated Glomerular Filt Rate > 60 mL/min (>60); Glucose 190 mg/dL (70-100); HEMOLYSIS < 15 (0-50); Phosphorous 2.5 mg/dL (2.5-4.5); Potassium 3.4 mmol/L (3.4-5.1); Sodium 130 mmol/L (137-145); Total Protein 6.4 g/dL (6.3-8.2)
[2024-01-02] MEDS: PANTOPRAZOLE DR 40 MG TABLET PO (05:48)
[2024-01-02] MEDS: DICYCLOMINE 10 MG CAPSULE PO (05:48)
--- NOTE | 2024-01-02 07:40 | PM.PN.1 ---
Subjective Subjective Date Patient Seen: 01/02/24 Time Patient Seen: 07:40 Interval history: Patient seen in coverage for Dr. Philip. I saw patient last week day after she was admitted. She thus far as failed to respond to any specific therapies and has had both upper and lower endoscopy performed, as well as repeat CT imaging and MRCP that failed to clearly define any etiology for her ongoing symptoms. There was evidence of mild colitis on her colonoscopy and biopsies were taken but pathology is still pending apparently. She was started on TPN earlier this week given her ongoing weight loss and inability to take any oral nutrition. Even NPO she was having significant symptoms. She went for laparoscopic evaluation yesterday with no obvious source of symptoms, but a small cecal volvulus was felt to be present and a possible source of symptoms. Therefore an ileocecal resection was performed to eliminate this has a future problem see if it would resolve her issues. Therefore she was now status post laparoscopic ileocecal resection, on TPN etcetera. This morning she is complaining still of nausea that is ongoing with abdominal pain. Needing to be medicated every hour and a half or so. However when I discussed with her the findings of the cecal volvulus and the resection that hopefully will make her symptoms much better she certainly brightened up, and seemed less withdrawn and focused on symptoms Exam Vital Signs (past 8 hours): - 01/02/24 00:18 01/02/24 04:00 Temperature 97.6 F 98.4 F Pulse Rate 95 H 104 H Respiratory Rate 20 20 Blood Pressure 130/80 116/76 Pulse Oximetry 95 98 Oxygen Flow Rate 0 0 Oxygen Delivery Method Room Air Oxygen Flow Rate 0 Objective Labs 12/31/23 04:10 01/02/24 04:50 Labs: Laboratory Results - last 24 hr 01/02/24 04:50 Sodium 130 L Potassium 3.4 Chloride 98 Carbon Dioxide 27 BUN 9 Creatinine 0.33 L Estimated GFR > 60 BUN/Creatinine Ratio 27.3 H Glucose 190 H Calcium 8.6 Phosphorus 2.5 D Magnesium 2.0 Total Bilirubin 0.4 AST 20 ALT 18 Alkaline Phosphatase 41 Total Protein 6.4 Albumin 3.4 L Globulin 3.0 Albumin/Globulin Ratio 1.1 [facility] Medical History (Updated 01/02/24 @ 00:01 by ) Asthma GERD (gastroesophageal reflux disease) (~2010) Gastritis (~2010) Back pain (~2010) Surgical History (Updated 01/02/24 @ 08:35 by John Herr MD) S/P colon resection (01/01/24) Hx of cholecystectomy History of hysterectomy (06/14/22) History of laparoscopy (04/05/22) Hx of colonoscopy (12/14/21) [place] teeth extracted (~2015) Family History Mother Cervical cancer Smoker Father Diabetes mellitus Herniated disc Spondylosis Grandmother Unknown family medical history Diabetes mellitus Smoker Cancer Hyperlipidemia Hypertension Grandfather History of heart disease Grandmother Breast cancer Grandfather Diabetes mellitus Cancer History of heart disease Hypertension Sister Faye syndrome Brother Arthritis of spine Social History marital status: number of children: 1 household members: spouse and children lives independently: Yes caregiver/support person: No housing: house pets and animals: Yes (1 dog: safe) education level: high school occupational status: unemployed current occupational exposures/hazards: No special alexandra needs: No seatbelt use: always do you feel safe at home: Yes Smoking Status: Former smoker second hand exposure: No alcohol intake: current substance use type: does not use during the past year weight has: remained stable well-balanced diet: daily or most days caffeine: Yes (1 cup coffee daily or every other day. ) Type(s) of exercise: walking and normal ROM and activity frequency: daily duration: 15-30 minutes/day Assessment & Plan Assessment & Plan narrative: 1. Postop day 1. Status post laparoscopic ileocecal resection for cecal volvulus-continue postoperative management as per General surgery. Patient was requesting the antiemetic she got in the ER initially which appears to be droperidol, but it has significant interaction with the ondansetron and I would avoid that (QT prolongation). Continue with current therapies and or whatever else General surgery can come up with for her pain and nausea 2. Fluids/electrolytes/nutrition-continues on TPN, reasonably good urine output via catheter. Has some lower extremity edema hopefully will begin to resolve as nutritionally she improves and gets farther away from her surgery etcetera 3. Chronic abdominal pain-continue current meds and antiemetics etcetera. Hopefully resection as above will begin to resolve her symptoms especially as hopefully she was nutritionally less challenged and can begin to ?heal. If indeed there was some intermittent ischemia causing her chronic abdominal symptoms than hopefully the resection will have resolve that. She clearly he was quite nutritionally challenge that will be sometime before that process reverses as well despite the TPN. Hopefully she can have a trial of oral intake in a limited fashion sometime in the next several days. Reviewing her treatment for the last several days since I saw her last I do not really have anything else to offer for control of her abdominal pain and nausea and vomiting. She was basically been tried on everything including parental steroids Marinol and of course other parental medications. Hopefully indeed was some intermittent ischemia due to the partial cecal volvulus causing symptoms which should now not be possible and therefore she should improve. Time-Based Coding :: [TOTAL MINUTES] spent with patient and on the chart (including review of chart, obtaining history, exam, reviewing outside data, placing orders, documenting exam and treatment plan, and counseling patient) on [DATE]. Quality VTE Deep Vein Thrombosis/Pulmonary Embolism Present on Admission: No PROFEE Charge codes Subsequent inpatient/observation care: [id number]
[2024-01-02] MEDS: BUDESONIDE 3 MG CAP 9 MG PO (08:53)
--- NOTE | 2024-01-02 12:32 | PM.PNPO.1 ---
Subjective Subjective Date Patient Seen: 01/02/24 Time Patient Seen: 12:32 Interval history: Postoperative day 1 status post ileocecectomy for partial cecal volvulus. Reporting significant incisional pain nausea had several bouts of emesis overnight. Exam Vital Signs (past 8 hours): - 01/02/24 07:00 01/02/24 08:00 01/02/24 12:00 Temperature 98.2 F 98.2 F Pulse Rate 111 H 118 H Respiratory Rate 16 16 Blood Pressure 116/79 112/81 Pulse Oximetry 98 97 97 Oxygen Delivery Method Room Air Oxygen Delivery Method Room Air Oxygen Flow Rate 0 Narrative Exam Narrative: General adult woman alert oriented Abdomen soft appropriately tender to palpation. Objective Labs 12/31/23 04:10 01/02/24 04:50 Labs: Laboratory Results - last 24 hr 01/02/24 04:50 Sodium 130 L Potassium 3.4 Chloride 98 Carbon Dioxide 27 BUN 9 Creatinine 0.33 L Estimated GFR > 60 BUN/Creatinine Ratio 27.3 H Glucose 190 H Calcium 8.6 Phosphorus 2.5 D Magnesium 2.0 Total Bilirubin 0.4 AST 20 ALT 18 Alkaline Phosphatase 41 Total Protein 6.4 Albumin 3.4 L Globulin 3.0 Albumin/Globulin Ratio 1.1 PFSH Medical History (Updated 01/02/24 @ 00:01 by ) Asthma GERD (gastroesophageal reflux disease) (~2010) Gastritis (~2010) Back pain (~2010) Surgical History (Updated 01/02/24 @ 08:35 by John Herr MD) S/P colon resection (01/01/24) Hx of cholecystectomy History of hysterectomy (06/14/22) History of laparoscopy (04/05/22) Hx of colonoscopy (12/14/21) [place] teeth extracted (~2015) Family History Mother Cervical cancer Smoker Father Diabetes mellitus Herniated disc Spondylosis Grandmother Unknown family medical history Diabetes mellitus Smoker Cancer Hyperlipidemia Hypertension Grandfather History of heart disease Grandmother Breast cancer Grandfather Diabetes mellitus Cancer History of heart disease Hypertension Sister Faye syndrome Brother Arthritis of spine Social History marital status: number of children: 1 household members: spouse and children lives independently: Yes caregiver/support person: No housing: house pets and animals: Yes (1 dog: safe) education level: high school occupational status: unemployed current occupational exposures/hazards: No special alexandra needs: No seatbelt use: always do you feel safe at home: Yes Smoking Status: Former smoker second hand exposure: No alcohol intake: current substance use type: does not use during the past year weight has: remained stable well-balanced diet: daily or most days caffeine: Yes (1 cup coffee daily or every other day. ) Type(s) of exercise: walking and normal ROM and activity frequency: daily duration: 15-30 minutes/day Assessment & Plan Post-op Postoperative Procedures: Procedures Operation Date: 12/27/23 15:30 Actual Procedure Side Surgeon p Colonoscopy WITH BIOPSIES Tera Cooper MD s Esophagogastroduodenoscopy WITH BIOPSY Tera Cooper MD Operation Date: 01/01/24 14:15 Actual Procedure Side Surgeon p Laproscopic ileocecectomy Tera Cooper MD Postoperative status narrative: 28-year-old female with chronic intractable abdominal pain postoperative day 1 status post ileocecectomy for a partial cecal volvulus following diagnostic laparoscopy. Today she has incisional pain and I suspect it will take 24-48 hours for her surgical pain to diminish and at that point we will see what effect this has had on her chronic abdominal pain. If she fails to improve and continues to have chronic abdominal pain I do not have much more I can offer. -clear liquid diet -continue TPN Quality VTE Deep Vein Thrombosis/Pulmonary Embolism Present on Admission: No
--- NOTE | 2024-01-02 17:29 | PC.NURSE ---
RN notified provider of pt's increased HR 158 and in the 150s, pt is not symptomatic, provider aware and would like us to call back if it continues to stay increased after pt is off the bedpan, no new orders at this time
[2024-01-02] MEDS: HYDROMORPHONE 0.5 MG INJ 1 MG IV ×2 (18:17→21:21)
[2024-01-02] MEDS: DEXT IV (18:22)
[2024-01-02] MEDS: LYTES IV (18:22)
[2024-01-02] MEDS: CALCIUM IV (18:22)
[2024-01-02] MEDS: [UNRECOGNIZED DRUG - OTHER] IV (18:22)
[2024-01-02] MEDS: POTASSIUM CHLORIDE IV (18:22)
[2024-01-02] MEDS: MAGNESIUM SULFATE 2 GM/50 ML PIGGYBACK IV (18:30)
[2024-01-02] MEDS: LORazepam 2 MG/ML INJ IV (19:41)
[2024-01-02] MEDS: POTASSIUM PHOSPHATE 15 MMOL in SODIUM CHLORIDE 0.9% 250 ML 100 MMOL IV (19:51)
--- NOTE | 2024-01-02 19:58 | EKG_ITS ---
[address] [address] Test Date: 2024-01-02 Pat Name: Emilia Wasserman Department: Room: 204 Gender: Female Director Of Video Analytics: KAMRYN : 1995 Requested By: Order Number: [id number] Reading MD: Kurtis White Measurements Intervals [place] Rate: 155 P: 52 MS: 120 QRS: 11 QRSD: 68 T: 63 QT: 306 QTc: 491 Interpretive Statements Critical Test Result: High HR Sinus tachycardia Nonspecific T wave abnormality Electronically Signed On 01-07-2024 18:48:30 PST by Kurtis White
[2024-01-02] MEDS: LABETALOL 20 MG/4 ML SYRINGE 10 MG IV (20:06)
[2024-01-02] MEDS: MORPHINE 2 MG/ML INJ IV (20:23)
[2024-01-02 20:47] LABS: Add Manual Diff / Slide Review NO; Basophils Absolute Auto 0 /uL (0-100); Basophils Percent Auto 0.1 % (0-2); Eosinophils Absolute Auto 0 /uL (0-450); Eosinophils Percent Auto 0.2 % (2-4); Hematocrit 31.9 % (36-46); Hemoglobin 10.8 g/dL (12.0-16.0); Lymphocytes Absolute Auto 1300 /uL (1100-4500); Lymphocytes Percent Auto 8.5 % (25-40); Mean Corpuscular HGB Conc 33.8 % (30-36); Mean Corpuscular Hemoglobin 29.9 PG (26-34); Mean Corpuscular Volume 88.6 fL (80-100); Monocytes Absolute Auto 1700 /uL (0-900); Monocytes Percent Auto 10.8 % (3-14); Neutrophils Absolute Auto 12400 /uL (1500-7000); Neutrophils Percent Auto 80.4 % (50-75); Platelet Count 247 X10^3/uL (150-400); Red Cell Distribution Width 14.1 % (11.6-14.8); White Blood Cell Count 15.4 X10^3/uL (4.5-11.0)
--- NOTE | 2024-01-02 23:02 | PC.NURSE ---
MD second operator for [facility] notified of patients elevated HR after Labetalol was given earlier, WBC 15.4 was also relayed, patient is not on antibiotic, no new order received to start antibiotic, per MD may wait till AM and monitor patient; MD updated that I will call surgery second operator if clinically needed.
[2024-01-03] VITALS (34 sets, daily range): BP systolic 92–120; BP diastolic 52–71; PULSE 95–160; RESP 12–25; TEMP 35.9–37.4; O2SAT 97–100
[2024-01-03] MEDS: HYDROMORPHONE 0.5 MG INJ 1 MG IV ×8 (00:31→23:34)
[2024-01-03] MEDS: DICYCLOMINE 10 MG CAPSULE PO ×5 (00:36→23:33)
[2024-01-03 00:55] LABS: Hematocrit 29.1 % (36-46); Hemoglobin 9.8 g/dL (12.0-16.0)
--- NOTE | 2024-01-03 02:30 | PC.NURSE ---
Addendum entered by Windy Pelaez R.N. 01/17/24 03:23: Late entry for 01/02/24 regarding transfer to the ICU- Notified Dr. Elaine that patient needs higher level of care. Received order to transfer to ICU. Provided Dr. Elaine with semiconductor processing group leader name and number, he stated that he doesn't usuallyconsult with the semiconductor processing group leader. Also stated I know as much about the patient as you do. I let him know I would notify the coordinator. Original Note: HR sustaining 150's, BP 105/65. Dr. Elaine ordered PRN Labetolol and PRN morphine. Medications given per order. BP down to 80's/50's. Received order for 1 L NS bolus. Labs drawn. EKG complete. Patient transferred to ICU @ 20:25.
[2024-01-03 05:48] LABS: Hematocrit 27.4 % (36-46); Hemoglobin 9.3 g/dL (12.0-16.0); Mean Corpuscular HGB Conc 33.9 % (30-36); Mean Corpuscular Volume 88.5 fL (80-100); Platelet Count 207 X10^3/uL (150-400); Red Cell Distribution Width 14.4 % (11.6-14.8); White Blood Cell Count 13.1 X10^3/uL (4.5-11.0)
[2024-01-03] MEDS: ONDANSETRON 4 MG/2 ML INJ IV ×3 (06:02→18:06)
[2024-01-03 06:04] LABS: BUN Creatinine Ratio 31.4 (6-22); Blood Urea Nitrogen 11 mg/dL (7-17); Calcium 7.8 mg/dL (8.4-10.2); Carbon Dioxide 27 mmol/L (22-32); Chloride 106 mmol/L (98-107); Estimated Glomerular Filt Rate > 60 mL/min (>60); Glucose 155 mg/dL (70-100); HEMOLYSIS < 15 (0-50); Potassium 4.4 mmol/L (3.4-5.1); Sodium 135 mmol/L (137-145)
[2024-01-03] MEDS: PANTOPRAZOLE DR 40 MG TABLET PO (06:28)
[2024-01-03 07:50] LABS: MRSA (Nasal) PCR NOT DETECTED (Not Detect)
--- NOTE | 2024-01-03 07:50 | DIET.PN1 ---
Dietary Progress Note Assessment: Pt continues on goal rate of 1.5 L TPN with lipids 3x/wk. Per surgery diet is clear liquids and clear ensure has been ordered to be sent at every meal. Surgery/MD to advance diet as pt medically ready. Ht: 165.1 cm Wt: 70 kg BMI: 25.1 Last BM: 01/03/24 (01/03/24 06:00) MNA: 7 Ronen Score: 18 Diet: 01/01/24 Lunch Clear Liquid Diet Diet Modifications: clear ensure with each meal Nutrition Percent Meal Consumed 10 01/02/24 16:46 Percent Meal Consumed nausea taking slow sips 01/02/24 09:24 Percent Meal Consumed 100% 01/01/24 09:47 Labs: RBC 3.10 X10^6/uL (4.0-5.2) L 01/03/24 05:40 Hgb 9.3 g/dL (12.0-16.0) L 01/03/24 05:40 Hct 27.4 % (36-46) L 01/03/24 05:40 Creatinine 0.35 mg/dL (0.52-1.04) L 01/03/24 05:40 Electronically Signed by: Daniella Scott 01/03/24 07:[address] [id number]
[2024-01-03] MEDS: BUDESONIDE 3 MG CAP 9 MG PO (08:27)
--- NOTE | 2024-01-03 08:31 | P.PN_ITS ---
Subjective <Caroline Aguilar - Last Filed: 01/03/24 15:04> Subjective Date Patient Seen: 01/03/24 Time Patient Seen: 08:00 Interval history: Patient had episode of bright red bleeding with bowel movement starting last night. No pain with BM, but worsening pain with moving to commode. Previous abdominal pain is slightly improved, but has changed, now having significant pain in RLQ, and around incision sites. No vomiting. No other new symptoms. Mildly light headed with quick movement. Exam <Caroline Aguilar - Last Filed: 01/03/24 15:04> Vital Signs (past 8 hours): - 01/03/24 05:23 01/03/24 05:59 01/03/24 07:00 Temperature 99.3 F 98.9 F Pulse Oximetry Oxygen Delivery Method Room Air 01/03/24 07:00 Temperature Pulse Oximetry 100 Oxygen Delivery Method Room Air Oxygen Delivery Method Room Air Oxygen Flow Rate 0 Const General: cooperative and ill appearing HENMO Head: normal to inspection Eyes General: appearance normal, both eyes and all related structures Chest Chest: normal inspection of the chest Resp Effort & Inspection: normal respiratory effort and able to speak in complete sentences Auscultation: clear to auscultation bilaterally Cardio Rate: tachycardic Rhythm: regular rhythm GI Palpation: soft and tender (Significant tenderness RLQ. ) Objective <Caroline Aguilar - Last Filed: 01/03/24 15:04> Labs 01/03/24 14:30 01/03/24 05:40 Labs: Laboratory Results - last 24 hr 01/02/24 01/03/24 01/03/24 20:30 00:45 01:10 WBC 15.4 H RBC 3.60 L Hgb 10.8 L 9.8 L Hct 31.9 L 29.1 L MCV 88.6 MCH 29.9 MCHC 33.8 RDW 14.1 Plt Count 247 Neut % (Auto) 80.4 H Lymph % (Auto) 8.5 L [place] % (Auto) 10.8 Eos % (Auto) 0.2 L Baso % (Auto) 0.1 Neut # (Auto) 21664 H Lymph # (Auto) 1300 [place] # (Auto) 1700 H Eos # (Auto) 0 Baso # (Auto) 0 Sodium Potassium Chloride Carbon Dioxide BUN Creatinine Estimated GFR BUN/Creatinine Ratio Glucose Calcium Nasal Screen MRSA (PCR) Blood Type A Positive Antibody Screen Negative 01/03/24 01/03/24 05:40 06:00 WBC 13.1 H RBC 3.10 L Hgb 9.3 L Hct 27.4 L MCV 88.5 MCH 30.0 MCHC 33.9 RDW 14.4 Plt Count 207 Neut % (Auto) Lymph % (Auto) [place] % (Auto) Eos % (Auto) Baso % (Auto) Neut # (Auto) Lymph # (Auto) [place] # (Auto) Eos # (Auto) Baso # (Auto) Sodium 135 L Potassium 4.4 Chloride 106 Carbon Dioxide 27 BUN 11 Creatinine 0.35 L Estimated GFR > 60 BUN/Creatinine Ratio 31.4 H Glucose 155 H Calcium 7.8 L Nasal Screen MRSA (PCR) Not detected Blood Type Antibody Screen [facility] <Caroline Aguilar - Last Filed: 01/03/24 15:04> Medical History (Updated 01/02/24 @ 00:01 by ) Asthma GERD (gastroesophageal reflux disease) (~2010) Gastritis (~2010) Back pain (~2010) Surgical History (Updated 01/02/24 @ 08:35 by John Herr MD) S/P colon resection (01/01/24) Hx of cholecystectomy History of hysterectomy (06/14/22) History of laparoscopy (04/05/22) Hx of colonoscopy (12/14/21) [place] teeth extracted (~2015) Family History Mother Cervical cancer Smoker Father Diabetes mellitus Herniated disc Spondylosis Grandmother Unknown family medical history Diabetes mellitus Smoker Cancer Hyperlipidemia Hypertension Grandfather History of heart disease Grandmother Breast cancer Grandfather Diabetes mellitus Cancer History of heart disease Hypertension Sister Faye syndrome Brother Arthritis of spine Social History marital status: number of children: 1 household members: spouse and children lives independently: Yes caregiver/support person: No housing: house pets and animals: Yes (1 dog: safe) education level: high school occupational status: unemployed current occupational exposures/hazards: No special alexandra needs: No seatbelt use: always do you feel safe at home: Yes Smoking Status: Former smoker second hand exposure: No alcohol intake: current substance use type: does not use during the past year weight has: remained stable well-balanced diet: daily or most days caffeine: Yes (1 cup coffee daily or every other day. ) Type(s) of exercise: walking and normal ROM and activity frequency: daily duration: 15-30 minutes/day Assessment & Plan <Caroline Aguilar - Last Filed: 01/03/24 15:04> Assessment and plan Plan 28yo woman with cholecystectomy last year and resultant chronic diarrhea, presenting with several months of intractable abdominal pain, nausea and vomiting. Treated for C diff colitis 11/2023, but continued symptoms of abdominal pain and nausea, now presenting again with severe abdominal pain, nausea, vomiting, and cachexia. Colonoscopy/endoscopy completed 12/26 with benign pathology, no signs of microscopic colitis. EGD did show likely gastritis. MRCP completed 12/[address] scan 12/30 demonstrating hydronephrosis, and distended bladder; repeat post void bladder scans indicating urinary retention. No other significant findings on imaging. Diagnostic laparoscopy 12/31 demonstrated partially volvulized cecum, with minimal abdominal adhesions. No signs of acute ischemia, but concern for intermittent ischemia causing pain. Colectomy completed. No signs of endometriosis. Evening of 01/01 patient began to have BRBPR, surgery team aware and continuing to follow. Consistent with healing anastomosis. Will continue to monitor Hgb, and provide fluids. 1) Abdominal pain, nausea, vomiting: Initial pain improving, pain now consistent with post surgical. - Continue Valium to help with nausea, as has been the most helpful thus far - Continue IV Zofran, Pantoprazole - D/c budesonide - Continue IV Dilaudid for pain control - Continue bentyl for abdominal cramping 2) Severe acute protein calorie malnutrition: The result of abdominal pain, nausea, vomiting. Pt has lost approx 45lbs in the last month. Observation for refeeding sydrome, labs remain within safe limits. - continue TPN for now. - transition to clear liquid diet as tolerated - continue to monitor labs 3)Tachycardia: normal rhythm, asymptomatic. BP stable WNL. QT increased from 430 to 490 on recent ekg. - telemetry -NS bolus - continue maintenance fluids and tpn 4) Urinary retention: likely 2/2 withholding resulting in distension, due to inability to leave bed 2/2 pain - perkins catheter in place, plan to d/c today - encourage out of bed, to commode. - continue to monitor strict output 5) Hypokalemia: improved - Potassium supplementation as per protocol 6) Anemia: worsening 2/2 BRBPR - Continue to monitor Time-Based Coding :: [TOTAL MINUTES] spent with patient and on the chart (including review of chart, obtaining history, exam, reviewing outside data, placing orders, documenting exam and treatment plan, and counseling patient) on [DATE]. <Alyssa Philip MD - Last Filed: 01/03/24 15:20> Assessment & Plan narrative: 28yo woman with cholecystectomy last year and resultant chronic diarrhea, presenting with several months of intractable abdominal pain, nausea and vomiting. Treated for C diff colitis 11/2023, but continued symptoms of abdominal pain and nausea, now presenting again with severe abdominal pain, nausea, vomiting, and cachexia. Colonoscopy/endoscopy completed 12/26 with benign pathology, no signs of microscopic colitis. EGD did show likely gastritis. MRCP completed 12/[address] scan 12/30 demonstrating hydronephrosis, and distended bladder; repeat post void bladder scans indicating urinary retention. No other significant findings on imaging. Diagnostic laparoscopy 12/31 demonstrated partially volvulized cecum, with minimal abdominal adhesions. No signs of acute ischemia, but concern for intermittent ischemia causing pain. Partial colectomy completed. No signs of endometriosis. Evening of 01/01 patient began to have BRBPR, surgery team aware and continuing to follow. Consistent with healing anastomosis. Will continue to monitor Hgb, and provide fluids. 1) Abdominal pain, nausea, vomiting: POD #2. Initial pain improving, pain now consistent with post surgical. - Continue Valium to help with nausea, as has been the most helpful thus far - Continue IV Zofran, Pantoprazole - D/c budesonide - Continue IV Dilaudid for pain control - Continue bentyl for abdominal cramping 2) Severe acute protein calorie malnutrition: The result of abdominal pain, nausea, vomiting. Pt has lost approx 45lbs in the last month. Observation for refeeding sydrome, labs remain within safe limits. - continue TPN for now. - transition to clear liquid diet as tolerated - continue to monitor labs - PT ordered to start re-strengthening gradually 3)Tachycardia: normal rhythm, asymptomatic. BP stable WNL. QT increased from 430 to 490 on recent ekg. - telemetry - NS bolus - continue maintenance fluids and tpn 4) Urinary retention: likely 2/2 withholding resulting in distension, due to inability to leave bed 2/2 pain - perkins catheter in place, plan to d/c today - encourage out of bed, to commode. - continue to monitor strict output 5) Hypokalemia: improved - Potassium supplementation as per protocol 6) Acute blood loss anemia: worsening 2/2 BRBPR. Not currently at transfusion level. - Continue to trend I verified the resident?s documentation in the medical record. I personally performed a physical exam and medical decision making. I made appropriate changes to the documentation and the assessment and plan based on my verification, exam and medical decision making. Quality <Caroline Aguilar - Last Filed: 01/03/24 15:04> VTE Deep Vein Thrombosis/Pulmonary Embolism Present on Admission: No [facility] <Alyssa Philip MD - Last Filed: 01/03/24 15:20> Charge codes Subsequent inpatient/observation care: [id number]
[2024-01-03 09:45] LABS: Magnesium 2.5 mg/dL (1.6-2.3); Phosphorous 1.7 mg/dL (2.5-4.5)
[2024-01-03] MEDS: POTASSIUM PHOSPHATE 30 MMOL in SODIUM CHLORIDE 0.9% 500 ML 127.5 MMOL IV (11:40)
[2024-01-03] MEDS: INSULIN LISPRO 100 UNIT/ML 3ML VIAL SUBCUT ×2 (13:26→19:05)
--- NOTE | 2024-01-03 14:13 | P.PN_ITS ---
Subjective Subjective Date Patient Seen: 01/03/24 Time Patient Seen: 14:13 Interval history: Several bloody bowel movements overnight. Blood pressure remained stable but with tachycardia. Transition to ICU overnight for closer observation. Hematocrit 27 from 32 preop. Exam Vital Signs (past 8 hours): - 01/03/24 07:00 01/03/24 07:00 01/03/24 07:56 Temperature Pulse Rate 111 H Respiratory Rate 17 Blood Pressure Pulse Oximetry 100 Oxygen Delivery Method Room Air Room Air 01/03/24 08:00 01/03/24 08:00 01/03/24 09:00 Temperature 97.4 F L Pulse Rate 118 H Respiratory Rate 12 Blood Pressure 92/53 L Pulse Oximetry Oxygen Delivery Method 01/03/24 09:00 01/03/24 10:00 01/03/24 10:00 Temperature Pulse Rate 119 H 111 H Respiratory Rate 23 20 Blood Pressure 102/59 L Pulse Oximetry Oxygen Delivery Method 01/03/24 10:30 01/03/24 10:30 01/03/24 11:00 Temperature Pulse Rate 112 H Respiratory Rate 18 Blood Pressure 99/56 L 97/56 L Pulse Oximetry Oxygen Delivery Method 01/03/24 11:00 01/03/24 11:30 01/03/24 11:30 Temperature Pulse Rate 111 H 104 H Respiratory Rate 18 18 Blood Pressure 98/54 L Pulse Oximetry Oxygen Delivery Method 01/03/24 12:00 01/03/24 12:00 01/03/24 12:30 Temperature Pulse Rate 110 H 135 H Respiratory Rate 20 23 Blood Pressure 105/52 L Pulse Oximetry Oxygen Delivery Method 01/03/24 12:43 01/03/24 12:43 01/03/24 12:53 Temperature Pulse Rate 145 H 151 H Respiratory Rate 17 17 Blood Pressure 104/62 Pulse Oximetry 97 Oxygen Delivery Method 01/03/24 12:53 01/03/24 13:00 01/03/24 13:00 Temperature Pulse Rate 160 H Respiratory Rate 16 Blood Pressure 118/62 120/64 Pulse Oximetry 98 Oxygen Delivery Method 01/03/24 13:29 01/03/24 13:29 01/03/24 13:30 Temperature Pulse Rate 152 H 153 H Respiratory Rate 25 H 19 Blood Pressure 105/71 Pulse Oximetry Oxygen Delivery Method 01/03/24 14:00 01/03/24 14:00 01/03/24 14:12 Temperature 97.8 F Pulse Rate 116 H Respiratory Rate 19 Blood Pressure 101/61 Pulse Oximetry Oxygen Delivery Method Oxygen Delivery Method Room Air Oxygen Flow Rate 0 Narrative Exam Narrative: General adult woman alert oriented. Abdomen soft appropriately tender to palpation. Objective Labs 01/03/24 05:40 01/03/24 05:40 Labs: Laboratory Results - last 24 hr 01/02/24 01/03/24 01/03/24 20:30 00:45 01:10 WBC 15.4 H RBC 3.60 L Hgb 10.8 L 9.8 L Hct 31.9 L 29.1 L MCV 88.6 MCH 29.9 MCHC 33.8 RDW 14.1 Plt Count 247 Neut % (Auto) 80.4 H Lymph % (Auto) 8.5 L [place] % (Auto) 10.8 Eos % (Auto) 0.2 L Baso % (Auto) 0.1 Neut # (Auto) 73883 H Lymph # (Auto) 1300 [place] # (Auto) 1700 H Eos # (Auto) 0 Baso # (Auto) 0 Sodium Potassium Chloride Carbon Dioxide BUN Creatinine Estimated GFR BUN/Creatinine Ratio Glucose Calcium Phosphorus Magnesium Nasal Screen MRSA (PCR) Blood Type A Positive Antibody Screen Negative 01/03/24 01/03/24 05:40 06:00 WBC 13.1 H RBC 3.10 L Hgb 9.3 L Hct 27.4 L MCV 88.5 MCH 30.0 MCHC 33.9 RDW 14.4 Plt Count 207 Neut % (Auto) Lymph % (Auto) [place] % (Auto) Eos % (Auto) Baso % (Auto) Neut # (Auto) Lymph # (Auto) [place] # (Auto) Eos # (Auto) Baso # (Auto) Sodium 135 L Potassium 4.4 Chloride 106 Carbon Dioxide 27 BUN 11 Creatinine 0.35 L Estimated GFR > 60 BUN/Creatinine Ratio 31.4 H Glucose 155 H Calcium 7.8 L Phosphorus 1.7 L Magnesium 2.5 H Nasal Screen MRSA (PCR) Not detected Blood Type Antibody Screen REPLACED BY [facility] Medical History (Updated 01/02/24 @ 00:01 by ) Asthma GERD (gastroesophageal reflux disease) (~2010) Gastritis (~2010) Back pain (~2010) Surgical History (Updated 01/02/24 @ 08:35 by John Herr MD) S/P colon resection (01/01/24) Hx of cholecystectomy History of hysterectomy (06/14/22) History of laparoscopy (04/05/22) Hx of colonoscopy (12/14/21) [place] teeth extracted (~2015) Family History Mother Cervical cancer Smoker Father Diabetes mellitus Herniated disc Spondylosis Grandmother Unknown family medical history Diabetes mellitus Smoker Cancer Hyperlipidemia Hypertension Grandfather History of heart disease Grandmother Breast cancer Grandfather Diabetes mellitus Cancer History of heart disease Hypertension Sister Faye syndrome Brother Arthritis of spine Social History marital status: number of children: 1 household members: spouse and children lives independently: Yes caregiver/support person: No housing: house pets and animals: Yes (1 dog: safe) education level: high school occupational status: unemployed current occupational exposures/hazards: No special alexandra needs: No seatbelt use: always do you feel safe at home: Yes Smoking Status: Former smoker second hand exposure: No alcohol intake: current substance use type: does not use during the past year weight has: remained stable well-balanced diet: daily or most days caffeine: Yes (1 cup coffee daily or every other day. ) Type(s) of exercise: walking and normal ROM and activity frequency: daily duration: 15-30 minutes/day Assessment & Plan Post-op Postoperative Procedures: Procedures Operation Date: 12/27/23 15:30 Actual Procedure Side Surgeon p Colonoscopy WITH BIOPSIES Tera Cooper MD s Esophagogastroduodenoscopy WITH BIOPSY Tera Cooper MD Operation Date: 01/01/24 14:15 Actual Procedure Side Surgeon p Laproscopic ileocecectomy Tera Cooper MD Postoperative status narrative: 28-year-old female postoperative day 2 status post laparoscopic ileocecectomy for partial cecal volvulus. Suspect bleeding from the staple line at the anastomosis. Recommend continued observation and transfuse as necessary. This will likely stop spontaneously and does not require return to the operating room. Reviewed pathology from recent colonoscopy which is essentially normal there was no findings of microscopic colitis so budesonide has been discontinued. Quality VTE Deep Vein Thrombosis/Pulmonary Embolism Present on Admission: No
[2024-01-03] MEDS: SODIUM CHLORIDE 0.9% 500 ML IV (14:26)
[2024-01-03 14:38] LABS: Add Manual Diff / Slide Review NO; Basophils Absolute Auto 0 /uL (0-100); Basophils Percent Auto 0.3 % (0-2); Eosinophils Absolute Auto 100 /uL (0-450); Eosinophils Percent Auto 1.1 % (2-4); Hematocrit 26.5 % (36-46); Lymphocytes Absolute Auto 1700 /uL (1100-4500); Lymphocytes Percent Auto 13.2 % (25-40); Mean Corpuscular HGB Conc 33.8 % (30-36); Mean Corpuscular Hemoglobin 30.4 PG (26-34); Mean Corpuscular Volume 89.9 fL (80-100); Monocytes Absolute Auto 1900 /uL (0-900); Monocytes Percent Auto 14.5 % (3-14); Neutrophils Absolute Auto 9200 /uL (1500-7000); Neutrophils Percent Auto 70.9 % (50-75); Platelet Count 201 X10^3/uL (150-400); Red Blood Cell Count 2.95 X10^6/uL (4.0-5.2); Red Cell Distribution Width 14.5 % (11.6-14.8)
--- NOTE | 2024-01-03 15:08 | CM.DPC ---
DCP Continued: Reviewed EMR and team rounds for pt?s medical status. Per Surgeon, pt still experiencing pain and there is suspicion that there could be psychosomatic attributes to this case. DCP entered room, introduced self and role. Present in the room is pt's Aunt, Azul. Pt was found in bed, endorsing pain and discomfort. REED MAN attempted to deploy PHQ-9 and WILLIAM-7 to assess depression and anxiety. Pt consented to these screening tools but abruptly stopped answering and stated, I am not depressed. I am not anxious. Pt visibly frustrated with situation and perserverated that she just wants to get back home to my kid and I am not a junky but people keep treating me like I am one. Pt expressed that she has no interest in any psychotherapy or psychiatric medication interventions at this time. REED MAN utilized reflective listening to assist in validating pt's concerns and expressed frustration towards the situation. Pt's Aunt advocated that pt family is hopeful for a fresh set of eyes as pt is still in pain post-surgery. Pt confirmed that she is hopeful for a transfer to [facility] in [place]. Pt encouraged pt to continue to communicate what she is experiencing with medical providers as her treatment continues. DCP relayed above to Dr. Philip, who indicated understanding and will continue with multidisciplinary treatment plan. Plan: Treatment plan continues to evolve, CM Team will continue to follow for coordination of discharge plans. TITO Gonzalez
[2024-01-03] MEDS: droNABinol 2.5 MG CAPSULE PO (17:15)
[2024-01-03] MEDS: AA 5 %/CALCIUM/LYTES/DEXT 20 % 1,500 ML with MULTIVITAMIN 10 ML, TRACE ELEMENTS 1 ML, T... 63.208 ML IV (17:15)
[2024-01-03] MEDS: FAT EMULSIONS 50 GM/250 ML EMULSION IV (17:16)
[2024-01-03] MEDS: diazePAM 5 MG TABLET PO (21:40)
[2024-01-03] MEDS: AMITRIPTYLINE 25 MG TABLET PO (22:39)
[2024-01-04] VITALS (55 sets, daily range): BP systolic 93–121; BP diastolic 50–63; PULSE 102–169; RESP 10–28; TEMP 37.2–37.8; O2SAT 95–100
[2024-01-04] MEDS: HYDROMORPHONE 0.5 MG INJ 1 MG IV ×3 (04:44→08:51)
[2024-01-04 05:05] LABS: Add Manual Diff / Slide Review NO; Basophils Absolute Auto 0 /uL (0-100); Basophils Percent Auto 0.5 % (0-2); Eosinophils Absolute Auto 400 /uL (0-450); Eosinophils Percent Auto 4.9 % (2-4); Hematocrit 21.5 % (36-46); Hemoglobin 7.4 g/dL (12.0-16.0); Lymphocytes Absolute Auto 2400 /uL (1100-4500); Mean Corpuscular HGB Conc 34.7 % (30-36); Mean Corpuscular Hemoglobin 30.7 PG (26-34); Mean Corpuscular Volume 88.5 fL (80-100); Monocytes Absolute Auto 1400 /uL (0-900); Monocytes Percent Auto 16.1 % (3-14); Neutrophils Absolute Auto 4200 /uL (1500-7000); Neutrophils Percent Auto 50.5 % (50-75); Platelet Count 163 X10^3/uL (150-400); Red Blood Cell Count 2.43 X10^6/uL (4.0-5.2); Red Cell Distribution Width 14.5 % (11.6-14.8); White Blood Cell Count 8.4 X10^3/uL (4.5-11.0)
[2024-01-04 05:25] LABS: BUN Creatinine Ratio 22.2 (6-22); Blood Urea Nitrogen 8 mg/dL (7-17); Calcium 7.9 mg/dL (8.4-10.2); Carbon Dioxide 28 mmol/L (22-32); Chloride 104 mmol/L (98-107); Estimated Glomerular Filt Rate > 60 mL/min (>60); Glucose 116 mg/dL (70-100); HEMOLYSIS < 15 (0-50); Magnesium 2.1 mg/dL (1.6-2.3); Phosphorous 2.9 mg/dL (2.5-4.5); Potassium 3.8 mmol/L (3.4-5.1); Sodium 134 mmol/L (137-145); Triglycerides 75 mg/dL (35-150)
[2024-01-04] MEDS: PANTOPRAZOLE DR 40 MG TABLET PO (06:21)
[2024-01-04] MEDS: DICYCLOMINE 10 MG CAPSULE PO ×3 (06:21→17:56)
[2024-01-04] MEDS: ONDANSETRON 4 MG/2 ML INJ IV (08:37)
[2024-01-04] MEDS: droNABinol 2.5 MG CAPSULE PO ×2 (09:14→22:22)
--- NOTE | 2024-01-04 11:19 | P.PN_ITS ---
Subjective Subjective Date Patient Seen: 01/04/24 Time Patient Seen: 11:20 Interval history: No further bloody bowel movements since yesterday morning. She still feels unwell. Per nursing she is requesting IV Dilaudid every hour. Exam Vital Signs (past 8 hours): - 01/04/24 03:30 01/04/24 03:30 01/04/24 04:00 Temperature Pulse Rate 107 H Respiratory Rate 22 Blood Pressure 104/56 L 101/53 L Pulse Oximetry Oxygen Delivery Method 01/04/24 04:00 01/04/24 04:30 01/04/24 04:30 Temperature Pulse Rate 107 H 103 H Respiratory Rate 19 19 Blood Pressure 106/57 L Pulse Oximetry Oxygen Delivery Method 01/04/24 05:00 01/04/24 05:00 01/04/24 05:00 Temperature Pulse Rate 104 H Respiratory Rate 17 Blood Pressure 103/54 L Pulse Oximetry Oxygen Delivery Method Room Air 01/04/24 05:30 01/04/24 05:30 01/04/24 06:00 Temperature 98.9 F Pulse Rate 110 H Respiratory Rate 18 Blood Pressure 96/52 L Pulse Oximetry Oxygen Delivery Method 01/04/24 06:00 01/04/24 06:00 01/04/24 06:30 Temperature Pulse Rate 114 H Respiratory Rate 20 Blood Pressure 99/55 L 93/55 L Pulse Oximetry Oxygen Delivery Method 01/04/24 06:30 01/04/24 07:00 01/04/24 07:00 Temperature Pulse Rate 110 H 114 H Respiratory Rate 18 16 Blood Pressure 98/59 L Pulse Oximetry Oxygen Delivery Method 01/04/24 07:00 01/04/24 07:29 01/04/24 07:30 Temperature Pulse Rate 106 H Respiratory Rate 16 Blood Pressure 95/53 L Pulse Oximetry 98 Oxygen Delivery Method Room Air 01/04/24 08:07 Temperature 100.0 F H Pulse Rate Respiratory Rate Blood Pressure Pulse Oximetry Oxygen Delivery Method Oxygen Delivery Method Room Air Oxygen Flow Rate 0 Narrative Exam Narrative: On the commode Resp Effort & Inspection: normal respiratory effort Psych Affect: dysphoric affect Objective Labs 01/04/24 04:45 01/04/24 04:45 Labs: Laboratory Results - last 24 hr 01/03/24 01/04/24 14:30 04:45 WBC 13.0 H 8.4 RBC 2.95 L 2.43 L Hgb 9.0 L 7.4 L Hct 26.5 L 21.5 L MCV 89.9 88.5 MCH 30.4 30.7 MCHC 33.8 34.7 RDW 14.5 14.5 Plt Count 201 163 Neut % (Auto) 70.9 50.5 D Lymph % (Auto) 13.2 L 28.0 [place] % (Auto) 14.5 H 16.1 H Eos % (Auto) 1.1 L 4.9 H Baso % (Auto) 0.3 0.5 Neut # (Auto) 9200 H 4200 Lymph # (Auto) 1700 2400 [place] # (Auto) 1900 H 1400 H Eos # (Auto) 100 400 Baso # (Auto) 0 0 Sodium 134 L Potassium 3.8 Chloride 104 Carbon Dioxide 28 BUN 8 Creatinine 0.36 L Estimated GFR > 60 BUN/Creatinine Ratio 22.2 H Glucose 116 H Calcium 7.9 L Phosphorus 2.9 D Magnesium 2.1 Triglycerides 75 PFSH Medical History (Updated 01/02/24 @ 00:01 by ) Asthma GERD (gastroesophageal reflux disease) (~2010) Gastritis (~2010) Back pain (~2010) Surgical History (Updated 01/02/24 @ 08:35 by John Herr MD) S/P colon resection (01/01/24) Hx of cholecystectomy History of hysterectomy (06/14/22) History of laparoscopy (04/05/22) Hx of colonoscopy (12/14/21) [place] teeth extracted (~2015) Family History Mother Cervical cancer Smoker Father Diabetes mellitus Herniated disc Spondylosis Grandmother Unknown family medical history Diabetes mellitus Smoker Cancer Hyperlipidemia Hypertension Grandfather History of heart disease Grandmother Breast cancer Grandfather Diabetes mellitus Cancer History of heart disease Hypertension Sister Faye syndrome Brother Arthritis of spine Social History marital status: number of children: 1 household members: spouse and children lives independently: Yes caregiver/support person: No housing: house pets and animals: Yes (1 dog: safe) education level: high school occupational status: unemployed current occupational exposures/hazards: No special alexandra needs: No seatbelt use: always do you feel safe at home: Yes Smoking Status: Former smoker second hand exposure: No alcohol intake: current substance use type: does not use during the past year weight has: remained stable well-balanced diet: daily or most days caffeine: Yes (1 cup coffee daily or every other day. ) Type(s) of exercise: walking and normal ROM and activity frequency: daily duration: 15-30 minutes/day Assessment & Plan Assessment and plan (1) Abdominal pain: Qualifiers: Abdominal location: lower abdomen, unspecified Qualified Code(s): R 10.30 - Lower abdominal pain, unspecified Status: Acute Plan Advance to full liquids Start oral pain medications Lovenox tomorrow if no further GI bleeding Time-Based Coding :: [TOTAL MINUTES] spent with patient and on the chart (including review of chart, obtaining history, exam, reviewing outside data, placing orders, documenting exam and treatment plan, and counseling patient) on [DATE]. Quality VTE Deep Vein Thrombosis/Pulmonary Embolism Present on Admission: No
--- NOTE | 2024-01-04 11:24 | PM.PN.1 ---
Subjective Subjective Interval history: CC: unable to eat nausea/vomiting POD 3 s/p cecumectomy c/o Dr. Cooper. No more BRBPR but Hgb is dropping could be dilutional. Still very limited attempts to eat per nursing. She has been on TPN with IVF for several days now. Family is in room at all times and has been keeping track of when her next prn pain opiate dose is due. She has had a couple mouthfuls of tea. No BM today but she endorses some farting. Exam Vital Signs (past 8 hours): - 01/04/24 03:30 01/04/24 03:30 01/04/24 04:00 Temperature Pulse Rate 107 H Respiratory Rate 22 Blood Pressure 104/56 L 101/53 L Pulse Oximetry Oxygen Delivery Method 01/04/24 04:00 01/04/24 04:30 01/04/24 04:30 Temperature Pulse Rate 107 H 103 H Respiratory Rate 19 19 Blood Pressure 106/57 L Pulse Oximetry Oxygen Delivery Method 01/04/24 05:00 01/04/24 05:00 01/04/24 05:00 Temperature Pulse Rate 104 H Respiratory Rate 17 Blood Pressure 103/54 L Pulse Oximetry Oxygen Delivery Method Room Air 01/04/24 05:30 01/04/24 05:30 01/04/24 06:00 Temperature 98.9 F Pulse Rate 110 H Respiratory Rate 18 Blood Pressure 96/52 L Pulse Oximetry Oxygen Delivery Method 01/04/24 06:00 01/04/24 06:00 01/04/24 06:30 Temperature Pulse Rate 114 H Respiratory Rate 20 Blood Pressure 99/55 L 93/55 L Pulse Oximetry Oxygen Delivery Method 01/04/24 06:30 01/04/24 07:00 01/04/24 07:00 Temperature Pulse Rate 110 H 114 H Respiratory Rate 18 16 Blood Pressure 98/59 L Pulse Oximetry Oxygen Delivery Method 01/04/24 07:00 01/04/24 07:29 01/04/24 07:30 Temperature Pulse Rate 106 H Respiratory Rate 16 Blood Pressure 95/53 L Pulse Oximetry 98 Oxygen Delivery Method Room Air 01/04/24 08:07 Temperature 100.0 F H Pulse Rate Respiratory Rate Blood Pressure Pulse Oximetry Oxygen Delivery Method Oxygen Delivery Method Room Air Oxygen Flow Rate 0 Narrative Exam Narrative: pale weak lying in bed with pillow on stomach Const Other: thin Eyes Other: perrla, miotic Resp Other: moving air well on room air speaking in complete sentences Cardio Other: fast regular rate, no pedal edema GI Other: laparoscopic incisions under dressings Psych Other: focused on pain, limited interest in eating Objective Labs 01/04/24 04:45 01/04/24 04:45 Labs: Laboratory Results - last 24 hr 01/03/24 01/04/24 14:30 04:45 WBC 13.0 H 8.4 RBC 2.95 L 2.43 L Hgb 9.0 L 7.4 L Hct 26.5 L 21.5 L MCV 89.9 88.5 MCH 30.4 30.7 MCHC 33.8 34.7 RDW 14.5 14.5 Plt Count 201 163 Neut % (Auto) 70.9 50.5 D Lymph % (Auto) 13.2 L 28.0 [place] % (Auto) 14.5 H 16.1 H Eos % (Auto) 1.1 L 4.9 H Baso % (Auto) 0.3 0.5 Neut # (Auto) 9200 H 4200 Lymph # (Auto) 1700 2400 [place] # (Auto) 1900 H 1400 H Eos # (Auto) 100 400 Baso # (Auto) 0 0 Sodium 134 L Potassium 3.8 Chloride 104 Carbon Dioxide 28 BUN 8 Creatinine 0.36 L Estimated GFR > 60 BUN/Creatinine Ratio 22.2 H Glucose 116 H Calcium 7.9 L Phosphorus 2.9 D Magnesium 2.1 Triglycerides 75 PFSH Medical History (Updated 01/02/24 @ 00:01 by ) Asthma GERD (gastroesophageal reflux disease) (~2010) Gastritis (~2010) Back pain (~2010) Surgical History (Updated 01/02/24 @ 08:35 by John Herr MD) S/P colon resection (01/01/24) Hx of cholecystectomy History of hysterectomy (06/14/22) History of laparoscopy (04/05/22) Hx of colonoscopy (12/14/21) [place] teeth extracted (~2015) Family History Mother Cervical cancer Smoker Father Diabetes mellitus Herniated disc Spondylosis Grandmother Unknown family medical history Diabetes mellitus Smoker Cancer Hyperlipidemia Hypertension Grandfather History of heart disease Grandmother Breast cancer Grandfather Diabetes mellitus Cancer History of heart disease Hypertension Sister Faye syndrome Brother Arthritis of spine Social History marital status: number of children: 1 household members: spouse and children lives independently: Yes caregiver/support person: No housing: house pets and animals: Yes (1 dog: safe) education level: high school occupational status: unemployed current occupational exposures/hazards: No special alexandra needs: No seatbelt use: always do you feel safe at home: Yes Smoking Status: Former smoker second hand exposure: No alcohol intake: current substance use type: does not use during the past year weight has: remained stable well-balanced diet: daily or most days caffeine: Yes (1 cup coffee daily or every other day. ) Type(s) of exercise: walking and normal ROM and activity frequency: daily duration: 15-30 minutes/day Assessment & Plan Assessment & Plan narrative: 28yoF with complex medical history of chronic abdominal pain and nausea, now s/p multiple surgeries with removals of various potential culprit tissues without any conclusive resolution of symptoms. Hx of cholecystectomy and hysterectomy then C diff treatment November 2023. Although C diff was treated successfully, she continued to experience severe abdominal pain nausea vomiting and cachexia. Colonoscopy/endoscopy completed 12/26 with benign pathology, no signs of microscopic colitis, EGD did show likely gastritis. MRCP completed 12/[address] scan 12/30 demonstrated hydronephrosis, and distended bladder; repeat post void bladder scans indicated urinary retention. No other significant findings on imaging. With suspicion for postsurgical adhesions being the issue now, the patient received diagnostic laparoscopy on 01/01/24 which revealed a partially volvulized cecum, with minimal abdominal adhesions. No signs of acute ischemia, but concern for intermittent ischemia causing pain. The patient's cecum was resected with removal of some terminal ileum and ascending large colon as a consequence. No signs of endometriosis. Evening of 01/01 patient had one episode of BRBPR, surgery team aware and continuing to follow, seems consistent with healing anastomosis and has not recurred. #Abdominal pain, nausea, vomiting #s/p bowel resection POD #3. continue pain control, PI, valium bentyl and other anti emetics. Encourage PO pain meds over IV as able D/c budesonide encourage mobilization #Severe acute protein calorie malnutrition Pt has lost approx 45lbs in the last month. If she does eat anything consider risk of refeeding sydrome continue TPN for now, clear liquid diet ordered, advance as tolerated #Tachycardia In setting of functional anorexia and anemia. encourage oral feeing. Sinus rhythm, asymptomatic. BP stable WNL. QT increased from 430 to 490 on recent ekg. Continue maintenance fluids and tpn #Urinary retention d/c perkins when able monitor output #Hypokalemia improved Potassium supplementation as per protocol #Acute blood loss anemia postop plus poor PO intake - monitor and transfuse as needed. Dispo: inpatient, pending improvement and PO feeding PCP: Tamera Code: Carbon Accountant-Based Coding :: [TOTAL MINUTES] spent with patient and on the chart (including review of chart, obtaining history, exam, reviewing outside data, placing orders, documenting exam and treatment plan, and counseling patient) on [DATE]. Quality VTE Deep Vein Thrombosis/Pulmonary Embolism Present on Admission: No
[2024-01-04] MEDS: DOCUSATE 100 MG CAPSULE PO (12:07)
[2024-01-04] MEDS: HYDROCODONE/ACET 5/325 TABLET 1 TAB PO ×2 (12:08→17:56)
[2024-01-04] MEDS: METOCLOPRAMIDE 10 MG/2 ML INJ IV ×2 (12:11→17:55)
--- NOTE | 2024-01-04 13:12 | PT-IP ANOTE ---
PT eval order received and EMR reviewed. pt with Hgb 7.4 and Hct 21.5 and currently has bedrest order. talked with nurse and stated that there is no plans for transfusion at this time. nurse stated that she will change bedrest order since the doctor wants pt to move and get up from the bed. checked on pt after a few hours for PT eval but nurse in room and stated that pt just got back in bed after using the commode and will not be ready for PT. nurse wants PT to checked back on pt since she will give pt pain meds. checked back on pt and nurse in room stated that pt now will be eating her lunch. pt not ready for PT again. will f/u.
[2024-01-04] MEDS: SCOPOLAMINE 1 PATCH TOP (14:01)
[2024-01-04] MEDS: ACETAMINOPHEN SUSP 650 MG/20.3 ML UDC PO (14:18)
--- NOTE | 2024-01-04 14:51 | CM.DPC ---
DCP Cont: Per MD and Surgeon, pt continues to have pain and today asking for IV pain meds every hour but encouraging pt to attempt liquids as she has not had any oral intake and remains on TPN and discontinuing the perkins cath and encouraging ambulation. Discussion of switching to PO meds. PT ordered and attempted multiple times today but unable to work with pt due to multiple reasons. Will continue to attempt eval. Plan: SW to follow closely for attempts at advancing diet and PT eval for increased ambulation and potential for Psych Consult Saturday to r/o any psychosocial influences on pt's pain and management. DON Quezada
--- NOTE | 2024-01-04 15:12 | PT-IP ANOTE ---
checked on pt and family in room. pt's father stating that pt cannot do PT due to pain and weakness. explained to pt and family regarding doctor's PT eval order and risks and benefit of PT. pt stated that she has been trying to get up with nurses to use the commode but to the point where she has unbearable pain. informed pt that she is going to have pain but needs to move as much as possible not only for improving strength and to assist with the digestive system. pt understood but wants PT timed with her pain meds. Pt has received her tylenol ~ 30 min ago and has oxycodone at ~ noon. pt stated that she wants PT after she has her oxycodone. informed pt that PT will ask nurse regarding pain meds. talked with nurse and stated that pt's oxycodone is every 3 hours and will not have another dose until ~ 6pm today and that tylenol is also every 6 hours. nurse stated that she will ask the doctor if it can be changed. talked to pt again and informed that the next oxycodone is not until 6 pm and that it is ordered every 6 hours. informed pt that it might not work out for PT at 6 pm today or even for tomorrow since she will take oxycodone at 6 am and there will be no PT at that time. pt understood. stated that PT can check back tomorrow to see if she can do PT or not. nurse aware. pt refused pt this afternoon.
[2024-01-04] MEDS: AA 5 %/CALCIUM/LYTES/DEXT 20 % 1,500 ML with MULTIVITAMIN 10 ML, TRACE ELEMENTS 1 ML, T... 63.292 ML IV (16:50)
[2024-01-04] MEDS: OXYCODONE IR 5 MG TABLET PO (20:59)
[2024-01-04] MEDS: AMITRIPTYLINE 25 MG TABLET PO (20:59)
[2024-01-04] MEDS: ONDANSETRON 4 MG ODT SL (21:05)
[2024-01-05] VITALS (32 sets, daily range): BP systolic 84–111; BP diastolic 49–71; PULSE 88–153; RESP 12–28; TEMP 37.1–37.6; O2SAT 97–100
[2024-01-05] MEDS: DICYCLOMINE 10 MG CAPSULE PO ×5 (00:10→23:39)
[2024-01-05] MEDS: PANTOPRAZOLE DR 40 MG TABLET PO (05:44)
[2024-01-05] MEDS: OXYCODONE IR 5 MG TABLET PO ×3 (05:44→18:08)
[2024-01-05] MEDS: METOCLOPRAMIDE HCL 5 MG TABLET 10 MG PO ×2 (05:44→13:35)
[2024-01-05 06:02] LABS: Add Manual Diff / Slide Review NO; Basophils Absolute Auto 100 /uL (0-100); Basophils Percent Auto 0.9 % (0-2); Eosinophils Absolute Auto 400 /uL (0-450); Eosinophils Percent Auto 4.5 % (2-4); Hemoglobin 7.2 g/dL (12.0-16.0); Lymphocytes Absolute Auto 1900 /uL (1100-4500); Lymphocytes Percent Auto 19.8 % (25-40); Mean Corpuscular HGB Conc 34.1 % (30-36); Mean Corpuscular Hemoglobin 30.3 PG (26-34); Mean Corpuscular Volume 88.8 fL (80-100); Monocytes Absolute Auto 1100 /uL (0-900); Neutrophils Absolute Auto 5900 /uL (1500-7000); Neutrophils Percent Auto 62.8 % (50-75); Platelet Count 221 X10^3/uL (150-400); Red Blood Cell Count 2.37 X10^6/uL (4.0-5.2); Red Cell Distribution Width 14.3 % (11.6-14.8); White Blood Cell Count 9.5 X10^3/uL (4.5-11.0)
[2024-01-05 06:28] LABS: Alanine Aminotransferase 14 IU/L (<35); Albumin 2.8 g/dL (3.5-5.0); Albumin Globulin Ratio 1.1 (1.0-2.8); Alkaline Phosphatase 43 U/L (38-126); Aspartate Aminotransferase 21 IU/L (14-36); BUN Creatinine Ratio 31.6 (6-22); Bilirubin Total 0.4 mg/dL (0.2-1.3); Blood Urea Nitrogen 12 mg/dL (7-17); Calcium 8.2 mg/dL (8.4-10.2); Carbon Dioxide 30 mmol/L (22-32); Chloride 101 mmol/L (98-107); Estimated Glomerular Filt Rate > 60 mL/min (>60); Globulin 2.6 g/dL (1.7-4.1); Glucose 126 mg/dL (70-100); HEMOLYSIS < 15 (0-50); Potassium 3.8 mmol/L (3.4-5.1); Sodium 135 mmol/L (137-145); Total Protein 5.4 g/dL (6.3-8.2)
[2024-01-05] MEDS: droNABinol 2.5 MG CAPSULE PO ×2 (08:29→21:11)
--- NOTE | 2024-01-05 09:37 | PM.PN.1 ---
Subjective Subjective Date Patient Seen: 01/05/24 Time Patient Seen: 09:37 Interval history: Feels better today Has passed some gas but no real bowel movement Pain has been relatively well controlled with oral meds She had resumption of appetite when the TPN was stopped yesterday but once the TPN was turned back on her appetite stopped Exam Vital Signs (past 8 hours): - 01/05/24 02:00 01/05/24 02:00 01/05/24 02:00 Temperature Pulse Rate 101 H 101 H Respiratory Rate 20 20 Blood Pressure 110/64 Pulse Oximetry 99 98 Oxygen Delivery Method 01/05/24 02:30 01/05/24 03:00 01/05/24 03:00 Temperature Pulse Rate 104 H 102 H Respiratory Rate 21 19 Blood Pressure 104/58 L Pulse Oximetry 98 99 Oxygen Delivery Method 01/05/24 03:30 01/05/24 04:00 01/05/24 04:00 Temperature Pulse Rate 101 H 108 H Respiratory Rate 19 19 Blood Pressure 102/57 L Pulse Oximetry 99 97 Oxygen Delivery Method 01/05/24 04:30 01/05/24 05:00 01/05/24 05:00 Temperature Pulse Rate 102 H 107 H Respiratory Rate 18 19 Blood Pressure 106/62 Pulse Oximetry 97 98 Oxygen Delivery Method 01/05/24 05:00 01/05/24 05:30 01/05/24 06:00 Temperature Pulse Rate 105 H Respiratory Rate 18 Blood Pressure 98/54 L Pulse Oximetry 97 Oxygen Delivery Method Room Air 01/05/24 06:00 01/05/24 06:30 01/05/24 07:00 Temperature Pulse Rate 101 H 101 H 99 H Respiratory Rate 19 17 17 Blood Pressure Pulse Oximetry 97 98 97 Oxygen Delivery Method 01/05/24 07:00 01/05/24 07:30 01/05/24 08:24 Temperature 98.7 F Pulse Rate 99 H Respiratory Rate 17 Blood Pressure 101/55 L Pulse Oximetry 98 Oxygen Delivery Method Oxygen Delivery Method Room Air Oxygen Flow Rate 0 Narrative Exam Narrative: Well-healed laparoscopic incisions Objective Labs 01/05/24 05:45 01/05/24 05:45 Labs: Laboratory Results - last 24 hr 01/05/24 05:45 WBC 9.5 RBC 2.37 L Hgb 7.2 L Hct 21.0 L MCV 88.8 MCH 30.3 MCHC 34.1 RDW 14.3 Plt Count 221 Neut % (Auto) 62.8 Lymph % (Auto) 19.8 L [place] % (Auto) 12.0 Eos % (Auto) 4.5 H Baso % (Auto) 0.9 Neut # (Auto) 5900 Lymph # (Auto) 1900 [place] # (Auto) 1100 H Eos # (Auto) 400 Baso # (Auto) 100 Sodium 135 L Potassium 3.8 Chloride 101 Carbon Dioxide 30 BUN 12 Creatinine 0.38 L Estimated GFR > 60 BUN/Creatinine Ratio 31.6 H Glucose 126 H Calcium 8.2 L Total Bilirubin 0.4 AST 21 ALT 14 Alkaline Phosphatase 43 Total Protein 5.4 L Albumin 2.8 L Globulin 2.6 Albumin/Globulin Ratio 1.1 [facility] Medical History (Updated 01/02/24 @ 00:01 by ) Asthma GERD (gastroesophageal reflux disease) (~2010) Gastritis (~2010) Back pain (~2010) Surgical History (Updated 01/02/24 @ 08:35 by John Herr MD) S/P colon resection (01/01/24) Hx of cholecystectomy History of hysterectomy (06/14/22) History of laparoscopy (04/05/22) Hx of colonoscopy (12/14/21) [place] teeth extracted (~2015) Family History Mother Cervical cancer Smoker Father Diabetes mellitus Herniated disc Spondylosis Grandmother Unknown family medical history Diabetes mellitus Smoker Cancer Hyperlipidemia Hypertension Grandfather History of heart disease Grandmother Breast cancer Grandfather Diabetes mellitus Cancer History of heart disease Hypertension Sister Faye syndrome Brother Arthritis of spine Social History marital status: number of children: 1 household members: spouse and children lives independently: Yes caregiver/support person: No housing: house pets and animals: Yes (1 dog: safe) education level: high school occupational status: unemployed current occupational exposures/hazards: No special alexandra needs: No seatbelt use: always do you feel safe at home: Yes Smoking Status: Former smoker second hand exposure: No alcohol intake: current substance use type: does not use during the past year weight has: remained stable well-balanced diet: daily or most days caffeine: Yes (1 cup coffee daily or every other day. ) Type(s) of exercise: walking and normal ROM and activity frequency: daily duration: 15-30 minutes/day Assessment & Plan Assessment and plan (1) Nausea & vomiting: Qualifiers: Vomiting type: unspecified Qualified Code(s): R11.2 - Nausea with vomiting, unspecified Status: Acute Plan Okay to stop TPN now Advance diet [employer] [place] Time-Based Coding :: [TOTAL MINUTES] spent with patient and on the chart (including review of chart, obtaining history, exam, reviewing outside data, placing orders, documenting exam and treatment plan, and counseling patient) on [DATE]. Quality VTE Deep Vein Thrombosis/Pulmonary Embolism Present on Admission: No
[2024-01-05] MEDS: ENOXAPARIN 40 MG/0.4 ML SYRINGE SUBCUT (10:57)
--- NOTE | 2024-01-05 11:06 | PT.IIE ---
Current Diagnoses Lower abdominal pain, unspecified (12/25/23) Nausea with vomiting, unspecified (12/25/23) Pain, unspecified (12/25/23) Abnormal weight loss (12/25/23) Surgery Performed Operation Date: 12/27/23 15:30 Actual Procedures p Colonoscopy WITH BIOPSIES - Tera Cooper MD s Esophagogastroduodenoscopy WITH BIOPSY - Tera Cooper MD Operation Date: 01/01/24 14:15 Actual Procedures p Laproscopic ileocecectomy - Tera Cooper MD Surgical History (Last Updated 01/02/24 @ 08:35 by John Herr MD) History of hysterectomy (06/14/22) History of laparoscopy (04/05/22) Hx of cholecystectomy Hx of colonoscopy (12/14/21) S/P colon resection (01/01/24) [place] teeth extracted (~2015) Medical History (Last Reviewed 12/25/23 @ 19:10 by Anam Lopez MD) Asthma Back pain (~2010) Gastritis (~2010) GERD (gastroesophageal reflux disease) (~2010) Physical Therapy Inpatient Evaluation/Re-Eval M1 PT/OT-IP Prior Functional Status Start: 01/05/24 08:32 Freq: NEEDED Status: Active Protocol: Document 01/05/24 08:44 MB (Rec: 01/05/24 09:36 MB [id number]) Medical Review Prior Functional Status Medical History Reviewed Yes Diet/Fluid Consistency Regular Communication WNLs Mobility and Gait I, with 2 small children (3 y/o and 5 y/o) for whom she cares Activities of Daily Living and IADL's I Prior Functional Level (Other details) I, drove Social History Household Members spouse,children Living Arrangements House Number of Floors (Floors) Two Floors Number of Stairs To Enter/Railing? 1 platform step without rails to enter, flight of steps with left rail ascend Home Environment Standard Height Toilet,Tub/ Shower Home Equipment Hand Held Shower Additional Social History Comment Mom full-time M2 PT-IP Current Condition Start: 01/05/24 08:32 Freq: NEEDED Status: Active Protocol: Document 01/05/24 08:44 MB (Rec: 01/05/24 09:36 MB [id number]) Physical Therapy Current Condition Current Condition Evaluation Date 01/05/24 Treatment Diagnosis N/V/abdominal pain now s/p lap ileocectomy M3 PT-IP Subjective Start: 01/05/24 08:32 Freq: NEEDED Status: Active Protocol: Document 01/05/24 08:44 MB (Rec: 01/05/24 11:06 MB [id number]) Subjective Physical Therapy Visit Type Type Initial Evaluation Visit Start Time 08:44 Visit Stop Time 09:25 Notes PT notes that Hgb did decrease since last date and is 7.2 today. Read PT note last date about pain and pain med regimine and family request and so PT this a.m. optimal in this regard. Nsg communicates concern that pt does need to mobilize. PT is in agreement as pt is post-op 28 y/o and wish to avoid ileus and further skin and pain issues. PT, nsg and patient and father all agree to gentle bed mobility and checking vitals is PT eval and mobility goal today. Once up to EOB, pt would like to get to chair and so performed this as well. Number of PATIENT CASE COORDINATOR Visits 0 Physical Therapy Visit Comments Patient Comments Pt reports pain 7/10 in abdomen at rest and 9/10 with mobility, she is agreeable to gentle bed mobility. Therapy Pain Assessment Pain When Pain Assessed At Rest Pain Present Pain Present Pain Reported Location Mid abdomen Intensity 7 Scale Used Numeric (0 - 10) M4 PT-IP Mobility and Gait Start: 01/05/24 08:32 Freq: NEEDED Status: Active Protocol: Document 01/05/24 08:44 MB (Rec: 01/05/24 11:06 MB [id number]) PT-Bed Mobility Assessment Rolling Type of Rolling Log Rolling,Roll to Right Level of Assist Contact Guard Assistance,1 Person Assistance Supine to Sit Supine to Sit Minimal Assistance,1 Person Assistance,Head of Bed Elevated,Bedrails Scooting Scooting to Edge of Bed Contact Guard Assistance PT-Transfer Assessment Sit to and From Stand Sit to and from Stand Contact Guard Assistance,1 Person Assistance,Use of Upper Extremities Equipment Transfer Assistive Device Gait Belt,Front Wheeled Walker Orthotic/Prosthetic Devices or Brace: No Transfers Transfer Destination Chair Transfer Technique Stepping Transfer Ability Level of Assist Minimal Assistance,1 Person Assistance,Use of Upper Extremities Comments Mobility Comments Pt is tachy at rest and tachycardia and pain increase with mobility with HR 109-112 BPM in supine, 125 BPM sitting on EOB and up to 155 BPM with stepping to chair. HR decreases to the low 120s BPM and into teens once sitting comfortably in chair. BP RUE also drops with mobility: supine 98/53; sitting EOB 97/ 59; after having sat greater thn 5' and after a few steps gait in standin/49 and this is when her HR peaks. Gait Assessment Gait Gait Assistance Required: Minimum Assistance Distance (Feet) 3 Able to Maintain Weight Bearing Status Yes During Gait Assistive Devices Assistive Device Gait Belt,Front Wheeled Walker Orthotic/Prosthetic Devices or Brace: No Gait Deviations General Gait Pattern Antalgic,Decreased Stride Length,Decreased Feet Clearance,Flexed Trunk Factors Limiting Gait Function Factors Limiting Gait Function Decreased Activity Tolerance, Pain PT-Balance Assessment Sitting Balance and Reactions Static Sitting Balance Ability Good Dynamic Sitting Balance Ability Fair Standing Balance and Reactions Static Standing Balance Ability Fair Dynamic Standing Balance Ability Fair Device Used RW M5 PT-IP Objective Assessments Start: 01/05/24 08:32 Freq: NEEDED Status: Active Protocol: Document 01/05/24 08:44 MB (Rec: 01/05/24 11:06 [id number]) Orientation Orientation/Cognition Level of Alertness Alert Orientation Name,Birthday,Month,Year,Place ,Situation Language Function Ability No Deficits Noted Safety Awareness Understands Safety Issues Memory Description No Deficits Noted Gross Range of Motion Upper Extremity ROM Assessment Within Functional Limits Impairments Functionally observed only today Lower Extremity ROM Assessment Within Functional Limits Impairments As above Strength Upper Extremity Strength Assessment Within Functional Limits Lower Extremity Strength Assessment Within Functional Limits Comments Strength Comments Functionally observed strength only and WFLs today Coordination Assessment Assessment Coordination Comments NT Sensation Assessment Comments Sensation Comments NT Muscle Tone Muscle Tone WNL Yes M6 PT-IP Treatment Start: 01/05/24 08:32 Freq: NEEDED Status: Active Protocol: Document 01/05/24 08:44 MB (Rec: 01/05/24 11:06 MB [id number]) Physical Therapy Treatment Exercises Exercises Ankle Pumps Other Treatments Other Treatment Performed LAQs in sitting, log rolling, ed in abdominal precautions and benefits of using her incentive spirometer as well as nasal breathing and nasal breathing performed throughout treatment M7 PT-IP Assessment and Plan Start: 01/05/24 08:32 Freq: NEEDED Status: Active Protocol: Document 01/05/24 08:44 MB (Rec: 01/05/24 11:06 FRAN [id number]) PT Summary Assessment and Plan Potential Rehabilitation Potential Good Status of Condition at Evaluation Unstable Summary Impairments Pain,Balance,Bed Mobility, Transfers,Gait,Activity Tolerance Progress Towards Goals Slow Progress due to Medical Issues,Slow Progress due to Activity Tolerance Assessment Summary Pt is a 28 y/o female s/p lap ileocectomy. Given young age, risk of ileus, skin integrity and pain sequela of not moving , nsg and PT agree that gentle mobility in ICU with monitoring of vitals is in pt' s best interest this a.m. Pt and dad are agreeable and pt actually surpasses PT's goal today. Her BP does drop in setting of low Hgb and she is quite tachy with mobility. Slow and careful mobility today with cues for log rolling and protecting abdominal surgery. She is CGA to min A for bed mobility and to get up to chair with RW. Recommend up with nsg as able and as medically appropriate and con't PT as pt in the acute setting. Great effort with PT today. Goals Bed Mobility Goal Independent Transfer Goal Independent,Cane,Front Wheeled Walker Gait Goal Independent,Cane,Front Wheel Walker Gait Distance 150 Other Goals Pt will ascend and descend flight of steps with left rail ascend and no more than CGA to allow safe mobility to bed room. Pt will ascend and descend one step with our without LRAD and no more than CGA to allow safe home entrance. Progress gait to no AD Days to Meet Goals 10 Frequency of Treatment Frequency Of Treatment Once a Day Treatment Plan Physical Therapy Treatment Plan Bed Mobility Training,Transfer Training,Gait Training, Therapeutic Exercise,Balance Retraining,Post Op Education, Discharge Planning,Hot or Cold Pack,Neuromuscular Re-ed, Coordination Retraining,Manual Therapy Precautions Abdominal Surgery Precautions Log Roll,Lifting Restrictions, Gait Belt above Incisional Area Recommendations To Nursing Amount of Assist Needed 1 Person Assist Discharge Recommendations Other Discharge Recommendations Need more time to assess d/c recs, likely home with assistance Equipment Needed for Home Before May need LRAD but will make Discharge recs depending on further progress, further assessment Transportation Needs at Discharge Private Vehicle,Wheelchair/ Cabulance
--- NOTE | 2024-01-05 11:17 | CM.DPNOTE ---
DCP Note ARMORED VEHICLE OFFICER reviewed EMR Per PT in morning rounds, did well. rec home with assistance. Per Chele/surgeon note, stop TPN and dc perkins. Per Dr. Elaine, pt eating again, shower today, and downgrade from ICU. dc Sat vs Saturday. P: Home when medically stable with diet, home with family support. potential psych consult Saturday to r/o psychosocial influences. no CM needs anticipated at this time, CM team will continue to follow closely DON Parekh
[2024-01-05] MEDS: ONDANSETRON 4 MG ODT SL ×2 (11:19→18:06)
--- NOTE | 2024-01-05 11:57 | P.PN_ITS ---
Subjective Subjective Date Patient Seen: 01/05/24 Time Patient Seen: 11:57 Interval history: CC: nausea/vomiting/no PO intake Doing better today she is snacking on fruit and interested in mashed potatoes with gravy for dinner. Last dose of Dilaudid was yesterday evening. TPN is stopped that is helping her be hungry. Denies nausea. No BMs yet but thinking about it. Hgb stable had one episode of dark red blood yesterday seems like it was old not fresh. Goal today is to mobilize to shower take out Perkins go downstairs see her kids maybe put on some clothes and in general try to feel more like a human being. Encourage snacking - advance diet as tolerated. Exam Vital Signs (past 8 hours): - 01/05/24 04:00 01/05/24 04:00 01/05/24 04:30 Temperature Pulse Rate 108 H 102 H Respiratory Rate 19 18 Blood Pressure 102/57 L Pulse Oximetry 97 97 Oxygen Delivery Method 01/05/24 05:00 01/05/24 05:00 01/05/24 05:00 Temperature Pulse Rate 107 H Respiratory Rate 19 Blood Pressure 106/62 Pulse Oximetry 98 Oxygen Delivery Method Room Air 01/05/24 05:30 01/05/24 06:00 01/05/24 06:00 Temperature Pulse Rate 105 H 101 H Respiratory Rate 18 19 Blood Pressure 98/54 L Pulse Oximetry 97 97 Oxygen Delivery Method 01/05/24 06:30 01/05/24 07:00 01/05/24 07:00 Temperature Pulse Rate 101 H 99 H Respiratory Rate 17 17 Blood Pressure 101/55 L Pulse Oximetry 98 97 Oxygen Delivery Method 01/05/24 07:00 01/05/24 07:30 01/05/24 08:00 Temperature Pulse Rate 99 H 105 H Respiratory Rate 17 17 Blood Pressure Pulse Oximetry 98 98 97 Oxygen Delivery Method Room Air 01/05/24 08:00 01/05/24 08:24 01/05/24 08:30 Temperature 98.7 F Pulse Rate 101 H Respiratory Rate 17 Blood Pressure 98/53 L Pulse Oximetry 98 Oxygen Delivery Method 01/05/24 08:51 01/05/24 08:51 01/05/24 08:58 Temperature Pulse Rate 110 H 125 H Respiratory Rate 12 27 H Blood Pressure 98/53 L Pulse Oximetry 100 Oxygen Delivery Method 01/05/24 08:58 01/05/24 09:00 01/05/24 09:00 Temperature Pulse Rate Respiratory Rate Blood Pressure 97/59 L 95/59 L Pulse Oximetry Oxygen Delivery Method Room Air 01/05/24 09:00 01/05/24 09:07 01/05/24 09:07 Temperature Pulse Rate 116 H 153 H Respiratory Rate 17 28 H Blood Pressure 84/49 L Pulse Oximetry Oxygen Delivery Method 01/05/24 09:19 01/05/24 09:19 01/05/24 09:30 Temperature Pulse Rate 116 H 125 H Respiratory Rate 14 19 Blood Pressure 96/59 L Pulse Oximetry Oxygen Delivery Method 01/05/24 09:59 01/05/24 10:00 Temperature Pulse Rate 138 H Respiratory Rate 19 Blood Pressure 111/59 L Pulse Oximetry Oxygen Delivery Method Oxygen Delivery Method Room Air Oxygen Flow Rate 0 Narrative Exam Narrative: sitting up in chair getting ready for shower Resp Other: clear to auscultation bilaterally Cardio Other: regular rhythm, s1/s2, no pedal edema GI Other: laparoscopic incisions under dressings Neuro Other: alert awake oriented moving all extremities Objective Labs 01/05/24 05:45 01/05/24 05:45 Labs: Laboratory Results - last 24 hr 01/05/24 05:45 WBC 9.5 RBC 2.37 L Hgb 7.2 L Hct 21.0 L MCV 88.8 MCH 30.3 MCHC 34.1 RDW 14.3 Plt Count 221 Neut % (Auto) 62.8 Lymph % (Auto) 19.[address] [place] % (Auto) 12.0 Eos % (Auto) 4.5 H Baso % (Auto) 0.9 Neut # (Auto) 5900 Lymph # (Auto) [address] [place] # (Auto) 1100 H Eos # (Auto) 400 Baso # (Auto) 100 Sodium 135 L Potassium 3.8 Chloride 101 Carbon Dioxide 30 BUN 12 Creatinine 0.38 L Estimated GFR > 60 BUN/Creatinine Ratio 31.6 H Glucose 126 H Calcium 8.2 L Total Bilirubin 0.4 AST 21 ALT 14 Alkaline Phosphatase 43 Total Protein 5.4 L Albumin 2.8 L Globulin 2.6 Albumin/Globulin Ratio 1.1 [facility] Medical History (Updated 01/02/24 @ 00:01 by ) Asthma GERD (gastroesophageal reflux disease) (~2010) Gastritis (~2010) Back pain (~2010) Surgical History (Updated 01/02/24 @ 08:35 by John Herr MD) S/P colon resection (01/01/24) Hx of cholecystectomy History of hysterectomy (06/14/22) History of laparoscopy (04/05/22) Hx of colonoscopy (12/14/21) [place] teeth extracted (~2015) Family History Mother Cervical cancer Smoker Father Diabetes mellitus Herniated disc Spondylosis Grandmother Unknown family medical history Diabetes mellitus Smoker Cancer Hyperlipidemia Hypertension Grandfather History of heart disease Grandmother Breast cancer Grandfather Diabetes mellitus Cancer History of heart disease Hypertension Sister Faye syndrome Brother Arthritis of spine Social History marital status: number of children: 1 household members: spouse and children lives independently: Yes caregiver/support person: No housing: house pets and animals: Yes (1 dog: safe) education level: high school occupational status: unemployed current occupational exposures/hazards: No special alexandra needs: No seatbelt use: always do you feel safe at home: Yes Smoking Status: Former smoker second hand exposure: No alcohol intake: current substance use type: does not use during the past year weight has: remained stable well-balanced diet: daily or most days caffeine: Yes (1 cup coffee daily or every other day. ) Type(s) of exercise: walking and normal ROM and activity frequency: daily duration: 15-30 minutes/day Assessment & Plan Assessment & Plan narrative: 28yoF with complex medical history of chronic abdominal pain and nausea, now s/p multiple surgeries with removals of various potential culprit tissues without any conclusive resolution of symptoms. Hx of cholecystectomy and hysterectomy then C diff treatment November 2023. Although C diff was treated successfully, she continued to experience severe abdominal pain nausea vomiting and cachexia. Colonoscopy/endoscopy completed 12/26 with benign pathology, no signs of microscopic colitis, EGD did show likely gastritis. MRCP completed 12/[address] scan 12/30 demonstrated hydronephrosis, and distended bladder; repeat post void bladder scans indicated urinary retention. No other significant findings on imaging. With suspicion for postsurgical adhesions being the issue now, the patient received diagnostic laparoscopy on 01/01/24 which revealed a partially volvulized cecum, with minimal abdominal adhesions. No signs of acute ischemia, but concern for intermittent ischemia causing pain. The patient's cecum was resected with removal of some terminal ileum and ascending large colon as a consequence. No signs of endometriosis, minimal adhesions. #Abdominal pain, nausea, vomiting #s/p bowel resection POD #4. continue pain control, PPI, valium, bentyl and other anti emetics. Encourage PO pain meds over IV as able D/c budesonide encourage mobilization #Severe acute protein calorie malnutrition Pt has lost approx 45lbs in the last month. Encourage snacking over large meals, advance diet as tolerated, prn marinol ordered #Tachycardia In setting of functional anorexia and anemia. Improving with PO intake. Sinus rhythm, asymptomatic. BP stable WNL. QT increased from 430 to 490 on recent ekg. Monitor. #Urinary retention d/c perkins monitor output #Hypokalemia improved Potassium supplementation as per protocol #Acute blood loss anemia She is postop plus poor PO intake - monitor and transfuse as needed. It seems to be hovering in the low 7s. Advance diet. Dispo: inpatient, downgrade from ICU status, possible DC in days to come PCP: Tamera Code: Integration Solution Architect-Based Coding :: [TOTAL MINUTES] spent with patient and on the chart (including review of chart, obtaining history, exam, reviewing outside data, placing orders, documenting exam and treatment plan, and counseling patient) on [DATE]. Quality VTE Deep Vein Thrombosis/Pulmonary Embolism Present on Admission: No
[2024-01-05] MEDS: HYDROCODONE/ACET 5/325 TABLET 1 TAB PO ×2 (13:35→19:49)
--- NOTE | 2024-01-05 14:48 | PC.NURSE ---
Pt has been in better spirits today, tolerating PO pain meds and PO anti-nausea meds. Has been up to the [facility] trying for a BM several times without success. Pt states that tomorrow she'll try a suppository if no results today. Last BM was 01/03, small amount of old dark bloody liquid. [place] Cath removed just before noon and pt sat in the shower briefly. Heart rate continues to spike with activity but returns to low teens at rest. TPN D/c's this AM and blood glucose checked after 4 hrs - was 107. Eating small amounts of fruit and carbs, and appetite improving. Planning to transfer to acute care unit after family visit this afternoon.
--- NOTE | 2024-01-05 17:46 | PC.NURSE ---
1730 Report given to Charlette CRONIN, pt transferred per WC to rm 212.
[2024-01-05] MEDS: AMITRIPTYLINE 25 MG TABLET PO (21:11)
[2024-01-06] VITALS (12 sets, daily range): BP systolic 97–120; BP diastolic 59–72; PULSE 87–110; RESP 15–20; TEMP 36.6–37.6; O2SAT 95–100
[2024-01-06] MEDS: PANTOPRAZOLE DR 40 MG TABLET PO (06:10)
[2024-01-06] MEDS: DICYCLOMINE 10 MG CAPSULE PO ×2 (06:10→12:43)
[2024-01-06] MEDS: HYDROCODONE/ACET 5/325 TABLET 1 TAB PO ×4 (06:10→21:05)
[2024-01-06 06:14] LABS: Add Manual Diff / Slide Review NO; Basophils Absolute Auto 100 /uL (0-100); Basophils Percent Auto 0.6 % (0-2); Eosinophils Absolute Auto 400 /uL (0-450); Lymphocytes Absolute Auto 2200 /uL (1100-4500); Lymphocytes Percent Auto 21.7 % (25-40); Mean Corpuscular HGB Conc 34.3 % (30-36); Mean Corpuscular Hemoglobin 30.4 PG (26-34); Mean Corpuscular Volume 88.6 fL (80-100); Monocytes Absolute Auto 1000 /uL (0-900); Monocytes Percent Auto 9.8 % (3-14); Neutrophils Absolute Auto 6600 /uL (1500-7000); Neutrophils Percent Auto 63.9 % (50-75); Platelet Count 256 X10^3/uL (150-400); Red Blood Cell Count 2.23 X10^6/uL (4.0-5.2); Red Cell Distribution Width 14.2 % (11.6-14.8); White Blood Cell Count 10.3 X10^3/uL (4.5-11.0)
[2024-01-06 06:26] LABS: Hematocrit 19.8 % (36-46); Hemoglobin 6.8 g/dL (12.0-16.0)
[2024-01-06 06:45] LABS: Alanine Aminotransferase 23 IU/L (<35); Albumin 2.7 g/dL (3.5-5.0); Alkaline Phosphatase 59 U/L (38-126); Aspartate Aminotransferase 29 IU/L (14-36); BUN Creatinine Ratio 29.1 (6-22); Bilirubin Total 0.4 mg/dL (0.2-1.3); Blood Urea Nitrogen 16 mg/dL (7-17); Calcium 8.4 mg/dL (8.4-10.2); Carbon Dioxide 29 mmol/L (22-32); Chloride 101 mmol/L (98-107); Estimated Glomerular Filt Rate > 60 mL/min (>60); Globulin 2.7 g/dL (1.7-4.1); Glucose 95 mg/dL (70-100); HEMOLYSIS < 15 (0-50); Potassium 3.9 mmol/L (3.4-5.1); Sodium 134 mmol/L (137-145); Total Protein 5.4 g/dL (6.3-8.2)
--- NOTE | 2024-01-06 08:20 | PM.PN.1 ---
Subjective <Caroline Aguilar - Last Filed: 01/06/24 13:18> Subjective Date Patient Seen: 01/06/24 Time Patient Seen: 08:00 Interval history: Emilia feels like she is slowly improving. Pain is improving, hasn't needed IV pain meds recently. Was up in her chair, and moving around more yesterday. Still some nausea, but appetite is increasing. No vomiting. Exam <Caroline Aguilar - Last Filed: 01/06/24 13:18> Vital Signs (past 8 hours): - 01/06/24 04:00 Temperature 98.7 F Pulse Rate 98 H Respiratory Rate 20 Blood Pressure 103/59 L Pulse Oximetry 95 Oxygen Flow Rate 0 Oxygen Delivery Method Room Air Oxygen Flow Rate 0 Const General: cooperative and No acute distress HENMT Head: normal to inspection Eyes General: appearance normal, both eyes and all related structures Resp Effort & Inspection: normal respiratory effort Cardio Rate: regular rate Rhythm: regular rhythm GI Other: Incisions healing well. Continues to have moderate RLQ tenderness, mild deb-umbilical pain. Abdomen is soft. Skin General: no rashes or lesions noted Psych Appearance: grossly normal Objective <Caroline Aguilar - Last Filed: 01/06/24 13:18> Labs 01/06/24 06:03 01/06/24 06:03 Labs: Laboratory Results - last 24 hr 01/06/24 06:03 WBC 10.3 RBC 2.23 L Hgb 6.8 L* Hct 19.8 L* MCV 88.6 MCH 30.4 MCHC 34.3 RDW 14.2 Plt Count 256 Neut % (Auto) 63.9 Lymph % (Auto) 21.7 L [place] % (Auto) 9.8 Eos % (Auto) 4.0 Baso % (Auto) 0.6 Neut # (Auto) 6600 Lymph # (Auto) 2200 [place] # (Auto) 1000 H Eos # (Auto) 400 Baso # (Auto) 100 Sodium 134 L Potassium 3.9 Chloride 101 Carbon Dioxide 29 BUN 16 Creatinine 0.55 Estimated GFR > 60 BUN/Creatinine Ratio 29.1 H Glucose 95 Calcium 8.4 Total Bilirubin 0.4 AST 29 ALT 23 Alkaline Phosphatase 59 Total Protein 5.4 L Albumin 2.7 L Globulin 2.7 Albumin/Globulin Ratio 1.0 PFSH <Caroline Aguilar - Last Filed: 01/06/24 13:18> Medical History (Updated 01/02/24 @ 00:01 by ) Asthma GERD (gastroesophageal reflux disease) (~2010) Gastritis (~2010) Back pain (~2010) Surgical History (Updated 01/02/24 @ 08:35 by John Herr MD) S/P colon resection (01/01/24) Hx of cholecystectomy History of hysterectomy (06/14/22) History of laparoscopy (04/05/22) Hx of colonoscopy (12/14/21) [place] teeth extracted (~2015) Family History Mother Cervical cancer Smoker Father Diabetes mellitus Herniated disc Spondylosis Grandmother Unknown family medical history Diabetes mellitus Smoker Cancer Hyperlipidemia Hypertension Grandfather History of heart disease Grandmother Breast cancer Grandfather Diabetes mellitus Cancer History of heart disease Hypertension Sister Faye syndrome Brother Arthritis of spine Social History marital status: number of children: 1 household members: spouse and children lives independently: Yes caregiver/support person: No housing: house pets and animals: Yes (1 dog: safe) education level: high school occupational status: unemployed current occupational exposures/hazards: No special alexandra needs: No seatbelt use: always do you feel safe at home: Yes Smoking Status: Former smoker second hand exposure: No alcohol intake: current substance use type: does not use during the past year weight has: remained stable well-balanced diet: daily or most days caffeine: Yes (1 cup coffee daily or every other day. ) Type(s) of exercise: walking and normal ROM and activity frequency: daily duration: 15-30 minutes/day Assessment & Plan <Caroline Aguilar - Last Filed: 01/06/24 13:18> Assessment and plan Plan 28yoF with complex medical history of chronic abdominal pain and nausea. Hx of cholecystectomy and hysterectomy then C diff treatment November 2023. Although C diff was treated successfully, she continued to experience severe abdominal pain nausea vomiting and cachexia. Colonoscopy/endoscopy completed 12/26 with benign pathology, no signs of microscopic colitis, EGD did show likely gastritis. MRCP completed 12/[address] scan 12/30 demonstrated hydronephrosis, and distended bladder; repeat post void bladder scans indicated urinary retention. No other significant findings on imaging. With suspicion for postsurgical adhesions being the issue now, the patient received diagnostic laparoscopy on 01/01/24 which revealed a partially volvulized cecum, with minimal abdominal adhesions. No signs of acute ischemia, but concern for intermittent ischemia causing pain. The patient's cecum was resected with removal of some terminal ileum and ascending large colon as a consequence. No signs of endometriosis, minimal adhesions. #Abdominal pain, nausea, vomiting #s/p bowel resection POD #5. continue pain control, PPI. D/c benzodiazepines, bentyl Encourage PO pain and nausea meds over IV as able D/c budesonide encourage mobilization #Severe acute protein calorie malnutrition Pt has lost approx 45lbs in the last month. Encourage snacking over large meals, advance diet as tolerated, prn marinol ordered - TPN discontinued #Tachycardia, improved. In setting of functional anorexia and anemia. Sinus rhythm, asymptomatic. BP stable WNL. QT increased from 430 to 490 on recent ekg. Monitor. #Urinary retention d/c perkins monitor output #Hypokalemia improved Potassium supplementation as per protocol #Acute blood loss anemia Intermittent bloody stools, post op blood loss and poor nutrition for several months. Continuing to improve PO intake - Hgb today 6.8, plan to transfuse 2 unit PRBC Dispo: inpatient PCP: Tamera Code: Route Delivery Service Driver-Based Coding :: [TOTAL MINUTES] spent with patient and on the chart (including review of chart, obtaining history, exam, reviewing outside data, placing orders, documenting exam and treatment plan, and counseling patient) on [DATE]. <Alyssa Philip MD - Last Filed: 01/06/24 16:57> Assessment & Plan narrative: 28yoF with complex medical history of chronic abdominal pain and nausea. Hx of cholecystectomy and hysterectomy then C diff treatment November 2023. Although C diff was treated successfully, she continued to experience severe abdominal pain nausea vomiting and cachexia. Colonoscopy/endoscopy completed 12/26 with benign pathology, no signs of microscopic colitis, EGD did show likely gastritis. MRCP completed 12/[address] scan 12/30 demonstrated hydronephrosis, and distended bladder; repeat post void bladder scans indicated urinary retention. No other significant findings on imaging. With suspicion for postsurgical adhesions being the issue, the patient received diagnostic laparoscopy on 01/01/24 which revealed a partially volvulized cecum, with minimal abdominal adhesions. No signs of acute ischemia, but concern for intermittent ischemia causing pain. The patient's cecum was resected with removal of some terminal ileum and ascending large colon as a consequence. No signs of endometriosis, minimal adhesions. #Abdominal pain, nausea, vomiting #s/p bowel resection POD #5. continue pain control, PPI. D/c benzodiazepines, bentyl Encourage PO pain and nausea meds over IV as able D/c [id number] with complex medical history of chronic abdominal pain and nausea. Hx of cholecystectomy and hysterectomy then C diff treatment November 2023. Although C diff was treated successfully, she continued to experience severe abdominal pain nausea vomiting and cachexia. Colonoscopy/endoscopy completed 12/26 with benign pathology, no signs of microscopic colitis, EGD did show likely gastritis. MRCP completed 12/[address] scan 12/30 demonstrated hydronephrosis, and distended bladder; repeat post void bladder scans indicated urinary retention. No other significant findings on imaging. With suspicion for postsurgical adhesions being the issue now, the patient received diagnostic laparoscopy on 01/01/24 which revealed a partially volvulized cecum, with minimal abdominal adhesions. No signs of acute ischemia, but concern for intermittent ischemia causing pain. The patient's cecum was resected with removal of some terminal ileum and ascending large colon as a consequence. No signs of endometriosis, minimal adhesions. #Abdominal pain, nausea, vomiting #s/p bowel resection POD #5. continue pain control, PPI. D/c benzodiazepines, bentyl Encourage PO pain and nausea meds over IV as able encourage mobilization #Severe acute protein calorie malnutrition Pt has lost approx 45lbs in the last month. Encourage snacking over large meals, advance diet as tolerated, prn marinol ordered - TPN discontinued yesterday #Tachycardia, improved. In setting of functional anorexia and anemia. Sinus rhythm, asymptomatic. BP stable WNL. QT increased from 430 to 490 on recent ekg. Monitor. #Urinary retention monitor output #Hypokalemia improved Potassium supplementation as per protocol #Acute blood loss anemia Intermittent bloody stools, post op blood loss and poor nutrition for several months. Continuing to improve PO intake - Hgb today 6.8, plan to transfuse 2 unit PRBC I verified the resident?s documentation in the medical record. I personally performed a physical exam and medical decision making. I made appropriate changes to the documentation and the assessment and plan based on my verification, exam and medical decision making. Quality <Caroline Aguilar - Last Filed: 01/06/24 13:18> VTE Deep Vein Thrombosis/Pulmonary Embolism Present on Admission: No [facility] PROFEE <Alyssa Philip MD - Last Filed: 01/06/24 16:57> Charge codes Subsequent inpatient/observation care: [id number]
[2024-01-06] MEDS: droNABinol 2.5 MG CAPSULE PO ×2 (09:45→21:06)
[2024-01-06] MEDS: ENOXAPARIN 40 MG/0.4 ML SYRINGE SUBCUT (09:45)
[2024-01-06] MEDS: OXYCODONE IR 5 MG TABLET PO (09:45)
--- NOTE | 2024-01-06 10:29 | PT-IP ANOTE ---
Pt did well up in chair last afternoon, was transferred to floor from ICU. Pt discussed in rounds and felt to have bleed and her Hgb con't to drop and is very low at 6.8. Will hold PT at this time.
[2024-01-06] MEDS: ONDANSETRON 4 MG ODT SL ×3 (11:28→23:31)
[2024-01-06] MEDS: HYDROMORPHONE 0.5 MG INJ IV (11:29)
--- NOTE | 2024-01-06 13:38 | PM.PN.1 ---
Subjective Subjective Date Patient Seen: 01/06/24 Time Patient Seen: 13:38 Interval history: Emilia had another episode of blood per rectum. Her hemoglobin was 6.8 this morning and a unit of blood was ordered. No tachycardia. She is eating some regular diet. She is still experiencing abdominal pain and she feels that the oral pain medications do not last the full 4 hours. She does have both oxycodone and hydrocodone ordered.. Exam Vital Signs (past 8 hours): - 01/06/24 07:00 01/06/24 08:00 01/06/24 11:57 Temperature 99 F 99.6 F Pulse Rate 87 96 H Respiratory Rate 16 15 Blood Pressure 114/67 120/72 Pulse Oximetry 100 100 Oxygen Delivery Method Room Air Oxygen Flow Rate 0 01/06/24 12:15 Temperature 99.5 F Pulse Rate 96 H Respiratory Rate 16 Blood Pressure 112/65 Pulse Oximetry Oxygen Delivery Method Oxygen Flow Rate Oxygen Delivery Method Room Air Oxygen Flow Rate 0 Const General: No acute distress Objective Labs 01/06/24 06:03 01/06/24 06:03 Labs: Laboratory Results - last 24 hr 01/03/24 01/06/24 01:10 06:03 WBC 10.3 RBC 2.23 L Hgb 6.8 L* Hct 19.8 L* MCV 88.6 MCH 30.4 MCHC 34.3 RDW 14.2 Plt Count 256 Neut % (Auto) 63.9 Lymph % (Auto) 21.7 L [place] % (Auto) 9.8 Eos % (Auto) 4.0 Baso % (Auto) 0.6 Neut # (Auto) 6600 Lymph # (Auto) 2200 [place] # (Auto) 1000 H Eos # (Auto) 400 Baso # (Auto) 100 Sodium 134 L Potassium 3.9 Chloride 101 Carbon Dioxide 29 BUN 16 Creatinine 0.55 Estimated GFR > 60 BUN/Creatinine Ratio 29.1 H Glucose 95 Calcium 8.4 Total Bilirubin 0.4 AST 29 ALT 23 Alkaline Phosphatase 59 Total Protein 5.4 L Albumin 2.7 L Globulin 2.7 Albumin/Globulin Ratio 1.0 Blood Type A Positive Antibody Screen Negative Crossmatch See Detail [facility] Medical History (Updated 01/02/24 @ 00:01 by ) Asthma GERD (gastroesophageal reflux disease) (~2010) Gastritis (~2010) Back pain (~2010) Surgical History (Updated 01/02/24 @ 08:35 by John Herr MD) S/P colon resection (01/01/24) Hx of cholecystectomy History of hysterectomy (06/14/22) History of laparoscopy (04/05/22) Hx of colonoscopy (12/14/21) [place] teeth extracted (~2016) Family History Mother Cervical cancer Smoker Father Diabetes mellitus Herniated disc Spondylosis Grandmother Unknown family medical history Diabetes mellitus Smoker Cancer Hyperlipidemia Hypertension Grandfather History of heart disease Grandmother Breast cancer Grandfather Diabetes mellitus Cancer History of heart disease Hypertension Sister Faye syndrome Brother Arthritis of spine Social History marital status: number of children: 1 household members: spouse and children lives independently: Yes caregiver/support person: No housing: house pets and animals: Yes (1 dog: safe) education level: high school occupational status: unemployed current occupational exposures/hazards: No special alexandra needs: No seatbelt use: always do you feel safe at home: Yes Smoking Status: Former smoker second hand exposure: No alcohol intake: current substance use type: does not use during the past year weight has: remained stable well-balanced diet: daily or most days caffeine: Yes (1 cup coffee daily or every other day. ) Type(s) of exercise: walking and normal ROM and activity frequency: daily duration: 15-30 minutes/day Assessment & Plan Assessment and plan (1) Intractable abdominal pain: Status: Acute Plan Hold Lovenox due to rectal bleeding Although her hemoglobin dropped to 6.8 it has really been trending down gradually over the past several days and I do not suspect any sudden, acute increase in bleeding I suspect that the Lovenox caused a slight increase in staple line bleeding which should stop on its own. I will DC oxycodone and increase the frequency of her hydrocodone to q.3 hours. Time-Based Coding :: [TOTAL MINUTES] spent with patient and on the chart (including review of chart, obtaining history, exam, reviewing outside data, placing orders, documenting exam and treatment plan, and counseling patient) on [DATE]. Quality VTE Deep Vein Thrombosis/Pulmonary Embolism Present on Admission: No
--- NOTE | 2024-01-06 13:53 | CM.DPC ---
DCP Cont: Per Surgeon and PCP, pt making good improvements and tolerating her PO pain meds and perkins and TPN both still remain discontinued and pt tolerating intake with slowly increasing appetite. Pt's H&H low today and getting 2 Units blood so not yet medically stable to discharge but anticipate likely could discharge tomorrow Tues 01/06 if she remains stable. Encouraging ambulation and eating. Both Providers reduced her medication list and discontinued a few today. Per PT, recommending home with family. Plan; SW to follow closely in the AM to confirm stable labs and tolerating diet for plan of discharge home with family support. DON Quezada
--- NOTE | 2024-01-06 14:33 | DIET.CONS2 ---
Dietary Inpatient Consultation Note Admission Date: 12/25/2023 17:18 Pt d/c TPN yesterday. Consumed 75% dinner last evening. Plan to d/c tomorrow. Diet: 01/05/24 Lunch General (Regular) Diet Diet Modifications: Food Texture: Level 7 - Regular Liquid Consistency: Level 0 - Thin Nutrition Percent Meal Consumed 75% 01/05/24 18:00 Percent Meal Consumed 10% 01/04/24 17:52 Electronically Signed by: Allegra Marin 01/06/24 14:33 Clinical Dietitian [address] [id number]
[2024-01-06 21:01] LABS: Hematocrit 26.2 % (36-46); Hemoglobin 8.9 g/dL (12.0-16.0)
[2024-01-06] MEDS: AMITRIPTYLINE 25 MG TABLET PO (21:06)
[2024-01-07] VITALS (7 sets, daily range): BP systolic 93–103; BP diastolic 60–67; PULSE 75–98; RESP 16–18; TEMP 36.8–37.3; O2SAT 95–100
[2024-01-07] MEDS: HYDROCODONE/ACET 5/325 TABLET 1 TAB PO ×5 (01:07→20:41)
[2024-01-07] MEDS: ACETAMINOPHEN 325 MG TABLET 650 MG PO ×3 (01:08→20:40)
[2024-01-07 04:55] LABS: Add Manual Diff / Slide Review NO; Basophils Absolute Auto 100 /uL (0-100); Basophils Percent Auto 0.6 % (0-2); Eosinophils Absolute Auto 300 /uL (0-450); Eosinophils Percent Auto 4.1 % (2-4); Hematocrit 24.9 % (36-46); Hemoglobin 8.5 g/dL (12.0-16.0); Lymphocytes Absolute Auto 2200 /uL (1100-4500); Lymphocytes Percent Auto 27.7 % (25-40); Mean Corpuscular HGB Conc 34.1 % (30-36); Mean Corpuscular Hemoglobin 29.9 PG (26-34); Mean Corpuscular Volume 87.7 fL (80-100); Monocytes Absolute Auto 800 /uL (0-900); Monocytes Percent Auto 9.6 % (3-14); Neutrophils Absolute Auto 4700 /uL (1500-7000); Platelet Count 246 X10^3/uL (150-400); Red Blood Cell Count 2.84 X10^6/uL (4.0-5.2)
[2024-01-07 05:20] LABS: Alanine Aminotransferase 25 IU/L (<35); Albumin 2.6 g/dL (3.5-5.0); Alkaline Phosphatase 55 U/L (38-126); Aspartate Aminotransferase 33 IU/L (14-36); BUN Creatinine Ratio 33.3 (6-22); Bilirubin Total 0.6 mg/dL (0.2-1.3); Blood Urea Nitrogen 18 mg/dL (7-17); Calcium 8.1 mg/dL (8.4-10.2); Carbon Dioxide 28 mmol/L (22-32); Chloride 104 mmol/L (98-107); Estimated Glomerular Filt Rate > 60 mL/min (>60); Globulin 2.7 g/dL (1.7-4.1); Glucose 94 mg/dL (70-100); HEMOLYSIS 33 (0-50); Potassium 3.7 mmol/L (3.4-5.1); Sodium 135 mmol/L (137-145); Total Protein 5.3 g/dL (6.3-8.2)
--- NOTE | 2024-01-07 05:20 | PC.NURSE ---
pt had a fairly decent night. had to be medicated twice for incisional pain at lap sites. pt tolerated her dinner, but wasn't a fan of what was on her tray. her family brought her parks's, and shortly after consuming she reported feeling nauseous. educated the pt and family to stay away from greasy foods, as this will likely cause some discomfort. family not entirely on board and repeatedly stated that 'the doctor told us she could have whatever she wanted. pt got plenty of rest tonight and had an unremarkable night.
[2024-01-07] MEDS: PANTOPRAZOLE DR 40 MG TABLET PO (06:20)
--- NOTE | 2024-01-07 08:24 | PM.PN.1 ---
Subjective <Caroline Aguilar - Last Filed: 01/07/24 08:40> Subjective Date Patient Seen: 01/07/24 Time Patient Seen: 08:00 Interval history: Emilia's pain has been improving slowly. She has been able to eat a bit more each day. Yesterday she had salmon, mashed potatoes and spinach. No episodes of vomiting. Still passing some blood with each BM. No bleeding in between. Exam <Caroline Aguilar - Last Filed: 01/07/24 08:40> Vital Signs (past 8 hours): - 01/07/24 00:33 01/07/24 05:43 Temperature 99 F 99.2 F Pulse Rate 98 H 75 Blood Pressure 103/62 93/62 Pulse Oximetry 98 95 Oxygen Delivery Method Room Air Oxygen Flow Rate 0 Const General: cooperative and comfortable Eyes General: appearance normal, both eyes and all related structures Resp Effort & Inspection: normal respiratory effort Cardio Rate: regular rate Rhythm: regular rhythm GI Inspection: abdominal wall ecchymosis (minimal bruising around laparoscopy site. ) and incision Palpation: soft and tender (RLQ tenderness) Auscultation: normal bowel sounds Skin General: no rashes or lesions noted Neuro General: patient alert and patient awake Extrem General: normal to inspection Psych Appearance: grossly normal Objective <Caroline Aguilar - Last Filed: 01/07/24 08:40> Labs 01/07/24 04:48 01/07/24 04:48 Labs: Laboratory Results - last 24 hr 01/03/24 01/06/24 01/07/24 01:10 20:55 04:48 WBC 8.0 RBC 2.84 L Hgb 8.9 L 8.5 L Hct 26.2 L 24.9 L MCV 87.7 MCH 29.9 MCHC 34.1 RDW 15.0 H Plt Count 246 Neut % (Auto) 58.0 Lymph % (Auto) 27.7 [place] % (Auto) 9.6 Eos % (Auto) 4.1 H Baso % (Auto) 0.6 Neut # (Auto) 4700 Lymph # (Auto) 2200 [place] # (Auto) 800 Eos # (Auto) 300 Baso # (Auto) 100 Sodium 135 L Potassium 3.7 Chloride 104 Carbon Dioxide 28 BUN 18 H Creatinine 0.54 Estimated GFR > 60 BUN/Creatinine Ratio 33.3 H Glucose 94 Calcium 8.1 L Total Bilirubin 0.6 AST 33 ALT 25 Alkaline Phosphatase 55 Total Protein 5.3 L Albumin 2.6 L Globulin 2.7 Albumin/Globulin Ratio 1.0 Blood Type A Positive Antibody Screen Negative Crossmatch See Detail PFSH <Caroline Aguilar - Last Filed: 01/07/24 08:40> Medical History (Updated 01/02/24 @ 00:01 by ) Asthma GERD (gastroesophageal reflux disease) (~2010) Gastritis (~2010) Back pain (~2010) Surgical History (Updated 01/02/24 @ 08:35 by John Herr MD) S/P colon resection (01/01/24) Hx of cholecystectomy History of hysterectomy (06/14/22) History of laparoscopy (04/05/22) Hx of colonoscopy (12/14/21) [place] teeth extracted (~2015) Family History Mother Cervical cancer Smoker Father Diabetes mellitus Herniated disc Spondylosis Grandmother Unknown family medical history Diabetes mellitus Smoker Cancer Hyperlipidemia Hypertension Grandfather History of heart disease Grandmother Breast cancer Grandfather Diabetes mellitus Cancer History of heart disease Hypertension Sister Faye syndrome Brother Arthritis of spine Social History marital status: number of children: 1 household members: spouse and children lives independently: Yes caregiver/support person: No housing: house pets and animals: Yes (1 dog: safe) education level: high school occupational status: unemployed current occupational exposures/hazards: No special alexandra needs: No seatbelt use: always do you feel safe at home: Yes Smoking Status: Former smoker second hand exposure: No alcohol intake: current substance use type: does not use during the past year weight has: remained stable well-balanced diet: daily or most days caffeine: Yes (1 cup coffee daily or every other day. ) Type(s) of exercise: walking and normal ROM and activity frequency: daily duration: 15-30 minutes/day Assessment & Plan <Caroline KrissHugoEdwin - Last Filed: 01/07/24 08:40> Assessment and plan Plan 28yoF with complex medical history of chronic abdominal pain and nausea. Hx of cholecystectomy and hysterectomy then C diff treatment November 2023. Although C diff was treated successfully, she continued to experience severe abdominal pain nausea vomiting and cachexia. Colonscopy/endoscopy/MRCP/CT scan without significant pathology. Patient underwent diagnostic laparoscopy on 01/01/24 which revealed a partially volvulized cecum, with minimal abdominal adhesions. No signs of acute ischemia, but concern for intermittent ischemia causing pain. The patient's cecum was resected with removal of some terminal ileum and ascending large colon as a consequence. No signs of endometriosis, minimal adhesions. Prior abdominal pain has now resolved. Patient POD 6 now, recovery course complicated by anemia 2/2 blood loss and poor nutrition now s/p 2 units PRBC. #Abdominal pain, nausea, vomiting #s/p bowel resection POD #6. continue pain control, PPI. Encourage PO pain and nausea meds over IV as able encourage mobilization #Acute blood loss anemia Intermittent bloody stools, post op blood loss and poor nutrition for several months. Continuing to improve PO intake - Hgb stable s/p transfusion 2U PRBC 01/05. #Severe acute protein calorie malnutrition Pt has lost approx 45lbs in the last month. Encourage snacking over large meals, advance diet as tolerated, prn marinol ordered #Tachycardia, resolved. In setting of functional anorexia and anemia. Sinus rhythm, QT increased from 430 to 490 on recent ekg. CTM. #Urinary retention, resolved. monitor output #Hypokalemia improved Potassium supplementation as per protocol Dispo: inpatient PCP: Tamera Code: Laundry Aide-Based Coding :: [TOTAL MINUTES] spent with patient and on the chart (including review of chart, obtaining history, exam, reviewing outside data, placing orders, documenting exam and treatment plan, and counseling patient) on [DATE]. <Alyssa Philip MD - Last Filed: 01/07/24 14:41> Assessment & Plan narrative: 28yoF with complex medical history of chronic abdominal pain and nausea. Hx of cholecystectomy and hysterectomy then C diff treatment November 2023. Although C diff was treated successfully, she continued to experience severe abdominal pain nausea vomiting and cachexia. Colonscopy/endoscopy/MRCP/CT scan without significant pathology. Patient underwent diagnostic laparoscopy on 01/01/24 which revealed a partially volvulized cecum, with minimal abdominal adhesions. No signs of acute ischemia, but concern for intermittent ischemia causing pain. The patient's cecum was resected with removal of some terminal ileum and ascending large colon as a consequence. No signs of endometriosis, minimal adhesions. Prior abdominal pain has now resolved. Patient POD 6 now, recovery course complicated by anemia 2/2 blood loss and poor nutrition now s/p 2 units PRBC. #Abdominal pain, nausea, vomiting: Pt and family remain very concerned regarding ongoing postoperative blood in stools. They are worried about potential complication from surgery. #s/p bowel resection POD #6. continue pain control, PPI. Encourage PO pain and nausea meds over IV as able encourage mobilization Discussed at length can be normal to still have some blood in stool, and that is not copious. Could not be reassured at this time. Abdominal CT ordered to eval further. #Acute blood loss anemia Intermittent bloody stools, post op blood loss and poor nutrition for several months. Continuing to improve PO intake. - Hgb stable s/p transfusion 2U PRBC 01/05. - Continue to trend #Severe acute protein calorie malnutrition Pt has lost approx 45lbs in the last month. Now stable. Encourage snacking over large meals, advance diet as tolerated, prn marinol ordered #Tachycardia, resolved. In setting of functional anorexia and anemia. #Urinary retention, resolved. monitor output #Hypokalemia improved Potassium supplementation as per protocol Code: Full FEN: General diet Dispo: Pending ongoing stabilization on PO pain medications. Hopeful can d/c in the next 1-2 days. I verified the resident?s documentation in the medical record. I personally performed a physical exam and medical decision making. I made appropriate changes to the documentation and the assessment and plan based on my verification, exam and medical decision making. Time-Based Coding :: 50 spent with patient and on the chart (including review of chart, obtaining history, exam, reviewing outside data, placing orders, documenting exam and treatment plan, and counseling patient) on 01/07/24. Quality <Caroline Aguilar - Last Filed: 01/07/24 08:40> VTE Deep Vein Thrombosis/Pulmonary Embolism Present on Admission: No IH PROFEE <Alyssa Philip MD - Last Filed: 01/07/24 14:41> Charge codes Subsequent inpatient/observation care: [id number]
[2024-01-07] MEDS: droNABinol 2.5 MG CAPSULE PO ×2 (09:56→20:42)
--- NOTE | 2024-01-07 11:14 | PT.IPTN ---
Current Diagnoses Lower abdominal pain, unspecified (12/25/23) Unspecified abdominal pain (12/25/23) Nausea with vomiting, unspecified (12/25/23) Pain, unspecified (12/25/23) Abnormal weight loss (12/25/23) Surgery Performed Operation Date: 12/27/23 15:30 Actual Procedures p Colonoscopy WITH BIOPSIES - Tera Cooper MD s Esophagogastroduodenoscopy WITH BIOPSY - Tera Cooper MD Operation Date: 01/01/24 14:15 Actual Procedures p Laproscopic ileocecectomy - Tera Cooper MD Physical Therapy Treatment Note M2 PT-IP Current Condition Start: 01/05/24 08:32 Freq: NEEDED Status: Active Protocol: Document 01/05/24 08:44 MB (Rec: 01/05/24 09:36 MB [id number]) Physical Therapy Current Condition Current Condition Evaluation Date 01/05/24 Treatment Diagnosis N/V/abdominal pain now s/p lap ileocectomy M3 PT-IP Subjective Start: 01/05/24 08:32 Freq: NEEDED Status: Active Protocol: Document 01/07/24 11:14 AB (Rec: 01/07/24 11:58 AB [id number]) Subjective Physical Therapy Visit Type Type Treatment Note Visit Start Time 11:14 Visit Stop Time 11:37 Number of [employer]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[employer]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 Visits 0 Physical Therapy Visit Comments Patient Comments agreeable to do PT Therapy Pain Assessment Pain When Pain Assessed At Rest Pain Present Pain Present Pain Reported Location abdomen Intensity 9 Scale Used Numeric (0 - 10) Pain Management Techniques Distraction,Modification of Treatment,Re-positioning, Timing of Activity with Medications M4 PT-IP Mobility and Gait Start: 01/05/24 08:32 Freq: NEEDED Status: Active Protocol: Document 01/07/24 11:14 AB (Rec: 01/07/24 11:58 AB [id number]) PT-Bed Mobility Assessment Rolling Level of Assist Contact Guard Assistance Supine to Sit Supine to Sit Contact Guard Assistance PT-Transfer Assessment Sit to and From Stand Sit to and from Stand Minimal Assistance,Maximum Assistance,1 Person Assistance ,Use of Upper Extremities Equipment Transfer Assistive Device Gait Belt,Front Wheeled Walker Orthotic/Prosthetic Devices or Brace: No Transfers Transfer Destination Toilet Transfer Technique ambulated Transfer Ability Level of Assist Minimal Assistance,1 Person Assistance,Use of Upper Extremities Comments Mobility Comments pt supine in bed and agreeable to do PT. BP: 106/58. completeds supine to sit log roll CGA with HOB elevated to ~ 20 deg. pt used bed rail to assist. pt needing increase rest breaks in between tasks. able to sit on EOB SBA. sat for awhile to rest. c/o increase abdominal pain. completed sit to stand min A and cues and ambulated ~ 25 ft using FWW min A. presents with very slow paced gait and increas forward trunk flexion. cued for upright posture. pt sat on the chair and rested. pt requested to use the toilet . sit to stand from the chair max A and max cues and ambulated to the toilet ~ 10 ft using FWW min A and cues. max A for controlled descent to the toilet using grab bar. pt needed assist for brief management. call light positioned next to pt. informed NAC. Gait Assessment Gait Gait Assistance Required: Minimum Assistance,1 Person Assist Distance (Feet) 25 Able to Maintain Weight Bearing Status Yes During Gait Assistive Devices Assistive Device Gait Belt,Front Wheeled Walker Orthotic/Prosthetic Devices or Brace: No Gait Deviations General Gait Pattern Decreased Stride Length, Decreased Feet Clearance Factors Limiting Gait Function Factors Limiting Gait Function Decreased Activity Tolerance, Decreased Strength,Limited Range of Motion,Pain,Poor Balance,Poor Safety Awareness M5 PT-IP Objective Assessments Start: 01/05/24 08:32 Freq: NEEDED Status: Active Protocol: Document 01/05/24 08:44 MB (Rec: 01/05/24 11:06 MB [id number]) Orientation Orientation/Cognition Level of Alertness Alert Orientation Name,Birthday,Month,Year,Place ,Situation Language Function Ability No Deficits Noted Safety Awareness Understands Safety Issues Memory Description No Deficits Noted Gross Range of Motion Upper Extremity ROM Assessment Within Functional Limits Impairments Functionally observed only today Lower Extremity ROM Assessment Within Functional Limits Impairments As above Strength Upper Extremity Strength Assessment Within Functional Limits Lower Extremity Strength Assessment Within Functional Limits Comments Strength Comments Functionally observed strength only and WFLs today Coordination Assessment Assessment Coordination Comments NT Sensation Assessment Comments Sensation Comments NT Muscle Tone Muscle Tone WNL Yes M6 PT-IP Treatment Start: 01/05/24 08:32 Freq: NEEDED Status: Active Protocol: Document 01/07/24 11:14 AB (Rec: 01/07/24 11:58 AB [id number]) Physical Therapy Treatment Education Education Provided Precautions,Safety M7 PT-IP Assessment and Plan Start: 01/05/24 08:32 Freq: NEEDED Status: Active Protocol: Document 01/07/24 11:14 AB (Rec: 01/07/24 11:58 AB [id number]) PT Summary Assessment and Plan Potential Rehabilitation Potential Fair Summary Impairments Pain,ROM,Strength,Balance, Coordination,Sensation,Tone, Cognition,Bed Mobility, Transfers,Gait,Activity Tolerance Progress Towards Goals Slow Progress due to Pain,Slow Progress due to Medical Issues,Slow Progress due to Activity Tolerance,Slow Progress - Other Assessment Summary pt improving slowly with mobility requiring min to max A for sit to stand and min A with ambulation using FWW but only able to ambulate 25 ft. pt with decrease activity tolerance needing increase rest breaks in between activities. pt also continues to c/o increase abdominal pain. d/c plan depending on progress. will continue to assess. Goals Bed Mobility Goal Independent Transfer Goal Independent,Cane,Front Wheeled Walker Gait Goal Independent,Cane,Front Wheel Walker Gait Distance 150 Other Goals Pt will ascend and descend flight of steps with left rail ascend and no more than CGA to allow safe mobility to bed room. Pt will ascend and descend one step with our without LRAD and no more than CGA to allow safe home entrance. Progress gait to no AD Days to Meet Goals 10 Frequency of Treatment Frequency Of Treatment Once a Day Treatment Plan Physical Therapy Treatment Plan Bed Mobility Training,Transfer Training,Gait Training, Therapeutic Exercise,Balance Retraining,Post Op Education, Discharge Planning,Hot or Cold Pack,Neuromuscular Re-ed, Coordination Retraining,Manual Therapy Precautions Abdominal Surgery Precautions Log Roll,Lifting Restrictions, Gait Belt above Incisional Area Recommendations To Nursing Amount of Assist Needed 1 Person Assist Discharge Recommendations PT Discharge Recommendations Home with 24/09 Assist Available,Home Health,SNF Rehab,Home vs SNF Equipment Needed for Home Before FWW Discharge Transportation Needs at Discharge Private Vehicle,Wheelchair/ Cabulance
[2024-01-07] MEDS: HYDROMORPHONE 0.5 MG INJ IV (12:46)
--- NOTE | 2024-01-07 12:58 | CM.DPC ---
DCP Cont. Reviewed EMR and team rounds for status updates. Pt has now been able to eat smaller meals without issue. She did vomit after eating the Banks's her family brought to her-family was encouraged to not bring in this type of food yet as pt is slowly progressing in her diet tolerance. Pt now on PO pain meds, pain is improving. D/c likely in the next few days, monitoring closely for any further needs.
--- NOTE | 2024-01-07 13:38 | DI.CT.S_ITS ---
PROCEDURE: CT ABDOMEN PELVIS W CON INDICATIONS: ongoing postoperative bleeding TECHNIQUE: After the administration of intravenous contrast, axial sections acquired from the lung bases to the pubic symphysis. Coronal and sagittal reformats were performed. For radiation dose reduction, the following was used: automated exposure control, adjustment of mA and/or kV according to patient size. COMPARISON: [facility], CT, CT ABDOMEN PELVIS W CON, 12/31/2023, 10:17. FINDINGS: Image quality: Diagnostic. Lower Chest: No significant findings. ABDOMEN: Liver: No solid mass. Gallbladder: Surgically absent Biliary ducts: No biliary dilation. Pancreas: No ductal dilation. Spleen: Size is within normal limits. Adrenal Glands: No adrenal nodules. Kidneys and Ureters: Resolution of bilateral hydronephrosis and hydroureter. Stomach and Bowel: Interval resection of the cecum and terminal ileum. Liquid colonic contents. Minimal postoperative inflammatory change in the fat adjacent to the anastomotic michael. The distal ileum just proximal to the anastomotic michael is mildly dilated with fecalization of contents. It measures 4.5 cm. However, the remainder of the small bowel is normal in caliber. Peritoneum: Trace pelvic fluid in the deep pelvis noted on image 126 of series 2. This fluid pocket measures 2.7 x 1.6 cm. Cannot exclude very early developing, very small small deep pelvic abscess. Reference axial image 126 of series 2. Mild residual postoperative air. Ventral Wall: No significant ventral hernia. Abdominal Nodes: No retroperitoneal or mesenteric adenopathy by size criteria. Vessels: Aorta and inferior vena cava are normal in size. PELVIS: Pelvic Organs: Uterus is surgically absent. No adnexal masses.. Bladder: There is a small amount of air present in the bladder, presumably secondary to recent [place]. Pelvic Nodes: No enlarged lymph nodes. Miscellaneous: No inguinal hernias are seen. Bones: No aggressive osseous abnormality. IMPRESSION: 1. Interval resection of the cecum and terminal ileum. The colonic contents are predominantly liquid. The distal ileum, just proximal to the anastomosis, is somewhat prominent, measuring 4.5 cm, with early fecalization of material. There is no obvious stricture at the anastomotic site. 2. The small bowel is otherwise normal in caliber. 3. Expected postoperative air. 4. Very small focal fluid pocket in the deep pelvis. Cannot exclude a very early developing tiny deep pelvic abscess. 5. Resolution of bilateral hydronephrosis. 6. Remote cholecystectomy and hysterectomy. Dictated by: Ibrahima Luther M.D. on 01/07/2024 at 14:06 Approved by: Ibrahima Luther M.D. on 01/07/2024 at 14:16
[2024-01-07] MEDS: SCOPOLAMINE 1 PATCH TOP (14:51)
[2024-01-07 15:24] LABS: Add Manual Diff / Slide Review NO; Basophils Absolute Auto 0 /uL (0-100); Basophils Percent Auto 0.4 % (0-2); Eosinophils Absolute Auto 300 /uL (0-450); Eosinophils Percent Auto 2.7 % (2-4); Hemoglobin 9.1 g/dL (12.0-16.0); Lymphocytes Absolute Auto 1700 /uL (1100-4500); Lymphocytes Percent Auto 15.9 % (25-40); Mean Corpuscular HGB Conc 33.7 % (30-36); Mean Corpuscular Hemoglobin 29.6 PG (26-34); Mean Corpuscular Volume 87.8 fL (80-100); Monocytes Absolute Auto 700 /uL (0-900); Neutrophils Absolute Auto 7700 /uL (1500-7000); Platelet Count 267 X10^3/uL (150-400); Red Blood Cell Count 3.07 X10^6/uL (4.0-5.2); Red Cell Distribution Width 14.8 % (11.6-14.8); White Blood Cell Count 10.4 X10^3/uL (4.5-11.0)
--- NOTE | 2024-01-07 17:10 | PM.PNPO.1 ---
Subjective Subjective Date Patient Seen: 01/07/24 Time Patient Seen: 17:10 Interval history: Pain improving largely on PO meds Tolerating small amounts of food off TPN Exam Vital Signs (past 8 hours): - 01/07/24 13:00 Temperature 98.3 F Pulse Rate 76 Respiratory Rate 16 Blood Pressure 98/60 Pulse Oximetry 100 Oxygen Delivery Method Room Air Oxygen Flow Rate 0 Narrative Exam Narrative: Gen-Adult woman alert and oriented Abdomen Lap incisions CDI Objective Labs 01/07/24 15:00 01/07/24 04:48 Labs: Laboratory Results - last 24 hr 01/03/24 01/06/24 01/07/24 01:10 20:55 04:48 WBC 8.0 RBC 2.84 L Hgb 8.9 L 8.5 L Hct 26.2 L 24.9 L MCV 87.7 MCH 29.9 MCHC 34.1 RDW 15.0 H Plt Count 246 Neut % (Auto) 58.0 Lymph % (Auto) 27.7 [place] % (Auto) 9.6 Eos % (Auto) 4.1 H Baso % (Auto) 0.6 Neut # (Auto) 4700 Lymph # (Auto) 2200 [place] # (Auto) 800 Eos # (Auto) 300 Baso # (Auto) 100 Sodium 135 L Potassium 3.7 Chloride 104 Carbon Dioxide 28 BUN 18 H Creatinine 0.54 Estimated GFR > 60 BUN/Creatinine Ratio 33.3 H Glucose 94 Calcium 8.1 L Total Bilirubin 0.6 AST 33 ALT 25 Alkaline Phosphatase 55 Total Protein 5.3 L Albumin 2.6 L Globulin 2.7 Albumin/Globulin Ratio 1.0 Crossmatch See Detail 01/07/24 15:00 WBC 10.4 RBC 3.07 L Hgb 9.1 L Hct 27.0 L MCV 87.8 MCH 29.6 MCHC 33.7 RDW 14.8 Plt Count 267 Neut % (Auto) 74.0 Lymph % (Auto) 15.9 L [place] % (Auto) 7.0 Eos % (Auto) 2.7 Baso % (Auto) 0.4 Neut # (Auto) 7700 H Lymph # (Auto) 1700 [place] # (Auto) 700 Eos # (Auto) 300 Baso # (Auto) 0 Sodium Potassium Chloride Carbon Dioxide BUN Creatinine Estimated GFR BUN/Creatinine Ratio Glucose Calcium Total Bilirubin AST ALT Alkaline Phosphatase Total Protein Albumin Globulin Albumin/Globulin Ratio Crossmatch [facility] Medical History (Updated 01/02/24 @ 00:01 by ) Asthma GERD (gastroesophageal reflux disease) (~2010) Gastritis (~2010) Back pain (~2010) Surgical History (Updated 01/02/24 @ 08:35 by John Herr MD) S/P colon resection (01/01/24) Hx of cholecystectomy History of hysterectomy (06/14/22) History of laparoscopy (04/05/22) Hx of colonoscopy (12/14/21) [place] teeth extracted (~2015) Family History Mother Cervical cancer Smoker Father Diabetes mellitus Herniated disc Spondylosis Grandmother Unknown family medical history Diabetes mellitus Smoker Cancer Hyperlipidemia Hypertension Grandfather History of heart disease Grandmother Breast cancer Grandfather Diabetes mellitus Cancer History of heart disease Hypertension Sister Faye syndrome Brother Arthritis of spine Social History marital status: number of children: 1 household members: spouse and children lives independently: Yes caregiver/support person: No housing: house pets and animals: Yes (1 dog: safe) education level: high school occupational status: unemployed current occupational exposures/hazards: No special alexandra needs: No seatbelt use: always do you feel safe at home: Yes Smoking Status: Former smoker second hand exposure: No alcohol intake: current substance use type: does not use during the past year weight has: remained stable well-balanced diet: daily or most days caffeine: Yes (1 cup coffee daily or every other day. ) Type(s) of exercise: walking and normal ROM and activity frequency: daily duration: 15-30 minutes/day Assessment & Plan Post-op Postoperative Procedures: Procedures Operation Date: 12/27/23 15:30 Actual Procedure Side Surgeon p Colonoscopy WITH BIOPSIES Tera Cooper MD s Esophagogastroduodenoscopy WITH BIOPSY Tera Cooper MD Operation Date: 01/01/24 14:15 Actual Procedure Side Surgeon p Laproscopic ileocecectomy Tera Cooper MD Postoperative status narrative: Gradually improving. CT A/P today reviewed unremarkable no active extrav -Diet as tolerated -Wean pain meds as able -Anticipate DC within the next couple of days Quality VTE Deep Vein Thrombosis/Pulmonary Embolism Present on Admission: No
[2024-01-07] MEDS: AMITRIPTYLINE 25 MG TABLET PO (20:42)
[2024-01-08] VITALS (8 sets, daily range): BP systolic 96–104; BP diastolic 38–66; PULSE 70–81; RESP 16–18; TEMP 36.5–37.2; O2SAT 98–100
[2024-01-08] MEDS: HYDROCODONE/ACET 5/325 TABLET 1 TAB PO ×7 (00:07→20:22)
[2024-01-08] MEDS: IBUPROFEN 600 MG TABLET PO ×3 (00:08→17:40)
[2024-01-08] MEDS: PANTOPRAZOLE DR 40 MG TABLET PO (05:13)
[2024-01-08 05:51] LABS: Add Manual Diff / Slide Review NO; Basophils Absolute Auto 100 /uL (0-100); Basophils Percent Auto 0.6 % (0-2); Eosinophils Absolute Auto 300 /uL (0-450); Eosinophils Percent Auto 3.5 % (2-4); Hematocrit 25.3 % (36-46); Hemoglobin 8.5 g/dL (12.0-16.0); Lymphocytes Absolute Auto 1800 /uL (1100-4500); Lymphocytes Percent Auto 22.1 % (25-40); Mean Corpuscular HGB Conc 33.7 % (30-36); Mean Corpuscular Hemoglobin 29.7 PG (26-34); Mean Corpuscular Volume 88.2 fL (80-100); Monocytes Absolute Auto 500 /uL (0-900); Neutrophils Absolute Auto 5400 /uL (1500-7000); Neutrophils Percent Auto 67.8 % (50-75); Platelet Count 299 X10^3/uL (150-400); Red Blood Cell Count 2.87 X10^6/uL (4.0-5.2); Red Cell Distribution Width 14.7 % (11.6-14.8); White Blood Cell Count 7.9 X10^3/uL (4.5-11.0)
[2024-01-08] MEDS: droNABinol 2.5 MG CAPSULE PO ×2 (08:04→21:26)
--- NOTE | 2024-01-08 08:48 | PM.PN.1 ---
Subjective <Caroline Aguilar - Last Filed: 01/08/24 08:57> Subjective Date Patient Seen: 01/08/24 Time Patient Seen: 08:00 Interval history: Emilia had slightly increased pain yesterday, after decreasing her pain medications. No further episodes of bloody bowel movements, but hasn't had a bowel movement overnight. No new episodes of vomiting. Exam <Caroline Aguilar - Last Filed: 01/08/24 08:57> Vital Signs (past 8 hours): - 01/08/24 05:40 01/08/24 08:00 Temperature 98.4 F 98.9 F Pulse Rate 70 74 Respiratory Rate 16 Blood Pressure 104/57 L 97/58 L Pulse Oximetry 98 99 Oxygen Flow Rate 0 Oxygen Delivery Method Room Air Oxygen Flow Rate 0 Const General: cooperative Orientation: alert and awake HENMT Head: normal to inspection Eyes General: appearance normal, both eyes and all related structures Resp Effort & Inspection: normal respiratory effort Auscultation: clear to auscultation bilaterally Cardio Rate: regular rate Rhythm: regular rhythm GI Inspection: abdominal wall ecchymosis Palpation: soft and tender (RLQ tenderness. ) Skin General: no rashes or lesions noted Extrem General: normal to inspection Psych Appearance: grossly normal Objective <Caroline Aguilar - Last Filed: 01/08/24 08:57> Labs 01/08/24 05:00 01/07/24 04:48 Labs: Laboratory Results - last 24 hr 01/07/24 01/08/24 15:00 05:00 WBC 10.4 7.9 RBC 3.07 L 2.87 L Hgb 9.1 L 8.5 L Hct 27.0 L 25.3 L MCV 87.8 88.2 MCH 29.6 29.7 MCHC 33.7 33.7 RDW 14.8 14.7 Plt Count 267 299 Neut % (Auto) 74.0 67.8 Lymph % (Auto) 15.9 L 22.1 L [place] % (Auto) 7.0 6.0 Eos % (Auto) 2.7 3.5 Baso % (Auto) 0.4 0.6 Neut # (Auto) 7700 H 5400 Lymph # (Auto) 1700 1800 [place] # (Auto) 700 500 Eos # (Auto) 300 300 Baso # (Auto) 0 100 PFSH <Caroline Aguilar - Last Filed: 01/08/24 08:57> Medical History (Updated 01/02/24 @ 00:01 by ) Asthma GERD (gastroesophageal reflux disease) (~2010) Gastritis (~2010) Back pain (~2010) Surgical History (Updated 01/02/24 @ 08:35 by John Herr MD) S/P colon resection (01/01/24) Hx of cholecystectomy History of hysterectomy (06/14/22) History of laparoscopy (04/05/22) Hx of colonoscopy (12/14/21) [place] teeth extracted (~2015) Family History Mother Cervical cancer Smoker Father Diabetes mellitus Herniated disc Spondylosis Grandmother Unknown family medical history Diabetes mellitus Smoker Cancer Hyperlipidemia Hypertension Grandfather History of heart disease Grandmother Breast cancer Grandfather Diabetes mellitus Cancer History of heart disease Hypertension Sister Faye syndrome Brother Arthritis of spine Social History marital status: number of children: 1 household members: spouse and children lives independently: Yes caregiver/support person: No housing: house pets and animals: Yes (1 dog: safe) education level: high school occupational status: unemployed current occupational exposures/hazards: No special alexandra needs: No seatbelt use: always do you feel safe at home: Yes Smoking Status: Former smoker second hand exposure: No alcohol intake: current substance use type: does not use during the past year weight has: remained stable well-balanced diet: daily or most days caffeine: Yes (1 cup coffee daily or every other day. ) Type(s) of exercise: walking and normal ROM and activity frequency: daily duration: 15-30 minutes/day Assessment & Plan <Caroline Aguilar - Last Filed: 01/08/24 08:57> Assessment and plan Plan 28yoF with complex medical history of chronic abdominal pain and nausea. Hx of cholecystectomy and hysterectomy then C diff treatment November 2023. Although C diff was treated successfully, she continued to experience severe abdominal pain nausea vomiting and cachexia. Colonscopy/endoscopy/MRCP/CT scan without significant pathology. Patient underwent diagnostic laparoscopy on 01/01/24 which revealed a partially volvulized cecum, with minimal abdominal adhesions. No signs of acute ischemia, but concern for intermittent ischemia causing pain. The patient's cecum was resected with removal of some terminal ileum and ascending large colon as a consequence. No signs of endometriosis, minimal adhesions. Prior abdominal pain has now resolved. Patient POD 7 now, recovery course complicated by anemia 2/2 blood loss and poor nutrition now s/p 2 units PRBC. Hgb remains stable post transfusion. #Abdominal pain, nausea, vomiting #s/p bowel resection POD #7. continue pain control, PPI. Encourage PO pain and nausea meds over IV as able encourage mobilization #Acute blood loss anemia Intermittent bloody stools, post op blood loss and poor nutrition for several months. Continuing to improve PO intake - Hgb stable s/p transfusion 2U PRBC /. #Severe acute protein calorie malnutrition Pt has lost approx 45lbs in the last month. Encourage snacking over large meals, advance diet as tolerated, prn marinol ordered #Tachycardia, resolved. In setting of functional anorexia and anemia. Sinus rhythm, QT increased from 430 to 490 on recent ekg. CTM. #Urinary retention, resolved. monitor output #Hypokalemia improved Potassium supplementation as per protocol Time-Based Coding :: [TOTAL MINUTES] spent with patient and on the chart (including review of chart, obtaining history, exam, reviewing outside data, placing orders, documenting exam and treatment plan, and counseling patient) on [DATE]. <Alyssa Philip MD - Last Filed: 01/08/24 15:44> Assessment & Plan narrative: 28yoF with complex medical history of chronic abdominal pain and nausea. Hx of cholecystectomy and hysterectomy then C diff treatment November 2023. Although C diff was treated successfully, she continued to experience severe abdominal pain nausea vomiting and cachexia. Colonscopy/endoscopy/MRCP/CT scan without significant pathology. Patient underwent diagnostic laparoscopy on 01/01/24 which revealed a partially volvulized cecum, with minimal abdominal adhesions. No signs of acute ischemia, but concern for intermittent ischemia causing pain. The patient's cecum was resected with removal of some terminal ileum and ascending large colon as a consequence. No signs of endometriosis, minimal adhesions. Prior abdominal pain has now resolved. Patient POD 7 now, recovery course complicated by anemia 2/2 blood loss and poor nutrition now s/p 2 units PRBC. Hgb remains stable post transfusion. #Abdominal pain, nausea, vomiting #s/p bowel resection POD #7. continue pain control, PPI. Encourage PO pain and nausea meds over IV encourage mobilization #Acute blood loss anemia Intermittent bloody stools, post op blood loss and poor nutrition for several months. Continuing to improve PO intake - Hgb stable s/p transfusion 2U PRBC 01/05. #Severe acute protein calorie malnutrition Pt has lost approx 45lbs in the last month. Eating regular meals/food at this point #Tachycardia, resolved. In setting of functional anorexia and anemia. #Urinary retention, resolved. monitor output #Hypokalemia: resolved Potassium supplementation as per protocol I verified the resident?s documentation in the medical record. I personally performed a physical exam and medical decision making. I made appropriate changes to the documentation and the assessment and plan based on my verification, exam and medical decision making. Quality <Caroline Aguilar - Last Filed: 01/08/24 08:57> VTE Deep Vein Thrombosis/Pulmonary Embolism Present on Admission: No
--- NOTE | 2024-01-08 09:45 | PT.IPTN ---
Current Diagnoses Lower abdominal pain, unspecified (12/25/23) Unspecified abdominal pain (12/25/23) Nausea with vomiting, unspecified (12/25/23) Pain, unspecified (12/25/23) Abnormal weight loss (12/25/23) Surgery Performed Operation Date: 12/27/23 15:30 Actual Procedures p Colonoscopy WITH BIOPSIES - Tera Cooper MD s Esophagogastroduodenoscopy WITH BIOPSY - Tera Cooper MD Operation Date: 01/01/24 14:15 Actual Procedures p Laproscopic ileocecectomy - Tera Cooper MD Physical Therapy Treatment Note M2 PT-IP Current Condition Start: 01/05/24 08:32 Freq: NEEDED Status: Active Protocol: Document 01/05/24 08:44 MB (Rec: 01/05/24 09:36 MB [id number]) Physical Therapy Current Condition Current Condition Evaluation Date 01/05/24 Treatment Diagnosis N/V/abdominal pain now s/p lap ileocectomy M3 PT-IP Subjective Start: 01/05/24 08:32 Freq: NEEDED Status: Active Protocol: Document 01/08/24 09:45 AB (Rec: 01/08/24 12:24 AB [id number]) Subjective Physical Therapy Visit Type Type Treatment Note Visit Start Time 09:45 Visit Stop Time 10:16 Number of INFORMATION ASSURANCE ANALYST Visits 0 Physical Therapy Visit Comments Patient Comments agreeable to do PT Therapy Pain Assessment Pain When Pain Assessed At Rest Location abdomen Scale Used pain scale not stated M4 PT-IP Mobility and Gait Start: 01/05/24 08:32 Freq: NEEDED Status: Active Protocol: Document 01/08/24 09:45 AB (Rec: 01/08/24 12:24 AB [id number]) PT-Bed Mobility Assessment Rolling Type of Rolling Log Rolling Level of Assist Standby Assistance Supine to Sit Supine to Sit Standby Assistance,Head of Bed Elevated,Bedrails Sit to Supine Sit to Supine Standby Assistance,Bedrails PT-Transfer Assessment Sit to and From Stand Sit to and from Stand Minimal Assistance,Moderate Assistance,1 Person Assistance ,Use of Upper Extremities Equipment Transfer Assistive Device Gait Belt,Front Wheeled Walker Orthotic/Prosthetic Devices or Brace: No Transfers Transfer Destination Bed,Chair Transfer Technique ambulated Transfer Ability Level of Assist Minimal Assistance,1 Person Assistance,Use of Upper Extremities Comments Mobility Comments pt supine in bed and agreeable to do PT. completed log roll supine to sit SBA with HOB slightly elevated and pt used bed rail to assist. pt able to sit on EOB SBA. pt needing increase rest breaks in between activities. pt with c /o nausea upon sitting and requested for nausea medication. nurse informed and pt was given meds. pt completed sit to stand min A and ambulated ~ 15 ft using fWW min A and sat on the chair . presents with slow paced gait and cued for upright posture. pt rested on the chair. pt agreed to walk again but wants to go back to bed afterwards. pt completed sit to stand from the chair mod A and ambulated to the bed using FWW min A and cues. pt completed log roll sit to supine using bed rail to assist SBA. positioned pt in bed. call light and table placed within reach. encouraged pt to get up with nursing staff as much as possible and to get up for meal times. pt understood and agreed. stated that she will get up to sit on the chair for lunch today. Gait Assessment Gait Gait Assistance Required: Minimum Assistance,1 Person Assist Distance (Feet) 15 Able to Maintain Weight Bearing Status Yes During Gait Assistive Devices Assistive Device Gait Belt,Front Wheeled Walker Orthotic/Prosthetic Devices or Brace: No Gait Deviations General Gait Pattern Decreased Stride Length, Decreased Feet Clearance,Step- to Gait Factors Limiting Gait Function Factors Limiting Gait Function Decreased Activity Tolerance, Decreased Strength,Limited Range of Motion,Pain,Poor Balance,Poor Safety Awareness M5 PT-IP Objective Assessments Start: 01/05/24 08:32 Freq: NEEDED Status: Active Protocol: Document 01/05/24 08:44 MB (Rec: 01/05/24 11:06 MB [id number]) Orientation Orientation/Cognition Level of Alertness Alert Orientation Name,Birthday,Month,Year,Place ,Situation Language Function Ability No Deficits Noted Safety Awareness Understands Safety Issues Memory Description No Deficits Noted Gross Range of Motion Upper Extremity ROM Assessment Within Functional Limits Impairments Functionally observed only today Lower Extremity ROM Assessment Within Functional Limits Impairments As above Strength Upper Extremity Strength Assessment Within Functional Limits Lower Extremity Strength Assessment Within Functional Limits Comments Strength Comments Functionally observed strength only and WFLs today Coordination Assessment Assessment Coordination Comments NT Sensation Assessment Comments Sensation Comments NT Muscle Tone Muscle Tone WNL Yes M6 PT-IP Treatment Start: 01/05/24 08:32 Freq: NEEDED Status: Active Protocol: Document 01/08/24 09:45 AB (Rec: 01/08/24 12:24 AB [id number]) Physical Therapy Treatment Education Education Provided Precautions,Safety M7 PT-IP Assessment and Plan Start: 01/05/24 08:32 Freq: NEEDED Status: Active Protocol: Document 01/08/24 09:45 AB (Rec: 01/08/24 12:24 AB [id number]) PT Summary Assessment and Plan Potential Rehabilitation Potential Fair Summary Impairments Pain,ROM,Strength,Balance, Coordination,Sensation,Tone, Cognition,Bed Mobility, Transfers,Gait,Activity Tolerance Progress Towards Goals Slow Progress due to Pain,Slow Progress due to Medical Issues,Slow Progress due to Activity Tolerance Assessment Summary pt slowly progressing with mobility and was able to ambulate using FWW ~ 15 ft x 2 min A. pt continues to have decrease activity tolerance affecting mobility independence. will continue to assess progress. Goals Bed Mobility Goal Independent Transfer Goal Independent,Cane,Front Wheeled Walker Gait Goal Independent,Cane,Front Wheel Walker Gait Distance 150 Other Goals Pt will ascend and descend flight of steps with left rail ascend and no more than CGA to allow safe mobility to bed room. Pt will ascend and descend one step with our without LRAD and no more than CGA to allow safe home entrance. Progress gait to no AD Days to Meet Goals 10 Frequency of Treatment Frequency Of Treatment Once a Day Treatment Plan Physical Therapy Treatment Plan Bed Mobility Training,Transfer Training,Gait Training, Therapeutic Exercise,Balance Retraining,Post Op Education, Discharge Planning,Hot or Cold Pack,Neuromuscular Re-ed, Coordination Retraining,Manual Therapy Precautions Abdominal Surgery Precautions Log Roll,Lifting Restrictions, Gait Belt above Incisional Area Recommendations To Nursing Amount of Assist Needed 1 Person Assist Discharge Recommendations PT Discharge Recommendations Home with 24/09 Assist Available,Home Health,SNF Rehab,Home vs SNF Equipment Needed for Home Before FWW Discharge Transportation Needs at Discharge Private Vehicle,Wheelchair/ Cabulance
[2024-01-08] MEDS: ONDANSETRON 4 MG ODT SL (09:55)
[2024-01-08] MEDS: HYDROMORPHONE 0.5 MG INJ IV (12:04)
--- NOTE | 2024-01-08 13:24 | DIET.CONS2 ---
Dietary Inpatient Consultation Note Admission Date: 12/25/2023 17:[address] for LOS day 14. Pt off TPN, tolerating PO intake 25-95% of trays. Family has been bringing in meals/snacks so difficult to identify total PO intake. Pt vomited after meal of [employer] and pt has bag of [employer] Butter Cups which may aggravate digestion r/t recent surgery. Recc pt stick to lower fat and blander hospital food until feeling better. Diet: 01/05/24 Lunch General (Regular) Diet Diet Modifications: Food Texture: Level 7 - Regular Liquid Consistency: Level 0 - Thin Nutrition Percent Meal Consumed 95 01/08/24 09:00 Percent Meal Consumed 50% 01/07/24 14:17 Percent Meal Consumed 25% 01/06/24 13:40 Electronically Signed by: Allegra Marin 01/08/24 13:24 Clinical Dietitian [address] [id number]
[2024-01-08] MEDS: ACETAMINOPHEN 325 MG TABLET 650 MG PO (14:42)
--- NOTE | 2024-01-08 15:22 | CM.DPC ---
DCP Cont. Reviewed EMR and team rounds for status updates. Pt is improving, waiting on return of bowel function, likely d/c on 01/08 to home. Pending final d/c needs/recommendations.
--- NOTE | 2024-01-08 16:27 | PM.PNPO.1 ---
Subjective Subjective Date Patient Seen: 01/08/24 Time Patient Seen: 16:27 Interval history: No major overnight events. Exam Vital Signs (past 8 hours): - 01/08/24 12:00 Temperature 99.0 F Pulse Rate 81 Respiratory Rate 16 Blood Pressure 102/66 Pulse Oximetry 98 Oxygen Flow Rate 0 Oxygen Delivery Method Room Air Oxygen Flow Rate 0 Narrative Exam Narrative: General adult woman alert oriented no acute distress Abdomen soft appropriately tender to palpation. Laparoscopic port incisions clean dry intact Objective Labs 01/08/24 05:00 01/07/24 04:48 Labs: Laboratory Results - last 24 hr 01/08/24 05:00 WBC 7.9 RBC 2.87 L Hgb 8.5 L Hct 25.3 L MCV 88.2 MCH 29.7 MCHC 33.7 RDW 14.7 Plt Count 299 Neut % (Auto) 67.8 Lymph % (Auto) 22.1 L [place] % (Auto) 6.0 Eos % (Auto) 3.5 Baso % (Auto) 0.6 Neut # (Auto) 5400 Lymph # (Auto) 1800 [place] # (Auto) 500 Eos # (Auto) 300 Baso # (Auto) 100 PFSH Medical History (Updated 01/02/24 @ 00:01 by ) Asthma GERD (gastroesophageal reflux disease) (~2010) Gastritis (~2010) Back pain (~2010) Surgical History (Updated 01/02/24 @ 08:35 by John Herr MD) S/P colon resection (01/01/24) Hx of cholecystectomy History of hysterectomy (06/14/22) History of laparoscopy (04/05/22) Hx of colonoscopy (12/14/21) [place] teeth extracted (~2015) Family History Mother Cervical cancer Smoker Father Diabetes mellitus Herniated disc Spondylosis Grandmother Unknown family medical history Diabetes mellitus Smoker Cancer Hyperlipidemia Hypertension Grandfather History of heart disease Grandmother Breast cancer Grandfather Diabetes mellitus Cancer History of heart disease Hypertension Sister Faye syndrome Brother Arthritis of spine Social History marital status: number of children: 1 household members: spouse and children lives independently: Yes caregiver/support person: No housing: house pets and animals: Yes (1 dog: safe) education level: high school occupational status: unemployed current occupational exposures/hazards: No special alexandra needs: No seatbelt use: always do you feel safe at home: Yes Smoking Status: Former smoker second hand exposure: No alcohol intake: current substance use type: does not use during the past year weight has: remained stable well-balanced diet: daily or most days caffeine: Yes (1 cup coffee daily or every other day. ) Type(s) of exercise: walking and normal ROM and activity frequency: daily duration: 15-30 minutes/day Assessment & Plan Post-op Postoperative Procedures: Procedures Operation Date: 12/27/23 15:30 Actual Procedure Side Surgeon p Colonoscopy WITH BIOPSIES Tera Cooper MD s Esophagogastroduodenoscopy WITH BIOPSY Tera Cooper MD Operation Date: 01/01/24 14:15 Actual Procedure Side Surgeon p Laproscopic ileocecectomy Tera Cooper MD Postoperative status narrative: 28-year-old woman 1 week status post ileocecectomy for partial cecal volvulus. Slow progress but improving. No further intestinal bleeding. Tolerant of solid food. May discharge home when medically clear. No lifting greater than 10 lb for the next 3 weeks. Follow up with the general surgery clinic in 2 weeks' time. Quality VTE Deep Vein Thrombosis/Pulmonary Embolism Present on Admission: No
[2024-01-08] MEDS: AMITRIPTYLINE 25 MG TABLET PO (21:26)
[2024-01-09] MEDS: HYDROCODONE/ACET 5/325 TABLET 1 TAB PO ×4 (01:25→15:25)
[2024-01-09] MEDS: IBUPROFEN 600 MG TABLET PO ×3 (01:25→15:26)
[2024-01-09 04:00] VITALS: BP 86/50; PULSE 62; RESP 16; TEMP 36.4; O2SAT 98
[2024-01-09 04:05] VITALS: BP 91/59
[2024-01-09] MEDS: PANTOPRAZOLE DR 40 MG TABLET PO (06:51)
[2024-01-09 07:00] VITALS: O2SAT 99
[2024-01-09 08:00] VITALS: BP 96/62; PULSE 86; RESP 16; TEMP 36.5; O2SAT 99
[2024-01-09] MEDS: droNABinol 2.5 MG CAPSULE PO (09:26)
[2024-01-09] MEDS: ACETAMINOPHEN 325 MG TABLET 650 MG PO (09:27)
--- NOTE | 2024-01-09 11:24 | CM.DPC ---
DCP Cont. Reviewed EMR and team rounds for status updates. Per Dr. Philip, she is planning on discharging pt back home later today. Completed the F/F orders for [facility], and provided information to the family on obtaining DME in their community. No further needs are anticipated at this time.
[2024-01-09 12:00] VITALS: BP 102/58; PULSE 89; RESP 18; TEMP 36.9; O2SAT 100
--- NOTE | 2024-01-09 12:35 | PT.IPTN ---
Current Diagnoses Lower abdominal pain, unspecified (12/25/23) Unspecified abdominal pain (12/25/23) Nausea with vomiting, unspecified (12/25/23) Pain, unspecified (12/25/23) Abnormal weight loss (12/25/23) Surgery Performed Operation Date: 12/27/23 15:30 Actual Procedures p Colonoscopy WITH BIOPSIES - Tera Cooper MD s Esophagogastroduodenoscopy WITH BIOPSY - Tera Cooper MD Operation Date: 01/01/24 14:15 Actual Procedures p Laproscopic ileocecectomy - Tera Cooper MD Physical Therapy Treatment Note M2 PT-IP Current Condition Start: 01/05/24 08:32 Freq: NEEDED Status: Active Protocol: Document 01/05/24 08:44 MB (Rec: 01/05/24 09:36 MB [id number]) Physical Therapy Current Condition Current Condition Evaluation Date 01/05/24 Treatment Diagnosis N/V/abdominal pain now s/p lap ileocectomy M3 PT-IP Subjective Start: 01/05/24 08:32 Freq: NEEDED Status: Active Protocol: Document 01/09/24 11:40 MB (Rec: 01/09/24 12:34 MB [id number]) Subjective Physical Therapy Visit Type Type Treatment Note Visit Start Time 11:40 Visit Stop Time 12:18 Number of CORE CHECKER Visits 0 Physical Therapy Visit Comments Patient Comments Pt is agreeable to PT, aunt and father nearby. Therapy Pain Assessment Pain When Pain Assessed At Rest Pain Present Pain Present Pain Reported Location abdomen Intensity 6 M4 PT-IP Mobility and Gait Start: 01/05/24 08:32 Freq: NEEDED Status: Active Protocol: Document 01/09/24 11:40 MB (Rec: 01/09/24 12:34 MB [id number]) PT-Transfer Assessment Sit to and From Stand Sit to and from Stand Contact Guard Assistance,1 Person Assistance,Use of Upper Extremities Equipment Transfer Assistive Device Gait Belt,Front Wheeled Walker Orthotic/Prosthetic Devices or Brace: No Transfers Transfer Destination Chair,Wheelchair Transfer Technique Ambulation Transfer Ability Level of Assist Contact Guard Assistance,1 Person Assistance,Use of Upper Extremities Comments Mobility Comments Cues to push up from the bed, w/c and to reach back to chair for transfers, rather than reaching for walker. PT obtains walker for pt and sets it up for her. CGA and cues for transfers. Gait Assessment Gait Gait Assistance Required: Contact Guard Assist,1 Person Assist Distance (Feet) 30 Able to Maintain Weight Bearing Status Yes During Gait Assistive Devices Assistive Device Gait Belt,Front Wheeled Walker Orthotic/Prosthetic Devices or Brace: No Gait Deviations General Gait Pattern Decreased Stride Length, Decreased Feet Clearance,Step- to Gait Factors Limiting Gait Function Factors Limiting Gait Function Decreased Activity Tolerance, Pain Comments Gait Comments Very slow gait speed and mobility d/t pain and pt tends to keep her head down and she reports light-headedness when she looks up. Pt gait trains 30'x1, 10'x2, 15'x1 with RW today Stair Climbing Assessment Evaluation Level of Assist On Stairs Contact Guard Assistance,1 Person Assistance Devices Stair Climbing Assistive Devices Right Railing Technique/Endurance Stair Climbing Direction Ascend and Descend Stair Climbing Technique Step to Step Number of Steps Climbed 3 Stair Climbing Set # Repetitions (reps) 1 Comments Stair Climbing Comments Slow mobility and increased effort, both hands on right rail and facing rail ascend and using the same rail for descend PT-Balance Assessment Sitting Balance and Reactions Static Sitting Balance Ability Good Dynamic Sitting Balance Ability Good Standing Balance and Reactions Static Standing Balance Ability Fair Dynamic Standing Balance Ability Fair Device Used RW M5 PT-IP Objective Assessments Start: 01/05/24 08:32 Freq: NEEDED Status: Active Protocol: Document 01/05/24 08:44 MB (Rec: 01/05/24 11:06 MB [id number]) Orientation Orientation/Cognition Level of Alertness Alert Orientation Name,Birthday,Month,Year,Place ,Situation Language Function Ability No Deficits Noted Safety Awareness Understands Safety Issues Memory Description No Deficits Noted Gross Range of Motion Upper Extremity ROM Assessment Within Functional Limits Impairments Functionally observed only today Lower Extremity ROM Assessment Within Functional Limits Impairments As above Strength Upper Extremity Strength Assessment Within Functional Limits Lower Extremity Strength Assessment Within Functional Limits Comments Strength Comments Functionally observed strength only and WFLs today Coordination Assessment Assessment Coordination Comments NT Sensation Assessment Comments Sensation Comments NT Muscle Tone Muscle Tone WNL Yes M6 PT-IP Treatment Start: 01/05/24 08:32 Freq: NEEDED Status: Active Protocol: Document 01/09/24 11:40 MB (Rec: 01/09/24 12:34 MB [id number]) Physical Therapy Treatment Other Treatments Other Treatment Performed Ongoing ed about breathing M7 PT-IP Assessment and Plan Start: 01/05/24 08:32 Freq: NEEDED Status: Active Protocol: Document 01/09/24 11:40 MB (Rec: 01/09/24 12:34 MB [id number]) PT Summary Assessment and Plan Potential Rehabilitation Potential Fair Status of Condition at Evaluation Evolving Summary Impairments Pain,Strength,Balance, Coordination,Bed Mobility, Transfers,Gait,Activity Tolerance Progress Towards Goals Slow Progress due to Pain Assessment Summary Pt is progressing towards mobility goals and is able to perform stair training today and father and aunt are nearby . Goals Bed Mobility Goal Independent Transfer Goal Independent,Cane,Front Wheeled Walker Gait Goal Independent,Cane,Front Wheel Walker Gait Distance 150 Other Goals Pt will ascend and descend one step with our without LRAD and no more than CGA to allow safe home entrance. Progress gait to no AD Days to Meet Goals 5 Frequency of Treatment Frequency Of Treatment Once a Day Treatment Plan Physical Therapy Treatment Plan Bed Mobility Training,Transfer Training,Gait Training, Therapeutic Exercise,Balance Retraining,Post Op Education, Discharge Planning,Hot or Cold Pack,Neuromuscular Re-ed, Coordination Retraining,Manual Therapy Precautions Abdominal Surgery Precautions Log Roll,Lifting Restrictions, Gait Belt above Incisional Area Recommendations To Nursing Amount of Assist Needed 1 Person Assist Discharge Recommendations PT Discharge Recommendations Home with 24/09 Assist Available,Home Health Transportation Needs at Discharge Private Vehicle
--- NOTE | 2024-01-09 15:27 | P.DS_ITS ---
History of Present Illness History of Present Illness Date Patient Seen: 01/09/24 Time Patient Seen: 08:15 Chief complaint: N/V/Abd Pain Narrative: Patient is a patient of who has had a long history now abdominal pain nausea and vomiting. Intermittent diarrhea. Not consistently. Apparently it all started 6-8 weeks ago when she developed C difficile. And that was treated. Since that time she continues to have basically the same symptoms with nausea vomiting abdominal pain. Pain is described as sharp diffuse worse with eating. Has not been able to keep anything down. Lost 35 lb or so over the last 6 weeks secondary to this today she developed sharp chest pain and called 911 feeling this was worse and different than she has had. With no other changes. Really has not been able to keep anything down. Feels like she is decreasing her urinary symptoms with no other change. Pain is primarily 3 fingers below her abdomen but does not really stay there and it becomes more diffuse. Patient has had a history of marijuana use but only with trying to increase her appetite and is completely discontinued that with no change in symptoms. There was no other significant change. Negative family history for any significant disease. Discharge Providers Provider Date of admission: 12/25/23 17:18 Discharge Date: 01/09/24 Primary care physician: Alyssa Philip MD Consults: 12/25/23 19:02 Consult to Dietitian, Adult Routine Comment: Reason For Exam: Caloric malnutrition 01/03/24 13:52 Consult to Physical Therapy Evaluate & Treat Comment: Physician Instructions: Evaluate and Treat 01/09/24 09:36 Consult to Physical Therapy Evaluate & Treat Comment: safe home mobility Physician Instructions: Front Wheeled Walker 01/09/24 09:37 Consult to Home Health Routine Comment: PT, OT Reason For Exam: Home Health Services Discharge provider: Alyssa Philip MD Summary Hospital Course Discharge Diagnosis: Abdominal pain Nausea/vomiting Dehydration Severe acute protein malnutrition Hypokalemia Anemia Partially volvulized cecum s/p laparoscopic ileocectomy Hospital Course: The pt was admitted with intractable abdominal pain, nausea, and vomiting of unclear etiology. She underwent colonoscopy and endoscopy. Endoscopy showed mild gastritis. Colonoscopy showed findings concerning for microscopic colitis, and she was started on Budesonide. The pt was on multiple antiemetics including valium, and IV Dilaudid for pain control. She was then initiated on Marinol and Amitriptylline. She was initiated on TPN due to the severity of her malnutrition and weight loss. The pts symptoms did not improve. [facility] was consulted, and did not have any other significant recommendations. After multiple days on Budesonide without improvement, the pt underwent diagnostic laparoscopy to see if adhesions could be causing her pain. The surgery was on 12/31, and a partially volvulized cecum was found that was removed. After surgery, the pts pain gradually improved. Biopsies from her colonoscopy returned negative, and the Budesonide was stopped. She was able to advance her diet to full over several days. Her TPN was discontinued. She worked with PT and was regaining her strength back. At the time of discharge her pain was controlled with PO medications. She will f/u with GI and surgery as an outpatient. Status at Discharge Cognitive/behavioral status at discharge: oriented Functional status at discharge: uses cane/walker Overall status at discharge: patient is progressing back to baseline Exam Vital Signs (past 8 hours): - 01/09/24 08:00 01/09/24 12:00 Temperature 97.7 F 98.5 F Pulse Rate 86 89 Respiratory Rate 16 18 Blood Pressure 96/62 102/58 L Pulse Oximetry 99 100 Oxygen Flow Rate 0 0 Oxygen Delivery Method Room Air Oxygen Flow Rate 0 Narrative Exam Narrative: Gen: NAD, sitting comfortably in bed CV: RRR, no murmurs Resp: clear to auscultation bilaterally Abd: soft, nondistended, tender in RLQ appropriate to postoperative state, normoactive bowel sounds Ext: no edema Neuro: no gross deficits Objective Labs 01/08/24 05:00 01/07/24 04:48 [facility] Medical History (Updated 01/02/24 @ 00:01 by ) Asthma GERD (gastroesophageal reflux disease) (~2010) Gastritis (~2010) Back pain (~2010) Surgical History (Updated 01/02/24 @ 08:35 by John Herr MD) S/P colon resection (01/01/24) Hx of cholecystectomy History of hysterectomy (06/14/22) History of laparoscopy (04/05/22) Hx of colonoscopy (12/14/21) [place] teeth extracted (~2015) Family History Mother Cervical cancer Smoker Father Diabetes mellitus Herniated disc Spondylosis Grandmother Unknown family medical history Diabetes mellitus Smoker Cancer Hyperlipidemia Hypertension Grandfather History of heart disease Grandmother Breast cancer Grandfather Diabetes mellitus Cancer History of heart disease Hypertension Sister Faye syndrome Brother Arthritis of spine Social History marital status: number of children: 1 household members: spouse and children lives independently: Yes caregiver/support person: No housing: house pets and animals: Yes (1 dog: safe) education level: high school occupational status: unemployed current occupational exposures/hazards: No special alexandra needs: No seatbelt use: always do you feel safe at home: Yes Smoking Status: Former smoker second hand exposure: No alcohol intake: current substance use type: does not use during the past year weight has: remained stable well-balanced diet: daily or most days caffeine: Yes (1 cup coffee daily or every other day. ) Type(s) of exercise: walking and normal ROM and activity frequency: daily duration: 15-30 minutes/day Discharge Plan Discharge Plan Patient Disposition: Home Health Service Discharge orders & Medications Prescriptions: New hydrocodone-acetaminophen 5-325 mg Tablet 1 tab PO Q3HR PRN (Reason: Pain, Moderate (4-6)) Qty: 40 0RF amitriptyline 25 mg Tablet 25 mg PO BEDTIME Qty: 30 0RF metoclopramide HCl 5 mg Tablet 10 mg PO Q4H PRN (Reason: Nausea) Qty: 30 0RF docusate sodium 100 mg Capsule 100 mg PO BID PRN (Reason: Constipation) Qty: 30 0RF ibuprofen 600 mg Tablet 600 mg PO Q6HR Qty: 30 0RF scopolamine base [Transderm-Scop] 1 mg over 3 days Patch 3 Day 1 patch topical Q72H Qty: 3 0RF ondansetron 4 mg Tablet,Disintegrating 4 mg sublingual Q4HR PRN (Reason: Nausea) Qty: 30 0RF Continued hydroxyzine HCl 25 mg tablet 50 mg PO Q4H PRN (Reason: Nausea, anxiety) Qty: 30 0RF omeprazole 20 mg capsule,delayed release(DR/EC) 20 mg PO BID Qty: 60 0RF acetaminophen 325 mg Tablet 650 mg PO Q6H PRN (Reason: Fever/Mild Pain (1-3)) Qty: 30 0RF Discontinued oxycodone 10 mg tablet 10 mg PO Q3HR PRN (Reason: Pain, Severe (7-10)) Qty: 30 0RF gabapentin 300 mg capsule 300 mg PO DAILY Qty: 90 2RF promethazine 25 mg tablet 25 mg PO Q6HR PRN (Reason: Nausea) Qty: 30 0RF lorazepam 0.5 mg tablet 0.5 mg PO Q4HR PRN (Reason: Anxiety) Qty: 20 0RF ondansetron 4 mg tablet,disintegrating 4 mg PO Q8H PRN (Reason: nausea and vomiting) Qty: 30 0RF sucralfate 1 gram tablet 1 g PO ACHS Qty: 30 0RF alum-mag hydroxide-simeth [Mag-Al Plus] 200-200-20 mg/5 mL Suspension 30 ml PO Q4HR PRN (Reason: Dyspepsia) Qty: 300 0RF Follow up/Referrals: Alyssa Philip MD [Primary Care Provider] - 01/21/24 2:00 pm (Appt:01/20 @ 2:[address] Philip please arrive 15 min prior to scheduled appointment time ) Visit Report/Discharge Packet Instructions: DI for Gastritis, DI for Hiatal Hernia, DI for Prescription Opioid Use, Dicyclomine (By mouth) Stand Alone Forms: Patient Portal/API, Stroke Signs & Symptoms Discharge Data Primary Care Provider: Alyssa Philip Discharges patient from system. Discharge Date/Time: 01/09/24 18:00 Quality VTE Deep Vein Thrombosis/Pulmonary Embolism Present on Admission: No IH PROFEE Charge Codes Discharge inpatient/observation: 08829
--- NOTE | 2024-01-09 18:20 | PC.NURSE ---
Patient is A&OX4, VSS, afebrile on RA. Incisions to abd c/d/i. She is able to work with PT /OT today and gets FWW. She is tolerating food well without n/v. She has pain well controlled with PRN oral pain medications.She is cleared for discharge this afternoon. She verbalizes understanding of discharge instructions, activity limitations, site care, Follow up with Alondra as well as medications. She is escorted via w/ch to private vehicle with aunt and uncle and all of her belongings for discharge home this evening at 1800.
== END 2024-01-09 18:00 | disposition home health service (06) | DRG 329 ==
LOC: ED 17:14 → AC 12-26 07:38 → ICU 01-02 20:55 → AC 01-05 16:20
PROVIDERS: Family Medicine; Internal Medicine; Surgery; Admitting Provider Family Medicine; Emergency Provider Emergency Medicine; PCP Family Medicine; Referring Provider Emergency Medicine; Visit Provider Family Medicine
PROC: 0DJD8ZZ Inspection of Lower Intestinal Tract, Via Natural or Artificial Opening Endoscopic (ICD-10-PCS; CPT 45378; principal; 2023-12-27 15:30)
PROC: 0DJ08ZZ Inspection of Upper Intestinal Tract, Via Natural or Artificial Opening Endoscopic (ICD-10-PCS; 2023-12-27 15:30)
PROC: 0DBH4ZZ Excision of Cecum, Percutaneous Endoscopic Approach (ICD-10-PCS; CPT 49320; principal; 2024-01-01 14:15)
DX: K56.2 Volvulus (principal); E43 Unspecified severe protein-calorie malnutrition; D62 Acute posthemorrhagic anemia; K91.840 Postprocedural hemorrhage of a digestive system organ or structure following a digestive system procedure; K52.839 Microscopic colitis, unspecified; E86.0 Dehydration; K29.70 Gastritis, unspecified, without bleeding; E87.6 Hypokalemia; I95.9 Hypotension, unspecified; R33.9 Retention of urine, unspecified; K66.0 Peritoneal adhesions (postprocedural) (postinfection); R00.0 Tachycardia, unspecified; K21.9 Gastro-esophageal reflux disease without esophagitis; Z86.19 Personal history of other infectious and parasitic diseases; Z68.24 Body mass index [BMI] 24.0-24.9, adult; Z87.891 Personal history of nicotine dependence; Z90.49 Acquired absence of other specified parts of digestive tract
CPT/HCPCS: 36415; 36430; 36569; 36592; 71045; 74019; 74177; 74183; 80048; 80053; 81001; 82150; 82550; 82962; 83690; 83735; 84100; 84443; 84478; 84484; 85014; 85018; 85025; 85027; 85610; 85651; 86140; 86850; 86900; 86901; 87070; 87075; 87205; 87797; 93005; 96361; 96374; 96375; 97116; 97161; 97530; 97535; 99233; 99284; 99285; P9016; A9579; B4185; B4189; C9290; J0134; J0330; J1100; J1171; J1642; J1650; J1790; J1815; J1885; J2060; J2270; J2405; J2470; J2704; J2765; J2919; J3010; J3360; J3475; J3480; J3490; Q9967

== ENCOUNTER → 2024-02-19 15:06 | Outpatient (CLI) | payer OTHER, SELFPAY ==
[2024-01-01 08:31] VITALS: BMI 25.1
[2024-02-19 17:52] LABS: Add Manual Diff / Slide Review NO; Basophils Absolute Auto 0 /uL (0-100); Basophils Percent Auto 0.5 % (0-2); Eosinophils Absolute Auto 0 /uL (0-450); Eosinophils Percent Auto 0.7 % (2-4); Hematocrit 36.7 % (36-46); Hemoglobin 11.9 g/dL (12.0-16.0); Lymphocytes Absolute Auto 1000 /uL (1100-4500); Lymphocytes Percent Auto 13.1 % (25-40); Mean Corpuscular HGB Conc 32.5 % (30-36); Mean Corpuscular Hemoglobin 28.6 PG (26-34); Mean Corpuscular Volume 87.9 fL (80-100); Monocytes Absolute Auto 500 /uL (0-900); Monocytes Percent Auto 6.4 % (3-14); Neutrophils Absolute Auto 5800 /uL (1500-7000); Neutrophils Percent Auto 79.3 % (50-75); Platelet Count 310 X10^3/uL (150-400); Red Blood Cell Count 4.18 X10^6/uL (4.0-5.2); Red Cell Distribution Width 14.3 % (11.6-14.8); White Blood Cell Count 7.3 X10^3/uL (4.5-11.0)
[2024-02-19 18:11] LABS: BUN Creatinine Ratio 20.6 (6-22); Blood Urea Nitrogen 14 mg/dL (7-17); Calcium 9.3 mg/dL (8.4-10.2); Carbon Dioxide 24 mmol/L (22-32); Chloride 105 mmol/L (98-107); Estimated Glomerular Filt Rate > 60 mL/min (>60); Glucose 88 mg/dL (70-100); HEMOLYSIS < 15 (0-50); Potassium 3.7 mmol/L (3.4-5.1); Sodium 139 mmol/L (137-145)
[2024-02-19 18:18] LABS: Iron 27 ug/dL (37-170)
[2024-02-19 18:42] LABS: Thyroid Stimulating Hormone 1.62 uIU/mL (0.47-4.68)
== END ==
PROVIDERS: PCP Family Medicine; Referring Provider Family Medicine; Visit Provider Family Medicine
DX: R53.83 Other fatigue (principal); D64.9 Anemia, unspecified
CPT/HCPCS: 36415; 80048; 83540; 84443; 85025

== ENCOUNTER → 2024-04-24 18:21 | Outpatient (CLI) | payer OTHER, SELFPAY ==
[2024-01-01 08:31] VITALS: BMI 25.1
--- NOTE | 2024-04-24 18:26 | DI.MRI.S_ITS ---
PROCEDURE: MR THORACIC SPINE WO CON INDICATIONS: generalized weakness TECHNIQUE: Noncontrast sagittal T1 spine echo and T2 fast spin echo, sagittal STIR, and T2 fast spin echo through the thoracic spine. COMPARISON: [facility], , MR THORACIC SPINE WO CON, 03/30/2021, 19:17. FINDINGS: Image quality: Excellent. Alignment and Curvature: There is normal bony alignment. Bone Marrow: Marrow is of normal overall signal. No acute vertebral body compression fractures. Spinal Cord: Visualized spinal cord is normal in size and signal. Paraspinous Soft Tissues: No paravertebral masses. Miscellaneous: On axial images, central canal and foramina appear widely patent at all scanned levels. IMPRESSION: Normal MR thoracic spine Approved by: Yonas Powell M.D. on 04/27/2024 at 17:13
--- NOTE | 2024-04-24 18:26 | DI.MRI.S_ITS ---
PROCEDURE: MR CERVICAL SPINE WO CON INDICATIONS: WEAKNESS OF BOTH LOWER EXTREMETIES TECHNIQUE: Noncontrast sagittal T1 spin echo and T2 fast spin echo, sagittal STIR, foraminal oblique sagittal T2 fast spin echo, and axial gradient echo or T2 fast spin echo through the cervical spine. COMPARISON: None. FINDINGS: Image quality: Excellent. Alignment and Curvature: There is normal bony alignment. Bone Marrow: Marrow demonstrates normal overall signal. Spinal Cord: Visualized spinal cord has normal size and signal. No cerebellar tonsillar herniation. Paraspinous Soft Tissues: No paravertebral masses. Prevertebral soft tissues are normal in thickness. C2-C3: Normal appearance. C3-C4: Normal appearance. C4-C5: Normal appearance. C5-C6: Normal appearance. C6-C7: Normal appearance. C7-T1: Normal appearance. IMPRESSION: Normal MR cervical spine Approved by: Yonas Powell M.D. on 04/27/2024 at 17:01
--- NOTE | 2024-04-24 18:26 | DI.MRI.S_ITS ---
PROCEDURE: MR LUMBAR SPINE WO CON INDICATIONS: generalized weakness TECHNIQUE: Noncontrast sagittal T1 spin echo and T2 fast echo, sagittal STIR, and T2 fast spin echo through the lumbar spine. In cases with scoliosis, additional coronal T2 fast spin echo may be performed. COMPARISON: None. FINDINGS: Image quality: Excellent. Alignment and Curvature: There is normal bony alignment. Bone Marrow: Marrow is of normal overall signal. No acute vertebral body compression fractures. Spinal Cord: Conus medullaris terminates at the L1 level. Visualized cord demonstrates normal signal and size. Paraspinous Soft Tissues: No paravertebral masses. T12-L1: Normal appearance. L1-L2: Normal appearance. L2-L3: Normal appearance. L3-L4: Normal appearance. L4-L5: Normal appearance. L5-S1: Normal appearance. IMPRESSION: Normal MR lumbar spine Approved by: Yonas Powell M.D. on 04/27/2024 at 17:03
== END ==
LOC: MRI 18:23
PROVIDERS: PCP Family Medicine; Referring Provider Family Medicine; Visit Provider Family Medicine
DX: R29.898 Other symptoms and signs involving the musculoskeletal system (principal); R53.1 Weakness
CPT/HCPCS: 72141; 72146; 72148

== ENCOUNTER 2024-05-14 16:08 | Emergency (ER) | payer OTHER, SELFPAY ==
[2024-01-01 08:31] VITALS: BMI 25.1
[2024-05-14] VITALS (11 sets, daily range): BP systolic 98–121; BP diastolic 56–81; PULSE 74–123; RESP 16–24; TEMP 36.6; O2SAT 93–100; BMI 25.0
--- NOTE | 2024-05-14 16:23 | DI.RAD.S_ITS ---
PROCEDURE: XR CHEST 1V INDICATIONS: chest pain TECHNIQUE: One view of the chest was acquired. COMPARISON: [facility], , XR CHEST FOR PICC 1V, 12/30/2023, 16:50. FINDINGS: Surgical changes and devices: None. Lungs and pleura: Lungs are clear. No pleural effusions or pneumothorax. Mediastinum: Mediastinal contours appear normal. Heart size is normal. Bones and chest wall: No suspicious bony lesions. Overlying soft tissues appear unremarkable. IMPRESSION: No acute cardiopulmonary pathology. Dictated by: Campos Vieira M.D. on 05/14/2024 at 16:54 Approved by: Campos Vieira M.D. on 05/14/2024 at 16:54
--- NOTE | 2024-05-14 16:37 | EKG_ITS ---
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
[2024-05-14 16:53] LABS: Add Manual Diff / Slide Review NO; Basophils Absolute Auto 0 /uL (0-100); Basophils Percent Auto 0.5 % (0-2); Eosinophils Absolute Auto 100 /uL (0-450); Eosinophils Percent Auto 0.6 % (2-4); Hematocrit 39.5 % (36-46); Lymphocytes Absolute Auto 2000 /uL (1100-4500); Lymphocytes Percent Auto 24.9 % (25-40); Mean Corpuscular HGB Conc 32.9 % (30-36); Mean Corpuscular Hemoglobin 27.2 PG (26-34); Mean Corpuscular Volume 82.6 fL (80-100); Monocytes Absolute Auto 400 /uL (0-900); Monocytes Percent Auto 4.5 % (3-14); Neutrophils Absolute Auto 5600 /uL (1500-7000); Neutrophils Percent Auto 69.5 % (50-75); Platelet Count 238 X10^3/uL (150-400); Red Blood Cell Count 4.79 X10^6/uL (4.0-5.2); White Blood Cell Count 8.1 X10^3/uL (4.5-11.0)
[2024-05-14 17:01] LABS: INR 1.2 (0.9-1.3); Prothrombin Time 13.7 SECONDS (9.4-12.5)
[2024-05-14 17:02] LABS: PTT Partial Thromboplastin Tim 39 SECONDS (25.1-36.5)
[2024-05-14] MEDS: SODIUM CHLORIDE 0.9% 1,000 ML 1000 ML IV (17:04)
[2024-05-14 17:05] LABS: Alanine Aminotransferase 19 IU/L (<35); Albumin 4.8 g/dL (3.5-5.0); Albumin Globulin Ratio 1.5 (1.0-2.8); Alkaline Phosphatase 53 U/L (38-126); Aspartate Aminotransferase 26 IU/L (14-36); BUN Creatinine Ratio 20.6 (6-22); Bilirubin Total 0.6 mg/dL (0.2-1.3); Blood Urea Nitrogen 14 mg/dL (7-17); Calcium 9.5 mg/dL (8.4-10.2); Carbon Dioxide 20 mmol/L (22-32); Chloride 107 mmol/L (98-107); Creatine Kinase 52 U/L (30-135); Estimated Glomerular Filt Rate > 60 mL/min (>60); Globulin 3.1 g/dL (1.7-4.1); Glucose 98 mg/dL (70-100); HEMOLYSIS 46 (0-50); Lipase 123 U/L (23-300); Magnesium 2.1 mg/dL (1.6-2.3); Potassium 3.8 mmol/L (3.4-5.1); Sodium 139 mmol/L (137-145); Total Protein 7.9 g/dL (6.3-8.2)
[2024-05-14 17:15] LABS: Phosphorous 2.1 mg/dL (2.5-4.5)
[2024-05-14 17:16] LABS: NT-proBNP (BNP-Adult 18+) < 20 pg/mL (<125); Troponin I < 0.012 ng/mL (0.01-0.034)
--- NOTE | 2024-05-14 18:29 | ED_ITS ---
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 Today she was measuring blood pressures and they were as low as 60/46 and as high as 110/62. She notes that over the last 2-3 weeks she has had random episodes where she has syncopal to near syncopal episodes. She has not had fevers is not having diarrhea increased abdominal pain. No cough no palpitations. This has been an ongoing problem she comes in today because she purchased a blood pressure cuff and was documenting low blood pressures today, talked with her doctor's office and was advised to come to the ER Related Data Home Medications Medication Instructions Recorded Confirmed oxycodone 5 mg tablet 5 mg PO BID PRN 03/27/24 03/27/24 Previous Rx's Medication Instructions Recorded ondansetron 4 mg disintegrating 4 mg sublingual Q4HR PRN Nausea 01/09/24 tablet #30 tabs celecoxib 200 mg capsule (Celebrex) 200 mg PO BID PRN pain #60 caps 02/06/24 omeprazole 20 mg capsule,delayed 20 mg PO DAILY #60 caps 02/06/24 release tizanidine 2 mg tablet 2 mg PO Q8H PRN for muscle spasm 03/27/24 #30 tabs amitriptyline 50 mg tablet 50 mg PO BEDTIME #90 tabs 04/13/24 Disabled Parking #1 ea 04/29/24 midodrine 10 mg tablet 10 mg PO TID #90 tabs 05/14/24 Allergies Allergy/AdvReac Type Severity Reaction Status Date / Time amoxicillin Allergy Intermediate Rash/Hives Verified 03/27/24 10:41 coconut Allergy Hives Verified 03/27/24 10:41 ibuprofen AdvReac Intermediate Gastrointestinal Verified 03/27/24 10:41 Upset Review of Systems Review of Systems Narrative: Pertinent positive and negative findings as per HPI Patient History Medical History (Updated 05/14/24 @ 19:20 by Marissa Eaton MD) Asthma GERD (gastroesophageal reflux disease) (~2010) Gastritis (~2010) Back pain (~2010) Surgical History (Updated 01/02/24 @ 08:35 by John Herr MD) S/P colon resection (01/01/24) Hx of cholecystectomy History of hysterectomy (06/14/22) History of laparoscopy (04/05/22) Hx of colonoscopy (12/14/21) [place] teeth extracted (~2015) Family History Mother Cervical cancer Smoker Father Diabetes mellitus Herniated disc Spondylosis Grandmother Unknown family medical history Diabetes mellitus Smoker Cancer Hyperlipidemia Hypertension Grandfather History of heart disease Grandmother Breast cancer Grandfather Diabetes mellitus Cancer History of heart disease Hypertension Sister Faye syndrome Brother Arthritis of spine Social History marital status: number of children: 1 household members: spouse and children lives independently: Yes caregiver/support person: No housing: house pets and animals: Yes (1 dog: safe) education level: high school occupational status: unemployed current occupational exposures/hazards: No special alexandra needs: No seatbelt use: always do you feel safe at home: Yes Smoking Status: Former smoker second hand exposure: No alcohol intake: current substance use type: does not use during the past year weight has: remained stable well-balanced diet: daily or most days caffeine: Yes (1 cup coffee daily or every other day. ) Type(s) of exercise: walking and normal ROM and activity frequency: daily duration: 15-30 minutes/day Smoking Status: Former smoker tobacco type: vaping alcohol intake frequency: holidays/special occasions only Exam Initial Vital Signs Initial Vital Signs: Vital Signs Pulse Rate 115 H 05/14/24 16:14 Blood Pressure 112/81 05/14/24 16:14 Pulse Oximetry 93 05/14/24 16:14 General: Patient appears pale, fatigued but in no acute distress HEENT: Moist mucous membranes, normal sclera with reactive pupils, Respiratory: Lungs are clear to auscultation, no wheezing no rales no rhonchi. Full and symmetrical air movement Cardiac: Tachycardic without murmurs Abdomen: Soft, nontender, good bowel tones, no flank pain Skin: Warm and dry, no rashes Neurologic: Grossly neurologically intact with no obvious asymmetries or abnormalities Extremities: No trauma, well perfused peripherally Psych: Cooperative, appropriate insight and affect Course Orders Ordered: ED Orders 05/14/24 16:23 XR chest 1V Stat EKG-12 Lead Stat 05/14/24 16:43 Complete Blood Count AUTO DIFF Stat Comprehensive Metabolic Panel Stat Lipase Stat Magnesium Stat NT-proBNP (BNP-Adult 18+) Stat PTT Partial Thromboplastin [place] Stat Phosphorous Stat Prothrombin Time INR Stat Troponin & CK Cardiac Panel Stat Discontinued Medications Sodium Chloride (Normal Saline 0.9%) 1,000 mls @ 1,000 mls/hr IV BOLUS ONE Stop: 05/14/24 17:53 Last Infusion: 05/14/24 18:10 Dose: Infused Documented By: Admin: 05/14/24 17:04 Dose: 1,000 mls/hr Documented By: ISAIAH Vital Signs Vital signs: Vital Signs - 8 hr 05/14/24 16:14 05/14/24 16:14 05/14/24 16:24 Temperature 97.8 F Pulse Rate 115 H 74 Respiratory Rate 22 Blood Pressure 112/81 112/81 Pulse Oximetry 93 99 Oxygen Delivery Method Room Air 05/14/24 16:30 05/14/24 16:30 05/14/24 17:00 Temperature Pulse Rate 83 Respiratory Rate Blood Pressure 111/62 108/68 Pulse Oximetry 97 Oxygen Delivery Method 05/14/24 17:00 05/14/24 17:31 05/14/24 17:31 Temperature Pulse Rate 96 H 123 H Respiratory Rate 24 24 Blood Pressure 121/58 L Pulse Oximetry 99 100 Oxygen Delivery Method 05/14/24 18:00 05/14/24 18:00 05/14/24 18:30 Temperature Pulse Rate 90 95 H Respiratory Rate 17 16 Blood Pressure 108/63 Pulse Oximetry 100 100 Oxygen Delivery Method 05/14/24 18:31 05/14/24 18:31 Temperature Pulse Rate 103 H Respiratory Rate 17 Blood Pressure 109/69 Pulse Oximetry 100 Oxygen Delivery Method Medical Decision Making Lab Data 05/14/24 16:43 05/14/24 16:43 Labs: Lab Results 05/14/24 Range/Units 16:43 WBC 8.1 (4.5-11.0) X10^3/uL RBC 4.79 (4.0-5.2) X10^6/uL Hgb 13.0 (12.0-16.0) g/dL Hct 39.5 (36-46) % MCV 82.6 (80-100) fL MCH 27.2 (26-34) PG MCHC 32.9 (30-36) % RDW 16.0 H (11.6-14.8) % Plt Count 238 (150-400) X10^3/uL Neut % (Auto) 69.5 (50-75) % Lymph % (Auto) 24.9 L (25-40) % [place] % (Auto) 4.5 (3-14) % Eos % (Auto) 0.6 L (2-4) % Baso % (Auto) 0.5 (0-2) % Neut # (Auto) 5600 (4840-0256) /uL Lymph # (Auto) 2000 (2533-0797) /uL [place] # (Auto) 400 (0-900) /uL Eos # (Auto) 100 (0-450) /uL Baso # (Auto) 0 (0-100) /uL PT 13.7 H (9.4-12.5) SECONDS INR 1.2 (0.9-1.3) APTT 39 H (25.1-36.5) SECONDS Sodium 139 (137-145) mmol/L Potassium 3.8 (3.4-5.1) mmol/L Chloride 107 (98-107) mmol/L Carbon Dioxide 20 L (22-32) mmol/L BUN 14 (7-17) mg/dL Creatinine 0.68 (0.52-1.04) mg/dL Estimated GFR > 60 (>60) mL/min BUN/Creatinine Ratio 20.6 (6-22) Glucose 98 (70-100) mg/dL Calcium 9.5 (8.4-10.2) mg/dL Phosphorus 2.1 L (2.5-4.5) mg/dL Magnesium 2.1 (1.6-2.3) mg/dL Total Bilirubin 0.6 (0.2-1.3) mg/dL AST 26 (14-36) IU/L ALT 19 (<35) IU/L Alkaline Phosphatase 53 (38-126) U/L Total Creatine Kinase 52 (30-135) U/L Troponin I < 0.012 (0.01-0.034) ng/mL NT-Pro-B Natriuret Pep < 20 (<125) pg/mL Total Protein 7.9 (6.3-8.2) g/dL Albumin 4.8 (3.5-5.0) g/dL Globulin 3.1 (1.7-4.1) g/dL Albumin/Globulin Ratio 1.5 (1.0-2.8) Lipase 123 (23-300) U/L MDM Narrative Medical decision making narrative: CC: Weakness, persistent hypotension Complicating co-morbidities: Deconditioning, persistent hypotension Data collected from: patient Medical records reviewed: Surgery notes in follow up after her volvulus are reviewed Differential considered: Dehydration, electrolyte abnormality, sepsis is far less likely do not suspect intra-abdominal infection Exam documented above, pertinent findings include: Patient slightly weak overall but alert and appropriate. Exam is overall benign Lab Test results independently reviewed as above. Pertinent findings: CBC is unremarkable Chemistries are reassuring. Phosphorus slightly low at 2.1, potassium appropriate, renal function appropriate Troponin is undetectable ProBNP is undetected Independently reviewed EKG: Sinus rhythm at a rate of 75 with no acute ischemic change Imaging studies independently reviewed: Chest x-ray is unremarkable Treatments: 1 L of fluid Discussion: Patient is feeling somewhat better, blood pressure is 99/60. Reviewed essentially normal findings with her. Together we looked up phosphorus rich foods that she can continue to include those in her diet. It sounds like she is actually doing a very good job in trying to gain weight adding electrolytes and proteins appropriately. Suggested additional electrolyte solutions or liquid IV including additional salt. We discussed the use of midodrine as a way to help with her hypotension as well as compression socks. We will give her a prescription for midodrine to try and will ask her to follow up with her primary care physician. At this time there was no life-threatening abnormality there is no indication for hospitalization and she is safe for discharge Discharge Plan Departure Patient Disposition: Home Clinical Impression: Chronic hypotension Instructions: Orthostatic Hypotension Activity Restrictions/Additional Instructions: Thank you for coming in today. I did not find any dramatic solution or obvious finding that were able to change today. Your electrolytes are actually reassuring. Your phosphorus was slightly low and together we looked up phosphorus rich foods. Your kidney function is perfect I did suggest additional electrolyte solutions such as liquid IV as well as sodium rich foods. We discussed the use of midodrine, this is a medication that can increase your blood pressure, it is worth a try and I have given you a prescription. It can be taken up to 3 times a day to help keep your blood pressure up. Please do continue to keep track of your blood pressure You will need to follow up appointment with your primary care physician. You are doing all of the right things, your body will begin to absorb these nutrients and you will get your strength back. Prescriptions: New midodrine 10 mg tablet 10 mg PO TID Qty: 90 1RF Rx Instructions: do not give last dose of day after 6PM or within 4 hrs of bedtime No Action oxycodone 5 mg tablet 5 mg PO BID PRN tizanidine 2 mg tablet 2 mg PO Q8H PRN (Reason: for muscle spasm) Qty: 30 0RF amitriptyline 50 mg tablet 50 mg PO BEDTIME Qty: 90 3RF (DME) Disabled Parking See Rx Instructions .ROUTE .MEDSUPPLY Qty: 1 0RF Rx Instructions: I find this patient to be medical disabled and qualified for Disabled Parking as indicated, and signed, on the and the Accompanying Disabled Parking Application for Individuals. omeprazole 20 mg capsule,delayed release(DR/EC) 20 mg PO DAILY Qty: 60 0RF celecoxib [Celebrex] 200 mg capsule 200 mg PO BID PRN (Reason: pain) Qty: 60 1RF ondansetron 4 mg Tablet,Disintegrating 4 mg sublingual Q4HR PRN (Reason: Nausea) Qty: 30 0RF Referrals: Alyssa Philip MD [Primary Care Provider] - Stand Alone Forms: Patient Portal/API/Survey
[2024-05-14] MEDS: MIDODRINE HCL 5 MG TABLET 10 MG PO (19:36)
== END 2024-05-14 19:45 | disposition home or self-care (01) ==
PROVIDERS: Emergency Provider Emergency Medicine; PCP Family Medicine
DX: I95.1 Orthostatic hypotension (principal); I49.8 Other specified cardiac arrhythmias; R07.9 Chest pain, unspecified
CPT/HCPCS: 36415; 71045; 80053; 82550; 83690; 83735; 83880; 84100; 84484; 85025; 85610; 85730; 93005; 96360; 99284

== ENCOUNTER → 2024-05-18 16:51 | Outpatient (CLI) | payer OTHER, SELFPAY ==
[2024-01-01 08:31] VITALS: BMI 25.1
[2024-05-18 19:08] LABS: Folate 9.6 ng/mL (2.76-20.0); Vitamin B12 586 pg/mL (239-931)
== END ==
PROVIDERS: PCP Family Medicine; Referring Provider Family Medicine; Visit Provider Family Medicine
DX: R11.2 Nausea with vomiting, unspecified (principal)
CPT/HCPCS: 36415; 82607; 82746

== ENCOUNTER → 2024-05-28 16:16 | Outpatient (CLI) | payer OTHER, SELFPAY ==
[2024-01-01 08:31] VITALS: BMI 25.1
--- NOTE | 2024-05-28 16:17 | DI.MRI.S_ITS ---
PROCEDURE: MR HEAD/BRAIN WO/W CON INDICATIONS: lower extremity weakness TECHNIQUE: Noncontrast axial T1 spin echo, axial T2 fast spin echo, sagittal and axial FLAIR, coronal T2 fast spin echo, axial gradient echo, axial diffusion and ADC through the brain. After the administration of contrast, axial and coronal and sagittal 3D VIBE or T1 spin echo with fat saturation through the brain. COMPARISON: [facility], CT, CT HEAD/BRAIN WO CON, 12/18/2023, 17:55. FINDINGS: CSF Spaces: Basal cisterns are patent. No extra-axial fluid collections. Ventricles are normal in size and shape. Brain: No midline shift. No intracranial bleeds or masses. No abnormal intracranial enhancement. The brainstem appears normal. Diffusion-weighted images demonstrate no acute infarct. No chronic ischemic insults. Normal intravascular flow voids are present. Skull and face: Calvarial marrow is normal in signal. Orbits appear normal. Sinuses: Sinuses and mastoids appear clear. IMPRESSION: Unremarkable MRI of the brain Approved by: Yonas Powell M.D. on 05/29/2024 at 8:55
== END ==
LOC: MRI 16:17
PROVIDERS: PCP Family Medicine; Referring Provider Family Medicine; Visit Provider Family Medicine
DX: R29.898 Other symptoms and signs involving the musculoskeletal system (principal)
CPT/HCPCS: 70553; A9579

== ENCOUNTER 2024-07-10 17:25 | Emergency (ER) | payer OTHER, SELFPAY ==
[2024-01-01 08:31] VITALS: BMI 25.1
[2024-07-10] VITALS (17 sets, daily range): BP systolic 99–129; BP diastolic 56–68; PULSE 69–117; RESP 9–27; TEMP 36.6; O2SAT 95–100; BMI 25.2
--- NOTE | 2024-07-10 17:38 | EKG_ITS ---
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
--- NOTE | 2024-07-10 18:03 | DI.RAD.S_ITS ---
PROCEDURE: XR CHEST 1V INDICATIONS: Chest Pain TECHNIQUE: One view of the chest was acquired. COMPARISON: [facility], CR, XR CHEST 1V, 05/14/2024, 16:22. [facility], CR, XR CHEST FOR PICC 1V, 12/30/2023, 16:50. FINDINGS: Surgical changes and devices: None. Lungs and pleura: Lungs are clear. No pleural effusions or pneumothorax. Mediastinum: Mediastinal contours appear normal. Heart size is normal. Bones and chest wall: No suspicious bony lesions. Overlying soft tissues appear unremarkable. IMPRESSION: No acute cardiopulmonary abnormality is seen. Dictated by: Shemar Limon M.D. on 07/10/2024 at 19:00 Approved by: Shemar Limon M.D. on 07/10/2024 at 19:00
--- NOTE | 2024-07-10 18:07 | ED_ITS ---
HPI - General Adult General Chief complaint: Syncope Stated complaint: low BP, irreg heart beat Time Seen by Provider: 07/10/24 18:06 Source: patient Mode of arrival: Family Vehicle History of Present Illness HPI narrative: 28-year-old female with history of hypotension on midodrine supplementation, generalized weakness, uses a walker for the last few months, followed by Neurology, awaiting outpatient MRI lumbar spine, awaiting cardiology follow up appointment and possible echocardiogram testing, she has not had tilt table testing, no diagnosis of POTS disease established, today has had irregular heartbeat sensation and felt like she might pass out. She denies pain in her chest, abdomen, back, had, extremities. No fevers or chills. She has chronic diarrhea since her gallbladder removal not change, no black or red stools or mucoid stools. No vaginal bleeding, has history of prior hysterectomy. Denies coughing or shortness of breath. She denies specific diagnosis of atrial fibrillation, atrial flutter, PSVT, ventricular tachycardia, not on specific medications for any heart rhythm problems. She has not yet had outpatient ambulatory cardiac heart monitoring. Related Data Home Medications Medication Instructions Recorded Confirmed oxycodone 5 mg tablet 5 mg PO BID PRN 03/27/24 05/18/24 Previous Rx's Medication Instructions Recorded ondansetron 4 mg disintegrating 4 mg sublingual Q4HR PRN Nausea 01/09/24 tablet #30 tabs celecoxib 200 mg capsule (Celebrex) 200 mg PO BID PRN pain #60 caps 02/06/24 omeprazole 20 mg capsule,delayed 20 mg PO DAILY #60 caps 02/06/24 release tizanidine 2 mg tablet 2 mg PO Q8H PRN for muscle spasm 03/27/24 #30 tabs amitriptyline 50 mg tablet 50 mg PO BEDTIME #90 tabs 04/13/24 Disabled Parking #1 ea 04/29/24 midodrine 10 mg tablet 10 mg PO TID #90 tabs 05/14/24 Allergies Allergy/AdvReac Type Severity Reaction Status Date / Time amoxicillin Allergy Intermediate Rash/Hives Verified 05/18/24 16:03 coconut Allergy Hives Verified 05/18/24 16:03 ibuprofen AdvReac Intermediate Gastrointestinal Verified 05/18/24 16:03 Upset Patient History Medical History (Updated 07/10/24 @ 21:31 by Scar Encinas MD) Asthma GERD (gastroesophageal reflux disease) (~2010) Gastritis (~2010) Back pain (~2010) Surgical History (Updated 01/02/24 @ 08:35 by John Herr MD) S/P colon resection (01/01/24) Hx of cholecystectomy History of hysterectomy (06/14/22) History of laparoscopy (04/05/22) Hx of colonoscopy (12/14/21) [place] teeth extracted (~2015) Family History Mother Cervical cancer Smoker Father Diabetes mellitus Herniated disc Spondylosis Grandmother Unknown family medical history Diabetes mellitus Smoker Cancer Hyperlipidemia Hypertension Grandfather History of heart disease Grandmother Breast cancer Grandfather Diabetes mellitus Cancer History of heart disease Hypertension Sister Faye syndrome Brother Arthritis of spine Social History marital status: number of children: 1 household members: spouse and children lives independently: Yes caregiver/support person: No housing: house pets and animals: Yes (1 dog: safe) education level: high school occupational status: unemployed current occupational exposures/hazards: No special alexandra needs: No seatbelt use: always do you feel safe at home: Yes second hand exposure: No alcohol intake: current substance use type: does not use during the past year weight has: remained stable well-balanced diet: daily or most days caffeine: Yes (1 cup coffee daily or every other day. ) Type(s) of exercise: walking and normal ROM and activity frequency: daily duration: 15-30 minutes/day tobacco type: vaping alcohol intake frequency: holidays/special occasions only Exam Narrative Exam Narrative: GENERAL: Well-developed patient, in mild distress. HEAD: Atraumatic. Normocephalic. EYES: Pupils equal round and reactive. Extraocular motions intact. No scleral icterus. No injection or drainage. ENT: Nose without bleeding, purulent drainage. Throat without erythema, tonsillar hypertrophy or exudate. Airway patent. NECK: Trachea midline. Non tender CARDIOVASCULAR: Regular rate and rhythm without murmurs, gallops, or rubs. RESPIRATORY: Clear to auscultation. Breath sounds equal bilaterally. No wheezes, rales, or rhonchi. GASTROINTESTINAL: Abdomen soft, non-tender, nondistended. EXTREMITIES: No edema or joint tenderness. BACK: Nontender without deformity or crepitance. No flank tenderness. NEURO: AOx3. Motor functions grossly nonfocal SKIN: No rash or erythema of visible areas Initial Vital Signs Initial Vital Signs: Vital Signs Temperature 98 F 07/10/24 17:28 Pulse Rate 110 H 07/10/24 17:28 Respiratory Rate 18 07/10/24 17:28 Blood Pressure 129/68 07/10/24 17:28 Pulse Oximetry 100 07/10/24 17:28 Oxygen Delivery Method Room Air 07/10/24 17:28 Course Orders Ordered: ED Orders 07/10/24 20:45 Troponin I Stat Discontinued Medications Sodium Chloride (Normal Saline 0.9%) 1,000 mls @ 1,000 mls/hr IV BOLUS ONE Stop: 07/10/24 19:08 Last Infusion: 07/10/24 18:40 Dose: Infused Documented By: Admin: 07/10/24 18:23 Dose: 1,000 mls/hr Documented By: ELIER Vital Signs Vital signs: Vital Signs - 8 hr 07/10/24 17:28 07/10/24 17:32 07/10/24 17:32 Temperature 98 F Pulse Rate 110 H 102 H Pulse Rate [Orthostatic Lying] Pulse Rate [Orthostatic Sitting] Pulse Rate [Orthostatic Standing] Respiratory Rate 18 Blood Pressure 129/68 129/68 Blood Pressure [Orthostatic Lying] Blood Pressure [Orthostatic Sitting] Blood Pressure [Orthostatic Standing] Pulse Oximetry 100 99 Oxygen Delivery Method Room Air 07/10/24 18:00 07/10/24 18:00 07/10/24 18:20 Temperature Pulse Rate 97 H Pulse Rate [Orthostatic Lying] 90 Pulse Rate [Orthostatic Sitting] 117 H Pulse Rate [Orthostatic Standing] 117 H Respiratory Rate 15 Blood Pressure 116/67 Blood Pressure [Orthostatic Lying] 105/57 L Blood Pressure [Orthostatic Sitting] 115/62 Blood Pressure [Orthostatic Standing] 114/65 Pulse Oximetry 100 Oxygen Delivery Method 07/10/24 18:30 07/10/24 18:30 07/10/24 18:32 Temperature Pulse Rate 98 H Pulse Rate [Orthostatic Lying] Pulse Rate [Orthostatic Sitting] Pulse Rate [Orthostatic Standing] Respiratory Rate 10 L Blood Pressure 116/65 115/62 Blood Pressure [Orthostatic Lying] Blood Pressure [Orthostatic Sitting] Blood Pressure [Orthostatic Standing] Pulse Oximetry 97 Oxygen Delivery Method 07/10/24 18:32 07/10/24 18:33 07/10/24 18:33 Temperature Pulse Rate 110 H 105 H Pulse Rate [Orthostatic Lying] Pulse Rate [Orthostatic Sitting] Pulse Rate [Orthostatic Standing] Respiratory Rate 18 Blood Pressure 114/65 Blood Pressure [Orthostatic Lying] Blood Pressure [Orthostatic Sitting] Blood Pressure [Orthostatic Standing] Pulse Oximetry 97 98 Oxygen Delivery Method 07/10/24 18:35 07/10/24 18:35 07/10/24 19:00 Temperature Pulse Rate 91 H Pulse Rate [Orthostatic Lying] Pulse Rate [Orthostatic Sitting] Pulse Rate [Orthostatic Standing] Respiratory Rate Blood Pressure 105/57 L 109/60 Blood Pressure [Orthostatic Lying] Blood Pressure [Orthostatic Sitting] Blood Pressure [Orthostatic Standing] Pulse Oximetry 99 Oxygen Delivery Method Room Air 07/10/24 19:00 07/10/24 19:30 07/10/24 19:57 Temperature Pulse Rate 85 85 76 Pulse Rate [Orthostatic Lying] Pulse Rate [Orthostatic Sitting] Pulse Rate [Orthostatic Standing] Respiratory Rate 11 L 9 L 15 Blood Pressure Blood Pressure [Orthostatic Lying] Blood Pressure [Orthostatic Sitting] Blood Pressure [Orthostatic Standing] Pulse Oximetry 100 100 100 Oxygen Delivery Method 07/10/24 19:57 07/10/24 19:59 07/10/24 19:59 Temperature Pulse Rate 99 H Pulse Rate [Orthostatic Lying] Pulse Rate [Orthostatic Sitting] Pulse Rate [Orthostatic Standing] Respiratory Rate 23 Blood Pressure 111/68 108/60 Blood Pressure [Orthostatic Lying] Blood Pressure [Orthostatic Sitting] Blood Pressure [Orthostatic Standing] Pulse Oximetry 100 Oxygen Delivery Method 07/10/24 20:00 07/10/24 20:00 07/10/24 20:04 Temperature Pulse Rate 105 H Pulse Rate [Orthostatic Lying] 69 Pulse Rate [Orthostatic Sitting] 97 H Pulse Rate [Orthostatic Standing] 106 H Respiratory Rate 27 H Blood Pressure 112/60 Blood Pressure [Orthostatic Lying] 111/68 Blood Pressure [Orthostatic Sitting] 108/60 Blood Pressure [Orthostatic Standing] 112/60 Pulse Oximetry 95 Oxygen Delivery Method 07/10/24 20:30 07/10/24 20:30 07/10/24 21:07 Temperature Pulse Rate 81 83 Pulse Rate [Orthostatic Lying] Pulse Rate [Orthostatic Sitting] Pulse Rate [Orthostatic Standing] Respiratory Rate 11 L 18 Blood Pressure 99/63 Blood Pressure [Orthostatic Lying] Blood Pressure [Orthostatic Sitting] Blood Pressure [Orthostatic Standing] Pulse Oximetry 99 99 Oxygen Delivery Method 07/10/24 21:07 07/10/24 21:30 07/10/24 21:30 Temperature Pulse Rate 82 Pulse Rate [Orthostatic Lying] Pulse Rate [Orthostatic Sitting] Pulse Rate [Orthostatic Standing] Respiratory Rate 14 Blood Pressure 102/56 L 99/60 Blood Pressure [Orthostatic Lying] Blood Pressure [Orthostatic Sitting] Blood Pressure [Orthostatic Standing] Pulse Oximetry 99 Oxygen Delivery Method Medical Decision Making Lab Data Lab results reviewed: Yes I reviewed the patient's lab results. Lab results narrative: White blood cell count 4700, hemoglobin 12.8, platelets adequate. Glucose 100. BUN 11 with creatinine 0.68 normal renal function. Electrolytes unremarkable. Troponin negative, BNP normal, lipase normal, liver functions unremarkable. Magnesium 2.4 noted. 07/10/24 17:47 07/10/24 17:47 Labs: Lab Results 07/10/24 07/10/24 Range/Units 17:47 20:45 WBC 4.7 (4.5-11.0) X10^3/uL RBC 4.48 (4.0-5.2) X10^6/uL Hgb 12.8 (12.0-16.0) g/dL Hct 39.4 (36-46) % MCV 88.0 (80-100) fL MCH 28.7 (26-34) PG MCHC 32.6 (30-36) % RDW 15.8 H (11.6-14.8) % Plt Count 231 (150-400) X10^3/uL Neut % (Auto) 72.8 (50-75) % Lymph % (Auto) 16.9 L (25-40) % Cache % (Auto) 9.3 (3-14) % Eos % (Auto) 0.4 L (2-4) % Baso % (Auto) 0.6 (0-2) % Neut # (Auto) 3400 (6793-8186) /uL Lymph # (Auto) 800 L (5802-2355) /uL Cache # (Auto) 400 (0-900) /uL Eos # (Auto) 0 (0-450) /uL Baso # (Auto) 0 (0-100) /uL PT 13.7 H (9.4-12.5) SECONDS INR 1.2 (0.9-1.3) APTT 42 H (25.1-36.5) SECONDS D-Dimer 834 H (<500) ng/ml Sodium 140 (137-145) mmol/L Potassium 3.8 (3.4-5.1) mmol/L Chloride 107 (98-107) mmol/L Carbon Dioxide 21 L (22-32) mmol/L BUN 11 (7-17) mg/dL Creatinine 0.68 (0.52-1.04) mg/dL Estimated GFR > 60 (>60) mL/min BUN/Creatinine Ratio 16.2 (6-22) Glucose 100 H (70-99) mg/dL Lactate 1.5 (0.7-2.1) mmol/L Calcium 9.2 (8.4-10.2) mg/dL Magnesium 2.4 H (1.6-2.3) mg/dL Total Bilirubin 0.4 (0.2-1.3) mg/dL AST 20 (14-36) IU/L ALT 15 (<35) IU/L Alkaline Phosphatase 59 (38-126) U/L Total Creatine Kinase 21 L (30-135) U/L Troponin I < 0.012 < 0.012 (0.01-0.034) ng/mL NT-Pro-B Natriuret Pep 107 (<125) pg/mL Total Protein 7.9 (6.3-8.2) g/dL Albumin 4.7 (3.5-5.0) g/dL Globulin 3.2 (1.7-4.1) g/dL Albumin/Globulin Ratio 1.5 (1.0-2.8) Lipase 111 (23-300) U/L Imaging Data Chest x-ray: Radiologist's Impression: [address] [address] XRay Report Signed Patient: Emilia Wasserman MR#: [id number] : 1995 Acct:[id number] Age/Sex: 28 / F Date of Service: 07/10/24 Loc: ED Accession Number: [id number] Procedure: XR chest 1V Ordering Provider: Radhika Alanis D.O. PROCEDURE: XR CHEST 1V INDICATIONS: Chest Pain TECHNIQUE: One view of the chest was acquired. COMPARISON: [facility], CR, XR CHEST 1V, 05/14/2024, 16:22. [facility], CR, XR CHEST FOR PICC 1V, 12/30/2023, 16:50. FINDINGS: Surgical changes and devices: None. Lungs and pleura: Lungs are clear. No pleural effusions or pneumothorax. Mediastinum: Mediastinal contours appear normal. Heart size is normal. Bones and chest wall: No suspicious bony lesions. Overlying soft tissues appear unremarkable. IMPRESSION: No acute cardiopulmonary abnormality is seen. Dictated by: Shemar Limon M.D. on 07/10/2024 at 19:00 Approved by: Shemar Limon M.D. on 07/10/2024 at 19:00 CTA chest PE protocol: Radiologist's Impression: [place] [address] CT Scan Report Signed Patient: Emilia Wasserman MR#: [id number] : 1995 Acct:[id number] Age/Sex: 28 / F Date of Service: 07/10/24 Loc: ED Accession Number: [id number] Procedure: CT angio chest PE protocol Ordering Provider: Scar Encinas MD PROCEDURE: CT ANGIO CHEST PE PROTOCOL INDICATIONS: near syncope, Ddimer high TECHNIQUE: After the administration of intravenous contrast, 2 mm thick sections acquired from the pulmonary apices to the posterior costophrenic angles. 3-dimensional maximum intensity projection (MIP) coronal and sagittal reformats were then acquired through the thorax. For radiation dose reduction, the following was used: automated exposure control, adjustment of mA and/or kV according to patient size. COMPARISON: [facility], CR, XR CHEST 1V, 07/10/2024, 18:11. [facility], XR CHEST 1V, 05/14/2024, 16:22. FINDINGS: Image quality: Diagnostic. Pulmonary arteries: Pulmonary arteries are normal in size, and demonstrate no intraluminal filling defects to suggest central pulmonary embolism. Lower Neck: No enlarged lymph nodes. Thyroid: No thyroid nodules which require sonographic follow up, per consensus guidelines. Axillae: No enlarged lymph nodes. Chest Wall: Unremarkable. Bones: No suspicious osseous lesion. Lungs and Pleura: No pneumothorax or pleural effusions. No consolidation or suspicious nodules. Heart: Heart size is normal. No pericardial effusion. Thoracic Vessels: No aortic aneurysm. Mediastinum and Bri: No enlarged lymph nodes. Esophagus: No wall thickening. No hiatal hernia. Upper Abdomen: Visualized upper abdomen solid organs and bowel loops appear normal. Post cholecystectomy. IMPRESSION: 1. No pulmonary embolism. 2. No acute airspace opacity. Dictated by: Shemar Limon M.D. on 07/10/2024 at 19:59 Approved by: Shemar Limon M.D. on 07/10/2024 at 20:05 CT scan - abdomen/pelvis: Radiologist's Impression: Close Abdomen/Pelvis CT (Signed) Call,[facility] - 07/10/24 Chest CTA (Signed) Call,Shemar 07/10/24 Chest X-Ray (Signed) Call,[facility] 07/10/24 Launch?[place] [address] CT Scan Report Signed Patient: Emilia Wasserman MR#: [id number] : 1995 Acct:[id number] Age/Sex: 28 / F Date of Service: 07/10/24 Loc: ED Accession Number: [id number] Procedure: CT abdomen pelvis w con Ordering Provider: Scar Encinas MD PROCEDURE: CT ABDOMEN PELVIS W CON INDICATIONS: near syncope, back pain TECHNIQUE: After the administration of intravenous contrast, axial sections acquired from the lung bases to the pubic symphysis. Coronal and sagittal reformats were performed. For radiation dose reduction, the following was used: automated exposure control, adjustment of mA and/or kV according to patient size. COMPARISON: [facility], CT, CT ANGIO CHEST PE PROTOCOL, 07/10/2024, 19:14. [facility], CT, CT ABDOMEN PELVIS W CON, 01/07/2024, 13:50. FINDINGS: Image quality: Diagnostic. Lower Chest: No significant findings. ABDOMEN: Liver: No solid mass. Gallbladder: Absent. Biliary ducts: No biliary dilation. Pancreas: No ductal dilation. Spleen: Upper limits of normal. Small splenule. Adrenal Glands: No adrenal nodules. Kidneys and Ureters: No hydronephrosis. No solid mass. No complex renal cystic lesion which requires follow up. Stomach and Bowel: Postsurgical changes at the cecum, similar. No small bowel obstruction. The stomach is within normal limits. Peritoneum: No abnormal intraperitoneal fluid. No free air. Ventral Wall: No significant ventral hernia. Ventral abdominal wall scar. Abdominal Nodes: No retroperitoneal or mesenteric adenopathy by size criteria. Vessels: Aorta and inferior vena cava are normal in size. No aortic dissection. PELVIS: Pelvic Organs: Uterus is absent. Trace free fluid in the pelvis. The left ovary is displaced laterally, (4/102), compared to the prior exam. Bladder: No bladder wall thickening. Distended. No stone. Pelvic Nodes: No enlarged lymph nodes. Miscellaneous: No inguinal hernias are seen. Bones: No aggressive osseous abnormality. IMPRESSION: 1. The left ovary appears displaced laterally. No significant cyst is identified. Trace free fluid in the right pelvis likely physiologic. 2. No hydronephrosis. No bowel obstruction. 3. Distended bladder. 4. No acute osseous abnormality. Dictated by: Shemar Limon M.D. on 07/10/2024 at 20:07 Approved by: Shemar Limon M.D. on 07/10/2024 at 20:14 ECG Data Attestation: I personally reviewed and interpreted this ECG as follows: Interpretation: Normal sinus rhythm with rate of 92, no obvious ST segment elevation or depression changes. GA 142, QRS 82, QTC 450. MDM Narrative Medical decision making narrative: 28-year-old female with history of low blood pressures, on midodrine chronic medication, bilateral leg weakness awaiting MRI of the lumbar spine as an outpatient, followed by Neurology, yet to see Cardiology, still have not had cardiac echo or ambulatory cardiac monitoring, today with irregular heartbeat sensation and a sensation that she might pass out. Chronic diarrhea unchanged. Afebrile, sirs screen negative. Labs pending. We will check orthostatics, give IV fluid bolus, and recheck orthostatics. Screening labs unremarkable, initial troponin negative. D-dimer elevated. CT angiogram chest ordered, CT abdomen and pelvis imaging. CTA chest no PE or acute pulmonary findings noted. See radiology report. CT abdomen and pelvis with normal vascular structures, displacement of left ovary, no acute changes obvious. See radiology report. Repeat troponin also negative. Copies of imaging reports given to patient, she would like to go home, does not want any further workup for now. She will follow up with her neurologist after MRI lumbar spine imaging, and with Cardiology. Discharged home, stable, improved. Discharge Plan Departure Patient Disposition: Home Clinical Impression: Near syncope Activity Restrictions/Additional Instructions: Sensation of nearly passing out, history of low blood pressure for which you are taking midodrine. You are awaiting MRI imaging of the lumbar spine and neurology consultation regarding your ongoing difficulty with bilateral leg weakness, continuing use of walker. You are awaiting cardiology follow up appointment for further evaluation as well. Tonight we did lab testing, D-dimer was elevated. CT angiogram of the chest was done, no pulmonary embolus clot to the lungs was identified, no vascular abnormalities, no acute chest findings. CT abdomen and pelvis showed some displacement of the left ovary of unclear etiology without obvious large cyst, unclear if it is related to any of your recent symptoms, no acute vascular abnormalities or acute intestinal abnormalities identified. You felt better, received IV fluids. You did not want to have any further evaluation now and wanted to go home. You requested discharged home. 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 Continue your your regular chronic medications for now. Drink plenty of fluids. Return earlier to this/nearest emergency department for any change worsening symptoms or any concerns prior. Prescriptions: No Action oxycodone 5 mg tablet 5 mg PO BID PRN tizanidine 2 mg tablet 2 mg PO Q8H PRN (Reason: for muscle spasm) Qty: 30 0RF amitriptyline 50 mg tablet 50 mg PO BEDTIME Qty: 90 3RF (DME) Disabled Parking See Rx Instructions .ROUTE .MEDSUPPLY Qty: 1 0RF Rx Instructions: I find this patient to be medical disabled and qualified for Disabled Parking as indicated, and signed, on the and the Accompanying Disabled Parking Application for Individuals. omeprazole 20 mg capsule,delayed release(DR/EC) 20 mg PO DAILY Qty: 60 0RF celecoxib [Celebrex] 200 mg capsule 200 mg PO BID PRN (Reason: pain) Qty: 60 1RF ondansetron 4 mg Tablet,Disintegrating 4 mg sublingual Q4HR PRN (Reason: Nausea) Qty: 30 0RF midodrine 10 mg tablet 10 mg PO TID Qty: 90 1RF Rx Instructions: do not give last dose of day after 6PM or within 4 hrs of bedtime Referrals: Alyssa Philip MD [Primary Care Provider] - Stand Alone Forms: Patient Portal/API/Survey
[2024-07-10] MEDS: SODIUM CHLORIDE 0.9% 1,000 ML 1000 ML IV (18:23)
[2024-07-10 18:30] LABS: Add Manual Diff / Slide Review NO; Basophils Absolute Auto 0 /uL (0-100); Basophils Percent Auto 0.6 % (0-2); Eosinophils Absolute Auto 0 /uL (0-450); Eosinophils Percent Auto 0.4 % (2-4); Hematocrit 39.4 % (36-46); Hemoglobin 12.8 g/dL (12.0-16.0); Lymphocytes Absolute Auto 800 /uL (1100-4500); Lymphocytes Percent Auto 16.9 % (25-40); Mean Corpuscular HGB Conc 32.6 % (30-36); Mean Corpuscular Hemoglobin 28.7 PG (26-34); Monocytes Absolute Auto 400 /uL (0-900); Monocytes Percent Auto 9.3 % (3-14); Neutrophils Absolute Auto 3400 /uL (1500-7000); Neutrophils Percent Auto 72.8 % (50-75); Platelet Count 231 X10^3/uL (150-400); Red Blood Cell Count 4.48 X10^6/uL (4.0-5.2); Red Cell Distribution Width 15.8 % (11.6-14.8); White Blood Cell Count 4.7 X10^3/uL (4.5-11.0)
[2024-07-10 18:35] LABS: Lactate (Lactic Acid) 1.5 mmol/L (0.7-2.1)
[2024-07-10 18:36] LABS: Alanine Aminotransferase 15 IU/L (<35); Albumin 4.7 g/dL (3.5-5.0); Albumin Globulin Ratio 1.5 (1.0-2.8); Alkaline Phosphatase 59 U/L (38-126); Aspartate Aminotransferase 20 IU/L (14-36); BUN Creatinine Ratio 16.2 (6-22); Bilirubin Total 0.4 mg/dL (0.2-1.3); Blood Urea Nitrogen 11 mg/dL (7-17); Calcium 9.2 mg/dL (8.4-10.2); Carbon Dioxide 21 mmol/L (22-32); Chloride 107 mmol/L (98-107); Creatine Kinase 21 U/L (30-135); Estimated Glomerular Filt Rate > 60 mL/min (>60); Globulin 3.2 g/dL (1.7-4.1); Glucose 100 mg/dL (70-99); HEMOLYSIS < 15 (0-50); Lipase 111 U/L (23-300); Magnesium 2.4 mg/dL (1.6-2.3); Potassium 3.8 mmol/L (3.4-5.1); Sodium 140 mmol/L (137-145); Total Protein 7.9 g/dL (6.3-8.2)
[2024-07-10 18:43] LABS: INR 1.2 (0.9-1.3); PTT Partial Thromboplastin Tim 42 SECONDS (25.1-36.5); Prothrombin Time 13.7 SECONDS (9.4-12.5)
[2024-07-10 18:47] LABS: NT-proBNP (BNP-Adult 18+) 107 pg/mL (<125); Troponin I < 0.012 ng/mL (0.01-0.034)
--- NOTE | 2024-07-10 18:51 | PC.NURSE ---
Patient here in department for reports of pre-syncopal episodes that shes been experiencing for a couple weeks. Patient has extensive medical history, most recently she has had full neuro workup that she reports has been negative. She has MRI scheduled for the . Patient uses a walker at baseline and has tingling sharp pain in both legs that gets increasingly worse the longer she stands and that is also her normal.
[2024-07-10 18:57] LABS: D Dimer 834 ng/ml (<500)
--- NOTE | 2024-07-10 19:06 | DI.CT.S_ITS ---
PROCEDURE: CT ANGIO CHEST PE PROTOCOL INDICATIONS: near syncope, Ddimer high TECHNIQUE: After the administration of intravenous contrast, 2 mm thick sections acquired from the pulmonary apices to the posterior costophrenic angles. 3-dimensional maximum intensity projection (MIP) coronal and sagittal reformats were then acquired through the thorax. For radiation dose reduction, the following was used: automated exposure control, adjustment of mA and/or kV according to patient size. COMPARISON: [facility], CR, XR CHEST 1V, 07/10/2024, 18:11. [facility], CR, XR CHEST 1V, 05/14/2024, 16:22. FINDINGS: Image quality: Diagnostic. Pulmonary arteries: Pulmonary arteries are normal in size, and demonstrate no intraluminal filling defects to suggest central pulmonary embolism. Lower Neck: No enlarged lymph nodes. Thyroid: No thyroid nodules which require sonographic follow up, per consensus guidelines. Axillae: No enlarged lymph nodes. Chest Wall: Unremarkable. Bones: No suspicious osseous lesion. Lungs and Pleura: No pneumothorax or pleural effusions. No consolidation or suspicious nodules. Heart: Heart size is normal. No pericardial effusion. Thoracic Vessels: No aortic aneurysm. Mediastinum and Bri: No enlarged lymph nodes. Esophagus: No wall thickening. No hiatal hernia. Upper Abdomen: Visualized upper abdomen solid organs and bowel loops appear normal. Post cholecystectomy. IMPRESSION: 1. No pulmonary embolism. 2. No acute airspace opacity. Dictated by: Shemar Limon M.D. on 07/10/2024 at 19:59 Approved by: Shemar Limon M.D. on 07/10/2024 at 20:05
--- NOTE | 2024-07-10 19:07 | DI.CT.S_ITS ---
PROCEDURE: CT ABDOMEN PELVIS W CON INDICATIONS: near syncope, back pain TECHNIQUE: After the administration of intravenous contrast, axial sections acquired from the lung bases to the pubic symphysis. Coronal and sagittal reformats were performed. For radiation dose reduction, the following was used: automated exposure control, adjustment of mA and/or kV according to patient size. COMPARISON: [facility], CT, CT ANGIO CHEST PE PROTOCOL, 07/10/2024, 19:14. [facility], CT, CT ABDOMEN PELVIS W CON, 01/07/2024, 13:50. FINDINGS: Image quality: Diagnostic. Lower Chest: No significant findings. ABDOMEN: Liver: No solid mass. Gallbladder: Absent. Biliary ducts: No biliary dilation. Pancreas: No ductal dilation. Spleen: Upper limits of normal. Small splenule. Adrenal Glands: No adrenal nodules. Kidneys and Ureters: No hydronephrosis. No solid mass. No complex renal cystic lesion which requires follow up. Stomach and Bowel: Postsurgical changes at the cecum, similar. No small bowel obstruction. The stomach is within normal limits. Peritoneum: No abnormal intraperitoneal fluid. No free air. Ventral Wall: No significant ventral hernia. Ventral abdominal wall scar. Abdominal Nodes: No retroperitoneal or mesenteric adenopathy by size criteria. Vessels: Aorta and inferior vena cava are normal in size. No aortic dissection. PELVIS: Pelvic Organs: Uterus is absent. Trace free fluid in the pelvis. The left ovary is displaced laterally, (4/102), compared to the prior exam. Bladder: No bladder wall thickening. Distended. No stone. Pelvic Nodes: No enlarged lymph nodes. Miscellaneous: No inguinal hernias are seen. Bones: No aggressive osseous abnormality. IMPRESSION: 1. The left ovary appears displaced laterally. No significant cyst is identified. Trace free fluid in the right pelvis likely physiologic. 2. No hydronephrosis. No bowel obstruction. 3. Distended bladder. 4. No acute osseous abnormality. Dictated by: Shemar Limon M.D. on 07/10/2024 at 20:07 Approved by: Shemar Limon M.D. on 07/10/2024 at 20:14
[2024-07-10 21:15] LABS: Troponin I < 0.012 ng/mL (0.01-0.034)
== END 2024-07-10 21:35 | disposition home or self-care (01) ==
PROVIDERS: Emergency Medicine; Emergency Provider Emergency Medicine; PCP Family Medicine
DX: R55 Syncope and collapse (principal); R00.2 Palpitations; Z86.79 Personal history of other diseases of the circulatory system
CPT/HCPCS: 36415; 71045; 71275; 74177; 80053; 82550; 83605; 83690; 83735; 83880; 84484; 85025; 85379; 85610; 85730; 93005; 93010; 99284; Q9967

== ENCOUNTER 2024-07-29 18:52 | Emergency (ER) | payer OTHER, SELFPAY ==
[2024-01-01 08:31] VITALS: BMI 25.1
[2024-07-29] VITALS (9 sets, daily range): BP systolic 96–114; BP diastolic 60–69; PULSE 67–116; RESP 14–20; TEMP 36.5; O2SAT 96–98; BMI 22.4
--- NOTE | 2024-07-29 19:32 | ED.EXTPRO ---
HPI - Extremity Problem General Chief complaint: Extremity Problem,Nontraumatic Stated complaint: PCP LT leg - bloodclot, pain + purple Time Seen by Provider: 07/29/24 19:32 Source: patient and family Mode of arrival: Ambulatory History of Present Illness HPI Narrative: 28-year-old female presenting from home for evaluation of lower extremity swelling/discoloration. She states that ever since she had abdominal surgery in January 2024 she has been having swelling and discoloration/purplish of her legs whenever she stands. She states that she has been following with her primary care doctor, Cardiology, neurology for this, however they state that everything has been normal, she states that no one has ?looked at her legs states that she has been following with a PT during this whole time states that she feels like it is getting worse therefore decided come into the ED for further evaluation treatment. She denies any other symptoms at this time, no headache visual disturbances chest pain shortness breath fever chills nausea vomiting abdominal pain or any other GI/ symptoms time. Not on any blood thinners Related Data Home Medications Medication Instructions Recorded Confirmed oxycodone 5 mg tablet 5 mg PO BID PRN 03/27/24 05/18/24 Previous Rx's Medication Instructions Recorded ondansetron 4 mg disintegrating 4 mg sublingual Q4HR PRN Nausea 01/09/24 tablet #30 tabs celecoxib 200 mg capsule (Celebrex) 200 mg PO BID PRN pain #60 caps 02/06/24 omeprazole 20 mg capsule,delayed 20 mg PO DAILY #60 caps 02/06/24 release tizanidine 2 mg tablet 2 mg PO Q8H PRN for muscle spasm 03/27/24 #30 tabs amitriptyline 50 mg tablet 50 mg PO BEDTIME #90 tabs 04/13/24 Disabled Parking #1 ea 04/29/24 midodrine 10 mg tablet 10 mg PO TID #90 tabs 05/14/24 Allergies Allergy/AdvReac Type Severity Reaction Status Date / Time amoxicillin Allergy Intermediate Rash/Hives Verified 05/18/24 16:03 coconut Allergy Hives Verified 05/18/24 16:03 ibuprofen AdvReac Intermediate Gastrointestinal Verified 05/18/24 16:03 Upset Review of Systems Review of Systems Narrative: General: Denies fever, chills, weight loss HEENT: Denies headache, eye drainage, eye irritation, head trauma, sore throat, voice change Cardiovascular: Denies any chest pain, palpitations, tachycardia Respiratory: Denies any shortness of breath, cough, wheeze, stridor GI/: Denies any abdominal pain, nausea, vomiting, diarrhea, bright red blood per rectum, melanotic stools, urinary frequency, urinary retention, dysuria, hematuria MSK: Positive bilateral lower leg swelling pain Skin: Denies any rashes, lesions, discoloration Neuro: Denies any headache, lightheadedness, dizziness, fainting, weakness Psych: Denies SI/HI Patient History Medical History (Updated 07/29/24 @ 21:54 by Kurtis Smiley DO) Asthma GERD (gastroesophageal reflux disease) (~2010) Gastritis (~2010) Back pain (~2010) Surgical History (Updated 01/02/24 @ 08:35 by John Herr MD) S/P colon resection (01/01/24) Hx of cholecystectomy History of hysterectomy (06/14/22) History of laparoscopy (04/05/22) Hx of colonoscopy (12/14/21) [place] teeth extracted (~2015) Family History Mother Cervical cancer Smoker Father Diabetes mellitus Herniated disc Spondylosis Grandmother Unknown family medical history Diabetes mellitus Smoker Cancer Hyperlipidemia Hypertension Grandfather History of heart disease Grandmother Breast cancer Grandfather Diabetes mellitus Cancer History of heart disease Hypertension Sister Faye syndrome Brother Arthritis of spine Social History marital status: number of children: 1 household members: spouse and children lives independently: Yes caregiver/support person: No housing: house pets and animals: Yes (1 dog: safe) education level: high school occupational status: unemployed current occupational exposures/hazards: No special alexandra needs: No seatbelt use: always do you feel safe at home: Yes Smoking Status: Current every day smoker second hand exposure: No alcohol intake: current substance use type: does not use during the past year weight has: remained stable well-balanced diet: daily or most days caffeine: Yes (1 cup coffee daily or every other day. ) Type(s) of exercise: walking and normal ROM and activity frequency: daily duration: 15-30 minutes/day Smoking Status: Current every day smoker tobacco type: vaping alcohol intake frequency: holidays/special occasions only Exam Narrative Exam Narrative: General: Cooperative, well-developed, not in acute distress HEENT: Normocephalic, atraumatic, PERRLA, normal sclera, eyelids normal Neck: Active full range of motion, atraumatic Chest: Normal to inspection, negative crepitus, no overlying erythema ecchymosis Respiratory: Normal respiratory effort, not in acute respiratory distress, clear to auscultation bilaterally negative cough, wheeze, tachypnea, rhonchi, rales Cardiology: Regular rate rhythm negative gallop, murmur, rubs GI/: No tenderness to palpation, soft, non rigid, normal to inspection, exam deferred MSK: Full active range of motion in all 4 extremities, atraumatic, no tenderness to palpation of any bony prominences, no gross deformities noted where patient stating increased sensation/pain to bilateral lower extremities, neurovascularly intact bilateral lower extremities Skin: No rashes or lesions noted Neuro: Alert awake oriented x3, moves all 4 extremities spontaneously, cranial nerves intact, able to answer all questions appropriately follows commands appropriately Psych: Cooperative, negative suicidal or homicidal ideations Initial Vital Signs Initial Vital Signs: Vital Signs Pulse Rate 116 H 07/29/24 18:57 Blood Pressure 114/69 07/29/24 18:57 Pulse Oximetry 96 07/29/24 18:57 Course Orders Ordered: ED Orders 07/29/24 19:47 CT angio abd aorta runoff Stat US periph venous low extrem bi Stat 07/29/24 19:59 BMP [Basic Metabolic Panel] Stat CBC Auto Diff [Complete Blood Count AUTO DIFF] Stat Test Serum,Qual Stat Vital Signs Vital signs: Vital Signs - 8 hr 07/29/24 18:57 07/29/24 18:57 07/29/24 19:00 Temperature 97.7 F Pulse Rate 116 H 110 H Respiratory Rate 20 Blood Pressure 114/69 114/69 Pulse Oximetry 96 98 Oxygen Delivery Method Room Air 07/29/24 19:00 07/29/24 19:30 07/29/24 19:56 Temperature Pulse Rate 100 H 81 Respiratory Rate Blood Pressure 105/64 Pulse Oximetry 98 97 Oxygen Delivery Method 07/29/24 19:56 07/29/24 20:00 07/29/24 20:00 Temperature Pulse Rate 81 72 Respiratory Rate 15 Blood Pressure 109/66 Pulse Oximetry 98 98 Oxygen Delivery Method Room Air 07/29/24 20:30 07/29/24 20:30 07/29/24 21:00 Temperature Pulse Rate 78 67 Respiratory Rate 14 15 Blood Pressure 96/60 Pulse Oximetry 97 97 Oxygen Delivery Method Room Air Room Air MDM - Extremity (Nontraumatic) Differential Diagnosis Differential diagnosis: Likely cellulitis, superficial thrombophlebitis, lower extremity edema, deep vein thrombosis of lower extremity and other (Stenosis of iliac artery) Lab Data 07/29/24 19:59 07/29/24 19:59 Labs: Lab Results 07/29/24 Range/Units 19:59 WBC 8.5 (4.5-11.0) X10^3/uL RBC 4.52 (4.0-5.2) X10^6/uL Hgb 13.4 (12.0-16.0) g/dL Hct 38.8 (36-46) % MCV 85.9 (80-100) fL MCH 29.6 (26-34) PG MCHC 34.5 (30-36) % RDW 15.0 H (11.6-14.8) % Plt Count 229 (150-400) X10^3/uL Neut % (Auto) 69.0 (50-75) % Lymph % (Auto) 24.5 L (25-40) % [place] % (Auto) 5.9 (3-14) % Eos % (Auto) 0.3 L (2-4) % Baso % (Auto) 0.3 (0-2) % Neut # (Auto) 5900 (9168-5473) /uL Lymph # (Auto) 2100 (8704-2114) /uL [place] # (Auto) 500 (0-900) /uL Eos # (Auto) 0 (0-450) /uL Baso # (Auto) 0 (0-100) /uL Sodium 140 (137-145) mmol/L Potassium 3.8 (3.4-5.1) mmol/L Chloride 107 (98-107) mmol/L Carbon Dioxide 20 L (22-32) mmol/L BUN 11 (7-17) mg/dL Creatinine 0.59 (0.52-1.04) mg/dL Estimated GFR > 60 (>60) mL/min BUN/Creatinine Ratio 18.6 (6-22) Glucose 89 (70-99) mg/dL Calcium 9.4 (8.4-10.2) mg/dL Serum , Qual Negative (Negative) Imaging Data Aorta with runoff CTA: Radiologist's Impression: [address] [address] [address] Scan Report Signed Patient: Emilia Wasserman MR#: [id number] : 1995 Acct:[id number] Age/Sex: 28 / F Date of Service: 07/29/24 Loc: ED Accession Number: [id number] Procedure: CT angio abd aorta runoff Ordering Provider: Kurtis Smiley D.O. PROCEDURE: CT ANGIO ABD AORTA RUNOFF INDICATIONS: Patient with bilateral lower extremity swelling TECHNIQUE: After the administration of intravenous contrast, 2.5 mm sections acquired from T12 to the feet, with optional delayed image acquisition from the knees to the feet. 3-dimensional maximum intensity projection (MIP) coronal and sagittal reformats, and/or 3-dimensional volume rendering reformatting was then performed. For radiation dose reduction, the following was used: automated exposure control. COMPARISON: None. FINDINGS: Image Quality: Diagnostic. Abdominal aorta: No stenosis. Splanchnic vessels: No stenosis. Right lower extremity: No stenosis. Left lower extremity: No stenosis. Lower Chest: No significant findings. ABDOMEN: Liver: No solid mass. Gallbladder: No radiopaque gallstones or wall thickening. Biliary ducts: No biliary dilation. Pancreas: No ductal dilation. Spleen: Size is within normal limits. Adrenal Glands: No adrenal nodules. Kidneys and Ureters: No hydronephrosis. No solid mass. No complex renal cystic lesion which requires follow up. Stomach and Bowel: Normal colonic caliber, without significant wall thickening. Colonic diverticulosis without evidence of diverticulitis. Ileocecectomy. Peritoneum: No abnormal intraperitoneal fluid. No free air. Ventral Wall: No hernia. Abdominal Nodes: No retroperitoneal or mesenteric adenopathy by size criteria. Vessels: Aorta and inferior vena cava are normal in size. PELVIS: Pelvic Organs: Right-sided corpus luteum. Bladder: Unremarkable. Pelvic Nodes: No enlarged lymph nodes. Miscellaneous: No inguinal hernias are seen. Bones: No aggressive osseous abnormality. IMPRESSION: No hemodynamically significant stenosis or atherosclerotic disease. Symptoms may indicate venous insufficiency and outpatient venous insufficiency ultrasound should be considered for further workup. US - DVT: Radiologist's Impression: [address] [address] Ultrasound Report Signed Patient: Emilia Wasserman MR#: [id number] : 1995 Acct:[id number] Age/Sex: 28 / F Date of Service: 07/29/24 Loc: ED Accession Number: [id number] Procedure: US perip venous low extrem bi Ordering Provider: Kurtis Smiley D.O. PROCEDURE: US PERIP VENOUS LOW EXTREM BI INDICATIONS: swelling and pain TECHNIQUE: Real-time imaging, as well as color and pulse Doppler interrogation, were performed of the deep veins of both legs from the inguinal ligament to the popliteal fossa, with documentation of the visualized calf veins. COMPARISON: None. FINDINGS: Right: The common femoral, femoral, popliteal, and the visualized calf veins are normally compressible, and free of intraluminal thrombus. Color and pulse Doppler demonstrate normal phasic intravascular flow. There is normal augmentation response to distal compression maneuver. Left: The common femoral, femoral, popliteal, and the visualized calf veins are normally compressible, and free of intraluminal thrombus. Color and pulse Doppler demonstrate normal phasic intravascular flow. There is normal augmentation response to distal compression maneuver. IMPRESSION: No findings of deep venous thrombosis in either lower extremity. MDM Narrative Medical decision making narrative: 28-year-old female presenting for bilateral lower extremity swelling pain ongoing persistent for the past several months, she states this started after she had abdominal surgery in January of 2024. She states that she has been worked up by Cardiology neurology and her primary care doctor, however she states that they are looking at her back and her torso but has not? looked at her lower leg. She states that as she has been going through PT she is having increasing pain and discoloration whenever she is on her feet for a long time. At time of evaluation patient is not having the symptoms that she is laying down, however she states that if she were to stand up she would have significant discoloration. She is neurovascularly intact bilateral lower extremities. Patient had lab work imaging performed here. Lab work unremarkable, ultrasound negative for DVT, CTA without any signs of stenosis, but did note venous insufficiency and recommending outpatient venous insufficiency ultrasound. Patient was given strict return precautions she verbalized understanding of this instructed to follow up with primary care as well as vascular surgery in outpatient setting understands and agrees with this plan. Discharge Plan Departure Patient Disposition: Home Clinical Impression: Venous insufficiency of both lower extremities Instructions: Chronic Venous Insufficiency Activity Restrictions/Additional Instructions: Please continue to follow up with the primary care doctor, please follow up with the vascular surgery Please read the discharge instructions sheet carefully and bring all papers to all doctor follow-up visits, as it may contain information that your doctor may want to see. Disease processes change and evolve, if your symptoms worsen or if you develop any new symptoms that are concerning to you please return for evaluation. Your evaluation today does not show any evidence of any life-threatening/serious illnesses requiring admission to the hospital or surgery. Please follow-up with your doctor for re-evaluation in approximately 1 day. Seek immediate medical attention for any worrisome symptoms. *If you do not have a primary care provider please contact the [facility] Resource line at [phone]. They will ask some questions about your medical history and help get you set up with a doctor in the community. Prescriptions: No Action oxycodone 5 mg tablet 5 mg PO BID PRN tizanidine 2 mg tablet 2 mg PO Q8H PRN (Reason: for muscle spasm) Qty: 30 0RF amitriptyline 50 mg tablet 50 mg PO BEDTIME Qty: 90 3RF (DME) Disabled Parking See Rx Instructions .ROUTE .MEDSUPPLY Qty: 1 0RF Rx Instructions: I find this patient to be medical disabled and qualified for Disabled Parking as indicated, and signed, on the and the Accompanying Disabled Parking Application for Individuals. omeprazole 20 mg capsule,delayed release(DR/EC) 20 mg PO DAILY Qty: 60 0RF celecoxib [Celebrex] 200 mg capsule 200 mg PO BID PRN (Reason: pain) Qty: 60 1RF ondansetron 4 mg Tablet,Disintegrating 4 mg sublingual Q4HR PRN (Reason: Nausea) Qty: 30 0RF midodrine 10 mg tablet 10 mg PO TID Qty: 90 1RF Rx Instructions: do not give last dose of day after 6PM or within 4 hrs of bedtime Referrals: Jonathon Sims MD [Non-Staff] - (Vascular surgery follow up) Alyssa Philip MD [Primary Care Provider] - Stand Alone Forms: Patient Portal/API/Survey
--- NOTE | 2024-07-29 19:47 | DI.US.S_ITS ---
PROCEDURE: US PERIPH VENOUS LOW EXTREM BI INDICATIONS: swelling and pain TECHNIQUE: Real-time imaging, as well as color and pulse Doppler interrogation, were performed of the deep veins of both legs from the inguinal ligament to the popliteal fossa, with documentation of the visualized calf veins. COMPARISON: None. FINDINGS: Right: The common femoral, femoral, popliteal, and the visualized calf veins are normally compressible, and free of intraluminal thrombus. Color and pulse Doppler demonstrate normal phasic intravascular flow. There is normal augmentation response to distal compression maneuver. Left: The common femoral, femoral, popliteal, and the visualized calf veins are normally compressible, and free of intraluminal thrombus. Color and pulse Doppler demonstrate normal phasic intravascular flow. There is normal augmentation response to distal compression maneuver. IMPRESSION: No findings of deep venous thrombosis in either lower extremity. Dictated by: Jericho Knutson M.D. on 07/29/2024 at 21:03 Approved by: Jericho Knutson M.D. on 07/29/2024 at 21:04
--- NOTE | 2024-07-29 19:47 | DI.CT.S_ITS ---
PROCEDURE: CT ANGIO ABD AORTA RUNOFF INDICATIONS: Patient with bilateral lower extremity swelling TECHNIQUE: After the administration of intravenous contrast, 2.5 mm sections acquired from T12 to the feet, with optional delayed image acquisition from the knees to the feet. 3-dimensional maximum intensity projection (MIP) coronal and sagittal reformats, and/or 3-dimensional volume rendering reformatting was then performed. For radiation dose reduction, the following was used: automated exposure control. COMPARISON: None. FINDINGS: Image Quality: Diagnostic. Abdominal aorta: No stenosis. Splanchnic vessels: No stenosis. Right lower extremity: No stenosis. Left lower extremity: No stenosis. Lower Chest: No significant findings. ABDOMEN: Liver: No solid mass. Gallbladder: No radiopaque gallstones or wall thickening. Biliary ducts: No biliary dilation. Pancreas: No ductal dilation. Spleen: Size is within normal limits. Adrenal Glands: No adrenal nodules. Kidneys and Ureters: No hydronephrosis. No solid mass. No complex renal cystic lesion which requires follow up. Stomach and Bowel: Normal colonic caliber, without significant wall thickening. Colonic diverticulosis without evidence of diverticulitis. Ileocecectomy. Peritoneum: No abnormal intraperitoneal fluid. No free air. Ventral Wall: No hernia. Abdominal Nodes: No retroperitoneal or mesenteric adenopathy by size criteria. Vessels: Aorta and inferior vena cava are normal in size. PELVIS: Pelvic Organs: Right-sided corpus luteum. Bladder: Unremarkable. Pelvic Nodes: No enlarged lymph nodes. Miscellaneous: No inguinal hernias are seen. Bones: No aggressive osseous abnormality. IMPRESSION: No hemodynamically significant stenosis or atherosclerotic disease. Symptoms may indicate venous insufficiency and outpatient venous insufficiency ultrasound should be considered for further workup. Dictated by: Jericho Knutson M.D. on 07/29/2024 at 21:11 Approved by: Jericho Knutson M.D. on 07/29/2024 at 21:14
[2024-07-29 20:06] LABS: Add Manual Diff / Slide Review NO; Basophils Absolute Auto 0 /uL (0-100); Basophils Percent Auto 0.3 % (0-2); Eosinophils Absolute Auto 0 /uL (0-450); Eosinophils Percent Auto 0.3 % (2-4); Hematocrit 38.8 % (36-46); Hemoglobin 13.4 g/dL (12.0-16.0); Lymphocytes Absolute Auto 2100 /uL (1100-4500); Lymphocytes Percent Auto 24.5 % (25-40); Mean Corpuscular HGB Conc 34.5 % (30-36); Mean Corpuscular Hemoglobin 29.6 PG (26-34); Mean Corpuscular Volume 85.9 fL (80-100); Monocytes Absolute Auto 500 /uL (0-900); Monocytes Percent Auto 5.9 % (3-14); Neutrophils Absolute Auto 5900 /uL (1500-7000); Platelet Count 229 X10^3/uL (150-400); Red Blood Cell Count 4.52 X10^6/uL (4.0-5.2); White Blood Cell Count 8.5 X10^3/uL (4.5-11.0)
[2024-07-29 20:17] LABS: BUN Creatinine Ratio 18.6 (6-22); Blood Urea Nitrogen 11 mg/dL (7-17); Calcium 9.4 mg/dL (8.4-10.2); Carbon Dioxide 20 mmol/L (22-32); Chloride 107 mmol/L (98-107); Estimated Glomerular Filt Rate > 60 mL/min (>60); Glucose 89 mg/dL (70-99); HEMOLYSIS < 15 (0-50); Potassium 3.8 mmol/L (3.4-5.1); Sodium 140 mmol/L (137-145)
[2024-07-29 20:24] LABS: Pregnancy Test Serum,Qual Negative (Negative)
--- NOTE | 2024-07-29 20:31 | PC.NURSE ---
Pt to imaging via ED stretcher with spa technician
== END 2024-07-29 22:04 | disposition home or self-care (01) ==
PROVIDERS: Emergency Provider Student in an Organized Health Care Education/Training Program; PCP Family Medicine
DX: I87.2 Venous insufficiency (chronic) (peripheral) (principal)
CPT/HCPCS: 36415; 75635; 80048; 84703; 85025; 93970; 99283; 99284; Q9967

== ENCOUNTER → 2024-08-13 10:08 | Outpatient (CLI) | payer OTHER, SELFPAY ==
[2024-01-01 08:31] VITALS: BMI 25.1
--- NOTE | 2024-08-13 10:09 | DI.US.S_ITS ---
PROCEDURE: US VENOUS INSUFFICIENCY BILAT INDICATIONS: chronic venous insufficency TECHNIQUE: Real time scanning was performed of the lower extremity venous system, with imaging documentation, as well as Color and pulse Doppler interrogation. COMPARISON: [facility], , PERIP VENOUS LOW EXTREM , 07/29/2024, 20:15. FINDINGS: RIGHT LOWER EXTREMITY: No DVT identified No deep venous reflux identified. Greater saphenous vein (GSV): Normally 4 mm or less in diameter, with any reflux less than 0.5 seconds. Saphenofemoral junction (SFJ): 5 mm, 1.1 seconds Proximal GSV: 4 mm, 0.9 seconds Mid GSV: Small, not assessed Distal GSV: 3 mm. No reflux. Calf GSV: Small, not assessed Anterior accessory GSV (AAGSV): Anatomic variant not present across anterior thigh. Small saphenous vein (SSV): Posterior calf, draining into popliteal vein. Posterior calf: Small, not assessed Vein of Giacomini (posterior thigh connection between GSV and SSV): Anatomic variant not seen. Darkroom Technician veins: Not seen LEFT LOWER EXTREMITY: No DVT. Reflux is seen in the common femoral vein. Greater saphenous vein (GSV): Normally 4 mm or less in diameter, with any reflux less than 0.5 seconds. Saphenofemoral junction (SFJ): 4 mm, 1.9 seconds Proximal GSV: 5 mm, 0.8 seconds Mid GSV: 3 mm, no reflux Distal GSV: 3 mm, no reflux Calf GSV: Less than 2 mm, 0.6 seconds Anterior accessory GSV (AAGSV): Anatomic variant not present across anterior thigh. Small saphenous vein (SSV): Posterior calf, draining into popliteal vein. Posterior calf: Less than 2 mm, not assessed Vein of Giacomini (posterior thigh connection between GSV and SSV): Anatomic variant not seen. Darkroom Technician veins: Not seen IMPRESSION: Bilateral GSV reflux. Left common femoral venous reflux. Dictated by: Kal Chan M.D. on 08/18/2024 at 10:21 Approved by: Kal Chan M.D. on 08/18/2024 at 10:24
== END ==
LOC: US 10:09
PROVIDERS: PCP Family Medicine; Referring Provider Family Medicine; Visit Provider Family Medicine
DX: I87.2 Venous insufficiency (chronic) (peripheral) (principal)
CPT/HCPCS: 93970